=== PATIENT | male | born 1985 | race Caucasian/White ===

== ENCOUNTER 2022-07-05 22:49 | Emergency (ER) | payer OTHER ==
[2022-07-06] MEDS ORDERED: BENZONATATE100 MG PO (00:03)
== END 2022-07-06 00:18 | disposition home or self-care (01) ==
LOC: ED 22:49
DX: J20.9 Acute bronchitis, unspecified (principal); Z20.822 Contact with and (suspected) exposure to COVID-19
CPT/HCPCS: 71045; 87502; 99283-25; C9803; U0003

== ENCOUNTER 2022-09-03 23:26 | Inpatient (IN) | payer OTHER ==
[~2022-09-03] VITALS: Ht 188 cm; Wt 154.1 kg
[~2022-09-03 23:26] MED LIST: BENZONATATE100 MG PO
[2022-09-03] MEDS ORDERED: VENTOLIN HFA18 GM INH (23:49)
[2022-09-03] MEDS ORDERED: FLOVENT HFA12 G1 INH (23:49)
[2022-09-03] MEDS ORDERED: FLUTICASONE PRO16 GM NAS (23:50)
[2022-09-04] VITALS (10 sets, daily range): BP systolic 111–147; BP diastolic 57–79
--- NOTE | 2022-09-04 04:51 | NUR ---
PATIENT ARRIVED TO THE FLOOR VIA STRETCHER. PATIENT ABLE TO AMBULATED A SBA FROM STRETCHER TO HOSPITAL BED. PATIENT DENIES BEING DIZZY OR LIGHT HEADED. PATIENTS VITALS TAKE AND RECORDED. PATIENT UPDATED ON PLAN OF CARE AND ALL QUESTIONS ANSWERED. ASMISSION COMPLETED. ASSESMENT COMPLETED. FIRST UNIT OF PRBC COMPLETED AND 2ND UNIT STARTED.
--- NOTE | 2022-09-04 05:02 | NUR ---
THE FIRST 15MIN OF BLOOD TRASFUSION COMPLETED. NO S/SX NOTED OF TRANSFUSION REACTION. PATIENT DENIES ANY NEEDS. PATIENT IS RESTING IN BED WATCHING TV. CALL LIGHT IN REACH.
--- NOTE | 2022-09-04 05:17 | NUR ---
PATIENT REPORTS COUGH, PRN MEDICATION GIVEN PER ORDER. FRESH ICE WATER AND SODA PROVIDED. PATIENT IS RESTING IN BED AND DENIES ANY FURTHER NEEDS. CALL LIGHT IN REACH. BLOOD INFUSING PER ORDER.
--- NOTE | 2022-09-04 07:15 | NUR ---
PATIENTS 2 UNID OF PRBC COMPLETED INFUSING. FFP STARTED AND FIRST 15 COMPLETED. PATIENT DENIES ANY S/SX OF TRANSFUSION REACTION. PATIENT IS RESTING INBED WATCHING TV. PATIENT DENIES ANY NEEDS. CALL LIGHT IN REACH. IV INFUSING PER ORDER.
--- NOTE | 2022-09-04 07:23 | NUR ---
FFP INFUSING PER PROVIDER ORDER. PATIENT AWAKE, ALERT AND ORIENTED X4. PATIENT IS ON ROOM AIR, RESPIRATIONS NON LABORED, NOTABLE DRY COUGH. PATIENT DENIES SOB. ENCOURAGED PATIENT TO CALL STAFF IF HE HAS ANY NEEDS, CALL LIGHT WITHIN REACH.
--- NOTE | 2022-09-04 08:40 | NUR ---
FRESH FROZEN PLASMA INFUSION COMPLETED AT THIS TIME. PATIENT AWAKE EATING BREAKFAST, NO DISTRESS. PATIENT DENIES PAIN AND OR SHORTNESS OF BREATH. PATIENT REPORTS INTERMITTENT DRY COUGH. NO CURRENT NEEDS. IV SITE REMAINS PATENT.
--- NOTE | 2022-09-04 10:40 | NUR ---
Third unit of blood here per lab. Dr. Huang to review labs and decide as to whether patient to receive third unit prbc's.
--- NOTE | 2022-09-04 11:29 | EKG ---
[facility] [address] [place] [address] Signed Normal sinus rhythm Normal ECG No previous ECGs available Confirmed by Shauna Howard MD () on 09/04/2022 11:29:40 AM Electronically Signed By: SHAUNA HOWARD MD 09/04/22 1129 PATIENT NAME: DEONTE DAVID Electrocardiogram DATE OF : 85 PHYSICIAN: SHAUNA HOWARD MD REPORT #: [id number] REPORT IS CONFIDENTIAL AND NOT TO BE RELEASED WITHOUT AUTHORIZATION
--- NOTE | 2022-09-04 11:44 | NUR ---
CLARIFICATION FROM DR. HOWARD REGARDING ORDERED UNITS OF PACKED RED BLOOD CELLS. PATIENT TO RECEIVE A TOTAL OF FOUR UNITS OF PRBC'S. PATIENT HAS RECEIVED TWO UNITS OF PRBC'S THUS FAR AND TO RECEIVE TWO MORE UNITS PRBC'S TO TOTAL FOUR.
--- NOTE | 2022-09-04 12:00 | NUR ---
MED REC COMPLETE
--- NOTE | 2022-09-04 12:35 | NUR ---
ATTEMPTING SECOND IV SITE AT THIS TIME.
--- NOTE | 2022-09-04 13:00 | NUR ---
THIRD UNIT OF PRBC'S STARTED AT THIS TIME. SECOND RN VERIFICATION WITH ALVARADO MCLEAN PRIOR TO STARTING. VITAL SIGNS STABLE. PATIENT EDUCATED ON S/S OF TRANSFUSION REACTION. THIS RN TO REMAIN WITH PATIENT FOR FIFTEEN MINUTES.
--- NOTE | 2022-09-04 13:24 | NUR ---
PRBC'S CONTINUE TO INFUSE PER PROTOCOL. RATE INCREASED TO 150ML/HR. PATIENT'S VITAL SIGNS ARE STABLE, AFEBRILE. PT DENIES S/S OF TRANSFUSION REACTION. CALL LIGHT WITHIN REACH OF PATIENT. IV SITE PATENT.
--- NOTE | 2022-09-04 14:01 | NUR ---
INTO PATIENT ROOM TO SPEAK WITH PATIENT AND HIS SO TEO WHO IS AT THE BEDSIDE. PATIENT STATES [place] L[place] WITH STEPS LEADING IN. PATIENT STATES THAT PRIOR TO HIS ADMISSION HE WOULD BECOME SHOB WHEN WALKING UP THE STAIRS, WHICH AT THE TIME HE FELT WAS RELATED TO HIS BRONCHITIS. PATIENT DOES NOT REQUIRE ANY DME OR FINANCIAL ASSISTANCE AT THIS TIME. 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 DEMOGRAPHICS UPDATED WITH ADMITTING. CONTACT INFORMATION FOR TEO [phone] (CELL) AND [phone] (HOME).
--- NOTE | 2022-09-04 16:02 | NUR ---
THIRD UNIT OF PRBC'S COMPLETED AT THIS TIME. PATIENT'S VITAL SIGNS ARE STABLE, AFEBRILE. CALL LIGHT WITHIN REACH.
--- NOTE | 2022-09-04 16:55 | NUR ---
PLATELETS STARTED AT THIS TIME PER PROVIDER ORDER. PATIENT'S VITAL SIGNS ARE STABLE, AFEBRILE.
--- NOTE | 2022-09-04 18:03 | NUR ---
ROBITUSSIN AC 5ML ADMIN FOR REPORTS OF COUGH.
--- NOTE | 2022-09-04 19:20 | NUR ---
RECEIVED REPORT FROM DAY SHIFT RN. PATIENT IS RESTING IN BED WATCHING TV. UPDATED PATIENT ON PLAN OF CARE ALL QUESTIONS ANSWERED. CALL LIGHT IN REACH.
--- NOTE | 2022-09-04 20:50 | NUR ---
PATIENTS VITAS TAKEN AND RECORDED. PATIENTS INTAKE AND OUTPUT RECORDED. PATIENT DENIES ANY PAIN. PATIENTS PRBC STARTED AT APPROX 2020 AND 15MIN MONITORING COMPLETED. PATIENT DENIES ANY S/SX OF TRANSFUSION REACTION. PATIENT DENIES ANY FURTHRE NEEDS. CALL LIGTH IN REACH. BLOOD INFUSING PER ORDER.
--- NOTE | 2022-09-04 21:54 | NUR ---
PATIENT IS RESTING IN BED WITH EYES CLSOED, RR 17. CALL LIGHT IN REACH. BLOOD INFUSING PER ORDER.
--- NOTE | 2022-09-04 22:45 | NUR ---
PATIENTS BLOOD TRANSFUSION COMPLETED. VITALS TAKEN ANDS RECORDED. PATIENT MARIPOSA ANY S/SX OF TRANSFUSION REACTION. PATIENT IS NOW SL PER ORDER. PATIENT DENIES ANY FURTHER NEEDS. CALL LIGHT IN REACH.
--- NOTE | 2022-09-05 00:23 | NUR ---
URINAL EMPTIED. PATIENT IS RESTING IN BED. PATIENT DENIES ANY NEEDS. CALL LIGHT IN REACH.
[2022-09-05 01:49] VITALS: BP 15/76
--- NOTE | 2022-09-05 02:19 | NUR ---
PATIENTS VITALS TAKEN AND RECORDED. INTAKE AND OUTPUT RECORDED. PATIENT DENIES ANY PAIN. PATIENT DENIES ANY NEEDS. CALL LIGHT IN REACH.
--- NOTE | 2022-09-05 04:18 | NUR ---
PATIENT IS RESTING IN BED WATCHING TV. TELE BATTERY CHANGED. PATIENT PROVIDED WITH COFFEE PER REQUEST. PATIENT DENIES ANY FURTHER NEEDS. CALL LIGHT IN REACH.
[2022-09-05 05:12] VITALS: BP 132/79
--- NOTE | 2022-09-05 05:27 | NUR ---
PATIENTS VITALS TAKEN AND RECORDED. INTAKE AND OUTPUT RECORDED. PATIENT DENIES ANY NEEDS. CALL LIGHT IN REACH.
--- NOTE | 2022-09-05 05:55 | NUR ---
PATIENT IS RESTING IN BED WATCHING TV. PATIENT DENIES ANY NEEDS. CALL LIGHT IN REACH.
--- NOTE | 2022-09-05 07:30 | NUR ---
Got report from production supervisor off shift nurse. Patient is currently asleep in bed. Call light within reach.
[2022-09-05 09:29] VITALS: BP 145/78
--- NOTE | 2022-09-05 09:59 | NUR ---
Patient up and walking the hallway with . Patient wanted to wear his own clothes and this nurse helped him change.
--- NOTE | 2022-09-05 10:45 | NUR ---
Vitals taken and patient platlets are started. See blood administation charting. Paperwork done.
--- NOTE | 2022-09-05 11:30 | NUR ---
Spoke with patient and his Noemi. Plan to dc today. They deny needs and per Dr. Huang he spoke with Dr. Fox from oncology and he will follow up with this pt. I called and spoke with Sonal Edward from [facility] and scheduled pt to be see 09/11/22 at 10:00. Entered appt into the dc instructions and notified the pt. Will fu with Dr. Huang when he finishes in CCU.
--- NOTE | 2022-09-05 12:10 | NUR ---
3 units of platlets infused. No complications or reactions. See Blood administration charting.
[2022-09-05 13:32] VITALS: BP 118/72
--- NOTE | 2022-09-05 13:39 | NUR ---
Into check on patient. Patient currently sitting on the side of the bed. Patient is ready to go home. Advised patient that we are waiting for labs to come back and then will go from there. Pt agrees to plan.
[2022-09-05] MEDS ORDERED: ALLOPURINOL300 MG PO (14:45)
--- NOTE | 2022-09-05 15:15 | NUR ---
PATIENT READY TO GO HOME. TO TAKE PATIENT HOME WITH SON. BOTH IV'S HAVE BEEN REMOVED. BELONGINGS WITH PATIENT. EDUCATION DONE AND GIVEN WRITTEN PAPERS TO PATIENT. PATIENT DENIES ANY NEEDS AT THIS TIME. NO CONCERNS.
--- NOTE | 2022-09-05 15:27 | NUR ---
Entire chart printed and [facility] to [facility] to
== END 2022-09-05 15:15 | disposition home or self-care (01) | DRG 835 ==
LOC: ED 23:26 → MS 09-04 03:10
PROVIDERS: ADMIT Family Medicine; ATTEND Family Medicine
PROC: 30233K1 Transfusion of Nonautologous Frozen Plasma into Peripheral Vein, Percutaneous Approach (ICD-10-PCS; 2022-09-04)
PROC: 30233L1 Transfusion of Nonautologous Fresh Plasma into Peripheral Vein, Percutaneous Approach (ICD-10-PCS; 2022-09-04)
PROC: 30233R1 Transfusion of Nonautologous Platelets into Peripheral Vein, Percutaneous Approach (ICD-10-PCS; principal; 2022-09-05)
PROC: 30233N1 Transfusion of Nonautologous Red Blood Cells into Peripheral Vein, Percutaneous Approach (ICD-10-PCS; 2022-09-05)
DX: C92.00 Acute myeloblastic leukemia, not having achieved remission (principal); N17.9 Acute kidney failure, unspecified; Z20.822 Contact with and (suspected) exposure to COVID-19; D69.59 Other secondary thrombocytopenia; D63.0 Anemia in neoplastic disease; E87.6 Hypokalemia; J40 Bronchitis, not specified as acute or chronic; F17.200 Nicotine dependence, unspecified, uncomplicated; R73.9 Hyperglycemia, unspecified; Z79.51 Long term (current) use of inhaled steroids; Z79.899 Other long term (current) drug therapy
CPT/HCPCS: 36415; 71045; 74177; 80053; 80074; 81001; 82728; 82977; 83036; 83735; 84443; 84484; 85025; 85045; 85060; 85610; 86850; 86900; 86901; 86922; 87502; 93005; 93010; 94640; 94760; C9113; J3480; J3490; J7030; J7060; P9035; P9059; Q9967; U0003

== ENCOUNTER 2022-09-14 09:50 | Day surgery (SDC) | payer OTHER ==
[2022-09-12 08:21] VITALS: BP 123/84
[~2022-09-14] VITALS: Ht 188 cm; Wt 152.3 kg
[~2022-09-14 09:50] MED LIST changes: +ALLOPURINOL300 MG PO; +AUGMENTIN 500-1 EACH PO; +CIPRO500 MG PO; +FLOVENT HFA12 G1 INH; +FLUTICASONE PRO16 GM NAS; +VENTOLIN HFA18 GM INH
[2022-09-14 10:03] VITALS: BP 130/75
--- NOTE | 2022-09-14 12:30 | NUR ---
09/14/22 1230 Sheets,[place] 1218 PT ARRIVED TO PACU ON 10L VIA MASK, ORAL AIRWAY IN PLACE. PT ASLEEP AND RESP EVEN AND UNLABORED. 1220 PT OPENED HIS EYES AND ORAL AIRWAY REMOVED BY RETAIL OFFICE ASSOCIATE. PT DENIES CONCERNS, PT REPORTS BEING DROWSY. 1228 PT ROLLED TO SIDE AND O2 MASK REMOVED. PT DENIES PAIN AND NAUSEA.
[2022-09-14 12:54] VITALS: BP 142/82
--- NOTE | 2022-09-21 17:56 | PATH ---
[facility] [address] [place], [place] [address] Signed THIS IS AN ADDENDUM REPORT SPECIMEN(S): A BONE MARROW - DECAL CLINICAL HISTORY: 36-year-old male with leukocytosis, anemia, low platelets, diffuse mucosal petechiae. 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 - Marked monocytosis with atypical morphology. - Eosinophilia with atypical morphology. - Moderate to severe normocytic normochromic anemia. - Marked thrombocytopenia. Bone marrow aspirate and core biopsy: - Acute myeloid leukemia with monocytic differentian. - Please see Diagnostic Comment. DIAGNOSTIC COMMENT: The bone marrow is hypercellular approaching 100% cellularity in some areas with an increased number of immature cells/blasts present. Increased number of monocytic cells with many immature forms is also noted. Concurrent flow cytometry analysis identified 16% myeloblasts and expanded monocytoid population with atypical features and phenotype that could include monoblasts and promyelocytes (blast equivocals). Peripheral blood also shows 22% blasts and blasts equivocals including many immature monocytoid cells. Blast estimation by CD34 immunohistochemical stain on core biopsy is about 15%. The aspirate smears are acellular and inadequate and a blast count could not be performed. 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 Cytogenetics and NGS myeloid panel are pending and will be reported in an addendum. PATIENT NAME: DEONTE DAVID PATHOLOGY DATE OF : [birth year] REPORT #: [id number] PHYSICIAN: JESSICA PATHOLOGY PCP: ANYA ALLAN MD REPORT IS CONFIDENTIAL AND NOT TO BE RELEASED WITHOUT AUTHORIZATION [facility] [address], [place] [address] Signed Findings discussed with Dr. Fox on Sunday09/18/22. NA:smn:C1NR PERIPHERAL BLOOD: HEMOGRAM ([facility], 09/14/2022): WBC 18.3 K/uL, RBC 2.40 M/uL, HGB 7.3 g/dL, HCT 21.5%, MCV 89.5 fL, MCH 30.3 pg, MCHC 33.9 g/dL, RDW 15.2%, PLT 22 K/uL. DIFFERENTIAL COUNT (manual): 10% blasts, 12% promonocytes, 2% myelocytes, 18% segmented neutrophils, 20% lymphocytes, 31% monocytes, 6% eosinophils, 1% basophils. Review of peripheral blood smear and CBC data demonstrates that the WBCs are increased in number with monocytosis present. A circulating population of blasts is present. The blasts have high N:C ratio with irregular nuclear contour, fine chromatin and occasional nucleoli. Immature monocytes/promonoblasts are also seen. The eosinophils are increased with occasional eosinophils show atypical basophilic granules. The RBCs are decreased in number and are normocytic, normochromic with moderate to severe anemia present. The platelets are also markedly decreased in number. BONE MARROW: BONE MARROW ASPIRATE SMEARS: The bone marrow aspirate smears are acellular with no bone marrow particles present. Smears are not adequate for evaluation. BONE MARROW CORE BIOPSY: The bone marrow core biopsy demonstrates hypercellular bone marrow with average cellularity approaching 100%. There is increase in immature cells with monocytic differentiation noted. In the background, scattered maturing myeloid precursors and increased number of eosinophils are noted. The megakaryocytes are scattered and appear decreased in number with occasional hyperchromatic forms encountered. There are no lymphoid aggregates, granulomas or metastatic tumor cells present. SPECIAL STAINS (performed with appropriate reactive control): - Iron (aspirate smear): Absent (no bone marrow particles). - Iron (block A1): Storage iron present; negative for ring sideroblasts. - Reticulin (block A1): Moderate increase in bone marrow reticulin fibrosis (MF-2). IMMUNOHISTOCHEMICAL STAINS (performed on block A1 with appropriate reactive control): - CD34: Highlights increased number of immature cells/blasts (10-15%). - CD117: Highlights increased number of immature cells/blasts (20%). - CD71: Highlights scattered erythroid precursors, decreased. PATIENT NAME: DEONTE DAVID PATHOLOGY DATE OF : [birth year] REPORT #: [id number] PHYSICIAN: JESSICA PATHOLOGY PCP: ANYA ALLAN MD REPORT IS CONFIDENTIAL AND NOT TO BE RELEASED WITHOUT AUTHORIZATION [facility] [address] [facility] [place], [place] [address] Signed - Myeloperoxidase: Highlights myeloid precursors and is positive in a subset of blasts. - Factor VIII: Highlights scattered few megakaryocytes, decreased. - CD163: Highlights increased number of monocytes. NA:[facility] FLOW CYTOMETRY: FLOW CYTOMETRY, PERIPHERAL BLOOD: - 12% myeloblasts. - Expanded monocytic population (52%) with atypical phenotype. - No aberrant T or B-cell population detected. - Please see Comment. COMMENT: 12% myeloblasts which are positive for CD34, CD117, HLA-DR and MPO (subset). Expanded monocytoid population (32%), with atypical phenotype is detected, which may include monoblasts and promonocytes (blasts equivalents). Findings are concerning for acute myeloid leukemia with monocytic differentiation and morphologic correlation is needed for a more accurate assessment of blast burden. The findings are similar to the previous phenotype ([id number], 09/04/22). Correlation with morphologic and molecular findings is needed for full assessment. FLOW CYTOMETRY ANALYSIS: FLOW DIFFERENTIAL (% Total CD45 vs. SSC gating): Myeloid 18%; Lymphoid 10%; Monocyte 52%; Dim CD45/Blast: 12%. Cell Count: 1.2 x 10*3/uL. POPULATION ANALYSIS: BLASTS: Analysis of the dim CD45 gate demonstrates 12% myeloblasts expressing CD45 DIM, CD34 MOD, CD117 DIM, CD33 DIM, CD13 MOD, CD38 DIM, HLA-DR (variable), and cMPO (in minor subset) while negative for CD14, CD15, CD16, CD56, CD2, CD3, CD4, CD5, CD7, CD10, CD19, CD20, CD64, CD11c, CD11b, MY4, MO2, nTDT, cCD22, cCD3, cCD79a, and other antigens as tested. LYMPHOID CELLS: The lymphocyte gate comprises 10% of total events and includes 79% T-cells with a CD4:CD8 ratio of 2.2:1 and normal andujar T-cell antigen expression. 9% of lymphocytes are polyclonal B-cells with a kappa:lambda ratio of 1.4:1. The remainders are NK-cells. MYELOID CELLS: The myeloid population comprises 18% of the total events. No aberrant or immature immunophenotypic expression is detected. MONOCYTES: An expanded atypical monocytic population comprises 52% of the total events demonstrating increased expression with CD56, CD16, and CD15; and with decreased expression with CD14 and HLA-DR. PATIENT NAME: DEONTE DAVID PATHOLOGY DATE OF : [birth year] REPORT #: [id number] PHYSICIAN: JESSICA PATHOLOGY PCP: ANYA ALLAN MD REPORT IS CONFIDENTIAL AND NOT TO BE RELEASED WITHOUT AUTHORIZATION [facility] [address], [place] [address] Signed PLASMA CELLS: A significant plasma cell population is not detected in the neg-dimCD45/CD38 screening gate. ANTIBODIES USED: Initial Antibodies Used: KAPPA, LAMBDA, CD20, CD10, CD19, CD23, CD38, CD16, CD56, CD8, CD5, CD2, CD4, CD7, CD3, CD14, CD33, CD13, HLADR, CD34, CD117, CD15, CD45. Additional Antibodies (necessary for further blast classification): nTDT, cMPO, cCD79a, cCD22, cCD3, my4, mo2, CD11c, CD11b, CD64. Total Antibodies Used: 33. TCS FINAL DIAGNOSIS PERFORMED BY: Donavan Dixon MD, Sep 19 2022 1:35PM FLOW CYTOMETRY, BONE MARROW ASPIRATE: - 16% myeloblast, - Expanded monocytic population (32%) with atypical phenotype. - No aberrant T or B-cell population detected. - Please see Comment. COMMENT: 16% myeloblasts which are positive for CD34, CD117, HLA-DR and MPO (subset). Expanded monocytoid population (32%), with atypical phenotype is detected, which may include monoblasts and promonocytes (blasts equivalents). Findings are concerning for acute myeloid leukemia with monocytic differentiation and morphologic correlation is needed for a more accurate assessment of blast burden. The phenotype is similar to the peripheral blood findings. Correlation with morphologic and molecular findings is needed for full assessment. FLOW CYTOMETRY ANALYSIS: FLOW DIFFERENTIAL (% Total CD45 vs. SSC gating): Myeloid 35%; Lymphoid 6%; Monocyte 32%; Dim CD45/Blast: 16%. Cell Count: 5.8 x 10*3/uL. POPULATION ANALYSIS: BLASTS: Analysis of the dim CD45 gate demonstrates 16% myeloblasts by CD34/CD117 expressing CD45 DIM, CD34 MOD, CD117 DIM, CD33 DIM, CD13 MOD, CD38 DIM, HLA-DR (variable), and cMPO (in minor subset) while negative for CD14, CD15, CD16, CD56, CD2, CD3, CD4, CD5, CD7, CD10, CD19, CD20, CD64, CD11c, CD11b, MY4, MO2, nTDT, cCD22, cCD3, cCD79a, and other antigens as tested. LYMPHOID CELLS: The lymphocyte gate comprises 6% of total events and includes 71% T-cells with a CD4:CD8 ratio of 1.5:1 and normal andujar T-cell antigen expression. 18% of lymphocytes are polyclonal B-cells with a kappa:lambda ratio of 1.3:1. The remainders are NK-cells. PATIENT NAME: DEONTE DAVID PATHOLOGY DATE OF : [birth year] REPORT #: [id number] PHYSICIAN: JESSICA LIZARRAGA PCP: ANYA ALLAN MD REPORT IS CONFIDENTIAL AND NOT TO BE RELEASED WITHOUT AUTHORIZATION [address] [address] Signed MYELOID CELLS: The myeloid population comprises 35% of the total events. No aberrant or immature immunophenotypic expression is detected. MONOCYTES: An expanded atypical monocytoid population comprises 32% of the total events demonstrating increased expression with CD2, CD16 and CD15; with decreased CD14 and HLA-DR. PLASMA CELLS: 0.3% plasma cells are detected in the screening gate neg-dimCD45/CD38. Plasma cells are CD45 dim and positive for CD19. MAST CELLS: 1% mast cells are observed without co-expression of CD2 or CD25. ANTIBODIES USED: Initial Antibodies Used: KAPPA, LAMBDA, CD20, CD10, CD19, CD23, CD38, CD16, CD56, CD8, CD5, CD2, CD4, CD7, CD3, CD14, CD33, CD13, HLADR, CD34, CD117, CD15, CD45. Additional Antibodies (necessary for further blast and mast cell analysis): nTDT, cMPO, cCD79a, cCD22, cCD3, my4, mo2, CD11c, CD11b, CD64, CD25. Total Antibodies Used: 34. TCS FINAL DIAGNOSIS PERFORMED BY: Donavan Dixno MD, Sep 19 2022 1:39PM CYTOGENETICS: Pending, to be reported by addendum. FISH ANALYSIS: FISH (fluorescence in situ hybridization) RESULT: Detected INTERPRETATION: PML/MARYLU rearrangement: Not detected. CBFB rearrangement: Detected. LIXV7F2/RUNX1 rearrangement: Not detected. KMT2A (MLL) rearrangement: Not detected. 7q deletion/monosomy 7: Not detected. Trisomy 8: Not detected. 20q deletion: Not detected. Fluorescence in situ hybridization (FISH) analysis was performed using the AML panel specific set of probes. 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 There is no evidence for PML/MARYLU gene fusion, t(15;17) or WOMF0Y2/RUNX1 gene fusion, t(8;21) or KMT2A (MLL) gene rearrangement and no evidence for deletion 7q, or 20q, or monosomy 7 or trisomy 8. 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 FISH should be interpreted within the context of a full cytogenetic analysis and hematologic evaluation. ISCN: Probe Set Detail: PML/MARYLU: nuc sari 15q24.1(PMLx2),17q21.1(RARAx2)[200] CBFB: nuc sari 16q22(5'CBFBx2)(3'CBFBx1)(5'CBFB con 3'CBFBx1)[174/200] SAXR4R3/RUNX1: nuc sari 8q21 (DXVP6O6t2),21q22(AUWD6j0)[200] KMT2A (MLL): nuc sari 11q23(5'KMT2A,3'KMT2A)x2(5'KMT2A con 3'WJQ8Ui7)[200] R4A050/CEP7: nuc sair 7q31(S4E326l0),7q11.2q11.21(CEP7x2)[200] CEP8: nuc sari 8q11.1q11.21(CEP8x2)[200] S98H374: nuc sari 20q12(T54I439y4)[200] References: Turner of Genetics and Cytogenetics in Oncology and Hematology [email or web address] FISH Analysis Summary: Nuclei Scored: 200 Scoring Method: Manual; CPT Code 07646 Number of Probe units: 6 Multiplex Cells analyzed: Interphase Probe sets: Chrom 7: CEN7, Chrom 7: Y9Q5235, Chrom 8: SWAPNIL 8 , Chrom 8: JEJU0X3, Chrom 11: KMT2A (MLL) 3', Chrom 11: KMT2A (MLL) 5', Chrom 15: PML, Chrom 16: CBFB 3', Chrom 16: CBFB 5', Chrom 17: MARYLU, Chrom 20: J80H146, Chrom 21: RUNX1 MOLECULAR / PCR: Pending, to be reported by addendum. GROSS DESCRIPTION: The specimen, labeled and designated "David, bone marrow core biopsy," is received in formalin and consists of a red-marino core of bone (1.2 cm in length x 0.2-0.3 cm in diameter). The specimen is submitted entirely in cassette (A1) following decalcification in Immunocal. A separate container was received empty with a crossed off 0 (0/clot) written on the label. Per req "limited aspirate 0/clot." VB (under the direct supervision of a pathologist) The Gross Description was prepared using a voice recognition system. The report was reviewed for accuracy; however, sound-alike word errors, addition and/or PATIENT NAME: DEONTE DAVID PATHOLOGY DATE OF : [birth year] REPORT #: [id number] PHYSICIAN: JESSICA LIZARRAGA PCP: ANYA ALLAN MD REPORT IS CONFIDENTIAL AND NOT TO BE RELEASED WITHOUT AUTHORIZATION [facility] [address], [place] [address] Signed deletions may occur. If there is any question about this report, please contact Client Services. ADDITIONAL NOTES: Immunohistochemical and/or in situ hybridization studies were performed on this case with the appropriate positive controls that react as expected. This test was developed and its performance characteristics determined by [employer]. It has not been cleared or approved by the U.S. Food and Drug Administration. The FDA has determined that such clearance or approval is not necessary. This test is used for clinical purposes. It should not be regarded as investigational or for research. [employer] is certified under the Clinical Laboratory Improvement Amendments of 1988 (CLIA) as qualified to perform high complexity clinical laboratory testing. This assay has not been validated for specimens that have been decalcified. In this case, certain antibodies were performed by both immunohistochemistry and flow cytometry analysis because flow cytometry analysis did not fully explain all the light microscopic findings. Immunohistochemistry aided in the analysis. Both methods are deemed medically necessary in this case. This test was developed and its performance characteristics determined by [employer] It has not been cleared or approved by the US Food and Drug Administration. The [employer] probe vendor for this study was [employer]. This test was developed and its performance characteristics determined by [employer]. It has not been cleared or approved by the US Food and Drug Administration. The FDA does not require this test to go through premarket FDA review. This test is used for clinical purposes. It should not be regarded as investigational or for research. This laboratory is certified under the Clinical Laboratory Improvement Amendments (CLIA) as qualified to perform high complexity clinical laboratory testing. PERFORMING LABORATORY: The technical preparation was performed by [facility], [address] [place] [address] (CLIA#: [id number]). Professional interpretation was performed by [employer], [address] [place] [address] (CLIA# [id number]). The technical component of the FISH testing was performed by [employer], [address] [place] [address] (CLIA#: PATIENT NAME: DEONTE DAVID PATHOLOGY DATE OF : [birth year] REPORT #: [id number] PHYSICIAN: JESSICA LIZARRAGA PCP: ANYA ALLAN MD REPORT IS CONFIDENTIAL AND NOT TO BE RELEASED WITHOUT AUTHORIZATION [address] [address] Signed [id number]). Professional interpretation was performed by [facility], [address] [facility] [place] [address] (CLIA#: [id number]). FINAL DIAGNOSIS PERFORMED BY: Varun Thao MD. MPH, Pathologist Sep 19 2022 4:43PM The technical component was performed by [employer], [address] [place] [address] (CLIA# [id number]). Professional interpretation was performed by [employer], [address] [place] [address] (CLIA# [id number]). IMAGES: A: [id number] A: [id number] A: [id number] A: 55 BM_002 A: CBFB 1R1F_001 A: CBFB 1R1F_002 A: CBFB 1R1F_003 REASON FOR ADDENDUM: To report results of external testing. Peripheral Blood, Molecular Genetics FLT3 Mutation Analysis Results: FLT3 Mutation: Not Detected FLT3-ITD Mutation: Not Detected FLT3-TKD Mutation: Not Detected Clinical Significance: FLT3 internal tandem duplications (ITD) occur in approximately 25% of acute myeloid leukemia (AML) patients; while FLT3 tyrosine kinase domain (TKD) mutations occur in 5-10% of AML patients. Midostaurin and gilteritinib are FDA-approved for AML with FLT3-ITD and TKD mutations (PMID:66334621, PMID:29664186). FLT3 mutations are frequently associated with leukocytosis. Testing for FLT3-ITD and NPM1 mutations in AML patients with normal or intermediate-risk cytogenetic abnormalities can help risk stratify patients as favorable, intermediate or poor risk, depending on the specific combination of findings. According to 2017 ELN guidelines for AML, the presence of high FLT3-ITD allelic ratio is a poor risk unless there is a concurrent NPM1 mutation, in which case it is intermediate risk. Wild-type NPM1 without FLT3-ITD or with low FLT3-ITD allelic ratio is intermediate risk. Mutated NPM1 without PATIENT NAME: DEONTE DAVID PATHOLOGY DATE OF : [birth year] REPORT #: [id number] PHYSICIAN: JESSICA PATHOLOGY PCP: ANYA ALLAN MD REPORT IS CONFIDENTIAL AND NOT TO BE RELEASED WITHOUT AUTHORIZATION [facility] [address] [facility] [place] [address] Signed FLT3-ITD or with low FLT3-ITD allelic burden is favorable risk. However, some studies have shown that NPM1-mutated, FLT3-ITD low allelic burden patients have inferior survival compared to other favorable risk patients. The prognostic significance of a FLT3 TKD mutation is less well-defined than that of FLT3-ITD. Methodology: DNA is isolated from the patient sample, and the two FLT3 sequences of interest are PCR-amplified using fluorescently labeled primers. The TKD PCR product is cut with the EcoRV restriction enzyme and detects variants D835 and I836. The ITD and the digested TKD PCR products are run on an [id number] genetic analyzer to determine the size of the amplified DNA fragments, which are compared to expected values for known wildtype and mutant sequences. Wildtype ITD produces a fragment approximately 327 +/- 1 bp, while the presence of an insertion produces a fragment >/=330 bp. The FLT3 wildtype and the ITD peak size and peak height are evaluated and used for calculation of allelic ratio (FLT3-ITD/wildtype). FLT3-ITD allelic ratio =0.5 is high. This assay is validated to detect ITD insertions of up to 234bp in size that comprise at least 2.5% of FLT3 alleles tested, and to detect TKD mutations that comprise at least 7.5% of FLT3 alleles tested. References: 1. NCCN Clinical Practice Guidelines in Oncology (NCCN Guidelines): Acute Myeloid Leukemia. Version 1.2018 The Accessioning Component, Technical Component Processing, Analysis and Professional Component of this test was completed at [facility], [address] [place] [address], [place] / [id number] / [phone] / BRETTIA # [id number] / Cement Block Maker(s): Adam Poe M.D. (Accession / CaseNo: [id number] / [id number]) The performance characteristics of this test have been determined by [facility]. This test has not been approved by the FDA. The FDA has determined such clearance or approval is not necessary. This laboratory is CLIA certified to perform high complexity clinical testing. Images that may be included within this report are territory sales representative of the patient but not all testing in its entirety and should not be used to render a result. The CPT codes provided with our test descriptions are based on [employer] and AMA guidelines and are for informational purposes only. Correct CPT coding is the sole responsibility of the billing green party. Please direct any questions regarding coding to the payer being billed. PATIENT NAME: DEONTE DAVID PATHOLOGY DATE OF : [birth year] REPORT #: [id number] PHYSICIAN: JESSICA PATHOLOGY PCP: ANYA ALLAN MD REPORT IS CONFIDENTIAL AND NOT TO BE RELEASED WITHOUT AUTHORIZATION [facility] [address] [place] [address] Signed Diagnostician: Donavan Dixon MD Pathologist Electronically Signed 09/21/2022 Copies: ~ PATIENT NAME: DEONTE DAVID PATHOLOGY DATE OF : [birth year] REPORT #: [id number] PHYSICIAN: JESSICA PATHOLOGY PCP: ANYA ALLAN MD REPORT IS CONFIDENTIAL AND NOT TO BE RELEASED WITHOUT AUTHORIZATION
== END 2022-09-14 13:06 | disposition home or self-care (01) ==
LOC: DS 09:50 → OPS 09:50 → DS 12:00 → OPS 12:00
PROVIDERS: ATTEND Specialist
PROC: 079T3ZX Drainage of Bone Marrow, Percutaneous Approach, Diagnostic (ICD-10-PCS; principal; 2022-09-14 12:00)
DX: C92.01 Acute myeloblastic leukemia, in remission (principal); Z79.899 Other long term (current) drug therapy
CPT/HCPCS: 01112; 36415; 85007; 85025; J2704; J7121

== ENCOUNTER 2022-11-23 17:02 | Inpatient (IN) | payer OTHER ==
[~2022-11-23] VITALS: Ht 188 cm; Wt 140.6 kg
--- OUTSIDE RECORDS SUMMARY | ~2022-11-23 | XMS | Continuity of Care Document ---
Demographics + + + | Address | [address] | | | [place] [address] | + + + | Preferred Language | Unknown | + + + | Marital Status | | + + + | Evangelical Affiliation | Unknown | + + + | Race | White | + + + | Ethnic Group | Not or | + + + Author + + + | Author | [facility] | + + + | Organization | [facility] | + + + | Address | [address] | | | [place] [address] | + + + | Phone | | + + + Care Team Providers + + + + | [facility] [employer] Utility Worker Name | Role | Phone | + [...] facility | + + + + | 2022-09-05 00:00 | FLUTICASONE PROPIONATE 50 | [facility] | | | MCG | | + + + + | 2022-09-05 00:00 | ALLOPURINOL | [facility] | + + + + | 2022-09-05 00:00 | ALLOPURINOL | [facility] | + + + + | 2022-09-05 00:00 | ALLOPURINOL | [facility] | + + + + | 2022-07-06 00:00 | BENZONATATE | [facility] | + + + + | 2022-07-06 00:00 | BENZONATATE | [facility] | + + + + | 2022-07-06 00:00 | BENZONATATE | [facility] | + + + + | 2022-09-14 00:00 | CIPROFLOXACIN HCL | [facility] | + + + + | 2022-09-18 00:00 | CIPROFLOXACIN HCL | [facility] | + + + + | 2022-09-14 00:00 | Amoxicillin/Potassium Clav | [facility] | | | | | + + + + | 2022-09-18 00:00 | Amoxicillin/Potassium Clav | [facility] | | | | | + + + + | 2022-09-05 00:00 | ALBUTEROL SULFATE | [facility] | + + + + | 2022-09-09 00:00 | ALBUTEROL SULFATE | [facility] | + + + + | 2022-09-14 00:00 | ALBUTEROL SULFATE | [facility] | + + + + | 2022-09-18 00:00 | ALBUTEROL SULFATE | [facility] | + + + + | 2022-09-05 00:00 | FLUTICASONE PROPIONATE 220 | [facility] | | | MCG | | + + + + | 2022-09-14 00:00 | FLUTICASONE PROPIONATE 220 | [facility] | | | MCG | | + + + + | 2022-09-18 00:00 | FLUTICASONE PROPIONATE 220 | [facility] | | | MCG | | + + + + Problems + + + + | date | description | facility | + + + + | 2022-07-05 00:00 | Acute bronchitis | [facility] | + + + + | 2022-07-05 00:00 | Acute bronchitis | [facility] | + + + + | 2022-07-05 00:00 | Acute bronchitis | [facility] | + + + + | 2022-07-05 22:50 | ACUTE BRONCHITIS, | [facility] | | | UNSPECIFIED | | + + + + | 2022-07-05 22:50 | COUGH, UNSPECIFIED | [facility] | + + + + | 2022-09-04 00:00 | Anemia | [facility] | + + + + | 2022-09-04 00:00 | Anemia | [facility] | + + + + | 2022-09-04 00:00 | Anemia | [facility] | + + + + | 2022-09-04 00:00 | Thrombocytopenia | [facility] | + + + + | 2022-09-04 00:00 | Thrombocytopenia | [facility] | + + + + | 2022-09-04 00:00 | Thrombocytopenia | [facility] | + + + + | [...] + + + | 2022-09-04 03:10 | SENIOR CARE (CURRENT) USE OF | [facility] | | | INHALED STEROIDS | | + + + + | 2022-09-04 03:10 | OTHER CASE WORKER (CURRENT) | [facility] | | | 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 | | + + + + | 2022-09-09 00:00 | [facility] | + + + + | 2022-09-09 00:00 | Weakness | [facility] | + + + + | 2022-09-09 [...] + + | 2022-09-09 10:45 | OTHER SENIOR CARE (CURRENT) | [facility] | | | 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 | | + + + + | 2022-09-14 09:50 | ACUTE MYELOBLASTIC | [facility] | | | LEUKEMIA, IN REMISSIO | | + + + + | 2022-09-14 09:50 | ACUTE MYELOBLASTIC | [facility] | | | LEUKEMIA, IN REMISSION | | + + + + | 2022-09-14 09:50 | OTHER SENIOR CARE (CURRENT) | [facility] | | | 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 | | + + + + | 2022-09-18 00:00 | Hemoptysis | [facility] | + + + + | [...] + + | 2022-09-18 12:43 | OTHER CASE WORKER (CURRENT) | [facility] | | | DRUG [...] REMISSION | | + + + + Procedures + + + + | date | description | facility | + + + + | 2022-09-04 00:00 | TRANSFUSE NONAUT FROZEN | [facility] | | | PLASMA IN PERIPH VEIN, PERC | | | | | | + + + + | 2022-09-04 00:00 | TRANSFUSE NONAUT FROZEN | [facility] | | | PLASMA IN PERIPH VEIN, PERC | | | | | | + + + + | 2022-09-04 00:00 | TRANSFUSE NONAUT FRESH | [facility] | | | PLASMA IN PERIPH VEIN, PERC | | | | | | + + + + | 2022-09-04 00:00 | TRANSFUSE NONAUT FRESH | [facility] | | | PLASMA IN [facility] VEIN, PERC | | | | | | + + + + | 2022-09-05 00:00 | TRANSFUSE NONAUT RED BLOOD | [facility] | | | CELLS IN [facility] VEIN, PERC | | | | | | + + + + | 2022-09-05 00:00 | TRANSFUSE NONAUT RED BLOOD | [facility] | | | CELLS IN [facility] VEIN, PERC | | | | | | + + + + | 2022-09-05 00:00 | TRANSFUSE NONAUT PLATELETS | [facility] | | | IN [facility] VEIN, PERC | | + + + + | 2022-09-05 00:00 | TRANSFUSE NONAUT PLATELETS | [facility] | | | IN PERIPH VEIN, PERC | | + + + + | 2022-09-14 00:00 | Aspiration, bone marrow, | [facility] | | | with biopsy | | + + + + | 2022-09-14 00:00 | Aspiration, bone marrow, | [facility] | | | with biopsy | | + + + + | 2022-09-14 00:00 | Aspiration, bone marrow, | [facility] | | | with biopsy | | + + + + | 2022-09-14 00:00 | Aspiration, bone marrow, | [facility] | | | with biopsy | | + + + + Results/Labs +--------+--------+ +---------+--------+---------+ | test | date | facility | value | unit | notes | +--------+--------+ +---------+--------+---------+ + + | Result panel 1 | + + + + + + + + + | | 2022-07-05 | [facility] | NEGATIVE | (missing) | (missing) | [...] 6 | + + + + + +--------+ + + | | 2022-09-04 | [facility] | 14.2 | (missing) | (missing) | | (unavailable | 00:10:07 [facility] | | | | + + + +--------+ + + + + | Result panel 7 | + + + + + +--------+ + + | | 2022-09-04 | [facility] | 1.15 | (missing) | (missing) | | (unavailable | 00:10:07 [facility] | | | | + + + +--------+ + + + + | Result panel 8 | + + + + + +-------+ + + | | 2022-09-04 | [facility] | 5.3 | (missing) | (missing) | | (unavailable | 00:10:07 | [facility] | | | | + + + +-------+ + + + + | Result panel 9 | + + + + + +------+ + + | | 2022-09-04 | [facility] | 34 | (missing) | (missing) | | (unavailable | 00:10:07 | [facility] | | | | + + + +------+ + + + + | Result panel 10 | + + + + + + + + + | | 2022-09-04 | [facility] | PRESENT | (missing) | (missing) | | (unavailable | 00:10:07 [facility] | | | | + + + + + + + + + | Result panel 11 | + + + + + +--------+ + + | | 2022-09-04 | [facility] | 14.2 | (missing) | (missing) | | (unavailable | 00:10:07 [facility] | | | | + + + +--------+ + + + + | Result panel 12 | + + + + + +--------+ + + | | 2022-09-04 | [facility] | 1.15 | (missing) | (missing) | | (unavailable | 00:10:07 [facility] | | | | + + + +--------+ + + + + | Result panel 13 | + + + + + +-------+ + + | | 2022-09-04 | [facility] | 5.3 | (missing) | (missing) | | (unavailable | 00:10:07 [facility] | | | | + + + +-------+ + + + + | Result panel 14 | + + + + + +------+ + + | | 2022-09-04 | [facility] | 34 | (missing) | (missing) | | (unavailable | 00:10:07 [facility] | | | | + + + +------+ + + + + | Result panel 15 | + + + + + + + + + | | 2022-09-04 | [facility] | PRESENT | (missing) | (missing) | | (unavailable | 00:10:07 [facility] | | | | + + + + + + + + + | Result panel 16 | + + + + + +--------+ + + | | 2022-09-04 | [facility] | 14.2 | (missing) | (missing) | | (unavailable | 00:10:07 [facility] | | | | + + + +--------+ + + + + | Result panel 17 | + + + + + +--------+ + + | | 2022-09-04 | [facility] | 1.15 | (missing) | (missing) | | (unavailable | 00:10:07 [facility] | | | | + + + +--------+ + + + + | Result panel 18 | + + + + + +-------+ + + | | 2022-09-04 | [facility] | 5.3 | (missing) | (missing) | | (unavailable | 00:10:07 [facility] | | | | + + + +-------+ + + + + | Result panel 19 | + + + + + +------+ + + | | 2022-09-04 | [facility] | 34 | (missing) | (missing) | | (unavailable | 00:10: | [facility] | | | | + + + +------+ + + + + | Result panel 20 | + + + + + + [...] (missing) | (missing) | | (unavailable | 00::07 | [facility] | | | | | [...] 39 | + + + + + + + + + | | 2022-09-04 | [facility] | Negative | (missing) | (missing) | | (unavailable | 01:03:07 | [facility] | | | | + + + + + + + + + | Result panel 40 | + + + + + + + + + | | 2022-09-04 | [facility] | Negative | (missing) | (missing) | | (unavailable | 01::07 | [facility] | | | | + + + + + + + + + | Result panel 41 | + + + + + + + + + | | 2022-09-04 | [facility] | Negative | (missing) | (missing) | | (unavailable | 01::07 | [facility] | | | | + + + + + + + + + | Result panel 42 | + + + + + + + + + | | 2022-09-04 | [facility] | See Note | (missing) | (missing) | | (unavailable | [facility] | | | | + + + + + + + + + | Result panel 43 | + + + + + +--------+ [...] 45 | + + + + + +--------+ + + | | 2022-09-04 | [facility] | 15.3 | (missing) | (missing) | | (unavailable | 01:03:07 [facility] | | | | + + + +--------+ + + + + | Result panel 46 | + + + + + +--------+ + + | | 2022-09-04 | [facility] | 72.4 | (missing) | (missing) | | (unavailable | 01::07 | [facility] | | | | + + + +--------+ + + + + | Result panel 47 | + + + + + +-------+ + + | | 2022-09-04 | [facility] | 4.1 | (missing) | (missing) | | (unavailable | 01::07 | [facility] | | | | + + + +-------+ + + + + | Result panel 48 | + + + + + +-------+ + + | | 2022-09-04 | [facility] | 0.9 | (missing) | (missing) | | (unavailable | 01::07 | [facility] | | | | + + + +-------+ + + + + | Result panel 49 | + + + + + +-------+ + + | | 2022-09-04 | [facility] | 0.6 | (missing) | (missing) | | (unavailable | 01:03:07 | [facility] | | | | + + + +-------+ + + + + | Result panel 50 | + + + + + +-----+ [...] | (unavailable | 01:03:07 | [facility] | [phone] | | | | ) | | [facility] | 00C | | | + + + + + + + + + | Result panel 58 | + + + + + + + + + | | 2022-09-04 | [facility] | | (missing) | (missing) | | (unavailable | 01:03:07 | [facility] | [phone] | | | | ) | | Hospital | 00K | | | + + + + + + + + + | Result panel 59 | + + + + + + + + + | | 2022-09-04 | [facility] | | (missing) | (missing) | | (unavailable | 01:03:07 | [facility] | [phone] | | | | ) | | Hospital | 00S | | | + + + + + + + + + | Result panel 60 | + + + + + + + + + | | 2022-09-04 | [facility] | | (missing) | (missing) | | (unavailable | 01:03:07 | [facility] | [phone] | | | | ) | | [facility] | 007 | | | + + + + + + + + + | Result panel 61 | + + + + + + + + + | | 2022-09-04 | [facility] | | (missing) | (missing) | | (unavailable | ::07 | [facility] | [phone] | | | | ) | | Hospital | 000 | | | + + + + + + + + + | Result panel 62 | + + + + + + + + + | | 2022-09-04 | [facility] | | (missing) | (missing) | | (unavailable | ::07 | [facility] | [phone] | | | | ) | | Hospital | 00H | | | + + + + + + + + + | Result panel 63 | + + + + + + + + + | | 2022-09-04 | [facility] | | (missing) | (missing) | | (unavailable | 01:03:07 | [facility] | [phone] | | | | ) | | [facility] | 00C1 | | | + + + + + + + + + | Result panel 64 | + + + + + + + + + | | 2022-09-04 | [facility] | | (missing) | (missing) | | (unavailable | 01::07 | [facility] | [phone] | | | | ) | | Hospital | 000 | | | + + + + + + + + + | Result panel 65 | + + + + + + + + + | | 2022-09-04 | [facility] | | (missing) | (missing) | | (unavailable | 01:03:07 | [facility] | [phone] | | | | ) | | Hospital | 00C2 | | | + + + + + + + + + | Result panel 66 | + + + + + + + + + | | 2022-09-04 | [facility] | | (missing) | (missing) | | (unavailable | 01:03:07 | [facility] | [phone] | | | | ) | | Hospital | 05 | | | + + + + + + + + + | Result panel 67 | + + + + + + + + + | | 2022-09-04 | [facility] | BLOOD IN | (missing) | (missing) | | (unavailable | ::07 | [facility] LAB | [facility] ) | | Hospital | | | | + + + + + + + + + | Result panel 68 | + + + + + + + + + | | 2022-09-04 | [facility] | Negative | (missing) | (missing) | | (unavailable | 01:03:07 | [facility] | | | | + + + + + + + + + | Result panel 69 | + + + + + + + + + | | 2022-09-04 | [facility] | Negative | (missing) | (missing) | | (unavailable | 01:03:07 | [facility] | | | | + + + + + + + + + | Result panel 70 | + + + + + + + + + | | 2022-09-04 | [facility] | Negative | (missing) | (missing) | | (unavailable | 01:03:07 | [facility] | | | | + + + + + + + + + | Result panel 71 | + + + + + + [...] 73 | + + + + + +--------+ + + | | 2022-09-04 | [facility] | 0.10 | (missing) | (missing) | | (unavailable | 01:03:07 | [facility] | | | | + + + +--------+ + + + + | Result panel 74 | + + + + + +-------+ + + | | 2022-09-04 | [facility] | 7.3 | (missing) | (missing) | | (unavailable | 01:03:07 | [facility] | | | | + + + +-------+ + + + + | Result panel 75 | + + + + + +--------+ + + | | 2022-09-04 | [facility] | 15.3 | (missing) | (missing) | | (unavailable | 01:03:07 | [facility] | | | | + + + +--------+ + + + + | Result panel 76 | + + + + + +--------+ + + | | 2022-09-04 | [facility] | 72.4 | (missing) | (missing) | | (unavailable | 01::07 | [facility] | | | | + + + +--------+ + + + + | Result panel 77 | + + + + + +-------+ + + | | 2022-09-04 | [facility] | 4.1 | (missing) | (missing) | | (unavailable | 01::07 | [facility] | | | | + + + +-------+ + + + + | Result panel 78 | + + + + + +-------+ + + | | 2022-09-04 | [facility] | 0.9 | (missing) | (missing) | | (unavailable | : | [facility] | | | | + + + +-------+ + + + + | Result panel 79 | + + + + + +-------+ + + | | 2022-09-04 | [facility] | 0.6 | (missing) | (missing) | | (unavailable | : | [facility] | | | | + + + +-------+ + + + + | Result panel 80 | + + + + + +-----+ [...] | (unavailable | 01:03:07 | [facility] | [phone] | | | | ) | | Hospital | 00C | | | + + + + + + + + + | Result panel 88 | + + + + + + + + + | | 2022-09-04 | [facility] | | (missing) | (missing) | | (unavailable | 01::07 | [facility] | [phone] | | | | ) | | Hospital | 00K | | | + + + + + + + + + | Result panel 89 | + + + + + + + + + | | 2022-09-04 | [facility] | | (missing) | (missing) | | (unavailable | 01:03:07 | [facility] | [phone] | | | | ) | | Hospital | 00S | | | + + + + + + + + + | Result panel 90 | + + + + + + + + + | | 2022-09-04 | [facility] | | (missing) | (missing) | | (unavailable | 01:03:07 | [facility] | [phone] | | | | ) | | Hospital | 007 | | | + + + + + + + + + | Result panel 91 | + + + + + + + + + | | 2022-09-04 | [facility] | | (missing) | (missing) | | (unavailable | 01:03:07 | [facility] | [phone] | | | | ) | | Hospital | 000 | | | + + + + + + + + + | Result panel 92 | + + + + + + + + + | | 2022-09-04 | [facility] | | (missing) | (missing) | | (unavailable | 01:03:07 | [facility] | [phone] | | | | ) | | [facility] | 00H | | | + + + + + + + + + | Result panel 93 | + + + + + + + + + | | 2022-09-04 | [facility] | | (missing) | (missing) | | (unavailable | ::07 | [facility] | [phone] | | | | ) | | Hospital | 00C1 | | | + + + + + + + + + | Result panel 94 | + + + + + + + + + | | 2022-09-04 | [facility] | | (missing) | (missing) | | (unavailable | : | [facility] | [phone] | | | | ) | | Hospital | 000 | | | + + + + + + + + + | Result panel 95 | + + + + + + + + + | | 2022-09-04 | [facility] | | (missing) | (missing) | | (unavailable | 01:03:07 | [facility] | [phone] | | | | ) | | Hospital | 00C2 | | | + + + + + + + + + | Result panel 96 | + + + + + + + + + | | 2022-09-04 | [facility] | | (missing) | (missing) | | (unavailable | 01:03:07 | [facility] | [phone] | | | | ) | | Hospital | 05 | | | + + + + + + + + + | Result panel 97 | + + + + + + + + + | | 2022-09-04 | [facility] | BLOOD IN | (missing) | (missing) | | (unavailable | 01::07 | [facility] LAB [facility] | | Hospital | | | | + + + + + + + + + | Result panel 98 | + + + + + + + + + | | 2022-09-04 | [facility] | Negative | (missing) | (missing) | | (unavailable | 01:03:07 | [facility] | [facility] | | | | + + + + + + + + + | Result panel 99 | + + + + + + + + + | | 2022-09-04 | [facility] | Negative | (missing) | (missing) | | (unavailable | 01:03:07 | [facility] | | | | + + + + + + + + + | Result panel 100 | + + + + + + + + + | | 2022-09-04 | [facility] | Negative | (missing) | (missing) | | (unavailable | 01:03:07 | [facility] | | | | + + + + + + + + + | Result panel 101 | + + + + + + [...] 103 | + + + + + +--------+ + + | | 2022-09-04 | [facility] | 0.10 | (missing) | (missing) | | (unavailable | 01:03:07 | [facility] | | | | + + + +--------+ + + + + | Result panel 104 | + + + + + +-------+ + + | | 2022-09-04 | [facility] | 7.3 | (missing) | (missing) | | (unavailable | 01:03:07 | [facility] | | | | + + + +-------+ + + + + | Result panel 105 | + + + + + +--------+ + + | | 2022-09-04 | [facility] | 15.3 | (missing) | (missing) | | (unavailable | 01:03:07 | [facility] | | | | + + + +--------+ + + + + | Result panel 106 | + + + + + +--------+ + + | | 2022-09-04 | [facility] | 72.4 | (missing) | (missing) | | (unavailable | 01:03:07 | [facility] | | | | + + + +--------+ + + + + | Result panel 107 | + + + + + +-------+ + + | | 2022-09-04 | [facility] | 4.1 | (missing) | (missing) | | (unavailable | 01:03:07 | [facility] | | | | + + + +-------+ + + + + | Result panel 108 | + + + + + +-------+ + + | | 2022-09-04 | [facility] | 0.9 | (missing) | (missing) | | (unavailable | 01:03:07 | [facility] | | | | + + + +-------+ + + + + | Result panel 109 | + + + + + +-------+ + + | | 2022-09-04 | [facility] | 0.6 | (missing) | (missing) | | (unavailable | 01:03:07 | [facility] | | | | + + + +-------+ + + + + | Result panel 110 | + + + + + +-----+ [...] | (unavailable | 01:07 | [facility] | | | | | [...] | (unavailable | 01:03:07 | [facility] | [phone] | | | | ) | | Hospital | 1000 | | | + + + + + + + + + | Result panel 118 | + + + + + + + + + | | 2022-09-04 | [facility] | | (missing) | (missing) | | (unavailable | 01:03:07 | [facility] | [phone] | | | | ) | | [facility] | 800H | | | + + + + + + + + + | Result panel 119 | + + + + + + + + + | | 2022-09-04 | [facility] | | (missing) | (missing) | | (unavailable | 01:03:07 | [facility] | [phone] | | | | ) | | Hospital | 400C | | | + + + + + + + + + | Result panel 120 | + + + + + + + + + | | 2022-09-04 | [facility] | | (missing) | (missing) | | (unavailable | 01:03:07 | [facility] | [phone] | | | | ) | | Hospital | 0000 | | | + + + + + + + + + | Result panel 121 | + + + + + + + + + | | 2022-09-04 | [facility] | | (missing) | (missing) | | (unavailable | 01:03:07 | [facility] | [phone] | | | | ) | | Hospital | 400C | | | + + + + + + + + + | Result panel 122 | + + + + + + + + + | | 2022-09-04 | [facility] | | (missing) | (missing) | | (unavailable | 01:03:07 | [facility] | [phone] | | | | ) | | [...] 124 | + + + + + +-------+ + + | | 2022-09-04 | [facility] | 7.3 | (missing) | (missing) | | (unavailable | 01:03:07 | [facility] | | | | + + + +-------+ + + + + | Result panel 125 | + + + + + +--------+ [...] 127 | + + + + + +-------+ [...] 130 | + + + + + + + + + | | 2022-09-04 | [facility] | COMPATIBLE | (missing) | (missing) | | (unavailable | 01:03:07 | [facility] | | | | + + + + + + + + + | Result panel 131 | + + + + + + [...] | (unavailable | 01:03:07 | [facility] | [phone] | | | | ) | | Hospital | 00C | | | + + + + + + + + + | Result panel 135 | + + + + + + + + + | | 2022-09-04 | [facility] | | (missing) | (missing) | | (unavailable | 01:03:07 | [facility] | [phone] | | | | ) | | Hospital | 00K | | | + + + + + + + + + | Result panel 136 | + + + + + + + + + | | 2022-09-04 | [facility] | | (missing) | (missing) | | (unavailable | 01:03:07 | [facility] | [phone] | | | | ) | | Hospital | 00S | | | + + + + + + + + + | Result panel 137 | + + + + + + + + + | | 2022-09-04 | [facility] | | (missing) | (missing) | | (unavailable | 01:03:07 | [facility] | [phone] | | | | ) | | Hospital | 007 | | | + + + + + + + + + | Result panel 138 | + + + + + + + + + | | 2022-09-04 | [facility] | | (missing) | (missing) | | (unavailable | 01:03:07 | [facility] | [phone] | | | | ) | | Hospital | 000 | | | + + + + + + + + + | Result panel 139 | + + + + + + + + + | | 2022-09-04 | [facility] | | (missing) | (missing) | | (unavailable | 01:03:07 | [facility] | [phone] | | | | ) | | Hospital | 00H | | | + + + + + + + + + | Result panel 140 | + + + + + + + + + | | 2022-09-04 | [facility] | | (missing) | (missing) | | (unavailable | 01:03:07 | [facility] | [phone] | | | | ) | | [facility] | 00C1 | | | + + + + + + + + + | Result panel 141 | + + + + + + + + + | | 2022-09-04 | [facility] | | (missing) | (missing) | | (unavailable | 01::07 | [facility] | [phone] | | | | ) | | [facility] | 000 | | | + + + + + + + + + | Result panel 142 | + + + + + + + + + | | 2022-09-04 | [facility] | | (missing) | (missing) | | (unavailable | 01:03:07 | [facility] | [phone] | | | | ) | | [facility] | 00C2 | | | + + + + + + + + + | Result panel 143 | + + + + + + + + + | | 2022-09-04 | [facility] | | (missing) | (missing) | | (unavailable | 01:03:07 | [facility] | [phone] | | | | ) | | [...] (missing) | (missing) | | (unavailable | :20:07 | [facility] | | | | | [...] 210 | + + + + + + + + + | | 2022-09-04 | [facility] | SEE COMMENT | (missing) | (missing) | | (unavailable | 05:20:07 | [facility] ) | | [facility] | | | | + + + + + + + + + | Result panel 211 | + + + + + +---------+ [...] 213 | + + + + + +-------+ + + | | 2022-09-04 | [facility] | 219 | (missing) | (missing) | | (unavailable | 05:20:07 | [facility] | [facility] | | | | + + + +-------+ + + + + | Result panel 214 | + + + + + +------+ + + | | 2022-09-04 | [facility] | 53 | (missing) | (missing) | | (unavailable | 05:20:07 | [facility] | | | | + + + +------+ + + + + | Result panel 215 | + + + + + +-------+ + + | | 2022-09-04 | [facility] | 887 | (missing) | (missing) | | (unavailable | 05:20:07 | [facility] | | | | + + + +-------+ + + + + | Result panel 216 | + + + + + +-----+ [...] 223 | + + + + + + + + + | | 2022-09-04 | [facility] | SEE COMMENT | (missing) | (missing) | | (unavailable | 05:20:07 | [facility] | [facility] | | | | + + + + + + + + + | Result panel 224 | + + + + + +---------+ + + | | 2022-09-04 | [facility] | 2.775 | (missing) | (missing) | | (unavailable | 05:20:07 | [facility] | [facility] | | | | + + + +---------+ + + + + | Result panel 225 | + + + + + +-----+ + + | | 2022-09-04 | [facility] | 2 | (missing) | (missing) | | (unavailable | 05:20:07 | [facility] | | | | + + + +-----+ + + + + | Result panel 226 | + + + + + +---------+ [...] 228 | + + + + + +-------+ + + | | 2022-09-04 | [facility] | 219 | (missing) | (missing) | | (unavailable | 05:20:07 | [facility] | [facility] | | | | + + + +-------+ + + + + | Result panel 229 | + + + + + +------+ + + | | 2022-09-04 | [facility] | 53 | (missing) | (missing) | | (unavailable | 05:20:07 | [facility] | | [facility] | | | | + + + +------+ + + + + | Result panel 230 | + + + + + +-------+ [...] (missing) | (missing) | | (unavailable | 13::07 | [facility] | | | | | [...] 289 | + + + + + +-----+ [...] 291 | + + + + + +--------+ + + | | 2022-09-09 | [facility] | 2.73 | (missing) | (missing) | | (unavailable | 11:15:07 | [facility] | | [facility] | | | | + + + +--------+ + + + + | Result panel 292 | + + + + + +-------+ [...] 297 | + + + + + +--------+ [...] (missing) | (missing) | | (unavailable | 11:15: | [facility] | | [facility] | | | | + + + +------+ + + + + | Result panel 301 | + + + + + +------+ [...] 305 | + + + + + +-----+ + + | | 2022-09-09 | [facility] | 8 | (missing) | (missing) | | (unavailable | 11:15:07 | [facility] | | | | | ) | [facility] | | | | + + + +-----+ + + + + | Result panel 306 | + + + + + + + + + | | 2022-09-09 | [facility] | SEE COMMENT | (missing) | (missing) | | (unavailable | 11:15:07 | [facility] | | | | + + + + + + + + + | Result panel 307 | + + + + + +-------+---------+ + | | 2022-09-09 | [facility] | 139 | mg/dL | (missing) | | (unavailable | 11:15:07 | [facility] | | | | + + + +-------+---------+ + + + | Result panel 308 | + + + + + +------+---------+ + | | 2022-09-09 | [facility] | 17 | mg/dL | (missing) | | (unavailable | 11:15:07 | [facility] | | | | + + + +------+---------+ + + + | Result panel 309 | + + + + + +--------+---------+ + | | 2022-09-09 | [facility] | 1.27 | mg/dL | (missing) | | (unavailable | 11:15:07 | [facility] | | | | + + + +--------+---------+ + + + | Result panel 310 | + + + + + +------+ + + | | 2022-09-09 | [facility] | 75 | (missing) | (missing) | | (unavailable | 11:15:07 | [facility] | | | | + + + +------+ + + + + | Result panel 311 | + + + + + +---------+ [...] (missing) | (missing) | | (unavailable | 11:: | [facility] | | | | | [...] 314 | + + + + + +-------+ + + | | 2022-09-09 | [facility] | 102 | (missing) | (missing) | | (unavailable | 11:15:07 | [facility] | | | | + + + +-------+ + + + + | Result panel 315 | + + + + + +------+ + + | | 2022-09-09 | [facility] | 27 | (missing) | (missing) | | (unavailable | 11::07 | [facility] | | | | + + + +------+ + + + + | Result panel 316 | + + + + + +--------+ + + | | 2022-09-09 | [facility] | 13.1 | (missing) | (missing) | | (unavailable | 11:15:07 | [facility] | | | | + + + +--------+ + + + + | Result panel 317 | + + + + + +-------+---------+ + | | 2022-09-09 | [facility] | 8.5 | mg/dL | (missing) | | (unavailable | 11:15:07 | [facility] | | | | + + + +-------+---------+ + + + | Result panel 318 [...] 320 | + + + + + +-------+ + + | | 2022-09-09 | [facility] | 4.1 | (missing) | (missing) | | (unavailable | 11:15:07 | [facility] | | | | + + + +-------+ + + + + | Result panel 321 | + + + + + +--------+ + + | | 2022-09-09 | [facility] | 0.73 | (missing) | (missing) | | (unavailable | 11:15:07 | [facility] | | | | + + + +--------+ + + + + | Result panel 322 | + + + + + +-------+ [...] 325 | + + + + + +------+ [...] 327 | + + + + + +-----+ + + | | 2022-09-09 | [facility] | 8 | (missing) | (missing) | | (unavailable | 11:15:07 | [facility] | | | | + + + +-----+ + + + + | Result panel 328 | + + + + + + + + + | | 2022-09-09 | [facility] | SEE COMMENT | (missing) | (missing) | | (unavailable | 11:15:07 | [facility] | | | | + + + + + + + + + | Result panel 329 | + + + + + +-------+---------+ + | | 2022-09-09 | [facility] | 139 | mg/dL | (missing) | | (unavailable | 11:15:07 | [facility] | | | | + + + +-------+---------+ + + + | Result panel 330 | + + + + + +------+---------+ + | | 2022-09-09 | [facility] | 17 | mg/dL | (missing) | | (unavailable | 11:15:07 | [facility] | | | | + + + +------+---------+ + + + | Result panel 331 | + + + + + +--------+---------+ + | | 2022-09-09 | [facility] | 1.27 | mg/dL | (missing) | | (unavailable | 11:15:07 | [facility] | | | | + + + +--------+---------+ + + + | Result panel 332 | + + + + + +------+ + + | | 2022-09-09 | [facility] | 75 | (missing) | (missing) | | (unavailable | 11:15:07 | [facility] | | | | + + + +------+ + + + + | Result panel 333 | + + + + + +---------+ [...] 336 | + + + + + +-------+ + + | | 2022-09-09 | [facility] | 102 | (missing) | (missing) | | (unavailable | 11:15:07 | [facility] | | | | + + + +-------+ + + + + | Result panel 337 | + + + + + +------+ + + | | 2022-09-09 | [facility] | 27 | (missing) | (missing) | | (unavailable | 11:15:07 | [facility] | | | | + + + +------+ + + + + | Result panel 338 | + + + + + +--------+ + + | | 2022-09-09 | [facility] | 13.1 | (missing) | (missing) | | (unavailable | 11:15:07 | [facility] | | | | + + + +--------+ + + + + | Result panel 339 | + + + + + +-------+---------+ + | | 2022-09-09 | [facility] | 8.5 | mg/dL | (missing) | | (unavailable | 11:15:07 | [facility] | | | | + + + +-------+---------+ + + + | Result panel 340 [...] 342 | + + + + + +-------+ + + | | 2022-09-09 | [facility] | 4.1 | (missing) | (missing) | | (unavailable | 11:15:07 | [facility] | | | | + + + +-------+ + + + + | Result panel 343 | + + + + + +--------+ + + | | 2022-09-09 | [facility] | 0.73 | (missing) | (missing) | | (unavailable | 11:15:07 | [facility] | | | | + + + +--------+ + + + + | Result panel 344 | + + + + + +-------+ [...] 347 | + + + + + +------+ + + | | 2022-09-09 | [facility] | 71 | (missing) | (missing) | | (unavailable | 11:15:07 | [facility] | | | | + + + +------+ + + + + | Result panel 348 | + + + + + +-----+ [...] 350 | + + + + + +--------+ + + | | 2022-09-14 | [facility] | 2.40 | (missing) | (missing) | | (unavailable | 10:17:07 | [facility] | | | | + + + +--------+ + + + + | Result panel 351 | + + + + + +-------+ [...] 356 | + + + + + +--------+ + + | | 2022-09-14 | [facility] | 15.2 | (missing) | (missing) | | (unavailable | 10:17:07 | [facility] | | | | ) | [...] 360 | + + + + + +------+ [...] 362 | + + + + + +-----+ [...] 364 | + + + + + + [...] 368 | + + + + + +--------+ + + | | 2022-09-18 | [facility] | 88.6 | (missing) | (missing) | | (unavailable | 14:49:07 | [facility] | | | | + + + +--------+ + + + + | Result panel 369 | + + + + + +--------+ + + | | 2022-09-18 | [facility] | 30.5 | (missing) | (missing) | | (unavailable | 14:49:07 | [facility] | | | | + + + +--------+ + + + + | Result panel 370 | + + + + + +--------+ + + | | 2022-09-18 | [facility] | 34.4 | (missing) | (missing) | | (unavailable | 14:49:07 | [facility] | | | | + + + +--------+ + + + + | Result panel 371 | + + + + + +--------+ + + | | 2022-09-18 | [facility] | 15.4 | (missing) | (missing) | | (unavailable | 14:49:07 | [facility] | | | | + + + +--------+ + + + + | Result panel 372 | + + + + + +------+ + + | | 2022-09-18 | [facility] | 26 | (missing) | (missing) | | (unavailable | 14:49:07 | [facility] | | | | + + + +------+ + + + + | Result panel 373 | + + + + + +------+ + + | | 2022-09-18 | [facility] | 22 | (missing) | (missing) | | (unavailable | 14:49:07 | [facility] | | | | + + + +------+ + + + + | Result panel 374 | + + + + + +------+ + + | | 2022-09-18 | [facility] | 31 | (missing) | (missing) | | (unavailable | 14:49:07 | [facility] | | | | + + + +------+ + + + + | Result panel 375 | + + + + + +------+ + + | | 2022-09-18 | [facility] | 38 | (missing) | (missing) | | (unavailable | 14:49:07 | [facility] | | | | + + + +------+ + + + + | Result panel 376 | + + + + + +-----+ + + | | 2022-09-18 | [facility] | 6 | (missing) | (missing) | | (unavailable | 14:49:07 | [facility] | | | | + + + +-----+ + + + + | Result panel 377 | + + + + + +-----+ + + | | 2022-09-18 | [facility] | 3 | (missing) | (missing) | | (unavailable | 14:49:07 | [facility] | | | | + + + +-----+ + + + + | Result panel 378 | + + + + + + + + + | | 2022-09-18 | [facility] | SEE | (missing) | (missing) | | (unavailable | 14:49:07 | [facility] | COMMENTS | | | | ) | | [facility] | | | | + + + + + + + + + | Result panel 379 | + + + + + + + + + | | 2022-09-18 | [facility] | SEE | (missing) | (missing) | | (unavailable | 14:49:07 | [facility] | COMMENTS | | | | ) | | [facility] | | | | + + + + + + + + + | Result panel 380 | + + + + + +--------+ + + | | 2022-09-18 | [facility] | 15.2 | (missing) | (missing) | | (unavailable | 14:49:07 | [facility] | | | | + + + +--------+ + + + + | Result panel 381 | + + + + + +--------+ + + | | 2022-09-18 | [facility] | 1.26 | (missing) | (missing) | | (unavailable | 14:49:07 | [facility] | | | | + + + +--------+ + + + + | Result panel 382 | + + + + + +-------+---------+ + | | 2022-09-18 | [facility] | 113 | mg/dL | (missing) | | (unavailable | 14:49:07 | [facility] | | | | + + + +-------+---------+ + + + | Result panel 383 | + + + + + +------+---------+ + | | 2022-09-18 | [facility] | 14 | mg/dL | (missing) | | (unavailable | 14:49:07 | [facility] | | | | + + + +------+---------+ + + + | Result panel 384 | + + + + + +--------+---------+ + | | 2022-09-18 | [facility] | 1.40 | mg/dL | (missing) | | (unavailable | 14:49:07 | [facility] | | | | + + + +--------+---------+ + + + | Result panel 385 | + + + + + +------+ + + | | 2022-09-18 | [facility] | 67 | (missing) | (missing) | | (unavailable | 14:49:07 | [facility] | | | | + + + +------+ + + + + | Result panel 386 | + + + + + +---------+ + + | | 2022-09-18 | [facility] | 10.00 | (missing) | (missing) | | (unavailable | 14:49:07 | [facility] | | | | + + + +---------+ + + + + | Result panel 387 | + + + + + +-------+ + + | | 2022-09-18 | [facility] | 136 | (missing) | (missing) | | (unavailable | 14:49:07 | [facility] | | | | + + + +-------+ + + + + | Result panel 388 | + + + + + +-------+ + + | | 2022-09-18 | [facility] | 3.7 | (missing) | (missing) | | (unavailable | 14:49:07 | [facility] | | | | + + + +-------+ + + + + | Result panel 389 | + + + + + +-------+ + + | | 2022-09-18 | [facility] | 102 | (missing) | (missing) | | (unavailable | 14:49:07 | [facility] | | | | + + + +-------+ + + + + | Result panel 390 | + + + + + +------+ + + | | 2022-09-18 | [facility] | 29 | (missing) | (missing) | | (unavailable | 14:49:07 | [facility] | | | | + + + +------+ + + + + | Result panel 391 | + + + + + +-------+ + + | | 2022-09-18 | [facility] | 8.7 | (missing) | (missing) | | (unavailable | 14:49:07 | [facility] | | | | + + + +-------+ + + + + | Result panel 392 | + + + + + +-------+---------+ + | | 2022-09-18 | [facility] | 8.3 | mg/dL | (missing) | | (unavailable | 14:49:07 | [facility] | | | | + + + +-------+---------+ + + + | Result panel 393 | + + + + + +-------+ + + | | 2022-09-18 | [facility] | 6.5 | (missing) | (missing) | | (unavailable | 14:49:07 | [facility] | | | | + + + +-------+ + + + + | Result panel 394 | + + + + + +-------+ [...] 396 | + + + + + +--------+ [...] 399 | + + + + + +------+ + + | | 2022-09-18 | [facility] | 48 | (missing) | (missing) | | (unavailable | 14:49:07 | [facility] | | | | + + + +------+ + + + + | Result panel 400 | + + + + + +------+ + + | | 2022-09-18 | [facility] | 54 | (missing) | (missing) | | (unavailable | 14:49:07 | [facility] | | | | + + + +------+ + + + + | Result panel 401 | + + + + + +--------+ + + | | 2022-09-18 | [facility] | 14.9 | (missing) | (missing) | | (unavailable | 14:49:07 | [facility] | | | | + + + +--------+ + + + + | Result panel 402 | + + + + + +--------+ [...] + + + + + + + Social History + + + + | date | description | facility | + + + + | 2022-07-06 00:00 | Unknown if ever smoked | [facility] | + + + + | 2022-09-05 00:00 | Unknown if ever smoked | [facility] | + + + + | 2022-09-09 00:00 | Unknown if ever smoked | [facility] | + + + + | 2022-09-14 00:00 | Unknown if ever smoked | [facility] | + + + + | 2022-09-18 00:00 | Unknown if ever smoked | [facility] | + + + + Vital [...] 335.06 | lb | + + + +---------+"
--- OUTSIDE RECORDS SUMMARY | ~2022-11-23 | XMS | Continuity of Care Document ---
Demographics + + + | Address | [address] | | | [place] [address] | + + + | Preferred Language | Unknown | + + + | Marital Status | | + + + | Nondenominational Affiliation | Unknown | + + + | Race | White | + + + | Ethnic Group | Not or | + + + Author + + + | Author | [facility] | + + + | Organization | [facility] | + + + | Address | [address] | | | [place] [address] | + + + | Phone | | + + + Care Team Providers + + + + | Care Mosaic Floor Layer Name | Role | Phone | + [...] 2022-09-05 00:00 | FLUTICASONE PROPIONATE 50 | [facility] | | | MCG | | + + + + | 2022-09-05 00:00 | ALLOPURINOL | [facility] | + + + + | 2022-09-05 00:00 | ALLOPURINOL | [facility] | + + + + | 2022-09-05 00:00 | ALLOPURINOL | [facility] | + + + + | 2022-07-06 00:00 | BENZONATATE | [facility] | + + + + | 2022-07-06 00:00 | BENZONATATE | [facility] | + + + + | 2022-07-06 00:00 | BENZONATATE | [facility] | + + + + | 2022-09-14 00:00 | CIPROFLOXACIN HCL | [facility] | + + + + | 2022-09-18 00:00 | CIPROFLOXACIN HCL | [facility] | + + + + | 2022-09-14 00:00 | Amoxicillin/Potassium Clav | [facility] | | | | | + + + + | 2022-09-18 00:00 | Amoxicillin/Potassium Clav | [facility] | | | | | + + + + | 2022-09-05 00:00 | ALBUTEROL SULFATE | [facility] | + + + + | 2022-09-09 00:00 | ALBUTEROL SULFATE | [facility] | + + + + | 2022-09-14 00:00 | ALBUTEROL SULFATE | [facility] | + + + + | 2022-09-18 00:00 | ALBUTEROL SULFATE | [facility] | + + + + | 2022-09-05 00:00 | FLUTICASONE PROPIONATE 220 | [facility] | | | MCG | | + + + + | 2022-09-14 00:00 | FLUTICASONE PROPIONATE 220 | [facility] | | | MCG | | + + + + | 2022-09-18 00:00 | FLUTICASONE PROPIONATE 220 | [facility] | | | MCG | | + + + + Problems + + + + | date | description | facility | + + + + | 2022-07-05 00:00 | Acute bronchitis | [facility] | + + + + | 2022-07-05 00:00 | Acute bronchitis | [facility] | + + + + | 2022-07-05 00:00 | Acute bronchitis | [facility] | + + + + | 2022-07-05 22:50 | ACUTE BRONCHITIS, | [facility] | | | UNSPECIFIED | | + + + + | 2022-07-05 22:50 | COUGH, UNSPECIFIED | [facility] | + + + + | 2022-09-04 00:00 | Anemia | [facility] | + + + + | 2022-09-04 00:00 | Anemia | [facility] | + + + + | 2022-09-04 00:00 | Anemia | [facility] | + + + + | 2022-09-04 00:00 | Thrombocytopenia | [facility] | + + + + | 2022-09-04 00:00 | Thrombocytopenia | [facility] | + + + + | 2022-09-04 00:00 | Thrombocytopenia | [facility] | + + + + | [...] + + + | 2022-09-04 03:10 | USP (CURRENT) USE OF | [facility] | | | INHALED STEROIDS | | + + + + | 2022-09-04 03:10 | OTHER OILER AND GREASER (CURRENT) | [facility] | | | 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 | | + + + + | 2022-09-09 00:00 | [facility] | + + + + | 2022-09-09 00:00 | Weakness | [facility] | + + + + [...] + + | 2022-09-09 10:45 | OTHER USP (CURRENT) | [facility] | | | 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 | | + + + + | 2022-09-14 09:50 | ACUTE MYELOBLASTIC | [facility] | | | LEUKEMIA, IN REMISSIO | | + + + + | 2022-09-14 09:50 | ACUTE MYELOBLASTIC | [facility] | | | LEUKEMIA, IN REMISSION | | + + + + | 2022-09-14 09:50 | OTHER USP (CURRENT) | [facility] | | | 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 | | + + + + | 2022-09-18 00:00 | Hemoptysis | [facility] | + + + + | [...] + + | 2022-09-18 12:43 | OTHER OILER AND GREASER (CURRENT) | [facility] | | | DRUG [...] 2022-09-04 00:00 | TRANSFUSE NONAUT FROZEN | [facility] | | | PLASMA IN PERIPH VEIN, PERC | | | | | | + + + + | 2022-09-04 00:00 | TRANSFUSE NONAUT FROZEN | [facility] | | | PLASMA IN PERIPH VEIN, PERC | | | | | | + + + + | 2022-09-04 00:00 | TRANSFUSE NONAUT FRESH | [facility] | | | PLASMA IN PERIPH VEIN, PERC | | | | | | + + + + | 2022-09-04 00:00 | TRANSFUSE NONAUT FRESH | [facility] | | | PLASMA IN [facility] VEIN, PERC | | | | | | + + + + | 2022-09-05 00:00 | TRANSFUSE NONAUT RED BLOOD | [facility] | | | CELLS IN [facility] VEIN, PERC | | | | | | + + + + | 2022-09-05 00:00 | TRANSFUSE NONAUT RED BLOOD | [facility] | | | CELLS IN [facility] VEIN, PERC | | | | | | + + + + | 2022-09-05 00:00 | TRANSFUSE NONAUT PLATELETS | [facility] | | | IN [facility] VEIN, PERC | | + + + + | 2022-09-05 00:00 | TRANSFUSE NONAUT PLATELETS | [facility] | | | IN PERIPH VEIN, PERC | | + + + + | 2022-09-14 00:00 | Aspiration, bone marrow, | [facility] | | | with biopsy | | + + + + | 2022-09-14 00:00 | Aspiration, bone marrow, | [facility] | | | with biopsy | | + + + + | 2022-09-14 00:00 | Aspiration, bone marrow, | [facility] | | | with biopsy | | + + + + | 2022-09-14 00:00 | Aspiration, bone marrow, | [facility] | | | with biopsy | | + + + + Results/Labs +--------+--------+ +---------+--------+---------+ | test | date | facility | value | unit | notes | +--------+--------+ +---------+--------+---------+ + + | Result panel 1 | + + + + + + + + + | | 2022-07-05 | [facility] | NEGATIVE | (missing) [...] | (unavailable | 01:03:07 | [facility] | [phone] | | | | ) | | [facility] | 00C | | | + + + + + + + + + | Result panel 58 | + + + + + + + + + | | 2022-09-04 | [facility] | | (missing) | (missing) | | (unavailable | 01:03:07 | [facility] | [phone] | | | | ) | | Hospital | 00K | | | + + + + + + + + + | Result panel 59 | + + + + + + + + + | | 2022-09-04 | [facility] | | (missing) | (missing) | | (unavailable | 01:03:07 | [facility] | [phone] | | | | ) | | Hospital | 00S | | | + + + + + + + + + | Result panel 60 | + + + + + + + + + | | 2022-09-04 | [facility] | | (missing) | (missing) | | (unavailable | 01:03:07 | [facility] | [phone] | | | | ) | | Hospital | 007 | | | + + + + + + + + + | Result panel 61 | + + + + + + + + + | | 2022-09-04 | [facility] | | (missing) | (missing) | | (unavailable | ::07 | [facility] | [id number] | | | | ) | | Hospital | 000 | | | + + + + + + + + + | Result panel 62 | + + + + + + + + + | | 2022-09-04 | [facility] | | (missing) | (missing) | | (unavailable | ::07 | [facility] | [phone] | | | | ) | | Hospital | 00H | | | + + + + + + + + + | Result panel 63 | + + + + + + + + + | | 2022-09-04 | [facility] | | (missing) | (missing) | | (unavailable | 01:03:07 | [facility] | [phone] | | | | ) | | Hospital | 00C1 | | | + + + + + + + + + | Result panel 64 | + + + + + + + + + | | 2022-09-04 | [facility] | | (missing) | (missing) | | (unavailable | 01::07 | [facility] | [phone] | | | | ) | | Hospital | 000 | | | + + + + + + + + + | Result panel 65 | + + + + + + + + + | | 2022-09-04 | [facility] | | (missing) | (missing) | | (unavailable | 01:03:07 | [facility] | [phone] | | | | ) | | Hospital | 00C2 | | | + + + + + + + + + | Result panel 66 | + + + + + + + + + | | 2022-09-04 | [facility] | | (missing) | (missing) | | (unavailable | 01:03:07 | [facility] | [phone] | | | | ) | | [...] | (unavailable | 01:03:07 | [facility] | [phone] | | | | ) | | Hospital | 00C | | | + + + + + + + + + | Result panel 88 | + + + + + + + + + | | 2022-09-04 | [facility] | | (missing) | (missing) | | (unavailable | 01::07 | [facility] | [phone] | | | | ) | | Hospital | 00K | | | + + + + + + + + + | Result panel 89 | + + + + + + + + + | | 2022-09-04 | [facility] | | (missing) | (missing) | | (unavailable | 01:03:07 | [facility] | [phone] | | | | ) | | Hospital | 00S | | | + + + + + + + + + | Result panel 90 | + + + + + + + + + | | 2022-09-04 | [facility] | | (missing) | (missing) | | (unavailable | 01:03:07 | [facility] | [phone] | | | | ) | | Hospital | 007 | | | + + + + + + + + + | Result panel 91 | + + + + + + + + + | | 2022-09-04 | [facility] | | (missing) | (missing) | | (unavailable | 01:03:07 | [facility] | [phone] | | | | ) | | Hospital | 000 | | | + + + + + + + + + | Result panel 92 | + + + + + + + + + | | 2022-09-04 | [facility] | | (missing) | (missing) | | (unavailable | 01:03:07 | [facility] | [phone] | | | | ) | | Hospital | 00H | | | + + + + + + + + + | Result panel 93 | + + + + + + + + + | | 2022-09-04 | [facility] | | (missing) | (missing) | | (unavailable | ::07 | [facility] | [id number] | | | | ) | | Hospital | 00C1 | | | + + + + + + + + + | Result panel 94 | + + + + + + + + + | | 2022-09-04 | [facility] | | (missing) | (missing) | | (unavailable | : | [facility] | [id number] | | | | ) | | Hospital | 000 | | | + + + + + + + + + | Result panel 95 | + + + + + + + + + | | 2022-09-04 | [facility] | | (missing) | (missing) | | (unavailable | 01:03:07 | [facility] | [phone] | | | | ) | | Hospital | 00C2 | | | + + + + + + + + + | Result panel 96 | + + + + + + + + + | | 2022-09-04 | [facility] | | (missing) | (missing) | | (unavailable | 01:03:07 | [facility] | [phone] | | | | ) | | [...] | (unavailable | 01:03:07 | [facility] | [phone] | | | | ) | | Hospital | 1000 | | | + + + + + + + + + | Result panel 118 | + + + + + + + + + | | 2022-09-04 | [facility] | | (missing) | (missing) | | (unavailable | 01:03:07 | [facility] | [id number] | | | | ) | | Hospital | 800H | | | + + + + + + + + + | Result panel 119 | + + + + + + + + + | | 2022-09-04 | [facility] | | (missing) | (missing) | | (unavailable | 01:03:07 | [facility] | [phone] | | | | ) | | Hospital | 400C | | | + + + + + + + + + | Result panel 120 | + + + + + + + + + | | 2022-09-04 | [facility] | | (missing) | (missing) | | (unavailable | 01:03:07 | [facility] | [phone] | | | | ) | | Hospital | 0000 | | | + + + + + + + + + | Result panel 121 | + + + + + + + + + | | 2022-09-04 | [facility] | | (missing) | (missing) | | (unavailable | 01:03:07 | [facility] | [id number] | | | | ) | | Hospital | 400C | | | + + + + + + + + + | Result panel 122 | + + + + + + + + + | | 2022-09-04 | [facility] | | (missing) | (missing) | | (unavailable | 01:03:07 | [facility] | [phone] | | | | ) | | [...] | (unavailable | 01:03:07 | [facility] | [phone] | | | | ) | | Hospital | 00C | | | + + + + + + + + + | Result panel 135 | + + + + + + + + + | | 2022-09-04 | [facility] | | (missing) | (missing) | | (unavailable | 01:03:07 | [facility] | [phone] | | | | ) | | Hospital | 00K | | | + + + + + + + + + | Result panel 136 | + + + + + + + + + | | 2022-09-04 | [facility] | | (missing) | (missing) | | (unavailable | 01:03:07 | [facility] | [id number] | | | | ) | | Hospital | 00S | | | + + + + + + + + + | Result panel 137 | + + + + + + + + + | | 2022-09-04 | [facility] | | (missing) | (missing) | | (unavailable | 01:03:07 | [facility] | [phone] | | | | ) | | Hospital | 007 | | | + + + + + + + + + | Result panel 138 | + + + + + + + + + | | 2022-09-04 | [facility] | | (missing) | (missing) | | (unavailable | 01:03:07 | [facility] | [id number] | | | | ) | | Hospital | 000 | | | + + + + + + + + + | Result panel 139 | + + + + + + + + + | | 2022-09-04 | [facility] | | (missing) | (missing) | | (unavailable | 01:03:07 | [facility] | [id number] | | | | ) | | Hospital | 00H | | | + + + + + + + + + | Result panel 140 | + + + + + + + + + | | 2022-09-04 | [facility] | | (missing) | (missing) | | (unavailable | 01:03:07 | [facility] | [id number] | | | | ) | | Hospital | 00C1 | | | + + + + + + + + + | Result panel 141 | + + + + + + + + + | | 2022-09-04 | [facility] | | (missing) | (missing) | | (unavailable | 01::07 | [facility] | [id number] | | | | ) | | Hospital | 000 | | | + + + + + + + + + | Result panel 142 | + + + + + + + + + | | 2022-09-04 | [facility] | | (missing) | (missing) | | (unavailable | 01:03:07 | [facility] | [phone] | | | | ) | | Hospital | 00C2 | | | + + + + + + + + + | Result panel 143 | + + + + + + + + + | | 2022-09-04 | [facility] | | (missing) | (missing) | | (unavailable | 01:03:07 | [facility] | [phone] | | | | ) | | [...] (missing) | | (unavailable | 02:20:07 | [facility] | | | | | [...] 00:00 | Unknown if ever smoked | [facility] | + + + + | 2022-09-05 00:00 | Unknown if ever smoked | [facility] | + + + + | 2022-09-09 00:00 | Unknown if ever smoked | [facility] | + + + + | 2022-09-14 00:00 | Unknown if ever smoked | [facility] | + + + + | 2022-09-18 00:00 | Unknown if ever smoked | [facility] | + + + + Vital [...]
--- OUTSIDE RECORDS SUMMARY | ~2022-11-23 | XMS | Continuity of Care Document ---
Demographics + + + | Address | [address] | | | [place] [address] | + + + | Preferred Language | Unknown | + + + | Marital Status | | + + + | Mandaen Affiliation | Unknown | + + + | Race | White | + + + | Ethnic Group | Not or | + + + Author + + + | Author | [facility] | + + + | Organization | [facility] | + + + | Address | [address] | | | [place] [address] | + + + | Phone | | + + + Care Team Providers + + + + | Care Tube Balancer Name | Role | Phone | + [...] 2022-09-05 00:00 | FLUTICASONE PROPIONATE 50 | [facility] | | | [facility] | | + + + + | 2022-09-05 00:00 | ALLOPURINOL | [facility] | + + + + | 2022-09-05 00:00 | ALLOPURINOL | [facility] | + + + + | 2022-09-05 00:00 | ALLOPURINOL | [facility] | + + + + | 2022-07-06 00:00 | BENZONATATE | [facility] | + + + + | 2022-07-06 00:00 | BENZONATATE | [facility] | + + + + | 2022-07-06 00:00 | BENZONATATE | [facility] | + + + + | 2022-09-14 00:00 | CIPROFLOXACIN HCL | [facility] | + + + + | 2022-09-18 00:00 | CIPROFLOXACIN HCL | [facility] | + + + + | 2022-09-14 00:00 | Amoxicillin/Potassium Clav | [facility] | | | | | + + + + | 2022-09-18 00:00 | Amoxicillin/Potassium Clav | [facility] | | | | | + + + + | 2022-09-05 00:00 | ALBUTEROL SULFATE | [facility] | + + + + | 2022-09-09 00:00 | ALBUTEROL SULFATE | [facility] | + + + + | 2022-09-14 00:00 | ALBUTEROL SULFATE | [facility] | + + + + | 2022-09-18 00:00 | ALBUTEROL SULFATE | [facility] | + + + + | 2022-09-05 00:00 | FLUTICASONE PROPIONATE 220 | [facility] | | | [facility]CG | | + + + + | 2022-09-14 00:00 | FLUTICASONE PROPIONATE 220 | [facility] | | | [facility] | | + + + + | 2022-09-18 00:00 | FLUTICASONE PROPIONATE 220 | [facility] | | | [facility] | | + + + + Problems + + + + | date | description | facility | + + + + | 2022-07-05 00:00 | Acute bronchitis | [facility] | + + + + | 2022-07-05 00:00 | Acute bronchitis | [facility] | + + + + | 2022-07-05 00:00 | Acute bronchitis | [facility] | + + + + | 2022-07-05 22:50 | ACUTE BRONCHITIS, | [facility] | | | UNSPECIFIED | | + + + + | 2022-07-05 22:50 | COUGH, UNSPECIFIED | [facility] | + + + + | 2022-09-04 00:00 | Anemia | [facility] | + + + + | 2022-09-04 00:00 | Anemia | [facility] | + + + + | 2022-09-04 00:00 | Anemia | [facility] | + + + + | 2022-09-04 00:00 | Thrombocytopenia | [facility] | + + + + | 2022-09-04 00:00 | Thrombocytopenia | [facility] | + + + + | 2022-09-04 00:00 | Thrombocytopenia | [facility] | + + + + | [...] + + + | 2022-09-04 03:10 | [facility] (CURRENT) USE OF | [facility] | | | INHALED STEROIDS | | + + + + | 2022-09-04 03:10 | 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) | [facility] | | | 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 | | + + + + | 2022-09-09 00:00 | Weakness | [facility] | + + + + | 2022-09-09 00:00 | Weakness | [facility] | + + + + | [...] + + | 2022-09-09 10:45 | 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) | [facility] | | | 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 | | + + + + | 2022-09-14 09:50 | ACUTE MYELOBLASTIC | [facility] | | | LEUKEMIA, IN REMISSIO | | + + + + | 2022-09-14 09:50 | ACUTE MYELOBLASTIC | [facility] | | | LEUKEMIA, IN REMISSION | | + + + + | 2022-09-14 09:50 | OTHER [facility] (CURRENT) | [facility] | | | 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 | | + + + + | 2022-09-18 00:00 | Hemoptysis | [facility] | + + + + | [...] + + | 2022-09-18 12:43 | 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) | [facility] | | | DRUG [...] 2022-09-04 00:00 | TRANSFUSE NONAUT FROZEN | [facility] | | | PLASMA IN PERIPH VEIN, PERC | | | | | | + + + + | 2022-09-04 00:00 | TRANSFUSE NONAUT FROZEN | [facility] | | | PLASMA IN PERIP VEIN, PERC | | | | | | + + + + | 2022-09-04 00:00 | TRANSFUSE NONAUT FRESH | [facility] | | | PLASMA IN PERIPH VEIN, PERC | | | | | | + + + + | 2022-09-04 00:00 | TRANSFUSE NONAUT FRESH | [facility] | | | PLASMA IN PERIPH VEIN, PERC | | | | | | + + + + | 2022-09-05 00:00 | TRANSFUSE NONAUT RED BLOOD | [facility] | | | CELLS IN PERIP VEIN, PERC | | | | | | + + + + | 2022-09-05 00:00 | TRANSFUSE NONAUT RED BLOOD | [facility] | | | CELLS IN PERIP VEIN, PERC | | | | | | + + + + | 2022-09-05 00:00 | TRANSFUSE NONAUT PLATELETS | [facility] | | | IN PERIPH VEIN, PERC | | + + + + | 2022-09-05 00:00 | TRANSFUSE NONAUT PLATELETS | [facility] | | | IN PERIPH VEIN, PERC | | + + + + | 2022-09-14 00:00 | Aspiration, bone marrow, | [facility] | | | with biopsy | | + + + + | 2022-09-14 00:00 | Aspiration, bone marrow, | [facility] | | | with biopsy | | + + + + | 2022-09-14 00:00 | Aspiration, bone marrow, | [facility] | | | with biopsy | | + + + + | 2022-09-14 00:00 | Aspiration, bone marrow, | [facility] | | | with biopsy | [...] (missing) | | (unavailable | 23:10:07 | [facility] | | | | | [...] | (unavailable | 01::07 | [facility] | [phone] | | | | ) | | [facility] | 00C | | | + + + + + + + + + | Result panel 58 | + + + + + + + + + | | 2022-09-04 | [facility] | | (missing) | (missing) | | (unavailable | 01:03:07 | [facility] | [phone] | | | | ) | | Hospital | 00K | | | + + + + + + + + + | Result panel 59 | + + + + + + + + + | | 2022-09-04 | [facility] | | (missing) | (missing) | | (unavailable | 01:03:07 | [facility] | [phone] | | | | ) | | Hospital | 00S | | | + + + + + + + + + | Result panel 60 | + + + + + + + + + | | 2022-09-04 | [facility] | | (missing) | (missing) | | (unavailable | 01:03:07 | [facility] | [phone] | | | | ) | | Hospital | 007 | | | + + + + + + + + + | Result panel 61 | + + + + + + + + + | | 2022-09-04 | [facility] | | (missing) | (missing) | | (unavailable | 01:03:07 | [facility] | [phone] | | | | ) | | Hospital | 000 | | | + + + + + + + + + | Result panel 62 | + + + + + + + + + | | 2022-09-04 | [facility] | | (missing) | (missing) | | (unavailable | 01::07 | [facility] | [phone] | | | | ) | | Hospital | 00H | | | + + + + + + + + + | Result panel 63 | + + + + + + + + + | | 2022-09-04 | [facility] | | (missing) | (missing) | | (unavailable | 01::07 | [facility] | [phone] | | | | ) | | Hospital | 00C1 | | | + + + + + + + + + | Result panel 64 | + + + + + + + + + | | 2022-09-04 | [facility] | | (missing) | (missing) | | (unavailable | 01:03:07 | [facility] | [phone] | | | | ) | | Hospital | 000 | | | + + + + + + + + + | Result panel 65 | + + + + + + + + + | | 2022-09-04 | [facility] | | (missing) | (missing) | | (unavailable | 01::07 | [facility] | [phone] | | | | ) | | Hospital | 00C2 | | | + + + + + + + + + | Result panel 66 | + + + + + + + + + | | 2022-09-04 | [facility] | | (missing) | (missing) | | (unavailable | 01: | [facility] | [phone] | | | | ) | | [...] | (unavailable | 01:03:07 | [facility] | [phone] | | | | ) | | Hospital | 00C | | | + + + + + + + + + | Result panel 88 | + + + + + + + + + | | 2022-09-04 | [facility] | | (missing) | (missing) | | (unavailable | 01:03:07 | [facility] | [phone] | | | | ) | | Hospital | 00K | | | + + + + + + + + + | Result panel 89 | + + + + + + + + + | | 2022-09-04 | [facility] | | (missing) | (missing) | | (unavailable | 01:03:07 | [facility] | [phone] | | | | ) | | Hospital | 00S | | | + + + + + + + + + | Result panel 90 | + + + + + + + + + | | 2022-09-04 | [facility] | | (missing) | (missing) | | (unavailable | 01:03:07 | [facility] | [phone] | | | | ) | | Hospital | 007 | | | + + + + + + + + + | Result panel 91 | + + + + + + + + + | | 2022-09-04 | [facility] | | (missing) | (missing) | | (unavailable | 01:03:07 | [facility] | [phone] | | | | ) | | Hospital | 000 | | | + + + + + + + + + | Result panel 92 | + + + + + + + + + | | 2022-09-04 | [facility] | | (missing) | (missing) | | (unavailable | 01:03:07 | [facility] | [phone] | | | | ) | | Hospital | 00H | | | + + + + + + + + + | Result panel 93 | + + + + + + + + + | | 2022-09-04 | [facility] | | (missing) | (missing) | | (unavailable | 01:03:07 | [facility] | [phone] | | | | ) | | Hospital | 00C1 | | | + + + + + + + + + | Result panel 94 | + + + + + + + + + | | 2022-09-04 | [facility] | | (missing) | (missing) | | (unavailable | 01:03:07 | [facility] | [phone] | | | | ) | | Hospital | 000 | | | + + + + + + + + + | Result panel 95 | + + + + + + + + + | | 2022-09-04 | [facility] | | (missing) | (missing) | | (unavailable | 01:03:07 | [facility] | [phone] | | | | ) | | Hospital | 00C2 | | | + + + + + + + + + | Result panel 96 | + + + + + + + + + | | 2022-09-04 | [facility] | | (missing) | (missing) | | (unavailable | | [facility] | [phone] | | | | ) | | [...] | (unavailable | 01::07 | [facility] | [phone] | | | | ) | | Hospital | 1000 | | | + + + + + + + + + | Result panel 118 | + + + + + + + + + | | 2022-09-04 | [facility] | | (missing) | (missing) | | (unavailable | 01:03:07 | [facility] | [phone] | | | | ) | | Hospital | 800H | | | + + + + + + + + + | Result panel 119 | + + + + + + + + + | | 2022-09-04 | [facility] | | (missing) | (missing) | | (unavailable | 01:03:07 | [facility] | [phone] | | | | ) | | Hospital | 400C | | | + + + + + + + + + | Result panel 120 | + + + + + + + + + | | 2022-09-04 | [facility] | | (missing) | (missing) | | (unavailable | 01:03:07 | [facility] | [phone] | | | | ) | | Hospital | 0000 | | | + + + + + + + + + | Result panel 121 | + + + + + + + + + | | 2022-09-04 | [facility] | | (missing) | (missing) | | (unavailable | ::07 | [facility] | [phone] | | | | ) | | Hospital | 400C | | | + + + + + + + + + | Result panel 122 | + + + + + + + + + | | 2022-09-04 | [facility] | | (missing) | (missing) | | (unavailable | 01:03:07 | [facility] | [phone] | | | | ) | | [...] | (unavailable | 01::07 | [facility] | [phone] | | | | ) | | Hospital | 00C | | | + + + + + + + + + | Result panel 135 | + + + + + + + + + | | 2022-09-04 | [facility] | | (missing) | (missing) | | (unavailable | 01:03:07 | [facility] | [phone] | | | | ) | | Hospital | 00K | | | + + + + + + + + + | Result panel 136 | + + + + + + + + + | | 2022-09-04 | [facility] | | (missing) | (missing) | | (unavailable | 01:03:07 | [facility] | [phone] | | | | ) | | Hospital | 00S | | | + + + + + + + + + | Result panel 137 | + + + + + + + + + | | 2022-09-04 | [facility] | | (missing) | (missing) | | (unavailable | 01:03:07 | [facility] | [phone] | | | | ) | | Hospital | 007 | | | + + + + + + + + + | Result panel 138 | + + + + + + + + + | | 2022-09-04 | [facility] | | (missing) | (missing) | | (unavailable | 01::07 | [facility] | [phone] | | | | ) | | Hospital | 000 | | | + + + + + + + + + | Result panel 139 | + + + + + + + + + | | 2022-09-04 | [facility] | | (missing) | (missing) | | (unavailable | 01:03:07 | [facility] | [phone] | | | | ) | | Hospital | 00H | | | + + + + + + + + + | Result panel 140 | + + + + + + + + + | | 2022-09-04 | [facility] | | (missing) | (missing) | | (unavailable | 01:03:07 | [facility] | [phone] | | | | ) | | Hospital | 00C1 | | | + + + + + + + + + | Result panel 141 | + + + + + + + + + | | 2022-09-04 | [facility] | | (missing) | (missing) | | (unavailable | ::07 | [facility] | [phone] | | | | ) | | Hospital | 000 | | | + + + + + + + + + | Result panel 142 | + + + + + + + + + | | 2022-09-04 | [facility] | | (missing) | (missing) | | (unavailable | :: | [facility] | [phone] | | | | ) | | Hospital | 00C2 | | | + + + + + + + + + | Result panel 143 | + + + + + + + + + | | 2022-09-04 | [facility] | | (missing) | (missing) | | (unavailable | 01::07 | [facility] | [phone] | | | | ) | | [...] (missing) | | (unavailable | 05:55:07 | [facility] | | | | | [...] 00:00 | Unknown if ever smoked | [facility] | + + + + | 2022-09-05 00:00 | Unknown if ever smoked | [facility] | + + + + | 2022-09-09 00:00 | Unknown if ever smoked | [facility] | + + + + | 2022-09-14 00:00 | Unknown if ever smoked | [facility] | + + + + | 2022-09-18 00:00 | Unknown if ever smoked | [facility] | + + + + Vital [...]
--- NOTE | 2022-11-23 01:15 | NUR ---
NOTIFIED THAT PT HAS NOT CHEST XRAY FOR PICC VERIFICATION GOT ORDER FOR XRAY.
[~2022-11-23 17:02] MED LIST changes: +ACYCLOVIR800 MG PO; +CALCIUM 500 MG1 EAC5 PO; +LEVOFLOXACIN500 MG PO; +OMEPRAZOLE40 MG PO; +PROCHLORPERAZIN10 MG PO; +TRANEXAMIC ACI650 MG PO; +VFEND200 MG PO; +VFEND50 MG PO; +VITAMIN D31250 MC1 PO
[2022-11-23 17:23] LABS: HEMOGLOBIN 8.7 g/dL (12.0-18.0)
[2022-11-23 17:24] LABS: EOSINOPHILS 5.2 % (0-6); HEMATOCRIT 24.6 % (35.0-50.0); LYMPHOCYTES 90.7 % (24-44); MCH 30.9 (27-36); MCHC 35.2 g/dl (30-36); MCV 87.9 fl (81-99); MONOCYTES 3.1 % (0-12); RDW 13.8 (10.5-15.0)
[2022-11-23 17:30] LABS: PLATELET COUNT 11 K/uL (140-440)
[2022-11-23 17:31] LABS: SMEAR REVIEW BLOOD SEE COMMENTS
[2022-11-23 17:37] LABS: ALBUMIN 3.2 g/dL (3.4-5.0); ALBUMIN/GLOBULIN RATIO 0.8 (1.1-2.4); BILIRUBIN, TOTAL 1.2 ng/dL (0.2-1.0); BUN/CREATININE RATIO 11.34 (6.0-28.6); CALCIUM 9.1 mg/dL (8.5-10.1); CREATININE, SERUM 0.97 mg/dL (0.70-1.30); PROTEIN, TOTAL 7.2 g/dL (6.4-8.2)
[2022-11-23] MEDS ORDERED: AMOX TR-K CLV1 EAC1 PO (17:59)
[2022-11-23 18:42] LABS: ABO O; ANTIBODY SCREEN NEGATIVE; RH POSITIVE
[2022-11-23 20:05] VITALS: BP 144/79
--- NOTE | 2022-11-23 20:05 | NUR ---
[facility] BROUGHT OVER BY ED RN KHUSHI. pt AWAKE AND ORIENTED, AND CHILD ALSO W/ pt. pt AND ORIENTED TO ROOM-DISCUSSED POC AND QUESTIONS ANSWERED. pt HAS IV VANCO INFUSING VIA PICC, pt REPORTS PICC PLACED IN LATE AUGUST AND DRESSING LAST CHANGED LAST SUNDAY. DR JIMENEZ NOW IN ROOM ALSO DISCUSSING POC, PRIMARY RN ABEL REMAINS IN ROOM AND DISCUSSING ORDERS AND POC FOR REMIANING SHIFT W/ MD. CALL LIGHT IN REACH.
--- NOTE | 2022-11-23 20:46 | NUR ---
DR JIMENEZ AT RN STATION, VERBAL ORDER READ BACK FOR A MICROBIOLOGY WOUND CULTURE- ANAEROBIC/AEROBIC TO BE COLLECTED FROM LEFT ARMPIT WOUND NOW. ALSO DISCUSSED WITH DR JIMENEZ, pt HAS 2 UNITS OF PLATELETS ARRIVING (SEE ALREADY PLACED ORDER) BUT PER DR JIMENEZ ONLY ONE UNIT TO BE TRANSFUSED ONCE IT ARRIVES AND THE SECOND IS TO BE ON STANDBY IN LAB. MD WILL EVALUATE IF SECOND UNIT IS NEEDED AFTER AM LABS. PEST LOCATOR AWARE. SPOKE TO MIS IN LAB, PER MIS, PLATELETS TO ARRIVE APPROX [id number] AND AFTER PAPERWORK IS COMPLETED, LAB WILL CALL [employer].
--- NOTE | 2022-11-23 20:56 | NUR ---
CALLS TO REPORT PT FEELS WARM AND HAS A FLUSH TO HIS NECK AND FACE. RN IN ROOM. PT DOES HAVE A FLUSHED COLOR TO NECK AND FACE. ORAL TEMP 99.7F. REDNESS IS ONLY TO THE FACE AND NECK, NO HIVES OR ITCHING REPORTED. PICC LINE AREA ASSESSED. NO REDNESS, SWELLING OR LEAKING NOTED. IV MED INFUSING PER ORDER. NO OTHER NEEDS AT THIS TIME. PRIMARY RN NOTIFIED OF CALL AND THIS RN ACTIONS. ABEL RN WILL MONITOR FOR CHANGES. CALL LIGHT IN REACH.
--- NOTE | 2022-11-23 21:55 | NUR ---
pt arrived on unit with and son. DR. Romero at bedside. Pt home med requested to brought in as pt was not sure the schedule of his meds. R arm PICC line present on admission.
[2022-11-23] MEDS ORDERED: VITAMIN D31250 MC1 PO (22:05)
[2022-11-23] MEDS ORDERED: PROCHLORPERAZIN10 MG PO (22:08)
[2022-11-23] MEDS ORDERED: AUGMENTIN 500-1 EACH PO (22:12)
[2022-11-23 23:32] VITALS: BP 135/78
--- NOTE | 2022-11-24 | NUR ---
PTs BROUGHT IN HOME MED LIST. THIS RN ATTEMPTED TO RECONCILE MEDICATIONS IN [facility]. PHARMACY TO FOLLOW UP PER BUSINESS MANAGEMENT MANAGERALVARADO CLARK.
[2022-11-24 01:38] VITALS: BP 132/64
--- NOTE | 2022-11-24 01:40 | NUR ---
PT PLATETS TRANSFUSION COMPLETED. PT HAS NO SIGNS OF REACTION.
--- NOTE | 2022-11-24 02:08 | NUR ---
As pt had elevated temp of 101.3 F notified lab about transfusionreaction. Dr. Romero notified, no further orders at this time.
[2022-11-24 04:54] VITALS: BP 135/66
[2022-11-24 06:37] LABS: MCV 86.7 fl (81-99)
[2022-11-24 06:39] LABS: HEMOGLOBIN 6.4 g/dL (12.0-18.0)
[2022-11-24 06:44] LABS: EOSINOPHILS 3.6 % (0-6); LYMPHOCYTES 89.7 % (24-44); MCH 30.9 (27-36); MCHC 35.6 g/dl (30-36); MONOCYTES 3.6 % (0-12); NEUTROPHILS 3.1 % (39-80); RBC 2.08 M/ul (4.3-5.7); RDW 13.7 (10.5-15.0)
[2022-11-24 06:45] LABS: ANION GAP 9.7 (7-21); BUN/CREATININE RATIO 14.47 (6.0-28.6); CALCIUM 8.5 mg/dL (8.5-10.1); CREATININE, SERUM 0.76 mg/dL (0.70-1.30); POTASSIUM 3.7 mmol/L (3.5-5.1)
[2022-11-24 06:47] LABS: PLATELET COUNT 6 K/uL (140-440)
--- NOTE | 2022-11-24 06:53 | NUR ---
Got critical platlet, awaiting MD response.
[2022-11-24 07:09] LABS: HEMOGLOBIN 6.4 g/dL (12.0-18.0)
[2022-11-24 07:11] LABS: EOSINOPHILS 5.3 % (0-6); HEMATOCRIT 18.1 % (35.0-50.0); LYMPHOCYTES 88.4 % (24-44); MCH 30.6 (27-36); MCHC 35.3 g/dl (30-36); MCV 86.6 fl (81-99); MONOCYTES 6.3 % (0-12); RBC 2.09 M/ul (4.3-5.7); RDW 13.6 (10.5-15.0)
[2022-11-24 07:12] LABS: PLATELET COUNT 6 K/uL (140-440)
--- NOTE | 2022-11-24 07:40 | NUR ---
CALLED DR. JIMENEZ TO UPDATE HIM ON MOST RECENT PLATELET VALUE OF 6. TORB TO TRANSFUSE ONE UNIT OF PLATELETS AT THIS TIME. NEW ORDER OBTAINED TO ORDER TWO MORE UNITS OF PLATELETS IRRADIATED AND FILTERED TO HOLD.
--- NOTE | 2022-11-24 08:46 | NUR ---
DISCUSSED TRANSFUSION REACTION AND PICC LINE LUMEN CLOT WITH DR. JIMENEZ, VERBAL ORDER FOR ALTEPLASE PER PROTOCOL FOR PICC LINE, AND TO PRETREAT WITH TYLENOL AND BENADRYL BEFORE TRANSFUSION THEN TO WAIT 30 MINUTES, RBOV. PT GIVEN TYLENIOL AND BENADRYL PO. PT EATING BREAKAST, DENIES OTHER NEEDS AT THIS TIME.
--- NOTE | 2022-11-24 09:20 | NUR ---
PER LAB, CURRENT PLATELET UNIT IN LAB IS NOT IRRADIATED OR FILTERED. UPDATED DR. JIMENEZ REGARDING THIS. TORB TO HAVE LAB REPLACE THIS UNIT WITH ONE UNIT PLATELETS TO BE IRRADIATED AND FILTERED, ONCE [facility]IV[facility] TO HOS[facility] THIS ONE UNIT NEEDS TO BE TRANSFUSED. LAB UPDATED.
--- NOTE | 2022-11-24 09:58 | NUR ---
UPON RETRIEVING PLATELETS FROM LAB, IT WAS NOTED THAT UNIT WAS NOT IRRADIATED OR FILTERED ORDERED, DISCUSSED WITH LAB GEMOLOGIST WHO STATED UNIT WAS PSORALEN TREATED. DISCUSSED WITH DR. JIMENEZ WHO REFERED TO DR. BLEVINS. CALL PLACED TO DR. BLEVINS, VERBAL APPROVAL TO USE PSORALEN TREATED PLATELETS, DR. JIMENEZ UPDATED. UNIT OBTAINED FROM LAB, 2 RN VERFICATION AT BEDSIDE WITH PRIMARY NURSE GILBERT.
--- NOTE | 2022-11-24 10:10 | NUR ---
1-1 Platelet unit started at this time. This RN at bedside for first fifteen minutes. No transfusion reaction noted. Instructed patient to call staff if he has any discomfort and or tranfusion reaction. Patient reports his understanding.
--- NOTE | 2022-11-24 10:32 | NUR ---
Verbal order reveived from Dr. Romero to tranfuse one unit of packed red blood cells once ready. Dr. Romero to place order per his report.
--- NOTE | 2022-11-24 10:38 | NUR ---
PATIENT S/P CHEMO TREATMENT FOR AML. PATIENT PLANS TO GO HOME WITH HIS WHEN MEDICALLY STABLE. PATIENT HAS FAMILY AND FRIENDS THAT ARE HELPFUL NEEDED. PT. CAN DRIVE AND CAN DO HIS OWN ADLS. PATIENT CAN AFFORD HOUSING AND FOOD. PATIENT STATES MONEY IS TIGHT. PT. ENCOURAGED TO CALL [employer] AND THE [employer] FOR POSSIBLE HELP. PATIENT DOES NOT NEED DME. PATIENT DOES NOT NEED CASE MANAGEMENT AT THIS TIME. PATIENT ENCOURAGED CALL CM THINGS CHANGE.
--- NOTE | 2022-11-24 10:42 | NUR ---
MED REC COMPLETE
--- NOTE | 2022-11-24 10:55 | NUR ---
NURSING STAFF IN ROOM INTERMITTENTLY THROUGHOUT THE MORNING. NO VISIT. PRAYED FOR ONGOING HEALING.
[2022-11-24 11:30] VITALS: BP 129/80
--- NOTE | 2022-11-24 12:20 | NUR ---
Patient up to restroom at this time. IV abx now infusing per provider order.
[2022-11-24 12:36] LABS: MCHC 35.7 g/dl (30-36)
[2022-11-24 12:38] LABS: EOSINOPHILS 1.4 % (0-6); HEMATOCRIT 19.7 % (35.0-50.0); LYMPHOCYTES 90.9 % (24-44); MCH 30.5 (27-36); MCV 85.5 fl (81-99); MONOCYTES 6.8 % (0-12); NEUTROPHILS 0.9 % (39-80); RDW 13.8 (10.5-15.0)
[2022-11-24 12:41] LABS: PLATELET COUNT 10 K/uL (140-440)
--- NOTE | 2022-11-24 12:54 | NUR ---
EFREN FROM DR. JIMENEZ TO TRANFUSE ONE UNIT OF PLATELETS.
[2022-11-24 14:15] VITALS: BP 132/70
--- NOTE | 2022-11-24 15:04 | NUR ---
Unable to flush Blue lumen on patient's PICC line. Alteplase attempted twice today, both unsuccessful. Patient's red lumen on PICC line is working appropriately, pulls back blood and able to flush. PICC line RN to come see patient.
[2022-11-24 15:19] LABS: IS CROSSMATCH COMPATIBLE
--- NOTE | 2022-11-24 15:33 | NUR ---
PICC LINE NOW WORKING APPROPRIATELY. FLUSHED BOTH LUMENS WITH NORMAL SALINE, GOOD BLOOD RETURN NOTED.
--- NOTE | 2022-11-24 15:34 | NUR ---
WAS ASKED TO ASSIST IN TROUBLE SHOOTING THE PT'S DOUBLE LUMEN PICC LINE THE PURPLE LUMEN WAS NOT DRAWING BLOOD OR FLUSHING. THE RED LUMEN IS DRAWING BLOOD AND FLUSHING EASILY. A 3- WAY STOPCOCK WAS USED IN AN ATTEMPT TO PUT TPA INTO THE LINE. EVEN WITH MULITPLE ATTEMPTS WITH THE STOPCOCK THERE WAS NO SUCCESS WITH GETTING THE TPA INTO THE LUMEN. PULLED THE PT'S PICC LINE DRESSING BACK TO VISUALIZE IF THERE WAS ANY KINKS IN THE LINE. NO KINKS OBSERVED. STERILE DRESSING CHANGE COMPLETE. AFTER STERILE DRESSING CHANGE WAS COMPLETE ANOTHER ATTEMPT WAS MADE TO DRAW BLOOD OFF BOTH LINES. NOW BOTH LINES ARE DRAWING BACK BLOOD AND FLUSHING. THE PURPLE LINE BLOOD RETURN IS SLUGGISH. ALVARADO HUNT NOTIFIED OF THIS. RECOMMENDED TO PLACE TPA THE LINE IS SLUGGISH.
--- NOTE | 2022-11-24 16:52 | NUR ---
2-2 PLATELET UNIT STARTED AT THIS TIME. THIS RN REMAINED AT BEDSIDE WITH PT FOR FIRST FIFTEEN MINUTED. NO TRANFUSION REACTION NOTED. TRANSFUSION RATE INCREASED TO 250ML/HR. BOTH PICC LINE LUMENS IN USE AT THIS TIME, NO NOTABLE DIFFICULTY. PICC LINE FLUSHED WITH 10ML SALINE, IMMEDIATE BLOOD RETURN NOTED TO BOTH. ALTEPLASE NOT INDICATED AT THIS TIME.
[2022-11-24 18:20] VITALS: BP 130/68
--- NOTE | 2022-11-24 19:00 | NUR ---
2-2 platele unit done at this time. Vital signs are stable, afebrile. Patient tolerated infusion well, no reaction noted. PICC line remains patent post infusion, good blood return noted, flushed lumen with 20ml normal saline.
--- NOTE | 2022-11-24 19:20 | NUR ---
pt assesed, pt waiting for blood transfusion.
--- NOTE | 2022-11-24 21:58 | NUR ---
pt blood transfusion almost complete, bed changed, and wiped down with CHG wipes complete. picc flushing on both lumens with good blood return.
[2022-11-25 05:58] VITALS: BP 127/67
--- NOTE | 2022-11-25 06:17 | NUR ---
PT SLEPT WELL OVERNIGHT. LABS DRAWS FROM PICC. PT HAS NO COMPLAINS AT THIS TIME.
[2022-11-25 06:31] LABS: ALBUMIN 2.6 g/dL (3.4-5.0); ALBUMIN/GLOBULIN RATIO 0.74 (1.1-2.4); BILIRUBIN, TOTAL 0.7 ng/dL (0.2-1.0); BUN/CREATININE RATIO 11.25 (6.0-28.6); CALCIUM 8.6 mg/dL (8.5-10.1); CREATININE, SERUM 0.8 mg/dL (0.70-1.30); PROTEIN, TOTAL 6.1 g/dL (6.4-8.2)
[2022-11-25 06:53] LABS: MCH 29.8 (27-36); MCHC 35.2 g/dl (30-36)
[2022-11-25 06:55] LABS: EOSINOPHILS 1.9 % (0-6); HEMATOCRIT 20.3 % (35.0-50.0); HEMOGLOBIN 7.1 g/dL (12.0-18.0); LYMPHOCYTES 83.1 % (24-44); MCV 84.8 fl (81-99); MONOCYTES 13.6 % (0-12); NEUTROPHILS 1.4 % (39-80); RDW 14.5 (10.5-15.0)
[2022-11-25 06:59] LABS: PLATELET COUNT 9 K/uL (140-440)
--- NOTE | 2022-11-25 07:01 | NUR ---
NOTIFIED DR. JIMENEZ HEMOGLOBIN AND PLATLETS BEING LOW.
--- NOTE | 2022-11-25 07:24 | NUR ---
HANDOFF REPORT RECEIVED FROM CHEMICAL ENGRAVER RN.
--- NOTE | 2022-11-25 07:45 | NUR ---
PT SITTING IN CHAIR. PT ON ROOM AIR, LUNG SOUNDS CLEAR, DENIES SOB. BOWEL TONES ACTIVE, DENIES NAUSEA. DENIES PAIN. PT WITH RIGHT ARM PICC, INFUSING VANCOMYCIN. DISCUSSED WITH PT PLAN TO TRANSFUSE PLATELETS AND PRBC TODAY. PREMEDICATED WITH BENADRYL AND TYLENOL. ORDER FOR TRANEXAMIC ACID DOES NOT MATCH PT MEDICATION LABEL, DISCUSSED WITH PT WHO IS UNSURE OF HIS DOSE, PHARMACY CALLED AND WILL CLARIFY ORDER. PT DENIES OTHER NEEDS AT THIS TIME.
--- NOTE | 2022-11-25 09:00 | NUR ---
1 UNIT OF PLATELETS TRANSFUSION STARTED, SECOND RN VERIFICATION WITH RJ HAWKINS. UNIT STARTED AT 0839. RN REMIANED WITH PT FOR FIRST 15 MINUTES OF TRANSFUSION, PT WITHOUT S/S OF REACTION, VERBALIZED UNDERSTANDING TO NOTIFY RN IF HAVING NEW SYMPTOMS. PT DENIES OTHER NEEDS AT THIS TIME.
[2022-11-25 10:39] VITALS: BP 129/62
--- NOTE | 2022-11-25 10:55 | NUR ---
PLATELET TRANSFUSION COMPLETED, WITHOUT S/S OF REACTION. PT GIVEN SECOND TABLET TRANEXAMIC ACID PER ORDER. CEFEPIME INFUSION STARTED. PT DENIES OTHER NEEDS AT THIS TIME.
[2022-11-25 13:58] LABS: VANCOMYCIN, TROUGH 15.1 ug/mL (5.0-20.0)
--- NOTE | 2022-11-25 15:29 | NUR ---
CEFEPIME INFUSION COMPLETE. CBC LAB DRAW COMPLETED FROM PICC. PT DENIES OTHER NEEDS AT THIS TIME.
[2022-11-25 15:32] LABS: HEMATOCRIT 22.9 % (35.0-50.0); MCH 30.2 (27-36)
[2022-11-25 15:33] LABS: EOSINOPHILS 2.2 % (0-6); HEMOGLOBIN 8.1 g/dL (12.0-18.0); LYMPHOCYTES 73.3 % (24-44); MCHC 35.4 g/dl (30-36); MCV 85.2 fl (81-99); MONOCYTES 23.2 % (0-12); NEUTROPHILS 1.3 % (39-80); RBC 2.69 M/ul (4.3-5.7); RDW 14.3 (10.5-15.0)
[2022-11-25 15:35] LABS: PLATELET COUNT 8 K/uL (140-440)
--- NOTE | 2022-11-25 18:04 | NUR ---
PT RECEIVED 1 UNIT PLATELETS AND 1 UNIT PRBC, PRETREATED WITH TYLENOL AND BENADRYL, WITHOUT S/S OF REACTION. PT ON ROOM AIR, LUNG SOUNDS CLEAR. PICC TO RIGHT ARM, POSITIONAL BUT WITH BLOOD RETURN TO BOTH LUMENS. PT SHOWERED, DRESSING CHANGED TO LEFT UNDER ARM ABCESS. REPEAT CBC WITH PLATELET COUNT 8, HGB INCREASED TO 8.1. PLAN FOR 2 UNITS PLATELETS TO BE GIVEN TONIGHT, ORDERED.
[2022-11-25 18:21] VITALS: BP 140/81
[2022-11-25 20:06] VITALS: BP 133/72
--- NOTE | 2022-11-25 20:18 | NUR ---
PT ASSESSMENT COMPELTE. PT RESTING IN CHAIR WITH FEET ELEVATED. PT DENIES PAIN, NASUEA, OR SOB. DRESSING, GAUZE AND TAPE TO L UNDERARM C/D/I. PICC LINE WITH SCHEDULED MEDICATION INFUSING. BLE WITH GENERALIZED EDEMA TO ANKLES AND FEET. PT REPORTS IMPROVEMENT FROM PRIOR. VS OBTAINED. WNL. PT UPDATED REGARDING POC. PT STATES UNDERSTANDING. PT DENIES FURTHER NEEDS AT THIS TIME. CALL LIGHT IN REACH.
--- NOTE | 2022-11-25 21:58 | NUR ---
WHEEL AND AXLE INSPECTOR TO ROOM TO START SCHEDULED MEDICATION ADMINISTRATION. RED LUMED TO PICC LINE FOUND TO NEITHER FLUSH OR DRAW BACK BLOOD. PT STATES THIS OCCURED A COUPLE OF DAYS PRIOR AND A DRESSING CHANGE REMEDIED THE ISSUE. PICC LINE DRESSING CHANGE PERFORMED. STILL UNABLE TO FLUSH OR DRAW BACK BLOOD. NOTIFIED. HE STATES IT IS OK TO USE ALTEPLASE ON THE LINE. NO OTHER NEW ORDERS RECEIVED AT THIS TIME. PT DENIES FURTHER NEEDS AT THIS TIME. CALL LIGHT IN REACH.
--- NOTE | 2022-11-25 23:06 | NUR ---
PATIENT IS RESTING IN BED. ALTEPLASE INFUSED IN RED LUMEN. PATIENT HAS ABX INFUSING IN OTHER LUMEN. PATIENT REPORTS PAIN IN HIS RIGHT GREAT TOE. RIGHT GREAT TOE IS NOTED TO BE REDISH/PURPLE AND IS WARM TO THE ROUCH. SOSA RN AND MICHI CHILDERS OBTAINED CONSENT TO PHOTOGRAPH. DISCOLORATION ON RIGHT GREAT TOE OUTLINED AND PIC TAKEN AND PLACED IN CHART. PATIENT DENIES ANY INTERVENTION NEEDED FOR PAIN IN RIGHT GRAET TOE. PATIENT DENIES ANY NEEDS. CALL LIGHT IN REACH.
--- NOTE | 2022-11-25 23:41 | NUR ---
ATTEMPTED TO ASPIRATE FROM RED LUMEN ON PICC LINE. THIS RN UNABLE TO ASPIRATE ANYTHING FROM THE LUMEN. WILL CONTINUE TO LET ALTIPLASE SIT IN LINE PER ORDER. PATIENT DENIES ANY NEEDS. CALL LIGHT IN REACH.
[2022-11-25 23:50] VITALS: BP 130/77
[2022-11-26] VITALS (9 sets, daily range): BP systolic 126–144; BP diastolic 68–86
--- NOTE | 2022-11-26 00:07 | NUR ---
PATIENTS PLATELETS STARTED AT APPROX 235O AND VITALS TAKEN AND RECORDED. THIS RN REMAINED IN ROOM FOR 15 MIN AND VITALS TAKEN. NO S/SX OF TRANSFUSION REACTION NOTED. PRETRANSFUSION PRN TYLENOL AND BENDARYL GIVEN PER ORDER. PATIENT IS RESTING IN RECLINER. NO NEEDS NOTED. CALL LIGHT IN REACH. PLATELETS INFUSING.
--- NOTE | 2022-11-26 00:47 | NUR ---
PATIENTS PLATELET COMPLETED INFUSING. NO S/SX OF REACTION NOTED. VITALS TAKEN AND RECORDED. THIS RN STARTED SECOND UNITS OF PLATELETS INFUSING AT APPROX [id number]. THIS RN REMAINS AT BEDSIDE.
--- NOTE | 2022-11-26 01:49 | NUR ---
PATIENTS SECON UNIT OF PLATELETS COMPLETED INFUSING. NO S/SX OF REACTIONS NOTED. PATIENTS VITALS TAKEN AND RECORDED. THIS RN ATTEMPTED TO ASPIRATE RED LUMEN OF PICC LINE. BLOOD RETURN NOTED. 10ML OF BLOOD ASPIRATED AND WASTED FROM RED LUMEN. RED LUMEN FLUSHED WITH 30ML OF NS. PATIENT IS RESTING IN RECLINER. PATIENTS IV ABX INFUSING PER ORDER. PATIENT DENIES ANY FURTHER NEEDS. CALL LIGHT IN REACH.
--- NOTE | 2022-11-26 04:10 | NUR ---
PATIENT IS RESTING IN BED ON RIGHT SIDE WITH EYES CLSOED, RR 17. CALL LIGHT IN REACH. IX ABX INFUSING PER ORDER.
[2022-11-26 05:24] LABS: HEMATOCRIT 20.1 % (35.0-50.0); LYMPHOCYTES 64.6 % (24-44)
[2022-11-26 05:26] LABS: EOSINOPHILS 0.6 % (0-6); HEMOGLOBIN 7.2 g/dL (12.0-18.0); MCH 30.2 (27-36); MCHC 35.7 g/dl (30-36); MCV 84.6 fl (81-99); NEUTROPHILS 2.8 % (39-80); RBC 2.37 M/ul (4.3-5.7); RDW 14.4 (10.5-15.0)
--- NOTE | 2022-11-26 05:30 | NUR ---
PATIENTS IV ABX STOPPED FOR 5 MIN. THIS RN FLUSHED BOTH LUMENS OF PICC LINE WITH 10ML OF NS. 7ML OF BLOOD WASTED. 10ML OF BLOOD DRAWN FROM PICC AND PLACED IN APPROPRIIATE TUBES. TUBES LABELED AND SENT TO LAB. PATIENTS IV ABX INFUSING PER ORDER. PATIENT DENIES ANY NEEDS. CALL LIGHT IN REACH.
--- NOTE | 2022-11-26 05:30 | NUR ---
PATIENT IS RESTING IN BED ON RIGHT SIDE WITH EYES CLSOED, RR 17. CALL LIGHT IN REACH. IX ABX INFUSING PER ORDER.
[2022-11-26 05:43] LABS: ALBUMIN 2.7 g/dL (3.4-5.0); ALBUMIN/GLOBULIN RATIO 0.82 (1.1-2.4); ANION GAP 12.9 (7-21); BILIRUBIN, TOTAL 0.8 ng/dL (0.2-1.0); BUN/CREATININE RATIO 7.95 (6.0-28.6); CALCIUM 8.6 mg/dL (8.5-10.1); CREATININE, SERUM 0.88 mg/dL (0.70-1.30); POTASSIUM 3.9 mmol/L (3.5-5.1)
[2022-11-26 05:45] LABS: PLATELET COUNT 18 K/uL (140-440)
--- NOTE | 2022-11-26 06:21 | NUR ---
PATIENT IS RESTING IN BED AND REPORTS 3/10 PAIN IN HIS RIGHT TOE. PRN MEDS GIVEN PER ORDER. AM ABX INFUSING PER ORDER. PATIENT DENIES ANY FURTHER NEEDS. CALL LIGHT IN REACH.
--- NOTE | 2022-11-26 07:23 | NUR ---
REPORT RECEIVED FROM MANUFACTURING ENGINEERING INTERN RN, ALL QUESTIONS ANSWERED.
--- NOTE | 2022-11-26 08:25 | NUR ---
IN PT ROOM TO [facility] MEDS, PT RESTING WITH EYES CLOSED, AWAKENS EASILY. SCHEDULED MEDICATIONS GIVEN, SEE EMAR. PT REQUEST TO REST. DENIES NEEDS PAIN OR NEEDS AT THIS TIME. CALL LIGHT IN REACH.
--- NOTE | 2022-11-26 10:18 | NUR ---
MORNING ASSESSMENT COMPLETE. PICC LINE DRAW FOR BLOOD BAND WITH LAB. PT DENIES PAIN OR NEEDS AT THIS TIME. VSS. CLEAR LUNG SOUNDS. CALL LIGHT IN REACH AND PT DENIES FURTHER NEEDS AT THIS TIME.
[2022-11-26 10:50] LABS: ABO O; ANTIBODY SCREEN NEGATIVE; RH POSITIVE
--- NOTE | 2022-11-26 12:21 | NUR ---
PT SITTING UP IN RECLINER, VISITING FAMILY. LUNCH DELIVERED. PT TOES ASSESSED. RED DISCOLORATION WITHIN PREVIOUSLY OUTLINED ARE. PT STATES AT TIMES PAINFUL, DENIES NEED FOR INTERVENTION AT THIS TIME. CALL LIGHT IN REACH.
[2022-11-26 13:34] LABS: IS CROSSMATCH COMPATIBLE
--- NOTE | 2022-11-26 14:56 | NUR ---
AFTERNOON ASSESSMENT COMPLETE. PT SITTING UP IN RECLINER WITH NO COMPLAINTS. GREAT TOE NO CHANGES. CLEAR LUNG SOUNDS. PRBC UNIT STARTED. NO REACTIONS NOTED IN 15 MINUTES, VSS. PT PREMEDICATED WITH TYLENOL AND BENADRYL ORDERED. PT DENIES PAIN OR NEEDS AT THIS TIME. CALL LIGHT IN REACH.
--- NOTE | 2022-11-26 17:27 | NUR ---
FIRST UNIT OF PRBC COMPLETE, VSS. SECOND UNIT STARTED, NO S/SX OF REACTION, RATE INCREASED. PT DENIES NEEDS AT THIS TIME, CALL LIGHT IN REACH.
--- NOTE | 2022-11-26 20:02 | NUR ---
LEGAL INTERN TO ROOM FOR IV PUMP ALARMING. PRBC INFUSION COMPLETE. VS OBTAINED. WNL. PICC LINE FLUSHED WITH 10 ML NS. PT DENIES NEEDS AT THIS TIME. CALL LIGHT IN REACH.
--- NOTE | 2022-11-26 20:44 | NUR ---
PT ASSESSMENT COMPLETE. PT RATES PAIN 4/10 TO R GREAT TOE. PRN ADMINISTERED. PT DENIES SOB OR NAUSEA. DRESSING TO L UNDERARM WITH GAUZE AND TAPE DRESSING, C/D/I. REDDENED AREA TO R GREAT TOE REMAINS WITHIN OUTLINE, SMALL AMOUNT OF DRAINAGE NOTED AROUND TOENAIL. PLATELETS INITIATED ORDERED. PICC LINE FLUSHED, GOOD BLOOD RETURN NOTED. VS OBTAINED, WNL. ICE WATER REFILLED. PT DENIES FURTHER NEEDS AT THIS TIME. CALL LIGHT IN REACH.
--- NOTE | 2022-11-26 21:00 | NUR ---
PT ROUNDING. PT RESTING IN RECLINER. PLATETS CONTINUE TO INFUSE. PT DENIES S/SX OF TRASFUSION REACTION. DENIES NEEDS AT THIS TIME. CALL LIGHT IN REACH.
--- NOTE | 2022-11-26 21:57 | NUR ---
2ND UNIT OF PLATLETS INITIATED ORDERED. UNIT VERIFIED BY 2 RNS. PRE VITAL SIGNS OBTAINED. HAND STAPLER TO STAY WITH PT FOR 15 MIN. NEEDS DENIED AT THIS TIME. CALL LIGHT IN REACH.
--- NOTE | 2022-11-26 23:25 | NUR ---
ACCESS COORDINATOR TO ROOM FOR IV PUMP ALARMING. PT RESTING IN BED WITH EYES CLOSED. DOES NOT WAKE WHILE IV PUMP ALARMING. PT WAKES EASILY TO TOUCH. DENIES S/SX OF TRANSFUSION REACTION. VS OBTAINED, WNL. PICC LINE FLUSHED, GOOD BLOOD RETURN NOTED. PT DENIES NEEDS AT THIS TIME. QUICKLY FALLS BACK TO SLEEP. CALL LIGHT IN REACH.
--- NOTE | 2022-11-27 01:40 | NUR ---
PHYSICAL SECURITY SPECIALIST TO ROOM FOR SCHEDULED BARREL REAMER. PT RESTING IN BED WITH EYES CLOSED. WAKES BRIEFLY WHILE PHYSICAL SECURITY SPECIALIST AT BEDSIDE. FALLS BACK TO SLEEP QUICKLY. CALL LIGHT IN REACH.
--- NOTE | 2022-11-27 03:26 | NUR ---
IV PUMP ALARMING. ISSUE RESOLVED. PT AWAKE IN RECLINER. URINAL EMPTIED. DENIES NEEDS. CALL LIGHT IN REACH.
--- NOTE | 2022-11-27 04:00 | NUR ---
PT ROUNDING. PT SITTING UP IN CHAIR. STATES HE SLEPT REALLY WELL FOR A WHILE, NOW CANNOT SLEEP. DENIES NEEDS. CALLLIGHT IN REACH.
--- NOTE | 2022-11-27 05:37 | NUR ---
PT ROUNDING. PT RESTING IN BED WATCHING TV. DENIES NEEDS. CALL LIGHT IN REACH.
[2022-11-27 05:55] VITALS: BP 132/77
--- NOTE | 2022-11-27 06:18 | NUR ---
PT ASSESSMENT COMPLETE. PT DENIES PAIN, NAUSEA, OR SOB. DRESSING TO L UNDERARM C/D/I. R GREAT TOE REDNESS REMAINS WIHTIN OUTLINED AREA. NO DRAINAGE NOTED THIS AM. BLOOD DRAW FROM RED LUMEN OF PICC LINE AFTER STOPPING INFUSION FOR >2 MIN. FLUSHED WITH 20 ML NS FOLLOWING. NEW CLAVE PLACED. SCHEDULED MEDICATION INITIATED. VS OBTAINED. WNL. PT UP TO USE THE BATHROOM RIDING SILKS CUSTODIAN EXITS. PT DENIES FURTHER NEEDS AT THIS TIME.
[2022-11-27 06:21] LABS: HEMATOCRIT 23.2 % (35.0-50.0); HEMOGLOBIN 8.2 g/dL (12.0-18.0); LYMPHOCYTES 46.2 % (24-44); MCH 29.7 (27-36); MCHC 35.3 g/dl (30-36); MCV 84.1 fl (81-99); MONOCYTES 2.6 % (0-12); NEUTROPHILS 51.2 % (39-80); RBC 2.76 M/ul (4.3-5.7); RDW 14.3 (10.5-15.0)
[2022-11-27 06:37] LABS: PLATELET COUNT 23 K/uL (140-440)
--- NOTE | 2022-11-27 07:27 | NUR ---
DR PIRES IN TO SEE PT, DC ORDERS WRITTEN, ALL QUESTIONS ANSWERED. PT DENIES FURTHER QUESTIONS OR CONCERNS. HE IS UP INDEPENDANTLY IN THE ROOM DRESSING FOR DC. VANCO INFUSION COMPLETE PICC LINE FLUSHED. FRESH H20 AND COFFEE PROVIDED PER REQUEST
--- NOTE | 2022-11-27 07:45 | NUR ---
PT DRESSED SELF, SITTING UP IN RECLINER. REQUESTS A COPY OF [facility], PROVIDED. PT PENDING DISCHARGE. NO FURTHER REQUESTS AT THIS TIME.
--- NOTE | 2022-11-27 08:00 | NUR ---
HOME MEDICATIONS REMOVED FROM [facility] AND PROVIDED TO PT FOR DISCHARGE.
--- NOTE | 2022-11-27 09:15 | NUR ---
DISCUSSED DISCHARGE INSTRUCTIONS WITH PT, CLARIFIED ORDER TO CONTINUE AUGMENTIN, YES, PT TO CONTINUE THIS MEDICATION, PHARMACY INTO PROVIDE EDUCATION. PT VERBALIZES UNDERSTANDING OF D/C INSTRUCTIONS. PICC LINE FLUSHED WITH 10CC OF NS IN EACH LUMEN FOLLOWED BY 5MLS OF 10 UNIT/ML HEPARIN IN EACH LUMEN. BLOOD RETURN NOTED IN EACH LUMEN. DRESSING INTACT, NO REDNESS OR SWELLING NOTED AT SITE. PT LEAVES UNIT AMBULATORY ESCORTED BY RAMAN BERRIOS.
== END 2022-11-27 09:15 | disposition home or self-care (01) | DRG 809 ==
LOC: ED 17:02 → MS 18:45
PROVIDERS: Emergency Medicine; ADMIT Internal Medicine; ATTEND Family Medicine
PROC: 30233N1 Transfusion of Nonautologous Red Blood Cells into Peripheral Vein, Percutaneous Approach (ICD-10-PCS; principal; 2022-11-23)
PROC: 30233R1 Transfusion of Nonautologous Platelets into Peripheral Vein, Percutaneous Approach (ICD-10-PCS; 2022-11-23)
PROC: 02HV33Z Insertion of Infusion Device into Superior Vena Cava, Percutaneous Approach (ICD-10-PCS; 2022-11-24)
DX: D61.810 Antineoplastic chemotherapy induced pancytopenia (principal); C92.00 Acute myeloblastic leukemia, not having achieved remission; D70.9 Neutropenia, unspecified; R50.81 Fever presenting with conditions classified elsewhere; L03.031 Cellulitis of right toe; B35.1 Tinea unguium; E66.01 Morbid (severe) obesity due to excess calories; F17.200 Nicotine dependence, unspecified, uncomplicated; L02.422 Furuncle of left axilla; D70.1 Agranulocytosis secondary to cancer chemotherapy; T45.1X5A Adverse effect of antineoplastic and immunosuppressive drugs, initial encounter; Z87.19 Personal history of other diseases of the digestive system; Z88.0 Allergy status to penicillin; Z88.1 Allergy status to other antibiotic agents; Z79.899 Other long term (current) drug therapy; Z92.21 Personal history of antineoplastic chemotherapy; Z79.2 Long term (current) use of antibiotics; Z79.51 Long term (current) use of inhaled steroids
CPT/HCPCS: 36415; 71045; 80048; 80053; 80202; 83605; 85025; 85060; 86850; 86900; 86901; 86922; 87070; 87075; 87205; 96365; 96375; 99284-25; A9270; J0692; J2997; J3370; J7060; P9035; P9040; P9055

== ENCOUNTER 2022-11-29 14:22 | Emergency (ER) | payer OTHER ==
[~2022-11-29] VITALS: Ht 188 cm; Wt 140.6 kg
--- OUTSIDE RECORDS SUMMARY | ~2022-11-29 | XMS | Continuity of Care Document ---
Demographics + + + | Address | [address] | | | [place] [address] | + + + | Preferred Language | Unknown | + + + | Marital Status | | + + + | Cheondoism Affiliation | Unknown | + + + | Race | White | + + + | Ethnic Group | Not or | + + + Author + + + | Author | [facility] | + + + | Organization | [facility] | + + + | Address | [address] | | | [place] [address] | + + + | Phone | | + + + Care Team Providers + + + + | Care Literary Agent Name | Role | Phone | + + + + Unavailable | Unavailable | + + + + Unavailable | Unavailable | + + + + Unavailable | Unavailable | + + + + Unavailable | Unavailable | + + + + Unavailable | Unavailable | + + + + Unavailable | Unavailable | + + + + Allergies and Intolerances + + + + + + | date | description | facility | reaction | severity | + + + + + + | (no date) | Mild | [facility] | (no reaction) | (no severity) | | | [facility] | | | + + + + + + | (no date) | Piperacillin | [facility] | (no reaction) | (no severity) | | | [facility] | | | + + + + + + | (no date) | Tazobactam | [facility] | (no reaction) | (no severity) | | | [facility] | | | + + + + + + | (no date) | Fever | [facility] | (no reaction) | (no severity) | | | [facility] | | | + + + + + + | (no date) | Tazobactam | [facility] | (no reaction) | (no severity) | | | [facility] | | | + + + + + + | (no date) | Piperacillin | [facility] | (no reaction) | (no severity) | | | [facility] | | | + + + + + + | (no date) | No Known Drug | [facility] | (no reaction) | (no severity) | | | Allergies | | | | + + + + + + | (no date) | tazobactam | [facility] | (no reaction) | (no severity) | + + + + + + | (no date) | piperacillin | [facility] | (no reaction) | (no severity) | + + + + + + | (no date) | Tazobactam | [facility] | (no reaction) | (no severity) | | | [facility] | | | + + + + + + | (no date) | Piperacillin | [facility] | (no reaction) | (no severity) | | | | [facility] | | | | [facility] | | | + + + + + + Encounters No information. Functional Status No information. Immunizations No information. Medications + + + + | date | description | facility | + + + + | 2022-11-27 00:00 | Calcium Carbonate/Vitamin | [facility] | | | D3 | | + + + + | 2022-09-05 00:00 | FLUTICASONE PROPIONATE 50 | [facility] | | | MCG | | + + + + | 2022-11-27 00:00 | ACYCLOVIR | [facility] | + + + + | 2022-09-05 00:00 | ALLOPURINOL | [facility] | + + + + | 2022-09-05 00:00 | ALLOPURINOL | [facility] | + + + + | 2022-09-05 00:00 | ALLOPURINOL | [facility] | + + + + | 2022-09-05 00:00 | ALLOPURINOL | [facility] | + + + + | 2022-07-06 00:00 | BENZONATATE | [facility] | + + + + | 2022-07-06 00:00 | BENZONATATE | [facility] | + + + + | 2022-07-06 00:00 | BENZONATATE | [facility] | + + + + | 2022-07-06 00:00 | BENZONATATE | [facility] | + + + + | 2022-11-27 00:00 | PROCHLORPERAZINE MALEATE | [facility] | + + + + | 2022-11-27 00:00 | LEVOFLOXACIN | [facility] | + + + + | 2022-11-27 00:00 | OMEPRAZOLE | [facility] | + + + + | 2022-09-14 00:00 | CIPROFLOXACIN HCL | [facility] | + + + + | 2022-09-18 00:00 | CIPROFLOXACIN HCL | [facility] | + + + + | 2022-11-27 00:00 | CIPROFLOXACIN HCL | [facility] | + + + + | 2022-11-27 00:00 | VORICONAZOLE | [facility] | + + + + | 2022-11-27 00:00 | VORICONAZOLE | [facility] | + + + + | 2022-11-27 00:00 | Cholecalciferol (Vitamin | [facility] | | | D3) | | + + + + | 2022-09-14 00:00 | Amoxicillin/Potassium Clav | [facility] | | | | | + + + + | 2022-09-18 00:00 | Amoxicillin/Potassium Clav | [facility] | | | | | + + + + | 2022-11-27 00:00 | Amoxicillin/Potassium Clav | [facility] | | | | | + + + + | 2022-09-05 00:00 | ALBUTEROL SULFATE | [facility] | + + + + | 2022-09-09 00:00 | ALBUTEROL SULFATE | [facility] | + + + + | 2022-09-14 00:00 | ALBUTEROL SULFATE | [facility] | + + + + | 2022-09-18 00:00 | ALBUTEROL SULFATE | [facility] | + + + + | 2022-11-27 00:00 | ALBUTEROL SULFATE | [facility] | + + + + | 2022-11-27 00:00 | TRANEXAMIC ACID | [facility] | + + + + | 2022-09-05 00:00 | FLUTICASONE PROPIONATE 220 | [facility] | | | MCG | | + + + + | 2022-09-14 00:00 | FLUTICASONE PROPIONATE 220 | [facility] | | | MCG | | + + + + | 2022-09-18 00:00 | FLUTICASONE PROPIONATE 220 | [facility] | | | MCG | | + + + + | 2022-11-27 00:00 | FLUTICASONE PROPIONATE 220 | [facility] | | | MCG | | + + + + Problems + + + + | date | description | facility | + + + + | 2022-07-05 00:00 | Acute bronchitis | [facility] | + + + + | 2022-07-05 00:00 | Acute bronchitis | [facility] | + + + + | 2022-07-05 00:00 | Acute bronchitis | [facility] | + + + + | 2022-07-05 00:00 | Acute bronchitis | [facility] | + + + + | 2022-07-05 22:50 | ACUTE BRONCHITIS, | [facility] | | | UNSPECIFIED | | + + + + | 2022-07-05 22:50 | COUGH, UNSPECIFIED | [facility] | + + + + | 2022-09-04 00:00 | Anemia | [facility] | + + + + | 2022-09-04 00:00 | Anemia | [facility] | + + + + | 2022-09-04 00:00 | Anemia | [facility] | + + + + | 2022-09-04 00:00 | Anemia | [facility] | + + + + | 2022-09-04 00:00 | Thrombocytopenia | [facility] | + + + + | 2022-09-04 00:00 | Thrombocytopenia | [facility] | + + + + | 2022-09-04 00:00 | Thrombocytopenia | [facility] | + + + + | 2022-09-04 00:00 | Thrombocytopenia | [facility] | + + + + | 2022-09-04 03:10 | ACUTE MYELOBLASTIC | [facility] | | | LEUKEMIA, NOT HAVING | | | | ACHIEVED R | | + + + + | 2022-09-04 03:10 | ANEMIA IN NEOPLASTIC | [facility] | | | DISEASE | | + + + + | 2022-09-04 03:10 | OTHER SECONDARY | [facility] | | | THROMBOCYTOPENIA | | + + + + | 2022-09-04 03:10 | HYPOKALEMIA | [facility] | + + + + | 2022-09-04 03:10 | NICOTINE DEPENDENCE, | [facility] | | | UNSPECIFIED, UNCOMPLICATED | | + + + + | 2022-09-04 03:10 | Bronchitis, not specified | [facility] | | | as acute or chronic | | + + + + | 2022-09-04 03:10 | ACUTE KIDNEY FAILURE, | [facility] | | | UNSPECIFIED | | + + + + | 2022-09-04 03:10 | PALPITATIONS | [facility] | + + + + | 2022-09-04 03:10 | HYPERGLYCEMIA, UNSPECIFIED | [facility] | | | | | + + + + | 2022-09-04 03:10 | FILING AND POLISHING SUPERVISOR (CURRENT) USE OF | [facility] | | | INHALED STEROIDS | | + + + + | 2022-09-04 03:10 | OTHER FILING AND POLISHING SUPERVISOR (CURRENT) | [facility] | | | 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 | | + + + + | 2022-09-09 00:00 | Weakness | [facility] | + + + + | 2022-09-09 00:00 | Weakness | [facility] | + + + + | 2022-09-09 00:00 | Weakness | [facility] | + + + + | 2022-09-09 10:45 | ANEMIA, UNSPECIFIED | [facility] | + + + + | 2022-09-09 10:45 | THROMBOCYTOPENIA, | [facility] | | | UNSPECIFIED | | + + + + | 2022-09-09 10:45 | MORBID (SEVERE) OBESITY | [facility] | | | DUE TO EXCESS CALORIES | | + + + + | 2022-09-09 10:45 | Dizziness and giddiness | [facility] | + + + + | 2022-09-09 10:45 | WEAKNESS | [facility] | + + + + | 2022-09-09 10:45 | OTHER DETENTION (CURRENT) | [facility] | | | 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 | | + + + + | 2022-09-14 09:50 | ACUTE MYELOBLASTIC | [facility] | | | LEUKEMIA, IN REMISSIO | | + + + + | 2022-09-14 09:50 | ACUTE MYELOBLASTIC | [facility] | | | LEUKEMIA, IN REMISSION | | + + + + | 2022-09-14 09:50 | OTHER FILING AND POLISHING SUPERVISOR (CURRENT) | [facility] | | | 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 | | + + + + | 2022-09-18 00:00 | Hemoptysis | [facility] | + + + + | 2022-09-18 00:00 | Hemoptysis | [facility] | + + + + | 2022-09-18 12:43 | ANEMIA, UNSPECIFIED | [facility] | + + + + | 2022-09-18 12:43 | THROMBOCYTOSIS, | [facility] | | | UNSPECIFIED | | + + + + | 2022-09-18 12:43 | MORBID (SEVERE) OBESITY | [facility] | | | DUE TO EXCESS CALORIES | | + + + + | 2022-09-18 12:43 | HEMOPTYSIS | [facility] | + + + + | 2022-09-18 12:43 | OTHER FILING AND POLISHING SUPERVISOR (CURRENT) | [facility] | | | 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 | | + + + + | 2022-09-19 08:37 | ANEMIA, UNSPECIFIED | [facility] | + + + + | 2022-09-19 08:37 | THROMBOCYTOPENIA, | [facility] | | | UNSPECIFIED | | + + + + | 2022-09-19 08:37 | HEMOPTYSIS | [facility] | + + + + | 2022-10-31 09:32 | ACUTE MYELOBLASTIC | [facility] | | | LEUKEMIA, IN RELAPSE | | + + + + | 2022-11-13 08:56 | ACUTE MYELOBLASTIC | [facility] | | | LEUKEMIA, NOT HAVING | | | | ACHIEVED REMISSION | | + + + + | 2022-11-13 08:56 | ENCOUNTER FOR EXAMINATION | [facility] | | | AND OBSERVATION FOR UNSP | | | | REASON | | + + + + | 2022-11-15 09:36 | ACUTE MYELOBLASTIC | [facility] | | | LEUKEMIA, NOT HAVING | | | | ACHIEVED REMISSION | | + + + + | 2022-11-16 08:52 | ACUTE MYELOBLASTIC | [facility] | | | LEUKEMIA, NOT HAVING | | | | ACHIEVED REMISSION | | + + + + | 2022-11-16 08:52 | THROMBOCYTOPENIA, | [facility] | | | UNSPECIFIED | | + + + + | 2022-11-17 08:15 | ACUTE MYELOBLASTIC | [facility] | | | LEUKEMIA, NOT HAVING | | | | ACHIEVED REMISSION | | + + + + | 2022-11-17 08:15 | THROMBOCYTOPENIA, | [facility] | | | UNSPECIFIED | | + + + + | 2022-11-20 08:58 | ACUTE MYELOBLASTIC | [facility] | | | LEUKEMIA, NOT HAVING | | | | ACHIEVED REMISSION | | + + + + | 2022-11-20 14:30 | ACUTE MYELOBLASTIC | [facility] | | | LEUKEMIA, NOT HAVING | | | | ACHIEVED REMISSION | | + + + + | 2022-11-21 13:20 | ACUTE MYELOBLASTIC | [facility] | | | LEUKEMIA, NOT HAVING | | | | ACHIEVED REMISSION | | + + + + | 2022-11-21 13:20 | THROMBOCYTOPENIA, | [facility] | | | UNSPECIFIED | | + + + + | 2022-11-22 10:02 | ACUTE MYELOBLASTIC | [facility] | | | LEUKEMIA, NOT HAVING | | | | ACHIEVED REMISSION | | + + + + | 2022-11-22 10:02 | ENCOUNTER FOR ADJUSTMENT | [facility] | | | AND MANAGEMENT OF VAD | | + + + + | 2022-11-23 00:00 | Febrile neutropenia | [facility] | + + + + | 2022-11-23 09:55 | Essential (primary) | [facility] | | | hypertension | | + + + + | 2022-11-23 18:45 | JUAN RAMON LAUGHLIN | [facility] | + + + + | 2022-11-23 18:45 | ACUTE MYELOBLASTIC | [facility] | | | LEUKEMIA, NOT HAVING | | | | ACHIEVED R | | + + + + | 2022-11-23 18:45 | ANTINEOPLASTIC | [facility] | | | CHEMOTHERAPY INDUCED | | | | PANCYTOPENIA | | + + + + | 2022-11-23 18:45 | OTHER PANCYTOPENIA | [facility] | + + + + | 2022-11-23 18:45 | ANEMIA DUE TO | [facility] | | | ANTINEOPLASTIC CHEMOTHERAPY | | | | | | + + + + | 2022-11-23 18:45 | OTHER SECONDARY | [facility] | | | THROMBOCYTOPENIA | | + + + + | 2022-11-23 18:45 | THROMBOCYTOPENIA, | [facility] | | | UNSPECIFIED | | + + + + | 2022-11-23 18:45 | Radiation Therapy @ | [facility] | | | [facility] | | | | [facility] @ [facility] @ | | | | Thymus | | + + + + | 2022-11-23 18:45 | NEUTROPENIA, UNSPECIFIED | [facility] | + + + + | 2022-11-23 18:45 | MORBID (SEVERE) OBESITY | [facility] | | | DUE TO EXCESS CALORIES | | + + + + | 2022-11-23 18:45 | NICOTINE DEPENDENCE, | [facility] | | | UNSPECIFIED, UNCOMPLICATED | | + + + + | 2022-11-23 18:45 | FURUNCLE OF LEFT AXILLA | [facility] | + + + + | 2022-11-23 18:45 | CELLULITIS OF RIGHT TOE | [facility] | + + + + | 2022-11-23 18:45 | FEVER PRESENTING WITH | [facility] | | | CONDITIONS CLASSIFIED | | | | ELSEWH | | + + + + | 2022-11-23 18:45 | ADVERSE EFFECT OF | [facility] | | | ANTINEOPLASTIC AND | | | | IMMUNOSUP HERMINIO | | + + + + | 2022-11-23 18:45 | DETENTION (CURRENT) USE OF | [facility] | | | ANTIBIOTICS | | + + + + | 2022-11-23 18:45 | DETENTION (CURRENT) USE OF | [facility] | | | INHALED STEROIDS | | + + + + | 2022-11-23 18:45 | OTHER FILING AND POLISHING SUPERVISOR (CURRENT) | [facility] | | | 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 | | + + + + | 2022-11-23 18:45 | PERSONAL HISTORY OF OTHER | [facility] | | | DISEASES OF THE DIGESTIV | | + + + + | 2022-11-23 18:45 | ALLERGY STATUS TO | [facility] | | | PENICILLIN | | + + + + | 2022-11-23 18:45 | ALLERGY STATUS TO OTHER | [facility] | | | ANTIBIOTIC AGENTS STATUS | | + + + + | 2022-11-23 18:45 | PERSONAL HISTORY OF | [facility] | | | ANTINEOPLASTIC CHEMOTHERAPY | | | | | | + + + + Procedures + + + + | date | description | facility | + + + + | 2022-09-04 00:00 | TRANSFUSE NONAUT FROZEN | [facility] | | | PLASMA IN PERIPH VEIN, PERC | | | | | | + + + + | 2022-09-04 00:00 | TRANSFUSE NONAUT FROZEN | [facility] | | | PLASMA IN PERIPH VEIN, PERC | | | | | | + + + + | 2022-09-04 00:00 | TRANSFUSE NONAUT FRESH | [facility] | | | PLASMA IN PERIPH VEIN, PERC | | | | | | + + + + | 2022-09-04 00:00 | TRANSFUSE NONAUT FRESH | [facility] | | | PLASMA IN PERIPH VEIN, PERC | | | | | | + + + + | 2022-09-05 00:00 | TRANSFUSE NONAUT RED BLOOD | [facility] | | | CELLS IN PERIPH VEIN, PERC | | | | | | + + + + | 2022-09-05 00:00 | TRANSFUSE NONAUT RED BLOOD | [facility] | | | CELLS IN PERIPH VEIN, PERC | | | | | | + + + + | 2022-09-05 00:00 | TRANSFUSE NONAUT PLATELETS | [facility] | | | IN PERIPH VEIN, PERC | | + + + + | 2022-09-05 00:00 | TRANSFUSE NONAUT PLATELETS | [facility] | | | IN PERIPH VEIN, PERC | | + + + + | 2022-09-14 00:00 | Aspiration, bone marrow, | [facility] | | | with biopsy | | + + + + | 2022-09-14 00:00 | Aspiration, bone marrow, | [facility] | | | with biopsy | | + + + + | 2022-09-14 00:00 | Aspiration, bone marrow, | [facility] | | | with biopsy | | + + + + | 2022-09-14 00:00 | Aspiration, bone marrow, | [facility] | | | with biopsy | | + + + + Results/Labs +--------+--------+ +---------+--------+---------+ | test | date | facility | value | unit | notes | +--------+--------+ +---------+--------+---------+ + + | Result panel 1 | + + + + + + + + + | | 2022-07-05 | [facility] | NEGATIVE | (missing) | (missing) | | (unavailable | 23:10:07 | [facility] | | | | + + + + + + + + + | Result panel 2 | + + + + + + + + + | | 2022-07-05 | [facility] | NEGATIVE | (missing) | (missing) | | (unavailable | 23:10:07 | [facility] | | | | + + + + + + + + + | Result panel 3 | + + + + + + + + + | | 2022-07-05 | [facility] | NEGATIVE | (missing) | (missing) | | (unavailable | 23:10:07 | [facility] | | | | + + + + + + + + + | Result panel 4 | + + + + + + + + + | | 2022-07-05 | [facility] | NEGATIVE | (missing) | (missing) | | (unavailable | 23:10:07 | [facility] | | | | + + + + + + + + + | Result panel 5 | + + + + + + + + + | | 2022-09-04 | [facility] | PRESENT | (missing) | (missing) | | (unavailable | 00:10:07 | [facility] | | | | + + + + + + + + + | Result panel 6 | + + + + + +-------+ + + | | 2022-09-04 | [facility] | 5.3 | (missing) | (missing) | | (unavailable | 00:10:07 | [facility] | | | | + + + +-------+ + + + + | Result panel 7 | + + + + + +------+ + + | | 2022-09-04 | [facility] | 34 | (missing) | (missing) | | (unavailable | 00:10:07 | [facility] | | | | + + + +------+ + + + + | Result panel 8 | + + + + + + + + + | | 2022-09-04 | [facility] | PRESENT | (missing) | (missing) | | (unavailable | 00:10:07 | [facility] | | | | + + + + + + + + + | Result panel 9 | + + + + + +--------+ + + | | 2022-09-04 | [facility] | 14.2 | (missing) | (missing) | | (unavailable | 00:10:07 [facility] | | | | + + + +--------+ + + + + | Result panel 10 | + + + + + +--------+ + + | | 2022-09-04 | [facility] | 1.15 | (missing) | (missing) | | (unavailable | 00:10:07 | [facility] | | | | + + + +--------+ + + + + | Result panel 11 | + + + + + +-------+ + + | | 2022-09-04 | [facility] | 5.3 | (missing) | (missing) | | (unavailable | 00:10:07 | [facility] | | | | + + + +-------+ + + + + | Result panel 12 | + + + + + +------+ + + | | 2022-09-04 | [facility] | 34 | (missing) | (missing) | | (unavailable | 00:10:07 | [facility] | | | | + + + +------+ + + + + | Result panel 13 | + + + + + + + + + | | 2022-09-04 | [facility] | PRESENT | (missing) | (missing) | | (unavailable | 00:10:07 | [facility] | | | | + + + + + + + + + | Result panel 14 | + + + + + +--------+ + + | | 2022-09-04 | [facility] | 14.2 | (missing) | (missing) | | (unavailable | 00:10:07 | [facility] | | | | + + + +--------+ + + + + | Result panel 15 | + + + + + +--------+ + + | | 2022-09-04 | [facility] | 1.15 | (missing) | (missing) | | (unavailable | 00:10:07 | [facility] | | | | + + + +--------+ + + + + | Result panel 16 | + + + + + +-------+ + + | | 2022-09-04 | [facility] | 5.3 | (missing) | (missing) | | (unavailable | 00:10:07 | [facility] | | | | + + + +-------+ + + + + | Result panel 17 | + + + + + +------+ + + | | 2022-09-04 | [facility] | 34 | (missing) | (missing) | | (unavailable | 00:10:07 | [facility] | | | | + + + +------+ + + + + | Result panel 18 | + + + + + + + + + | | 2022-09-04 | [facility] | PRESENT | (missing) | (missing) | | (unavailable | 00:10:07 | [facility] | | | | + + + + + + + + + | Result panel 19 | + + + + + +--------+ + + | | 2022-09-04 | [facility] | 14.2 | (missing) | (missing) | | (unavailable | 00:10:07 | [facility] | | | | + + + +--------+ + + + + | Result panel 20 | + + + + + +--------+ + + | | 2022-09-04 | [facility] | 1.15 | (missing) | (missing) | | (unavailable | 00:10:07 [facility] | | | | + + + +--------+ + + + + | Result panel 21 | + + + + + +-------+ + + | | 2022-09-04 | [facility] | 5.3 | (missing) | (missing) | | (unavailable | 00:10:07 | [facility] | | | | + + + +-------+ + + + + | Result panel 22 | + + + + + +------+ + + | | 2022-09-04 | [facility] | 34 | (missing) | (missing) | | (unavailable | 00:10:07 | [facility] | | | | + + + +------+ + + + + | Result panel 23 | + + + + + + + + + | | 2022-09-04 | [facility] | NEGATIVE | (missing) | (missing) | | (unavailable | 00:55:07 | [facility] | | | | + + + + + + + + + | Result panel 24 | + + + + + + + + + | | 2022-09-04 | [facility] | NEGATIVE | (missing) | (missing) | | (unavailable | 00:55:07 | [facility] | | | | + + + + + + + + + | Result panel 25 | + + + + + + + + + | | 2022-09-04 | [facility] | NEGATIVE | (missing) | (missing) | | (unavailable | 00:55:07 | [facility] | | | | + + + + + + + + + | Result panel 26 | + + + + + + + + + | | 2022-09-04 | [facility] | NEGATIVE | (missing) | (missing) | | (unavailable | 00:55:07 | [facility] | | | | + + + + + + + + + | Result panel 27 | + + + + + + + + + | | 2022-09-04 | [facility] | NEGATIVE | (missing) | (missing) | | (unavailable | 00:55:07 | [facility] | | | | + + + + + + + + + | Result panel 28 | + + + + + + + + + | | 2022-09-04 | [facility] | NEGATIVE | (missing) | (missing) | | (unavailable | 00:55:07 | [facility] | | | | + + + + + + + + + | Result panel 29 | + + + + + + + + + | | 2022-09-04 | [facility] | NEGATIVE | (missing) | (missing) | | (unavailable | 00:55:07 [facility] | | | | + + + + + + + + + | Result panel 30 | + + + + + + + + + | | 2022-09-04 | [facility] | NEGATIVE | (missing) | (missing) | | (unavailable | 00:55:07 [facility] | | | | + + + + + + + + + | Result panel 31 | + + + + + + + + + | | 2022-09-04 | [facility] | NEGATIVE | (missing) | (missing) | | (unavailable | 00:55:07 [facility] | | | | + + + + + + + + + | Result panel 32 | + + + + + + + + + | | 2022-09-04 | [facility] | NEGATIVE | (missing) | (missing) | | (unavailable | 00:55:07 | [facility] | | | | + + + + + + + + + | Result panel 33 | + + + + + + + + + | | 2022-09-04 | [facility] | NEGATIVE | (missing) | (missing) | | (unavailable | 00:55:07 | [facility] | | | | + + + + + + + + + | Result panel 34 | + + + + + + + + + | | 2022-09-04 | [facility] | NEGATIVE | (missing) | (missing) | | (unavailable | 00:55:07 | [facility] | | | | + + + + + + + + + | Result panel 35 | + + + + + + + + + | | 2022-09-04 | [facility] | NEGATIVE | (missing) | (missing) | | (unavailable | 00:55:07 | [facility] | | | | + + + + + + + + + | Result panel 36 | + + + + + + + + + | | 2022-09-04 | [facility] | NEGATIVE | (missing) | (missing) | | (unavailable | 00:55:07 | [facility] | | | | + + + + + + + + + | Result panel 37 | + + + + + + + + + | | 2022-09-04 | [facility] | NEGATIVE | (missing) | (missing) | | (unavailable | 00:55:07 | [facility] | | | | + + + + + + + + + | Result panel 38 | + + + + + + + + + | | 2022-09-04 | [facility] | NEGATIVE | (missing) | (missing) | | (unavailable | 00:55:07 | [facility] | | | | + + + + + + + + + | Result panel 39 | + + + + + +-------+ + + | | 2022-09-04 | [facility] | 7.3 | (missing) | (missing) | | (unavailable | | [facility] | | | | + + + +-------+ + + + + | Result panel 40 | + + + + + +--------+ + + | | 2022-09-04 | [facility] | 15.3 | (missing) | (missing) | | (unavailable | :: | [facility] | | | | + + + +--------+ + + + + | Result panel 41 | + + + + + +--------+ + + | | 2022-09-04 | [facility] | 72.4 | (missing) | (missing) | | (unavailable | 01::07 | [facility] | | | | + + + +--------+ + + + + | Result panel 42 | + + + + + +-------+ + + | | 2022-09-04 | [facility] | 4.1 | (missing) | (missing) | | (unavailable | ::07 | [facility] | | | | + + + +-------+ + + + + | Result panel 43 | + + + + + +-------+ + + | | 2022-09-04 | [facility] | 0.9 | (missing) | (missing) | | (unavailable | 01::07 | [facility] | | | | + + + +-------+ + + + + | Result panel 44 | + + + + + +-------+ + + | | 2022-09-04 | [facility] | 0.6 | (missing) | (missing) | | (unavailable | 01:03:07 | [facility] | | | | + + + +-------+ + + + + | Result panel 45 | + + + + + + + + + | | 2022-09-04 | [facility] | COMPATIBLE | (missing) | (missing) | | (unavailable | 01::07 | [facility] | | | | + + + + + + + + + | Result panel 46 | + + + + + + + + + | | 2022-09-04 | [facility] | COMPATIBLE | (missing) | (missing) | | (unavailable | 01::07 | [facility] | | | | + + + + + + + + + | Result panel 47 | + + + + + + + + + | | 2022-09-04 | [facility] | COMPATIBLE | (missing) | (missing) | | (unavailable | 01:03:07 | [facility] | | | | + + + + + + + + + | Result panel 48 | + + + + + + + + + | | 2022-09-04 | [facility] | COMPATIBLE | (missing) | (missing) | | (unavailable | 01:03:07 | [facility] | | | | + + + + + + + + + | Result panel 49 | + + + + + + + + + | | 2022-09-04 | [facility] | | (missing) | (missing) | | (unavailable | 01::07 | [facility] | [phone] | | | | ) | | [facility] | 00C | | | + + + + + + + + + | Result panel 50 | + + + + + + + + + | | 2022-09-04 | [facility] | | (missing) | (missing) | | (unavailable | 01:03:07 | [facility] | [phone] | | | | ) | | [facility] | 00K | | | + + + + + + + + + | Result panel 51 | + + + + + + + + + | | 2022-09-04 | [facility] | | (missing) | (missing) | | (unavailable | 01:03:07 | [facility] | [phone] | | | | ) | | [facility] | 00S | | | + + + + + + + + + | Result panel 52 | + + + + + + + + + | | 2022-09-04 | [facility] | | (missing) | (missing) | | (unavailable | 01:03:07 | [facility] | [phone] | | | | ) | | [facility] | 007 | | | + + + + + + + + + | Result panel 53 | + + + + + + + + + | | 2022-09-04 | [facility] | | (missing) | (missing) | | (unavailable | 01:03:07 | [facility] | [phone] | | | | ) | | [facility] | 000 | | | + + + + + + + + + | Result panel 54 | + + + + + + + + + | | 2022-09-04 | [facility] | | (missing) | (missing) | | (unavailable | 01::07 | [facility] | [phone] | | | | ) | | [facility] | 00H | | | + + + + + + + + + | Result panel 55 | + + + + + + + + + | | 2022-09-04 | [facility] | | (missing) | (missing) | | (unavailable | 01::07 | [facility] | [id number] | | | | ) | | Hospital | 00C1 | | | + + + + + + + + + | Result panel 56 | + + + + + + + + + | | 2022-09-04 | [facility] | | (missing) | (missing) | | (unavailable | 01:03:07 | [facility] | [phone] | | | | ) | | [facility] | 000 | | | + + + + + + + + + | Result panel 57 | + + + + + + + + + | | 2022-09-04 | [facility] | | (missing) | (missing) | | (unavailable | 01::07 | [facility] | [phone] | | | | ) | | [facility] | 00C2 | | | + + + + + + + + + | Result panel 58 | + + + + + + + + + | | 2022-09-04 | [facility] | | (missing) | (missing) | | (unavailable | 01:07 | [facility] | [phone] | | | | ) | | [facility] | 05 | | | + + + + + + + + + | Result panel 59 | + + + + + + + + + | | 2022-09-04 | [facility] | Negative | (missing) | (missing) | | (unavailable | 01:03:07 | [facility] | | | [facility] | | [facility] | | | | + + + + + + + + + | Result panel 60 | + + + + + + + + + | | 2022-09-04 | [facility] | Negative | (missing) | (missing) | | (unavailable | 01:03:07 | [facility] | | [facility] | | [facility] | | | | + + + + + + + + + | Result panel 61 | + + + + + + + + + | | 2022-09-04 | [facility] | Negative | (missing) | (missing) | | (unavailable | 01:03:07 | [facility] | | [facility] | | [facility] | | | | + + + + + + + + + | Result panel 62 | + + + + + + + + + | | 2022-09-04 | [facility] | Negative | (missing) | (missing) | | (unavailable | | [facility] | [facility] | [facility] | | | | + + + + + + + + + | Result panel 63 | + + + + + + + + + | | 2022-09-04 | [facility] | See Note | (missing) | (missing) | | (unavailable | :: | [facility] | [facility] | [facility] | | | | + + + + + + + + + | Result panel 64 | + + + + + +--------+ + + | | 2022-09-04 | [facility] | 0.10 | (missing) | (missing) | | (unavailable | 01:03:07 | [facility] | [facility] | [facility] | | | | + + + +--------+ + + + + | Result panel 65 | + + + + + +-------+ + + | | 2022-09-04 | [facility] | 7.3 | (missing) | (missing) | | (unavailable | 01:03:07 | [facility] | | | | + + + +-------+ + + + + | Result panel 66 | + + + + + +--------+ + + | | 2022-09-04 | [facility] | 15.3 | (missing) | (missing) | | (unavailable | 01:03:07 | [facility] | [facility] | | | | + + + +--------+ + + + + | Result panel 67 | + + + + + +--------+ + + | | 2022-09-04 | [facility] | 72.4 | (missing) | (missing) | | (unavailable | 01:03:07 | [facility] | | | | + + + +--------+ + + + + | Result panel 68 | + + + + + +-------+ + + | | 2022-09-04 | [facility] | 4.1 | (missing) | (missing) | | (unavailable | 01:03:07 | [facility] | | | | + + + +-------+ + + + + | Result panel 69 | + + + + + +-------+ + + | | 2022-09-04 | [facility] | 0.9 | (missing) | (missing) | | (unavailable | 01:03:07 | [facility] | [facility] | | | | + + + +-------+ + + + + | Result panel 70 | + + + + + +-------+ + + | | 2022-09-04 | [facility] | 0.6 | (missing) | (missing) | | (unavailable | ::07 | [facility] | | | [facility] ) | | [facility] | | | | + + + +-------+ + + + + | Result panel 71 | + + + + + +-----+ + + | | 2022-09-04 | [facility] | O | (missing) | (missing) | | (unavailable | 01:03:07 | [facility] | | [facility] | | [facility] | | | | + + + +-----+ + + + + | Result panel 72 | + + + + + + + + + | | 2022-09-04 | [facility] | POSITIVE | (missing) | (missing) | | (unavailable | 01:03:07 | [facility] | | [facility] | | [facility] | | | | + + + + + + + + + | Result panel 73 | + + + + + + + + + | | 2022-09-04 | [facility] | NEGATIVE | (missing) | (missing) | | (unavailable | 01:03:07 | [facility] | | [facility] ) | | [facility] | | | | + + + + + + + + + | Result panel 74 | + + + + + + + + + | | 2022-09-04 | [facility] | COMPATIBLE | (missing) | (missing) | | (unavailable | 01:03:07 | [facility] | | [facility] | | [facility] | | | | + + + + + + + + + | Result panel 75 | + + + + + + + + + | | 2022-09-04 | [facility] | COMPATIBLE | (missing) | (missing) | | (unavailable | | [facility] | [facility] | [facility] | | | | + + + + + + + + + | Result panel 76 | + + + + + + + + + | | 2022-09-04 | [facility] | COMPATIBLE | (missing) | (missing) | | (unavailable | 01: | [facility] | | [facility] | | [facility] | | | | + + + + + + + + + | Result panel 77 | + + + + + + + + + | | 2022-09-04 | [facility] | COMPATIBLE | (missing) | (missing) | | (unavailable | 01:03:07 | [facility] | | | | ) | | [facility] | | | | + + + + + + + + + | Result panel 78 | + + + + + + + + + | | 2022-09-04 | [facility] | | (missing) | (missing) | | (unavailable | 01:03:07 | [facility] | [phone] | | | | ) | | Hospital | 00C | | | + + + + + + + + + | Result panel 79 | + + + + + + + + + | | 2022-09-04 | [facility] | | (missing) | (missing) | | (unavailable | 01:03:07 | [facility] | [phone] | | | | ) | | [facility] | 00K | | | + + + + + + + + + | Result panel 80 | + + + + + + + + + | | 2022-09-04 | [facility] | | (missing) | (missing) | | (unavailable | 01:03:07 | [facility] | [phone] | | | | ) | | [facility] | 00S | | | + + + + + + + + + | Result panel 81 | + + + + + + + + + | | 2022-09-04 | [facility] | | (missing) | (missing) | | (unavailable | 01::07 | [facility] | [phone] | | | | ) | | [facility] | 007 | | | + + + + + + + + + | Result panel 82 | + + + + + + + + + | | 2022-09-04 | [facility] | | (missing) | (missing) | | (unavailable | 01:03:07 | [facility] | [phone] | | | | ) | | Hospital | 000 | | | + + + + + + + + + | Result panel 83 | + + + + + + + + + | | 2022-09-04 | [facility] | | (missing) | (missing) | | (unavailable | 01:03:07 | [facility] | [phone] | | | | ) | | Hospital | 00H | | | + + + + + + + + + | Result panel 84 | + + + + + + + + + | | 2022-09-04 | [facility] | | (missing) | (missing) | | (unavailable | 01:03:07 | [facility] | [phone] | | | | ) | | Hospital | 00C1 | | | + + + + + + + + + | Result panel 85 | + + + + + + + + + | | 2022-09-04 | [facility] | | (missing) | (missing) | | (unavailable | 01:03:07 | [facility] | [phone] | | | | ) | | Hospital | 000 | | | + + + + + + + + + | Result panel 86 | + + + + + + + + + | | 2022-09-04 | [facility] | | (missing) | (missing) | | (unavailable | 01::07 | [facility] | [phone] | | | | ) | | Hospital | 00C2 | | | + + + + + + + + + | Result panel 87 | + + + + + + + + + | | 2022-09-04 | [facility] | | (missing) | (missing) | | (unavailable | 01:03:07 | [facility] | [phone] | | | | ) | | Hospital | 05 | | | + + + + + + + + + | Result panel 88 | + + + + + + + + + | | 2022-09-04 | [facility] | BLOOD IN | (missing) | (missing) | | (unavailable | ::07 | [facility] | LAB | | | | ) | | Hospital | | | | + + + + + + + + + | Result panel 89 | + + + + + + + + + | | 2022-09-04 | [facility] | Negative | (missing) | (missing) | | (unavailable | ::07 | [facility] | | | | [facility] ) | | [facility] | | | | + + + + + + + + + | Result panel 90 | + + + + + + + + + | | 2022-09-04 | [facility] | Negative | (missing) | (missing) | | (unavailable | 01:03:07 | [facility] | | | | | ) | | [facility] | | | | + + + + + + + + + | Result panel 91 | + + + + + + + + + | | 2022-09-04 | [facility] | Negative | (missing) | (missing) | | (unavailable | 01:03:07 | [facility] | | | | | ) | | [facility] | | | | + + + + + + + + + | Result panel 92 | + + + + + + + + + | | 2022-09-04 | [facility] | Negative | (missing) | (missing) | | (unavailable | 01::07 | [facility] | | | [facility] | ) | | [facility] | | | | + + + + + + + + + | Result panel 93 | + + + + + + + + + | | 2022-09-04 | [facility] | See Note | (missing) | (missing) | | (unavailable | 01:03:07 | [facility] | | [facility] ) | | [facility] | | | | + + + + + + + + + | Result panel 94 | + + + + + +--------+ + + | | 2022-09-04 | [facility] | 0.10 | (missing) | (missing) | | (unavailable | 01:03:07 | [facility] | [facility] | | [facility] | | | | + + + +--------+ + + + + | Result panel 95 | + + + + + +-------+ + + | | 2022-09-04 | [facility] | 7.3 | (missing) | (missing) | | (unavailable | 01:03:07 | [facility] | [facility] | | | | + + + +-------+ + + + + | Result panel 96 | + + + + + +--------+ + + | | 2022-09-04 | [facility] | 15.3 | (missing) | (missing) | | (unavailable | 01:03:07 | [facility] | [facility] | | | | + + + +--------+ + + + + | Result panel 97 | + + + + + +--------+ + + | | 2022-09-04 | [facility] | 72.4 | (missing) | (missing) | | (unavailable | 01:03:07 | [facility] | [facility] | [facility] | | | | + + + +--------+ + + + + | Result panel 98 | + + + + + +-------+ + + | | 2022-09-04 | [facility] | 4.1 | (missing) | (missing) | | (unavailable | :03:07 | [facility] | [facility] | | [facility] | | | | + + + +-------+ + + + + | Result panel 99 | + + + + + +-------+ + + | | 2022-09-04 | [facility] | 0.9 | (missing) | (missing) | | (unavailable | 01:03:07 | [facility] | | [facility] ) | | [facility] | | | | + + + +-------+ + + + + | Result panel 100 | + + + + + +-------+ + + | | 2022-09-04 | [facility] | 0.6 | (missing) | (missing) | | (unavailable | | [facility] | [facility] | [facility] | | | | + + + +-------+ + + + + | Result panel 101 | + + + + + +-----+ + + | | 2022-09-04 | [facility] | O | (missing) | (missing) | | (unavailable | : | [facility] | | [facility] | | [facility] | | | | + + + +-----+ + + + + | Result panel 102 | + + + + + + + + + | | 2022-09-04 | [facility] | POSITIVE | (missing) | (missing) | | (unavailable | 01:03:07 | [facility] | | [facility] | | [facility] | | | | + + + + + + + + + | Result panel 103 | + + + + + + + + + | | 2022-09-04 | [facility] | NEGATIVE | (missing) | (missing) | | (unavailable | 01:03:07 | [facility] | | | [facility] | ) | | [facility] | | | | + + + + + + + + + | Result panel 104 | + + + + + + + + + | | 2022-09-04 | [facility] | COMPATIBLE | (missing) | (missing) | | (unavailable | 01:03:07 | [facility] | | | [facility] ) | | [facility] | | | | + + + + + + + + + | Result panel 105 | + + + + + + + + + | | 2022-09-04 | [facility] | COMPATIBLE | (missing) | (missing) | | (unavailable | 01:03:07 | [facility] | | [facility] ) | | [facility] | | | | + + + + + + + + + | Result panel 106 | + + + + + + + + + | | 2022-09-04 | [facility] | COMPATIBLE | (missing) | (missing) | | (unavailable | 01:03:07 | [facility] | | [facility] ) | | [facility] | | | | + + + + + + + + + | Result panel 107 | + + + + + + + + + | | 2022-09-04 | [facility] | COMPATIBLE | (missing) | (missing) | | (unavailable | 01::07 | [facility] | | [facility] | | [facility] | | | | + + + + + + + + + | Result panel 108 | + + + + + + + + + | | 2022-09-04 | [facility] | | (missing) | (missing) | | (unavailable | 01: | [facility] | [phone] | | | | ) | | [facility] | 00C | | | + + + + + + + + + | Result panel 109 | + + + + + + + + + | | 2022-09-04 | [facility] | | (missing) | (missing) | | (unavailable | 01:03:07 | [facility] | [phone] | | | | ) | | Hospital | 00K | | | + + + + + + + + + | Result panel 110 | + + + + + + + + + | | 2022-09-04 | [facility] | | (missing) | (missing) | | (unavailable | 01::07 | [facility] | [phone] | | | | ) | | [facility] | 00S | | | + + + + + + + + + | Result panel 111 | + + + + + + + + + | | 2022-09-04 | [facility] | | (missing) | (missing) | | (unavailable | 01:03:07 | [facility] | [phone] | | | | ) | | Hospital | 007 | | | + + + + + + + + + | Result panel 112 | + + + + + + + + + | | 2022-09-04 | [facility] | | (missing) | (missing) | | (unavailable | 01:03:07 | [facility] | [phone] | | | | ) | | [facility] | 000 | | | + + + + + + + + + | Result panel 113 | + + + + + + + + + | | 2022-09-04 | [facility] | | (missing) | (missing) | | (unavailable | 01:03:07 | [facility] | [phone] | | | | ) | | Hospital | 00H | | | + + + + + + + + + | Result panel 114 | + + + + + + + + + | | 2022-09-04 | [facility] | | (missing) | (missing) | | (unavailable | 01:03:07 | [facility] | [phone] | | | | ) | | Hospital | 00C1 | | | + + + + + + + + + | Result panel 115 | + + + + + + + + + | | 2022-09-04 | [facility] | | (missing) | (missing) | | (unavailable | 01:03:07 | [facility] | [phone] | | | | ) | | Hospital | 000 | | | + + + + + + + + + | Result panel 116 | + + + + + + + + + | | 2022-09-04 | [facility] | | (missing) | (missing) | | (unavailable | 01:03:07 | [facility] | [phone] | | | | ) | | Hospital | 00C2 | | | + + + + + + + + + | Result panel 117 | + + + + + + + + + | | 2022-09-04 | [facility] | | (missing) | (missing) | | (unavailable | 01:03:07 | [facility] | [phone] | | | | ) | | Hospital | 05 | | | + + + + + + + + + | Result panel 118 | + + + + + + + + + | | 2022-09-04 | [facility] | BLOOD IN | (missing) | (missing) | | (unavailable | 01:: | [facility] | LAB | | | | ) | | Hospital | | | | + + + + + + + + + | Result panel 119 | + + + + + + + + + | | 2022-09-04 | [facility] | Negative | (missing) | (missing) | | (unavailable | 01::07 | [facility] | | | [facility] ) | | [facility] | | | | + + + + + + + + + | Result panel 120 | + + + + + + + + + | | 2022-09-04 | [facility] | Negative | (missing) | (missing) | | (unavailable | 01:03:07 | [facility] | | | | | ) | | [facility] | | | | + + + + + + + + + | Result panel 121 | + + + + + + + + + | | 2022-09-04 | [facility] | Negative | (missing) | (missing) | | (unavailable | 01:03:07 | [facility] | | | | | ) | | [facility] | | | | + + + + + + + + + | Result panel 122 | + + + + + + + + + | | 2022-09-04 | [facility] | Negative | (missing) | (missing) | | (unavailable | 01::07 | [facility] | | | | | ) | | [facility] | | | | + + + + + + + + + | Result panel 123 | + + + + + + + + + | | 2022-09-04 | [facility] | See Note | (missing) | (missing) | | (unavailable | 01::07 | [facility] | | [facility] ) | | [facility] | | | | + + + + + + + + + | Result panel 124 | + + + + + +--------+ + + | | 2022-09-04 | [facility] | 0.10 | (missing) | (missing) | | (unavailable | 01:03:07 | [facility] | | [facility] | | [facility] | | | | + + + +--------+ + + + + | Result panel 125 | + + + + + +-------+ + + | | 2022-09-04 | [facility] | 7.3 | (missing) | (missing) | | (unavailable | 01:03:07 | [facility] | | [facility] ) | | [facility] | | | | + + + +-------+ + + + + | Result panel 126 | + + + + + +--------+ + + | | 2022-09-04 | [facility] | 15.3 | (missing) | (missing) | | (unavailable | 01:03:07 | [facility] | | [facility] | | [facility] | | | | + + + +--------+ + + + + | Result panel 127 | + + + + + +--------+ + + | | 2022-09-04 | [facility] | 72.4 | (missing) | (missing) | | (unavailable | 01:03:07 | [facility] | [facility] | | [facility] | | | | + + + +--------+ + + + + | Result panel 128 | + + + + + +-------+ + + | | 2022-09-04 | [facility] | 4.1 | (missing) | (missing) | | (unavailable | :03:07 | [facility] | | [facility] | | [facility] | | | | + + + +-------+ + + + + | Result panel 129 | + + + + + +-------+ + + | | 2022-09-04 | [facility] | 0.9 | (missing) | (missing) | | (unavailable | 01:03:07 | [facility] | | [facility] ) | | [facility] | | | | + + + +-------+ + + + + | Result panel 130 | + + + + + +-------+ + + | | 2022-09-04 | [facility] | 0.6 | (missing) | (missing) | | (unavailable | | [facility] | [facility] | [facility] | | | | + + + +-------+ + + + + | Result panel 131 | + + + + + +-----+ + + | | 2022-09-04 | [facility] | O | (missing) | (missing) | | (unavailable | | [facility] | [facility] | [facility] | | | | + + + +-----+ + + + + | Result panel 132 | + + + + + + + + + | | 2022-09-04 | [facility] | POSITIVE | (missing) | (missing) | | (unavailable | 01:03:07 | [facility] | | [facility] | | [facility] | | | | + + + + + + + + + | Result panel 133 | + + + + + + + + + | | 2022-09-04 | [facility] | NEGATIVE | (missing) | (missing) | | (unavailable | 01:03:07 | [facility] | | | | | ) | | [facility] | | | | + + + + + + + + + | Result panel 134 | + + + + + + + + + | | 2022-09-04 | [facility] | COMPATIBLE | (missing) | (missing) | | (unavailable | 01:03:07 | [facility] | | [facility] ) | | [facility] | | | | + + + + + + + + + | Result panel 135 | + + + + + + + + + | | 2022-09-04 | [facility] | COMPATIBLE | (missing) | (missing) | | (unavailable | 01:03:07 | [facility] | | [facility] ) | | [facility] | | | | + + + + + + + + + | Result panel 136 | + + + + + + + + + | | 2022-09-04 | [facility] | COMPATIBLE | (missing) | (missing) | | (unavailable | 01:03:07 | [facility] | | | [facility] | | [facility] | | | | + + + + + + + + + | Result panel 137 | + + + + + + + + + | | 2022-09-04 | [facility] | COMPATIBLE | (missing) | (missing) | | (unavailable | : | [facility] | | [facility] | | [facility] | | | | + + + + + + + + + | Result panel 138 | + + + + + + + + + | | 2022-09-04 | [facility] | | (missing) | (missing) | | (unavailable | : | [facility] | [phone] | | | | ) | | Hospital | 1000 | | | + + + + + + + + + | Result panel 139 | + + + + + + + + + | | 2022-09-04 | [facility] | | (missing) | (missing) | | (unavailable | 01:03:07 | [facility] | [phone] | | | | ) | | Hospital | 800H | | | + + + + + + + + + | Result panel 140 | + + + + + + + + + | | 2022-09-04 | [facility] | | (missing) | (missing) | | (unavailable | 01:03:07 | [facility] | [phone] | | | | ) | | Hospital | 400C | | | + + + + + + + + + | Result panel 141 | + + + + + + + + + | | 2022-09-04 | [facility] | | (missing) | (missing) | | (unavailable | 01:03:07 | [facility] | [phone] | | | | ) | | Hospital | 0000 | | | + + + + + + + + + | Result panel 142 | + + + + + + + + + | | 2022-09-04 | [facility] | | (missing) | (missing) | | (unavailable | 01:03:07 | [facility] | [phone] | | | | ) | | Hospital | 400C | | | + + + + + + + + + | Result panel 143 | + + + + + + + + + | | 2022-09-04 | [facility] | | (missing) | (missing) | | (unavailable | 01::07 | [facility] | [phone] | | | | ) | | Hospital | 005 | | | + + + + + + + + + | Result panel 144 | + + + + + + + + + | | 2022-09-04 | [facility] | BLOOD IN | (missing) | (missing) | | (unavailable | 01:03:07 | [facility] LAB | | | | ) | | Hospital | | | | + + + + + + + + + | Result panel 145 | + + + + + + + + + | | 2022-09-04 | [facility] | YELLOW | (missing) | (missing) | | (unavailable | 02:20:07 | [facility] | | [facility] | | [facility] | | | | + + + + + + + + + | Result panel 146 | + + + + + +---------+ + + | | 2022-09-04 | [facility] | CLEAR | (missing) | (missing) | | (unavailable | 02:20:07 | [facility] | | [facility] ) | | [facility] | | | | + + + +---------+ + + + + | Result panel 147 | + + + + + + + + + | | 2022-09-04 | [facility] | NEGATIVE | (missing) | (missing) | | (unavailable | 02:20:07 | [facility] | | | [facility] | | [facility] | | | | + + + + + + + + + | Result panel 148 | + + + + + + + + + | | 2022-09-04 | [facility] | NEGATIVE | (missing) | (missing) | | (unavailable | 02:20:07 | [facility] | | [facility] ) | | [facility] | | | | + + + + + + + + + | Result panel 149 | + + + + + + + + + | | 2022-09-04 | [facility] | NEGATIVE | (missing) | (missing) | | (unavailable | 02:20:07 | [facility] | | [facility] | | [facility] | | | | + + + + + + + + + | Result panel 150 | + + + + + +---------+ + + | | 2022-09-04 | [facility] | 1.025 | (missing) | (missing) | | (unavailable | 02:20:07 | [facility] | [facility] | | [facility] | | | | + + + +---------+ + + + + | Result panel 151 | + + + + + + + + + | | 2022-09-04 | [facility] | TRACE-I | (missing) | (missing) | | (unavailable | 02:20:07 | [facility] | | [facility] | | [facility] | | | | + + + + + + + + + | Result panel 152 | + + + + + +-------+ + + | | 2022-09-04 | [facility] | 5.0 | (missing) | (missing) | | (unavailable | 02::07 | [facility] | | [facility] | [facility] | | | | + + + +-------+ + + + + | Result panel 153 | + + + + + + + + + | | 2022-09-04 | [facility] | NEGATIVE | (missing) | (missing) | | (unavailable | 02::07 | [facility] | | [facility] | | [facility] | | | | + + + + + + + + + | Result panel 154 | + + + + + + + + + | | 2022-09-04 | [facility] | NORMAL | (missing) | (missing) | | (unavailable | 02:20:07 | [facility] | | [facility] | | [facility] | | | | + + + + + + + + + | Result panel 155 | + + + + + + + + + | | 2022-09-04 | [facility] | NEGATIVE | (missing) | (missing) | | (unavailable | 02:20:07 | [facility] | | [facility] | | [facility] | | | | + + + + + + + + + | Result panel 156 | + + + + + + + + + | | 2022-09-04 | [facility] | NEGATIVE | (missing) | (missing) | | (unavailable | 02:20:07 | [facility] | | [facility] | | [facility] | | | | + + + + + + + + + | Result panel 157 | + + + + + +-------+ + + | | 2022-09-04 | [facility] | 2-3 | (missing) | (missing) | | (unavailable | 02:20:07 | [facility] | [facility] | [facility] | | | | + + + +-------+ + + + + | Result panel 158 | + + + + + +-------+ + + | | 2022-09-04 | [facility] | 0-1 | (missing) | (missing) | | (unavailable | 02:20:07 | [facility] | | [facility] | | [facility] | | | | + + + +-------+ + + + + | Result panel 159 | + + + + + +-----+ + + | | 2022-09-04 | [facility] | 0 | (missing) | (missing) | | (unavailable | 02:20:07 | [facility] | | [facility] | | [facility] | | | | + + + +-----+ + + + + | Result panel 160 | + + + + + +------+ + + | | 2022-09-04 | [facility] | No | (missing) | (missing) | | (unavailable | 02:20:07 | [facility] | | [facility] | | [facility] | | | | + + + +------+ + + + + | Result panel 161 | + + + + + + + + + | | 2022-09-04 | [facility] | YELLOW | (missing) | (missing) | | (unavailable | 02:20:07 | [facility] | | [facility] | | [facility] | | | | + + + + + + + + + | Result panel 162 | + + + + + +---------+ + + | | 2022-09-04 | [facility] | CLEAR | (missing) | (missing) | | (unavailable | 02:20:07 | [facility] | | | | + + + +---------+ + + + + | Result panel 163 | + + + + + + + + + | | 2022-09-04 | [facility] | NEGATIVE | (missing) | (missing) | | (unavailable | 02:20:07 | [facility] | | | | + + + + + + + + + | Result panel 164 | + + + + + + + + + | | 2022-09-04 | [facility] | NEGATIVE | (missing) | (missing) | | (unavailable | 02:20:07 | [facility] | | | | + + + + + + + + + | Result panel 165 | + + + + + + + + + | | 2022-09-04 | [facility] | NEGATIVE | (missing) | (missing) | | (unavailable | 02:20:07 | [facility] | | | | + + + + + + + + + | Result panel 166 | + + + + + +---------+ + + | | 2022-09-04 | [facility] | 1.025 | (missing) | (missing) | | (unavailable | 02:20:07 | [facility] | | | | + + + +---------+ + + + + | Result panel 167 | + + + + + + + + + | | 2022-09-04 | [facility] | TRACE-I | (missing) | (missing) | | (unavailable | 02:20:07 | [facility] | | | | + + + + + + + + + | Result panel 168 | + + + + + +-------+ + + | | 2022-09-04 | [facility] | 5.0 | (missing) | (missing) | | (unavailable | 02:20:07 | [facility] | | | | + + + +-------+ + + + + | Result panel 169 | + + + + + + + + + | | 2022-09-04 | [facility] | NEGATIVE | (missing) | (missing) | | (unavailable | 02:20:07 | [facility] | | | | + + + + + + + + + | Result panel 170 | + + + + + + + + + | | 2022-09-04 | [facility] | NORMAL | (missing) | (missing) | | (unavailable | 02:20:07 | [facility] | | | | + + + + + + + + + | Result panel 171 | + + + + + + + + + | | 2022-09-04 | [facility] | NEGATIVE | (missing) | (missing) | | (unavailable | 02:20:07 | [facility] | | | | + + + + + + + + + | Result panel 172 | + + + + + + + + + | | 2022-09-04 | [facility] | NEGATIVE | (missing) | (missing) | | (unavailable | 02:20:07 | [facility] | | | | + + + + + + + + + | Result panel 173 | + + + + + +-------+ + + | | 2022-09-04 | [facility] | 2-3 | (missing) | (missing) | | (unavailable | 02:: | [facility] | | | | + + + +-------+ + + + + | Result panel 174 | + + + + + +-------+ + + | | 2022-09-04 | [facility] | 0-1 | (missing) | (missing) | | (unavailable | 02::07 | [facility] | | | | + + + +-------+ + + + + | Result panel 175 | + + + + + +-----+ + + | | 2022-09-04 | [facility] | 0 | (missing) | (missing) | | (unavailable | 02::07 | [facility] | | | | + + + +-----+ + + + + | Result panel 176 | + + + + + +------+ + + | | 2022-09-04 | [facility] | No | (missing) | (missing) | | (unavailable | 02::07 | [facility] | | | | + + + +------+ + + + + | Result panel 177 | + + + + + + + + + | | 2022-09-04 | [facility] | YELLOW | (missing) | (missing) | | (unavailable | 02::07 | [facility] | | | | + + + + + + + + + | Result panel 178 | + + + + + +---------+ + + | | 2022-09-04 | [facility] | CLEAR | (missing) | (missing) | | (unavailable | 02::07 | [facility] | | | | + + + +---------+ + + + + | Result panel 179 | + + + + + + + + + | | 2022-09-04 | [facility] | NEGATIVE | (missing) | (missing) | | (unavailable | 02:20:07 | [facility] | | | | + + + + + + + + + | Result panel 180 | + + + + + + + + + | | 2022-09-04 | [facility] | NEGATIVE | (missing) | (missing) | | (unavailable | 02:20:07 | [facility] | | | | + + + + + + + + + | Result panel 181 | + + + + + + + + + | | 2022-09-04 | [facility] | NEGATIVE | (missing) | (missing) | | (unavailable | 02:20:07 | [facility] | | | | + + + + + + + + + | Result panel 182 | + + + + + +---------+ + + | | 2022-09-04 | [facility] | 1.025 | (missing) | (missing) | | (unavailable | 02:20:07 [facility] | | | | + + + +---------+ + + + + | Result panel 183 | + + + + + + + + + | | 2022-09-04 | [facility] | TRACE-I | (missing) | (missing) | | (unavailable | 02:20:07 | [facility] | | | | + + + + + + + + + | Result panel 184 | + + + + + +-------+ + + | | 2022-09-04 | [facility] | 5.0 | (missing) | (missing) | | (unavailable | 02:20:07 | [facility] | | | | + + + +-------+ + + + + | Result panel 185 | + + + + + + + + + | | 2022-09-04 | [facility] | NEGATIVE | (missing) | (missing) | | (unavailable | 02:20:07 | [facility] | | | | + + + + + + + + + | Result panel 186 | + + + + + + + + + | | 2022-09-04 | [facility] | NORMAL | (missing) | (missing) | | (unavailable | 02:20:07 | [facility] | | | | + + + + + + + + + | Result panel 187 | + + + + + + + + + | | 2022-09-04 | [facility] | NEGATIVE | (missing) | (missing) | | (unavailable | 02:20:07 | [facility] | | | + + + + + + + + + | Result panel 188 | + + + + + + + + + | | 2022-09-04 | [facility] | NEGATIVE | (missing) | (missing) | | (unavailable | 02:20:07 | [facility] | | | + + + + + + + + + | Result panel 189 | + + + + + +-------+ + + | | 2022-09-04 | [facility] | 2-3 | (missing) | (missing) | | (unavailable | 02:20:07 | [facility] | | | + + + +-------+ + + + + | Result panel 190 | + + + + + +-------+ + + | | 2022-09-04 | [facility] | 0-1 | (missing) | (missing) | | (unavailable | 02:20:07 | [facility] | | | + + + +-------+ + + + + | Result panel 191 | + + + + + +-----+ + + | | 2022-09-04 | [facility] | 0 | (missing) | (missing) | | (unavailable | 02:20:07 | [facility] | | | + + + +-----+ + + + + | Result panel 192 | + + + + + +------+ + + | | 2022-09-04 | [facility] | No | (missing) | (missing) | | (unavailable | 02:20:07 | [facility] | | | + + + +------+ + + + + | Result panel 193 | + + + + + + + + + | | 2022-09-04 | [facility] | YELLOW | (missing) | (missing) | | (unavailable | 02:20:07 | [facility] | | | | + + + + + + + + + | Result panel 194 | + + + + + +---------+ + + | | 2022-09-04 | [facility] | CLEAR | (missing) | (missing) | | (unavailable | 02:20:07 | [facility] | | | | + + + +---------+ + + + + | Result panel 195 | + + + + + + + + + | | 2022-09-04 | [facility] | NEGATIVE | (missing) | (missing) | | (unavailable | 02:20:07 | [facility] | | | | + + + + + + + + + | Result panel 196 | + + + + + + + + + | | 2022-09-04 | [facility] | NEGATIVE | (missing) | (missing) | | (unavailable | 02:20:07 | [facility] | | | | + + + + + + + + + | Result panel 197 | + + + + + + + + + | | 2022-09-04 | [facility] | NEGATIVE | (missing) | (missing) | | (unavailable | 02:20:07 | [facility] | | | | + + + + + + + + + | Result panel 198 | + + + + + +---------+ + + | | 2022-09-04 | [facility] | 1.025 | (missing) | (missing) | | (unavailable | 02:20:07 | [facility] | | | | + + + +---------+ + + + + | Result panel 199 | + + + + + + + + + | | 2022-09-04 | [facility] | TRACE-I | (missing) | (missing) | | (unavailable | 02:20:07 | [facility] | | | | + + + + + + + + + | Result panel 200 | + + + + + +-------+ + + | | 2022-09-04 | [facility] | 5.0 | (missing) | (missing) | | (unavailable | 02:20:07 | [facility] | | | + + + +-------+ + + + + | Result panel 201 | + + + + + + + + + | | 2022-09-04 | [facility] | NEGATIVE | (missing) | (missing) | | (unavailable | 02:20:07 | [facility] | | | | + + + + + + + + + | Result panel 202 | + + + + + + + + + | | 2022-09-04 | [facility] | NORMAL | (missing) | (missing) | | (unavailable | 02:20:07 | [facility] | | | + + + + + + + + + | Result panel 203 | + + + + + + + + + | | 2022-09-04 | [facility] | NEGATIVE | (missing) | (missing) | | (unavailable | 02:20:07 | [facility] | | | | + + + + + + + + + | Result panel 204 | + + + + + + + + + | | 2022-09-04 | [facility] | NEGATIVE | (missing) | (missing) | | (unavailable | 02:20:07 | [facility] | | | | + + + + + + + + + | Result panel 205 | + + + + + +-------+ + + | | 2022-09-04 | [facility] | 2-3 | (missing) | (missing) | | (unavailable | 02:20:07 | [facility] | | | + + + +-------+ + + + + | Result panel 206 | + + + + + +-------+ + + | | 2022-09-04 | [facility] | 0-1 | (missing) | (missing) | | (unavailable | 02:20:07 | [facility] | | | + + + +-------+ + + + + | Result panel 207 | + + + + + +-----+ + + | | 2022-09-04 | [facility] | 0 | (missing) | (missing) | | (unavailable | 02:20:07 | [facility] | | | + + + +-----+ + + + + | Result panel 208 | + + + + + +------+ + + | | 2022-09-04 | [facility] | No | (missing) | (missing) | | (unavailable | 02:20:07 | [facility] | | | + + + +------+ + + + + | Result panel 209 | + + + + + +-----+ + + | | 2022-09-04 | [facility] | 2 | (missing) | (missing) | | (unavailable | 05:20:07 | [facility] | | | + + + +-----+ + + + + | Result panel 210 | + + + + + +---------+ + + | | 2022-09-04 | [facility] | 2.775 | (missing) | (missing) | | (unavailable | 05:20:07 | [facility] | | | + + + +---------+ + + + + | Result panel 211 | + + + + + +-------+ + + | | 2022-09-04 | [facility] | 116 | (missing) | (missing) | | (unavailable | 05:20:07 | [facility] | | | + + + +-------+ + + + + | Result panel 212 | + + + + + +-------+ + + | | 2022-09-04 | [facility] | 219 | (missing) | (missing) | | (unavailable | 05:20:07 | [facility] | | | | + + + +-------+ + + + + | Result panel 213 | + + + + + +------+ + + | | 2022-09-04 | [facility] | 53 | (missing) | (missing) | | (unavailable | 05:20:07 | [facility] | | | | + + + +------+ + + + + | Result panel 214 | + + + + + +-------+ + + | | 2022-09-04 | [facility] | 887 | (missing) | (missing) | | (unavailable | 05:20:07 | [facility] | | | + + + +-------+ + + + + | Result panel 215 | + + + + + +-----+ + + | | 2022-09-04 | [facility] | 2 | (missing) | (missing) | | (unavailable | 05:20:07 | [facility] | | | + + + +-----+ + + + + | Result panel 216 | + + + + + + + + + | | 2022-09-04 | [facility] | SEE COMMENT | (missing) | (missing) | | (unavailable | 05:20:07 | [facility] | | | | + + + + + + + + + | Result panel 217 | + + + + + +---------+ + + | | 2022-09-04 | [facility] | 2.775 | (missing) | (missing) | | (unavailable | 05:20:07 | [facility] | | | + + + +---------+ + + + + | Result panel 218 | + + + + + +-------+ + + | | 2022-09-04 | [facility] | 116 | (missing) | (missing) | | (unavailable | 05:20:07 | [facility] | | | + + + +-------+ + + + + | Result panel 219 | + + + + + +-------+ + + | | 2022-09-04 | [facility] | 219 | (missing) | (missing) | | (unavailable | 05:20:07 | [facility] | | | + + + +-------+ + + + + | Result panel 220 | + + + + + +------+ + + | | 2022-09-04 | [facility] | 53 | (missing) | (missing) | | (unavailable | 05:20:07 | [facility] | | | + + + +------+ + + + + | Result panel 221 | + + + + + +-------+ + + | | 2022-09-04 | [facility] | 887 | (missing) | (missing) | | (unavailable | 05:20:07 | [facility] | | | + + + +-------+ + + + + | Result panel 222 | + + + + + +-----+ + + | | 2022-09-04 | [facility] | 2 | (missing) | (missing) | | (unavailable | 05:20:07 | [facility] | | | + + + +-----+ + + + + | Result panel 223 | + + + + + +---------+ + + | | 2022-09-04 | [facility] | 2.775 | (missing) | (missing) | | (unavailable | 05:20:07 | [facility] | | | + + + +---------+ + + + + | Result panel 224 | + + + + + +-------+ + + | | 2022-09-04 | [facility] | 116 | (missing) | (missing) | | (unavailable | 05:20:07 | [facility] | | | + + + +-------+ + + + + | Result panel 225 | + + + + + +-------+ + + | | 2022-09-04 | [facility] | 219 | (missing) | (missing) | | (unavailable | 05:20:07 | [facility] | | | + + + +-------+ + + + + | Result panel 226 | + + + + + +------+ + + | | 2022-09-04 | [facility] | 53 | (missing) | (missing) | | (unavailable | 05:20:07 | [facility] | | | + + + +------+ + + + + | Result panel 227 | + + + + + +-------+ + + | | 2022-09-04 | [facility] | 887 | (missing) | (missing) | | (unavailable | 05:20:07 | [facility] | | | | + + + +-------+ + + + + | Result panel 228 | + + + + + +-----+ + + | | 2022-09-04 | [facility] | 2 | (missing) | (missing) | | (unavailable | 05:20:07 | [facility] | | | | + + + +-----+ + + + + | Result panel 229 | + + + + + + + + + | | 2022-09-04 | [facility] | SEE COMMENT | (missing) | (missing) | | (unavailable | 05:20:07 | [facility] | | | + + + + + + + + + | Result panel 230 | + + + + + +---------+ + + | | 2022-09-04 | [facility] | 2.775 | (missing) | (missing) | | (unavailable | 05:20:07 | [facility] | | | + + + +---------+ + + + + | Result panel 231 | + + + + + + + + + | | 2022-09-04 | [facility] | SEE COMMENT | (missing) | (missing) | | (unavailable | 10:: | [facility] | | | | + + + + + + + + + | Result panel 232 | + + + + + + + + + | | 2022-09-04 | [facility] | PRESENT | (missing) | (missing) | | (unavailable | 10:: | [facility] | | | | + + + + + + + + + | Result panel 233 | + + + + + + + + + | | 2022-09-04 | [facility] | SEE COMMENT | (missing) | (missing) | | (unavailable | 10:00:07 | [facility] | | | | + + + + + + + + + | Result panel 234 | + + + + + + + + + | | 2022-09-04 | [facility] | SEE COMMENT | (missing) | (missing) | | (unavailable | 10:00:07 | [facility] | | | | + + + + + + + + + | Result panel 235 | + + + + + + + + + | | 2022-09-04 | [facility] | PRESENT | (missing) | (missing) | | (unavailable | 10:00:07 | [facility] | | | | + + + + + + + + + | Result panel 236 | + + + + + + + + + | | 2022-09-04 | [facility] | SEE COMMENT | (missing) | (missing) | | (unavailable | 10:00:07 | [facility] | | | | + + + + + + + + + | Result panel 237 | + + + + + +------+ + + | | 2022-09-04 | [facility] | 10 | (missing) | (missing) | | (unavailable | 23:20:07 | [facility] | | | | + + + +------+ + + + + | Result panel 238 | + + + + + + + + + | | 2022-09-05 | [facility] | PRESENT | (missing) | (missing) | | (unavailable | 05:55:07 | [facility] | | | | + + + + + + + + + | Result panel 239 | + + + + + +-------+---------+ + | | 2022-09-05 | [facility] | 1.9 | mg/dL | (missing) | | (unavailable | 05:55:07 | [facility] | | | | + + + +-------+---------+ + + + | Result panel 240 | + + + + + +-------+ + + | | 2022-09-05 | [facility] | 7.3 | (missing) | (missing) | | (unavailable | 05:55:07 | [facility] | | | | + + + +-------+ + + + + | Result panel 241 | + + + + + + + + + | | 2022-09-05 | [facility] | PRESENT | (missing) | (missing) | | (unavailable | 05:55:07 | [facility] | | | | + + + + + + + + + | Result panel 242 | + + + + + +-------+---------+ + | | 2022-09-05 | [facility] | 1.9 | mg/dL | (missing) | | (unavailable | 05:55:07 | [facility] | | | | + + + +-------+---------+ + + + | Result panel 243 | + + + + + +-------+ + + | | 2022-09-05 | [facility] | 7.3 | (missing) | (missing) | | (unavailable | 05:55:07 | [facility] | | | | + + + +-------+ + + + + | Result panel 244 | + + + + + +-----+ + + | | 2022-09-05 | [facility] | 8 | (missing) | (missing) | | (unavailable | 05:55:07 | [facility] | | | | + + + +-----+ + + + + | Result panel 245 | + + + + + + + + + | | 2022-09-05 | [facility] | PRESENT | (missing) | (missing) | | (unavailable | 05:55:07 | [facility] | | | | + + + + + + + + + | Result panel 246 | + + + + + + + + + | | 2022-09-05 | [facility] | BLASTS | (missing) | (missing) | | (unavailable | 05:55:07 | [facility] | | | | + + + + + + + + + | Result panel 247 | + + + + + +-------+---------+ + | | 2022-09-05 | [facility] | 141 | mg/dL | (missing) | | (unavailable | 05:55:07 | [facility] | | | | + + + +-------+---------+ + + + | Result panel 248 | + + + + + +------+---------+ + | | 2022-09-05 | [facility] | 15 | mg/dL | (missing) | | (unavailable | 05:55:07 | [facility] | | | | + + + +------+---------+ + + + | Result panel 249 | + + + + + +--------+---------+ + | | 2022-09-05 | [facility] | 1.31 | mg/dL | (missing) | | (unavailable | 05:55:07 | [facility] | | | | + + + +--------+---------+ + + + | Result panel 250 | + + + + + +------+ + + | | 2022-09-05 | [facility] | 72 | (missing) | (missing) | | (unavailable | 05:55:07 | [facility] | | | | + + + +------+ + + + + | Result panel 251 | + + + + + +---------+ + + | | 2022-09-05 | [facility] | 11.45 | (missing) | (missing) | | (unavailable | 05:55:07 | [facility] | | | | + + + +---------+ + + + + | Result panel 252 | + + + + + +-------+ + + | | 2022-09-05 | [facility] | 139 | (missing) | (missing) | | (unavailable | 05:55:07 | [facility] | | | | + + + +-------+ + + + + | Result panel 253 | + + + + + +-------+ + + | | 2022-09-05 | [facility] | 4.0 | (missing) | (missing) | | (unavailable | 05:55:07 | [facility] | | | | + + + +-------+ + + + + | Result panel 254 | + + + + + +-------+ + + | | 2022-09-05 | [facility] | 103 | (missing) | (missing) | | (unavailable | 05:55:07 | [facility] | | | | + + + +-------+ + + + + | Result panel 255 | + + + + + +------+ + + | | 2022-09-05 | [facility] | 23 | (missing) | (missing) | | (unavailable | 05:55:07 | [facility] | | | | + + + +------+ + + + + | Result panel 256 | + + + + + +--------+ + + | | 2022-09-05 | [facility] | 17.0 | (missing) | (missing) | | (unavailable | 05:55:07 | [facility] | | | | + + + +--------+ + + + + | Result panel 257 | + + + + + +-------+---------+ + | | 2022-09-05 | [facility] | 7.9 | mg/dL | (missing) | | (unavailable | 05:55:07 | [facility] | | | | + + + +-------+---------+ + + + | Result panel 258 | + + + + + +-------+---------+ + | | 2022-09-05 | [facility] | 1.9 | mg/dL | (missing) | | (unavailable | 05:55:07 | [facility] | | | | + + + +-------+---------+ + + + | Result panel 259 | + + + + + +-------+ + + | | 2022-09-05 | [facility] | 6.9 | (missing) | (missing) | | (unavailable | 05:55:07 | [facility] | | | | + + + +-------+ + + + + | Result panel 260 | + + + + + +-------+ + + | | 2022-09-05 | [facility] | 3.1 | (missing) | (missing) | | (unavailable | 05:55:07 | [facility] | | | | + + + +-------+ + + + + | Result panel 261 | + + + + + +-------+ + + | | 2022-09-05 | [facility] | 3.8 | (missing) | (missing) | | (unavailable | 05:55:07 | [facility] | | | | + + + +-------+ + + + + | Result panel 262 | + + + + + +--------+ + + | | 2022-09-05 | [facility] | 0.82 | (missing) | (missing) | | (unavailable | 05:55:07 | [facility] | | | | + + + +--------+ + + + + | Result panel 263 | + + + + + +-------+ + + | | 2022-09-05 | [facility] | 0.6 | (missing) | (missing) | | (unavailable | 05:55:07 | [facility] | | | | + + + +-------+ + + + + | Result panel 264 | + + + + + +------+ + + | | 2022-09-05 | [facility] | 15 | (missing) | (missing) | | (unavailable | 05:55:07 | [facility] | | | | + + + +------+ + + + + | Result panel 265 | + + + + + +------+ + + | | 2022-09-05 | [facility] | 22 | (missing) | (missing) | | (unavailable | 05:55:07 | [facility] | | | | + + + +------+ + + + + | Result panel 266 | + + + + + +------+ + + | | 2022-09-05 | [facility] | 64 | (missing) | (missing) | | (unavailable | 05:55:07 | [facility] | | | | + + + +------+ + + + + | Result panel 267 | + + + + + +-------+ + + | | 2022-09-05 | [facility] | 7.3 | (missing) | (missing) | | (unavailable | 05:55:07 | [facility] | | | | + + + +-------+ + + + + | Result panel 268 | + + + + + + + + + | | 2022-09-05 | [facility] | PRESENT | (missing) | (missing) | | (unavailable | 05:55:07 | [facility] | | | | + + + + + + + + + | Result panel 269 | + + + + + +-------+---------+ + | | 2022-09-05 | [facility] | 1.9 | mg/dL | (missing) | | (unavailable | 05:55:07 | [facility] | | | | + + + +-------+---------+ + + + | Result panel 270 | + + + + + +-------+ + + | | 2022-09-05 | [facility] | 7.3 | (missing) | (missing) | | (unavailable | 05:55:07 | [facility] | | | | + + + +-------+ + + + + | Result panel 271 | + + + + + + + + + | | 2022-09-05 | [facility] | PRESENT | (missing) | (missing) | | (unavailable | 13:20:07 | [facility] | | | | + + + + + + + + + | Result panel 272 | + + + + + + + + + | | 2022-09-05 | [facility] | PRESENT | (missing) | (missing) | | (unavailable | 13:20:07 | [facility] | | | | + + + + + + + + + | Result panel 273 | + + + + + +--------+ + + | | 2022-09-05 | [facility] | 17.9 | (missing) | (missing) | | (unavailable | 13:20:07 | [facility] | | | | + + + +--------+ + + + + | Result panel 274 | + + + + + +--------+ + + | | 2022-09-05 | [facility] | 2.64 | (missing) | (missing) | | (unavailable | 13:20:07 | [facility] | | | | + + + +--------+ + + + + | Result panel 275 | + + + + + +-------+ + + | | 2022-09-05 | [facility] | 8.0 | (missing) | (missing) | | (unavailable | 13:20:07 | [facility] | | | | + + + +-------+ + + + + | Result panel 276 | + + + + + +--------+ + + | | 2022-09-05 | [facility] | 23.7 | (missing) | (missing) | | (unavailable | 13:20:07 | [facility] | | | | + + + +--------+ + + + + | Result panel 277 | + + + + + +--------+ + + | | 2022-09-05 | [facility] | 89.8 | (missing) | (missing) | | (unavailable | 13:20:07 | [facility] | | | | + + + +--------+ + + + + | Result panel 278 | + + + + + +--------+ + + | | 2022-09-05 | [facility] | 30.3 | (missing) | (missing) | | (unavailable | 13:20:07 | [facility] | | | | + + + +--------+ + + + + | Result panel 279 | + + + + + +--------+ + + | | 2022-09-05 | [facility] | 33.8 | (missing) | (missing) | | (unavailable | 13:20:07 | [facility] | | | | + + + +--------+ + + + + | Result panel 280 | + + + + + +--------+ + + | | 2022-09-05 | [facility] | 15.7 | (missing) | (missing) | | (unavailable | 13:20:07 | [facility] | | | | + + + +--------+ + + + + | Result panel 281 | + + + + + +------+ + + | | 2022-09-05 | [facility] | 54 | (missing) | (missing) | | (unavailable | 13:20:07 | [facility] | | | | + + + +------+ + + + + | Result panel 282 | + + + + + +------+ + + | | 2022-09-05 | [facility] | 22 | (missing) | (missing) | | (unavailable | 13:20:07 | [facility] | | | | + + + +------+ + + + + | Result panel 283 | + + + + + +------+ + + | | 2022-09-05 | [facility] | 31 | (missing) | (missing) | | (unavailable | 13:20:07 | [facility] | | | | + + + +------+ + + + + | Result panel 284 | + + + + + +------+ + + | | 2022-09-05 | [facility] | 40 | (missing) | (missing) | | (unavailable | 13:20:07 | [facility] | | | | + + + +------+ + + + + | Result panel 285 | + + + + + +-----+ + + | | 2022-09-05 | [facility] | 4 | (missing) | (missing) | | (unavailable | 13:20:07 | [facility] | | | | + + + +-----+ + + + + | Result panel 286 | + + + + + +-----+ + + | | 2022-09-05 | [facility] | 3 | (missing) | (missing) | | (unavailable | 13:20:07 | [facility] | | | | + + + +-----+ + + + + | Result panel 287 | + + + + + + + + + | | 2022-09-05 | [facility] | PRESENT | (missing) | (missing) | | (unavailable | 13:20:07 | [facility] | | | | + + + + + + + + + | Result panel 288 | + + + + + + + + + | | 2022-09-05 | [facility] | PRESENT | (missing) | (missing) | | (unavailable | 13:20:07 | [facility] | | | | + + + + + + + + + | Result panel 289 | + + + + + +--------+ + + | | 2022-09-09 | [facility] | 15.8 | (missing) | (missing) | | (unavailable | 11:15:07 | [facility] | | | | + + + +--------+ + + + + | Result panel 290 | + + + + + +--------+ + + | | 2022-09-09 | [facility] | 2.73 | (missing) | (missing) | | (unavailable | 11:15:07 | [facility] | | | | + + + +--------+ + + + + | Result panel 291 | + + + + + +-------+ + + | | 2022-09-09 | [facility] | 8.3 | (missing) | (missing) | | (unavailable | 11:15:07 | [facility] | | | | + + + +-------+ + + + + | Result panel 292 | + + + + + +--------+ + + | | 2022-09-09 | [facility] | 24.2 | (missing) | (missing) | | (unavailable | 11:15:07 | [facility] | | | | + + + +--------+ + + + + | Result panel 293 | + + + + + +--------+ + + | | 2022-09-09 | [facility] | 88.6 | (missing) | (missing) | | (unavailable | 11:15:07 | [facility] | | | | + + + +--------+ + + + + | Result panel 294 | + + + + + +--------+ + + | | 2022-09-09 | [facility] | 30.4 | (missing) | (missing) | | (unavailable | 11:15:07 | [facility] | | | | + + + +--------+ + + + + | Result panel 295 | + + + + + +--------+ + + | | 2022-09-09 | [facility] | 34.3 | (missing) | (missing) | | (unavailable | 11:15:07 | [facility] | | | | + + + +--------+ + + + + | Result panel 296 | + + + + + +--------+ + + | | 2022-09-09 | [facility] | 15.2 | (missing) | (missing) | | (unavailable | 11:15:07 | [facility] | | | | + + + +--------+ + + + + | Result panel 297 | + + + + + +------+ + + | | 2022-09-09 | [facility] | 19 | (missing) | (missing) | | (unavailable | 11:15:07 | [facility] | | | | + + + +------+ + + + + | Result panel 298 | + + + + + +------+ + + | | 2022-09-09 | [facility] | 41 | (missing) | (missing) | | (unavailable | 11:15:07 | [facility] | | | | + + + +------+ + + + + | Result panel 299 | + + + + + +------+ + + | | 2022-09-09 | [facility] | 33 | (missing) | (missing) | | (unavailable | 11:15:07 | [facility] | | | | + + + +------+ + + + + | Result panel 300 | + + + + + +------+ + + | | 2022-09-09 | [facility] | 15 | (missing) | (missing) | | (unavailable | 11:15:07 | [facility] | | | | + + + +------+ + + + + | Result panel 301 | + + + + + +-----+ + + | | 2022-09-09 | [facility] | 0 | (missing) | (missing) | | (unavailable | 11:15:07 | [facility] | | | | + + + +-----+ + + + + | Result panel 302 | + + + + + +-----+ + + | | 2022-09-09 | [facility] | 1 | (missing) | (missing) | | (unavailable | 11:15:07 | [facility] | | | | + + + +-----+ + + + + | Result panel 303 | + + + + + +-----+ + + | | 2022-09-09 | [facility] | 2 | (missing) | (missing) | | (unavailable | 11:15:07 | [facility] | | | | + + + +-----+ + + + + | Result panel 304 | + + + + + +-----+ + + | | 2022-09-09 | [facility] | 8 | (missing) | (missing) | | (unavailable | 11:15:07 | [facility] | | | | + + + +-----+ + + + + | Result panel 305 | + + + + + + + + + | | 2022-09-09 | [facility] | SEE COMMENT | (missing) | (missing) | | (unavailable | 11::07 | [facility] | | | | + + + + + + + + + | Result panel 306 | + + + + + +-------+---------+ + | | 2022-09-09 | [facility] | 139 | mg/dL | (missing) | | (unavailable | 11:15:07 | [facility] | | | | + + + +-------+---------+ + + + | Result panel 307 | + + + + + +------+---------+ + | | 2022-09-09 | [facility] | 17 | mg/dL | (missing) | | (unavailable | 11:15:07 | [facility] | | | | ) | | [facility] | | | | + + + +------+---------+ + + + | Result panel 308 | + + + + + +--------+---------+ + | | 2022-09-09 | [facility] | 1.27 | mg/dL | (missing) | | (unavailable | 11:15:07 | [facility] | | | | + + + +--------+---------+ + + + | Result panel 309 | + + + + + +------+ + + | | 2022-09-09 | [facility] | 75 | (missing) | (missing) | | (unavailable | 11:15:07 | [facility] | | | | + + + +------+ + + + + | Result panel 310 | + + + + + +---------+ + + | | 2022-09-09 | [facility] | 13.38 | (missing) | (missing) | | (unavailable | 11:15:07 [facility] | | | | + + + +---------+ + + + + | Result panel 311 | + + + + + +-------+ + + | | 2022-09-09 | [facility] | 138 | (missing) | (missing) | | (unavailable | 11:15:07 [facility] | | | | + + + +-------+ + + + + | Result panel 312 | + + + + + +-------+ + + | | 2022-09-09 | [facility] | 4.1 | (missing) | (missing) | | (unavailable | 11:15:07 [facility] | | | | + + + +-------+ + + + + | Result panel 313 | + + + + + +-------+ + + | | 2022-09-09 | [facility] | 102 | (missing) | (missing) | | (unavailable | 11:15:07 [facility] | | | | + + + +-------+ + + + + | Result panel 314 | + + + + + +------+ + + | | 2022-09-09 | [facility] | 27 | (missing) | (missing) | | (unavailable | 11:15:07 [facility] | | | | + + + +------+ + + + + | Result panel 315 | + + + + + +--------+ + + | | 2022-09-09 | [facility] | 13.1 | (missing) | (missing) | | (unavailable | 11:15:07 [facility] | | | | + + + +--------+ + + + + | Result panel 316 | + + + + + +-------+---------+ + | | 2022-09-09 | [facility] | 8.5 | mg/dL | (missing) | | (unavailable | 11:15:07 [facility] | | | | + + + +-------+---------+ + + + | Result panel 317 | + + + + + +-------+ + + | | 2022-09-09 | [facility] | 7.1 | (missing) | (missing) | | (unavailable | 11:15:07 [facility] | | | | + + + +-------+ + + + + | Result panel 318 | + + + + + +-------+ + + | | 2022-09-09 | [facility] | 3.0 | (missing) | (missing) | | (unavailable | 11:15:07 [facility] | | | | + + + +-------+ + + + + | Result panel 319 | + + + + + +-------+ + + | | 2022-09-09 | [facility] | 4.1 | (missing) | (missing) | | (unavailable | 11:15:07 [facility] | | | | + + + +-------+ + + + + | Result panel 320 | + + + + + +--------+ + + | | 2022-09-09 | [facility] | 0.73 | (missing) | (missing) | | (unavailable | 11:15:07 [facility] | | | | + + + +--------+ + + + + | Result panel 321 | + + + + + +-------+ + + | | 2022-09-09 | [facility] | 0.5 | (missing) | (missing) | | (unavailable | 11:15:07 [facility] | | | | + + + +-------+ + + + + | Result panel 322 | + + + + + +------+ + + | | 2022-09-09 | [facility] | 24 | (missing) | (missing) | | (unavailable | 11:15:07 | [facility] | | | | + + + +------+ + + + + | Result panel 323 | + + + + + +------+ + + | | 2022-09-09 | [facility] | 34 | (missing) | (missing) | | (unavailable | 11:15:07 | [facility] | | | | + + + +------+ + + + + | Result panel 324 | + + + + + +------+ + + | | 2022-09-09 | [facility] | 71 | (missing) | (missing) | | (unavailable | 11:15:07 | [facility] | | | | + + + +------+ + + + + | Result panel 325 | + + + + + +-----+ + + | | 2022-09-09 | [facility] | 1 | (missing) | (missing) | | (unavailable | 11:15:07 [facility] | | | | + + + +-----+ + + + + | Result panel 326 | + + + + + +-----+ + + | | 2022-09-09 | [facility] | 8 | (missing) | (missing) | | (unavailable | 11:15:07 | [facility] | | | | + + + +-----+ + + + + | Result panel 327 | + + + + + + + + + | | 2022-09-09 | [facility] | SEE COMMENT | (missing) | (missing) | | (unavailable | 11:15:07 | [facility] | | | | + + + + + + + + + | Result panel 328 | + + + + + +-------+---------+ + | | 2022-09-09 | [facility] | 139 | mg/dL | (missing) | | (unavailable | 11:15:07 | [facility] | | | | + + + +-------+---------+ + + + | Result panel 329 | + + + + + +------+---------+ + | | 2022-09-09 | [facility] | 17 | mg/dL | (missing) | | (unavailable | 11:15:07 | [facility] | | | | + + + +------+---------+ + + + | Result panel 330 | + + + + + +--------+---------+ + | | 2022-09-09 | [facility] | 1.27 | mg/dL | (missing) | | (unavailable | 11:15:07 [facility] | | | | + + + +--------+---------+ + + + | Result panel 331 | + + + + + +------+ + + | | 2022-09-09 | [facility] | 75 | (missing) | (missing) | | (unavailable | 11:15:07 [facility] | | | | + + + +------+ + + + + | Result panel 332 | + + + + + +---------+ + + | | 2022-09-09 | [facility] | 13.38 | (missing) | (missing) | | (unavailable | 11:15:07 [facility] | | | | + + + +---------+ + + + + | Result panel 333 | + + + + + +-------+ + + | | 2022-09-09 | [facility] | 138 | (missing) | (missing) | | (unavailable | 11:15:07 [facility] | | | | + + + +-------+ + + + + | Result panel 334 | + + + + + +-------+ + + | | 2022-09-09 | [facility] | 4.1 | (missing) | (missing) | | (unavailable | 11:15:07 | [facility] | | | | + + + +-------+ + + + + | Result panel 335 | + + + + + +-------+ + + | | 2022-09-09 | [facility] | 102 | (missing) | (missing) | | (unavailable | 11:15:07 | [facility] | | | | + + + +-------+ + + + + | Result panel 336 | + + + + + +------+ + + | | 2022-09-09 | [facility] | 27 | (missing) | (missing) | | (unavailable | 11:15:07 [facility] | | | | + + + +------+ + + + + | Result panel 337 | + + + + + +--------+ + + | | 2022-09-09 | [facility] | 13.1 | (missing) | (missing) | | (unavailable | 11:15:07 | [facility] | | | | + + + +--------+ + + + + | Result panel 338 | + + + + + +-------+---------+ + | | 2022-09-09 | [facility] | 8.5 | mg/dL | (missing) | | (unavailable | 11:15:07 | [facility] | | | | + + + +-------+---------+ + + + | Result panel 339 | + + + + + +-------+ + + | | 2022-09-09 | [facility] | 7.1 | (missing) | (missing) | | (unavailable | 11:15:07 [facility] | | | | + + + +-------+ + + + + | Result panel 340 | + + + + + +-------+ + + | | 2022-09-09 | [facility] | 3.0 | (missing) | (missing) | | (unavailable | 11:15:07 | [facility] | | | | + + + +-------+ + + + + | Result panel 341 | + + + + + +-------+ + + | | 2022-09-09 | [facility] | 4.1 | (missing) | (missing) | | (unavailable | 11:15:07 [facility] | | | | + + + +-------+ + + + + | Result panel 342 | + + + + + +--------+ + + | | 2022-09-09 | [facility] | 0.73 | (missing) | (missing) | | (unavailable | 11:15:07 [facility] | | | | + + + +--------+ + + + + | Result panel 343 | + + + + + +-------+ + + | | 2022-09-09 | [facility] | 0.5 | (missing) | (missing) | | (unavailable | 11:15:07 [facility] | | | | + + + +-------+ + + + + | Result panel 344 | + + + + + +------+ + + | | 2022-09-09 | [facility] | 24 | (missing) | (missing) | | (unavailable | 11:15:07 | [facility] | | | | + + + +------+ + + + + | Result panel 345 | + + + + + +------+ + + | | 2022-09-09 | [facility] | 34 | (missing) | (missing) | | (unavailable | 11:15:07 | [facility] | | | | + + + +------+ + + + + | Result panel 346 | + + + + + +------+ + + | | 2022-09-09 | [facility] | 71 | (missing) | (missing) | | (unavailable | 11:15:07 | [facility] | | | | + + + +------+ + + + + | Result panel 347 | + + + + + +-----+ + + | | 2022-09-09 | [facility] | 8 | (missing) | (missing) | | (unavailable | 11:15:07 | [facility] | | | | + + + +-----+ + + + + | Result panel 348 | + + + + + +--------+ + + | | 2022-09-14 | [facility] | 18.3 | (missing) | (missing) | | (unavailable | 10:17:07 | [facility] | | | | + + + +--------+ + + + + | Result panel 349 | + + + + + +--------+ + + | | 2022-09-14 | [facility] | 2.40 | (missing) | (missing) | | (unavailable | 10:17:07 | [facility] | | | | + + + +--------+ + + + + | Result panel 350 | + + + + + +-------+ + + | | 2022-09-14 | [facility] | 7.3 | (missing) | (missing) | | (unavailable | 10:17:07 | [facility] | | | | + + + +-------+ + + + + | Result panel 351 | + + + + + +--------+ + + | | 2022-09-14 | [facility] | 21.5 | (missing) | (missing) | | (unavailable | 10:17:07 | [facility] | | | | + + + +--------+ + + + + | Result panel 352 | + + + + + +--------+ + + | | 2022-09-14 | [facility] | 89.5 | (missing) | (missing) | | (unavailable | 10:17: | [facility] | | | | + + + +--------+ + + + + | Result panel 353 | + + + + + +--------+ + + | | 2022-09-14 | [facility] | 30.3 | (missing) | (missing) | | (unavailable | 10::07 | [facility] | | | | + + + +--------+ + + + + | Result panel 354 | + + + + + +--------+ + + | | 2022-09-14 | [facility] | 33.9 | (missing) | (missing) | | (unavailable | 10:17:07 | [facility] | | | | + + + +--------+ + + + + | Result panel 355 | + + + + + +--------+ + + | | 2022-09-14 | [facility] | 15.2 | (missing) | (missing) | | (unavailable | 10:17:07 | [facility] | | | | + + + +--------+ + + + + | Result panel 356 | + + + + + +------+ + + | | 2022-09-14 | [facility] | 22 | (missing) | (missing) | | (unavailable | 10:17:07 | [facility] | | | | + + + +------+ + + + + | Result panel 357 | + + + + + +------+ + + | | 2022-09-14 | [facility] | 39 | (missing) | (missing) | | (unavailable | 10:17:07 | [facility] | | | | + + + +------+ + + + + | Result panel 358 | + + + + + +------+ + + | | 2022-09-14 | [facility] | 17 | (missing) | (missing) | | (unavailable | 10:17:07 | [facility] | | | | + + + +------+ + + + + | Result panel 359 | + + + + + +------+ + + | | 2022-09-14 | [facility] | 42 | (missing) | (missing) | | (unavailable | 10:17:07 | [facility] | | | | + + + +------+ + + + + | Result panel 360 | + + + + + +-----+ + + | | 2022-09-14 | [facility] | 1 | (missing) | (missing) | | (unavailable | 10:17:07 | [facility] | | | | + + + +-----+ + + + + | Result panel 361 | + + + + + +-----+ + + | | 2022-09-14 | [facility] | 1 | (missing) | (missing) | | (unavailable | 10:17:07 | [facility] | | | | + + + +-----+ + + + + | Result panel 362 | + + + + + + + + + | | 2022-09-14 | [facility] | PRESENT | (missing) | (missing) | | (unavailable | 10:17:07 | [facility] | | | | + + + + + + + + + | Result panel 363 | + + + + + + + + + | | 2022-09-14 | [facility] | SEE COMMENT | (missing) | (missing) | | (unavailable | 10:17:07 | [facility] | | | | + + + + + + + + + | Result panel 364 | + + + + + +-----+ + + | | 2022-09-14 | [facility] | 1 | (missing) | (missing) | | (unavailable | 10:17:07 | [facility] | | | | + + + +-----+ + + + + | Result panel 365 | + + + + + + + + + | | 2022-09-14 | [facility] | PRESENT | (missing) | (missing) | | (unavailable | 10:17:07 | [facility] | | | | + + + + + + + + + | Result panel 366 | + + + + + +-------+ + + | | 2022-09-18 | [facility] | 3.7 | (missing) | (missing) | | (unavailable | 14:49:07 | [facility] | | | | + + + +-------+ + + + + | Result panel 367 | + + + + + +--------+ + + | | 2022-09-18 | [facility] | 0.76 | (missing) | (missing) | | (unavailable | 14:49:07 | [facility] | | | | + + + +--------+ + + + + | Result panel 368 | + + + + + +-------+ + + | | 2022-09-18 | [facility] | 0.7 | (missing) | (missing) | | (unavailable | 14:49:07 | [facility] | | | | + + + +-------+ + + + + | Result panel 369 | + + + + + +------+ + + | | 2022-09-18 | [facility] | 27 | (missing) | (missing) | | (unavailable | 14:49:07 | [facility] | | | | + + + +------+ + + + + | Result panel 370 | + + + + + +------+ + + | | 2022-09-18 | [facility] | 48 | (missing) | (missing) | | (unavailable | 14:49:07 | [facility] | | | | + + + +------+ + + + + | Result panel 371 | + + + + + +------+ + + | | 2022-09-18 | [facility] | 54 | (missing) | (missing) | | (unavailable | 14:49:07 [facility] | | | | + + + +------+ + + + + | Result panel 372 | + + + + + +--------+ + + | | 2022-09-18 | [facility] | 14.9 | (missing) | (missing) | | (unavailable | 14:49:07 | [facility] | | | | + + + +--------+ + + + + | Result panel 373 | + + + + + +--------+ + + | | 2022-09-18 | [facility] | 1.96 | (missing) | (missing) | | (unavailable | 14:49:07 | [facility] | | | | + + + +--------+ + + + + | Result panel 374 | + + + + + +-------+ + + | | 2022-09-18 | [facility] | 6.0 | (missing) | (missing) | | (unavailable | 14:49:07 | [facility] | | | | + + + +-------+ + + + + | Result panel 375 | + + + + + +--------+ + + | | 2022-09-18 | [facility] | 17.4 | (missing) | (missing) | | (unavailable | 14:49:07 | [facility] | | | | + + + +--------+ + + + + | Result panel 376 | + + + + + +--------+ + + | | 2022-09-18 | [facility] | 88.6 | (missing) | (missing) | | (unavailable | 14:49:07 | [facility] | | | | + + + +--------+ + + + + | Result panel 377 | + + + + + +--------+ + + | | 2022-09-18 | [facility] | 30.5 | (missing) | (missing) | | (unavailable | 14:49:07 | [facility] | | | | + + + +--------+ + + + + | Result panel 378 | + + + + + +--------+ + + | | 2022-09-18 | [facility] | 34.4 | (missing) | (missing) | | (unavailable | 14:49:07 | [facility] | | | | + + + +--------+ + + + + | Result panel 379 | + + + + + +--------+ + + | | 2022-09-18 | [facility] | 15.4 | (missing) | (missing) | | (unavailable | 14:49:07 | [facility] | | | | + + + +--------+ + + + + | Result panel 380 | + + + + + +------+ + + | | 2022-09-18 | [facility] | 26 | (missing) | (missing) | | (unavailable | 14:49:07 [facility] | | | | + + + +------+ + + + + | Result panel 381 | + + + + + +------+ + + | | 2022-09-18 | [facility] | 22 | (missing) | (missing) | | (unavailable | 14:49:07 | [facility] | | | | + + + +------+ + + + + | Result panel 382 | + + + + + +------+ + + | | 2022-09-18 | [facility] | 31 | (missing) | (missing) | | (unavailable | 14:49:07 | [facility] | | | | + + + +------+ + + + + | Result panel 383 | + + + + + +------+ + + | | 2022-09-18 | [facility] | 38 | (missing) | (missing) | | (unavailable | 14:49:07 [facility] | | | | + + + +------+ + + + + | Result panel 384 | + + + + + +-----+ + + | | 2022-09-18 | [facility] | 6 | (missing) | (missing) | | (unavailable | 14:49:07 | [facility] | | | | + + + +-----+ + + + + | Result panel 385 | + + + + + +-----+ + + | | 2022-09-18 | [facility] | 3 | (missing) | (missing) | | (unavailable | 14:49:07 | [facility] | | | | + + + +-----+ + + + + | Result panel 386 | + + + + + + + + + | | 2022-09-18 | [facility] | SEE | (missing) | (missing) | | (unavailable | 14:49:07 | [facility] COMMENTS | | | [facility] ) | | [facility] | | | | + + + + + + + + + | Result panel 387 | + + + + + + + + + | | 2022-09-18 | [facility] | SEE | (missing) | (missing) | | (unavailable | 14:49:07 | [facility] COM[facility] | | | | + + + + + + + + + | Result panel 388 | + + + + + +--------+ + + | | 2022-09-18 | [facility] | 15.2 | (missing) | (missing) | | (unavailable | 14:49:07 | [facility] | | | | + + + +--------+ + + + + | Result panel 389 | + + + + + +--------+ + + | | 2022-09-18 | [facility] | 1.26 | (missing) | (missing) | | (unavailable | 14:49:07 [facility] | | | | + + + +--------+ + + + + | Result panel 390 | + + + + + +-------+---------+ + | | 2022-09-18 | [facility] | 113 | mg/dL | (missing) | | (unavailable | 14:49:07 | [facility] | | | | + + + +-------+---------+ + + + | Result panel 391 | + + + + + +------+---------+ + | | 2022-09-18 | [facility] | 14 | mg/dL | (missing) | | (unavailable | 14:49:07 | [facility] | | | | + + + +------+---------+ + + + | Result panel 392 | + + + + + +--------+---------+ + | | 2022-09-18 | [facility] | 1.40 | mg/dL | (missing) | | (unavailable | 14:49:07 | [facility] | | | | + + + +--------+---------+ + + + | Result panel 393 | + + + + + +------+ + + | | 2022-09-18 | [facility] | 67 | (missing) | (missing) | | (unavailable | 14:49:07 [facility] | | | | + + + +------+ + + + + | Result panel 394 | + + + + + +---------+ + + | | 2022-09-18 | [facility] | 10.00 | (missing) | (missing) | | (unavailable | 14:49:07 | [facility] | | | | + + + +---------+ + + + + | Result panel 395 | + + + + + +-------+ + + | | 2022-09-18 | [facility] | 136 | (missing) | (missing) | | (unavailable | 14:49:07 | [facility] | | | | + + + +-------+ + + + + | Result panel 396 | + + + + + +-------+ + + | | 2022-09-18 | [facility] | 3.7 | (missing) | (missing) | | (unavailable | 14:49:07 | [facility] | | | | + + + +-------+ + + + + | Result panel 397 | + + + + + +-------+ + + | | 2022-09-18 | [facility] | 102 | (missing) | (missing) | | (unavailable | 14:49:07 | [facility] | | | | + + + +-------+ + + + + | Result panel 398 | + + + + + +------+ + + | | 2022-09-18 | [facility] | 29 | (missing) | (missing) | | (unavailable | 14:49:07 | [facility] | | | | + + + +------+ + + + + | Result panel 399 | + + + + + +-------+ + + | | 2022-09-18 | [facility] | 8.7 | (missing) | (missing) | | (unavailable | 14:49:07 | [facility] | | | | + + + +-------+ + + + + | Result panel 400 | + + + + + +-------+---------+ + | | 2022-09-18 | [facility] | 8.3 | mg/dL | (missing) | | (unavailable | 14:49:07 | [facility] | | | | + + + +-------+---------+ + + + | Result panel 401 | + + + + + +-------+ + + | | 2022-09-18 | [facility] | 6.5 | (missing) | (missing) | | (unavailable | 14:49:07 | [facility] | | | | + + + +-------+ + + + + | Result panel 402 | + + + + + +-------+ + + | | 2022-09-18 | [facility] | 2.8 | (missing) | (missing) | | (unavailable | 14:49:07 | [facility] | | | | + + + +-------+ + + + + | Result panel 403 | + + + + + +-----+ + + | | 2022-09-18 | [facility] | O | (missing) | (missing) | | (unavailable | 15:47:07 [facility] | | | | + + + +-----+ + + + + | Result panel 404 | + + + + + + + + + | | 2022-09-18 | [facility] | POSITIVE | (missing) | (missing) | | (unavailable | 15:47:07 | [facility] | | | | + + + + + + + + + | Result panel 405 | + + + + + + + + + | | 2022-09-18 | [facility] | NEGATIVE | (missing) | (missing) | | (unavailable | 15:47:07 | [facility] | | | | + + + + + + + + + | Result panel 406 | + + + + + + + + + | | 2022-09-18 | [facility] | BLOOD IN | (missing) | (missing) | | (unavailable | 15:47:07 | [facility] | | | | + + + + + + + + + | Result panel 407 | + + + + + +------+ + + | | 2022-11-13 | [facility] | 94 | (missing) | (missing) | | (unavailable | 09:10:07 | [facility] | | | | + + + +------+ + + + + | Result panel 408 | + + + + + +-----+ + + | | 2022-11-13 | [facility] | 5 | (missing) | (missing) | | (unavailable | 09:10:07 | [facility] | | | | + + + +-----+ + + + + | Result panel 409 | + + + + + +-----+ + + | | 2022-11-13 | [facility] | 0 | (missing) | (missing) | | (unavailable | 09:10:07 | [facility] | | | | + + + +-----+ + + + + | Result panel 410 | + + + + + +-----+ + + | | 2022-11-13 | [facility] | 0 | (missing) | (missing) | | (unavailable | 09:10:07 | [facility] | | | | + + + +-----+ + + + + | Result panel 411 | + + + + + +-----+ + + | | 2022-11-13 | [facility] | 0 | (missing) | (missing) | | (unavailable | 09:10:07 | [facility] | | | | + + + +-----+ + + + + | Result panel 412 | + + + + + +-----+ + + | | 2022-11-13 | [facility] | 1 | (missing) | (missing) | | (unavailable | 09:10:07 | [facility] | | | | + + + +-----+ + + + + | Result panel 413 | + + + + + +-------+---------+ + | | 2022-11-20 | [facility] | 4.8 | mg/dL | (missing) | | (unavailable | 09:10:07 | [facility] | | | | + + + +-------+---------+ + + + | Result panel 414 | + + + + + +-------+---------+ + | | 2022-11-20 | [facility] | 1.6 | mg/dL | (missing) | | (unavailable | 09:10:07 | [facility] | | | | + + + +-------+---------+ + + + | Result panel 415 | + + + + + +-------+ + + | | 2022-11-20 | [facility] | 111 | (missing) | (missing) | | (unavailable | 09:10:07 | [facility] | | | | + + + +-------+ + + + + | Result panel 416 | + + + + + +-----+ + + | | 2022-11-22 | [facility] | 0 | (missing) | (missing) | | (unavailable | 14:30:07 | [facility] | | | | + + + +-----+ + + + + | Result panel 417 | + + + + + +-------+ + + | | 2022-11-22 | [facility] | 0.1 | (missing) | (missing) | | (unavailable | 14:30:07 | [facility] | | | | + + + +-------+ + + + + | Result panel 418 | + + + + + +-----+ + + | | 2022-11-22 | [facility] | 0 | (missing) | (missing) | | (unavailable | 14:30:07 | [facility] | | | | + + + +-----+ + + + + | Result panel 419 | + + + + + +-----+ + + | | 2022-11-22 | [facility] | 0 | (missing) | (missing) | | (unavailable | 14:30:07 | [facility] | | | | + + + +-----+ + + + + | Result panel 420 | + + + + + +-----+ + + | | 2022-11-22 | [facility] | 0 | (missing) | (missing) | | (unavailable | 14:30:07 | [facility] | | | | + + + +-----+ + + + + | Result panel 421 | + + + + + + + + + | | 2022-11-23 | [facility] | | (missing) | (missing) | | (unavailable | 17:39:07 | [facility] | [phone] | | | | ) | | [facility] | [address] | | | + + + + + + + + + | Result panel 422 | + + + + + + + + + | | 2022-11-23 | [facility] | | (missing) | (missing) | | (unavailable | 17:39:07 | [facility] | [id number] | | | | ) | | [facility] | [address] | | | + + + + + + + + + | Result panel 423 | + + + + + +-------+ + + | | 2022-11-23 | [facility] | 1.5 | (missing) | (missing) | | (unavailable | 18:55:07 | [facility] | | | | + + + +-------+ + + + + | Result panel 424 | + + + + + +--------+ + + | | 2022-11-25 | [facility] | 15.1 | (missing) | (missing) | | (unavailable | 13:35:07 | [facility] | | | | + + + +--------+ + + + + | Result panel 425 | + + + + + +------+ + + | | 2022-11-25 | [facility] | // | (missing) | (missing) | | (unavailable | 13:35:07 | [facility] | | | | + + + +------+ + + + + | Result panel 426 | + + + + + +-------+ + + | | 2022-11-26 | [facility] | 143 | (missing) | (missing) | | (unavailable | 05:15:07 | [facility] | | | | + + + +-------+ + + + + | Result panel 427 | + + + + + +-------+ + + | | 2022-11-26 | [facility] | 3.9 | (missing) | (missing) | | (unavailable | 05:15:07 | [facility] | | | | + + + +-------+ + + + + | Result panel 428 | + + + + + +-------+ + + | | 2022-11-26 | [facility] | 105 | (missing) | (missing) | | (unavailable | 05:15:07 | [facility] | | | | + + + +-------+ + + + + | Result panel 429 | + + + + + +------+ + + | | 2022-11-26 | [facility] | 29 | (missing) | (missing) | | (unavailable | 05:15:07 | [facility] | | | | + + + +------+ + + + + | Result panel 430 | + + + + + +--------+ + + | | 2022-11-26 | [facility] | 12.9 | (missing) | (missing) | | (unavailable | 05:15:07 | [facility] | | | | + + + +--------+ + + + + | Result panel 431 | + + + + + +-------+---------+ + | | 2022-11-26 | [facility] | 8.6 | mg/dL | (missing) | | (unavailable | 05:15:07 | [facility] | | | | + + + +-------+---------+ + + + | Result panel 432 | + + + + + +-------+ + + | | 2022-11-26 | [facility] | 6.0 | (missing) | (missing) | | (unavailable | 05:15:07 | [facility] | | | | + + + +-------+ + + + + | Result panel 433 | + + + + + +-------+ + + | | 2022-11-26 | [facility] | 2.7 | (missing) | (missing) | | (unavailable | 05:15:07 | [facility] | | | | + + + +-------+ + + + + | Result panel 434 | + + + + + +-------+ + + | | 2022-11-26 | [facility] | 3.3 | (missing) | (missing) | | (unavailable | 05:15:07 | [facility] | | | | + + + +-------+ + + + + | Result panel 435 | + + + + + +--------+ + + | | 2022-11-26 | [facility] | 0.82 | (missing) | (missing) | | (unavailable | 05:15:07 | [facility] | | | | + + + +--------+ + + + + | Result panel 436 | + + + + + +-------+ + + | | 2022-11-26 | [facility] | 0.8 | (missing) | (missing) | | (unavailable | 05:15:07 | [facility] | | | | + + + +-------+ + + + + | Result panel 437 | + + + + + +------+ + + | | 2022-11-26 | [facility] | 10 | (missing) | (missing) | | (unavailable | 05:15:07 | [facility] | | | | + + + +------+ + + + + | Result panel 438 | + + + + + +------+ + + | | 2022-11-26 | [facility] | 16 | (missing) | (missing) | | (unavailable | 05:15:07 | [facility] | | | | + + + +------+ + + + + | Result panel 439 | + + + + + +------+ + + | | 2022-11-26 | [facility] | 88 | (missing) | (missing) | | (unavailable | 05:15:07 | [facility] | | | | + + + +------+ + + + + | Result panel 440 | + + + + + + + + + | | 2022-11-26 | [facility] | SEE COMMENT | (missing) | (missing) | | (unavailable | 05:15:07 | [facility] | | | | + + + + + + + + + | Result panel 441 | + + + + + +-------+---------+ + | | 2022-11-26 | [facility] | 117 | mg/dL | (missing) | | (unavailable | 05:15:07 | [facility] | | | | + + + +-------+---------+ + + + | Result panel 442 | + + + + + +-----+---------+ + | | 2022-11-26 | [facility] | 7 | mg/dL | (missing) | | (unavailable | 05:15:07 | [facility] | | | | + + + +-----+---------+ + + + | Result panel 443 | + + + + + +--------+---------+ + | | 2022-11-26 | [facility] | 0.88 | mg/dL | (missing) | | (unavailable | 05:15:07 | [facility] | | | | + + + +--------+---------+ + + + | Result panel 444 | + + + + + +-------+ + + | | 2022-11-26 | [facility] | 114 | (missing) | (missing) | | (unavailable | 05:15:07 | [facility] | | | | + + + +-------+ + + + + | Result panel 445 | + + + + + +--------+ + + | | 2022-11-26 | [facility] | 7.95 | (missing) | (missing) | | (unavailable | 05:15:07 | [facility] | | | | + + + +--------+ + + + + | Result panel 446 | + + + + + +-----+ + + | | 2022-11-26 | [facility] | O | (missing) | (missing) | | (unavailable | 09:59:07 | [facility] | | | | + + + +-----+ + + + + | Result panel 447 | + + + + + + + + + | | 2022-11-26 | [facility] | POSITIVE | (missing) | (missing) | | (unavailable | 09:59:07 | [facility] | | | | + + + + + + + + + | Result panel 448 | + + + + + + + + + | | 2022-11-26 | [facility] | NEGATIVE | (missing) | (missing) | | (unavailable | 09:59:07 | [facility] | | | | + + + + + + + + + | Result panel 449 | + + + + + + + + + | | 2022-11-26 | [facility] | COMPATIBLE | (missing) | (missing) | | (unavailable | 09:59:07 | [facility] | | | | + + + + + + + + + | Result panel 450 | + + + + + + + + + | | 2022-11-26 | [facility] | COMPATIBLE | (missing) | (missing) | | (unavailable | 09:59:07 | [facility] | | | | + + + + + + + + + | Result panel 451 | + + + + + + + + + | | 2022-11-26 | [facility] | | (missing) | (missing) | | (unavailable | 09:59:07 | [facility] | [id number] | | | | ) | | [facility] | [address] | | | + + + + + + + + + | Result panel 452 | + + + + + + + + + | | 2022-11-26 | [facility] | | (missing) | (missing) | | (unavailable | 09:59:07 | [facility] [id number] | | | | ) | | [facility] | 200V | | | + + + + + + + + + | Result panel 453 | + + + + + + + + + | | 2022-11-26 | [facility] | BLOOD IN | (missing) | (missing) | | (unavailable | 09:59:07 | [facility] | | | | + + + + + + + + + | Result panel 454 | + + + + + +-------+ + + | | 2022-11-27 | [facility] | 0.3 | (missing) | (missing) | | (unavailable | 06:05:07 | [facility] | | | | + + + +-------+ + + + + | Result panel 455 | + + + + + +--------+ + + | | 2022-11-27 | [facility] | 2.76 | (missing) | (missing) | | (unavailable | 06:05:07 | [facility] | | | | + + + +--------+ + + + + | Result panel 456 | + + + + + +-------+ + + | | 2022-11-27 | [facility] | 8.2 | (missing) | (missing) | | (unavailable | 06:05:07 | [facility] | | | | + + + +-------+ + + + + | Result panel 457 | + + + + + +--------+ + + | | 2022-11-27 | [facility] | 23.2 | (missing) | (missing) | | (unavailable | 06:05:07 | [facility] | | | | + + + +--------+ + + + + | Result panel 458 | + + + + + +--------+ + + | | 2022-11-27 | [facility] | 84.1 | (missing) | (missing) | | (unavailable | 06:05:07 | [facility] | | | | + + + +--------+ + + + + | Result panel 459 | + + + + + +--------+ + + | | 2022-11-27 | [facility] | 29.7 | (missing) | (missing) | | (unavailable | 06:05:07 | [facility] | | | | + + + +--------+ + + + + | Result panel 460 | + + + + + +--------+ + + | | 2022-11-27 | [facility] | 35.3 | (missing) | (missing) | | (unavailable | 06:05:07 | [facility] | | | | + + + +--------+ + + + + | Result panel 461 | + + + + + +--------+ + + | | 2022-11-27 | [facility] | 14.3 | (missing) | (missing) | | (unavailable | 06:05:07 | [facility] | | | | + + + +--------+ + + + + | Result panel 462 | + + + + + +------+ + + | | 2022-11-27 | [facility] | 23 | (missing) | (missing) | | (unavailable | :05:07 | [facility] | | | | + + + +------+ + + + + | Result panel 463 | + + + + + +--------+ + + | | 2022-11-27 | [facility] | 51.2 | (missing) | (missing) | | (unavailable | 07 | [facility] | | | | + + + +--------+ + + + + | Result panel 464 | + + + + + +--------+ + + | | 2022-11-27 | [facility] | 46.2 | (missing) | (missing) | | (unavailable | ::07 | [facility] | | | | + + + +--------+ + + + + | Result panel 465 | + + + + + +-------+ + + | | 2022-11-27 | [facility] | 2.6 | (missing) | (missing) | | (unavailable | 06:05:07 | [facility] | | | | + + + +-------+ + + + + | Result panel 466 | + + + + + +-------+ + + | | 2022-11-27 | [facility] | 0.0 | (missing) | (missing) | | (unavailable | 06:05:07 | [facility] | | | | + + + +-------+ + + + + | Result panel 467 | + + + + + +-------+ + + | | 2022-11-27 | [facility] | 0.0 | (missing) | (missing) | | (unavailable | 06:05:07 | [facility] | | | | + + + +-------+ + + Social History + + + + | date | description | facility | + + + + | 2022-07-06 00:00 | Unknown if ever smoked | [facility] | + + + + | 2022-09-05 00:00 | Unknown if ever smoked | [facility] | + + + + | 2022-09-09 00:00 | Unknown if ever smoked | [facility] | + + + + | 2022-09-14 00:00 | Unknown if ever smoked | [facility] | + + + + | 2022-09-18 00:00 | Unknown if ever smoked | [facility] | + + + + | 2022-11-27 00:00 | Unknown if ever smoked | [facility] | + + + + Vital Signs + + + +---------+ | date | measurement | value | units | + + + +---------+ | 2022-07-05 00:00 | height_metric | 187.96 | cm | + + + +---------+ | 2022-07-05 00:00 | height_standard | 74 | in | + + + +---------+ | 2022-07-06 00:00 | BP_diastolic | 92 | mmHg | + + + +---------+ | 2022-07-06 00:00 | BP_systolic | 135 | mmHg | + + + +---------+ | 2022-07-06 00:00 | heart_rate | 94 | /min | + + + +---------+ | 2022-07-06 00:00 | o2_saturation | 97 | % | + + + +---------+ | 2022-07-06 00:00 | respiration_rate | 17 | /min | + + + +---------+ | 2022-07-06 00:00 | temperature_metric | 36.44 | C | | | | | | + + + +---------+ | 2022-07-06 00:00 | | 97.6 | F | | | temperature_standar | | | | | d | | | + + + +---------+ | 2022-09-04 00:00 | BMI | 43.6 | kg/m2 | + + + +---------+ | 2022-09-04 00:00 | height_metric | 187.96 | cm | + + + +---------+ | 2022-09-04 00:00 | height_standard | 74 | in | + + + +---------+ | 2022-09-04 00:00 | weight_metric | 154.1 | kg | + + + +---------+ | 2022-09-04 00:00 | weight_standard | 339.73 | lb | + + + +---------+ | 2022-09-05 00:00 | BP_diastolic | 72 | mmHg | + + + +---------+ | 2022-09-05 00:00 | BP_systolic | 118 | mmHg | + + + +---------+ | 2022-09-05 00:00 | heart_rate | 83 | /min | + + + +---------+ | 2022-09-05 00:00 | o2_saturation | 100 | % | + + + +---------+ | 2022-09-05 00:00 | respiration_rate | 18 | /min | + + + +---------+ | 2022-09-05 00:00 | temperature_metric | 36.67 | C | | | | | | + + + +---------+ | 2022-09-05 00:00 | | 98 | F | | | temperature_standar | | | | | d | | | + + + +---------+ | 2022-09-09 00:00 | BMI | 43.0 | kg/m2 | + + + +---------+ | 2022-09-09 00:00 | BP_diastolic | 80 | mmHg | + + + +---------+ | 2022-09-09 00:00 | BP_systolic | 117 | mmHg | + + + +---------+ | 2022-09-09 00:00 | heart_rate | 96 | /min | + + + +---------+ | 2022-09-09 00:00 | height_metric | 187.96 | cm | + + + +---------+ | 2022-09-09 00:00 | height_standard | 74 | in | + + + +---------+ | 2022-09-09 00:00 | o2_saturation | 96 | % | + + + +---------+ | 2022-09-09 00:00 | respiration_rate | 21 | /min | + + + +---------+ | 2022-09-09 00:00 | temperature_metric | 37 | C | | | | | | + + + +---------+ | 2022-09-09 00:00 | | 98.6 | F | | | temperature_standar | | | | | d | | | + + + +---------+ | 2022-09-09 00:00 | weight_metric | 152 | kg | + + + +---------+ | 2022-09-09 00:00 | weight_standard | 335.1 | lb | + + + +---------+ | 2022-09-12 00:00 | BMI | 43.1 | kg/m2 | + + + +---------+ | 2022-09-12 00:00 | height_metric | 187.96 | cm | + + + +---------+ | 2022-09-12 00:00 | height_standard | 74 | in | + + + +---------+ | 2022-09-12 00:00 | weight_metric | 152.27 | kg | + + + +---------+ | 2022-09-12 00:00 | weight_standard | 335.7 | lb | + + + +---------+ | 2022-09-14 00:00 | BP_diastolic | 82 | mmHg | + + + +---------+ | 2022-09-14 00:00 | BP_systolic | 142 | mmHg | + + + +---------+ | 2022-09-14 00:00 | heart_rate | 90 | /min | + + + +---------+ | 2022-09-14 00:00 | o2_saturation | 95 | % | + + + +---------+ | 2022-09-14 00:00 | respiration_rate | 19 | /min | + + + +---------+ | 2022-09-14 00:00 | temperature_metric | 37.17 | C | | | | | | + + + +---------+ | 2022-09-14 00:00 | | 98.9 | F | | | temperature_standar | | | | | d | | | + + + +---------+ | 2022-09-18 00:00 | BMI | 43.0 | kg/m2 | + + + +---------+ | 2022-09-18 00:00 | BP_diastolic | 69 | mmHg | + + + +---------+ | 2022-09-18 00:00 | BP_systolic | 119 | mmHg | + + + +---------+ | 2022-09-18 00:00 | heart_rate | 86 | /min | + + + +---------+ | 2022-09-18 00:00 | height_metric | 187.96 | cm | + + + +---------+ | 2022-09-18 00:00 | height_standard | 74 | in | + + + +---------+ | 2022-09-18 00:00 | o2_saturation | 96 | % | + + + +---------+ | 2022-09-18 00:00 | respiration_rate | 18 | /min | + + + +---------+ | 2022-09-18 00:00 | temperature_metric | 37.06 | C | | | | | | + + + +---------+ | 2022-09-18 00:00 | | 98.7 | F | | | temperature_standar | | | | | d | | | + + + +---------+ | 2022-09-18 00:00 | weight_metric | 151.98 | kg | + + + +---------+ | 2022-09-18 00:00 | weight_standard | 335.06 | lb | + + + +---------+ | 2022-11-15 00:00 | BP_diastolic | 74 | mmHg | + + + +---------+ | 2022-11-15 00:00 | BP_systolic | 127 | mmHg | + + + +---------+ | 2022-11-15 00:00 | heart_rate | 90 | /min | + + + +---------+ | 2022-11-15 00:00 | o2_saturation | 100 | % | + + + +---------+ | 2022-11-15 00:00 | respiration_rate | 18 | /min | + + + +---------+ | 2022-11-15 00:00 | temperature_metric | 37 | C | | | | | | + + + +---------+ | 2022-11-15 00:00 | | 98.6 | F | | | temperature_standar | | | | | d | | | + + + +---------+ | 2022-11-20 00:00 | BMI | 39.4 | kg/m2 | + + + +---------+ | 2022-11-20 00:00 | BMI | 39.5 | kg/m2 | + + + +---------+ | 2022-11-20 00:00 | BP_diastolic | 90 | mmHg | + + + +---------+ | 2022-11-20 00:00 | BP_systolic | 130 | mmHg | + + + +---------+ | 2022-11-20 00:00 | heart_rate | 85 | /min | + + + +---------+ | 2022-11-20 00:00 | height_metric | 187.96 | cm | + + + +---------+ | 2022-11-20 00:00 | height_standard | 74 | in | + + + +---------+ | 2022-11-20 00:00 | o2_saturation | 100 | % | + + + +---------+ | 2022-11-20 00:00 | respiration_rate | 18 | /min | + + + +---------+ | 2022-11-20 00:00 | weight_metric | 139.25 | kg | + + + +---------+ | 2022-11-20 00:00 | weight_metric | 139.5 | kg | + + + +---------+ | 2022-11-20 00:00 | weight_standard | 307 | lb | + + + +---------+ | 2022-11-20 00:00 | weight_standard | 307.54 | lb | + + + +---------+ | 2022-11-23 00:00 | BMI | 39.8 | kg/m2 | + + + +---------+ | 2022-11-23 00:00 | BMI | 39.9 | kg/m2 | + + + +---------+ | 2022-11-23 00:00 | BP_diastolic | 93 | mmHg | + + + +---------+ | 2022-11-23 00:00 | BP_systolic | 167 | mmHg | + + + +---------+ | 2022-11-23 00:00 | heart_rate | 108 | /min | + + + +---------+ | 2022-11-23 00:00 | height_metric | 187.96 | cm | + + + +---------+ | 2022-11-23 00:00 | height_standard | 74 | in | + + + +---------+ | 2022-11-23 00:00 | o2_saturation | 100 | % | + + + +---------+ | 2022-11-23 00:00 | respiration_rate | 18 | /min | + + + +---------+ | 2022-11-23 00:00 | temperature_metric | 36.78 | C | | | | | | + + + +---------+ | 2022-11-23 00:00 | | 98.2 | F | | | temperature_standar | | | | | d | | | + + + +---------+ | 2022-11-23 00:00 | weight_metric | 140.6 | kg | + + + +---------+ | 2022-11-23 00:00 | weight_metric | 140.8 | kg | + + + +---------+ | 2022-11-23 00:00 | weight_standard | 309.97 | lb | + + + +---------+ | 2022-11-23 00:00 | weight_standard | 310.41 | lb | + + + +---------+ | 2022-11-27 00:00 | BP_diastolic | 77 | mmHg | + + + +---------+ | 2022-11-27 00:00 | BP_systolic | 132 | mmHg | + + + +---------+ | 2022-11-27 00:00 | heart_rate | 78 | /min | + + + +---------+ | 2022-11-27 00:00 | o2_saturation | 97 | % | + + + +---------+ | 2022-11-27 00:00 | respiration_rate | 16 | /min | + + + +---------+ | 2022-11-27 00:00 | temperature_metric | 36.83 | C | | | | | | + + + +---------+ | 2022-11-27 00:00 | | 98.3 | F | | | temperature_standar | | | | | d | | | + + + +---------+"
--- OUTSIDE RECORDS SUMMARY | ~2022-11-29 | XMS | Continuity of Care Document ---
Demographics + + + | Address | [address] | | | [place] [address] | + + + | Preferred Language | Unknown | + + + | Marital Status | | + + + | Religion Affiliation | Unknown | + + + | Race | White | + + + | Ethnic Group | Not or | + + + Author + + + | Author | [facility] | + + + | Organization | [facility] | + + + | Address | [address] | | | [place] [address] | + + + | Phone | | + + + Care Team Providers + + + + | Care Thermodynamicist Name | Role | Phone | + [...] + | (no date) | Piperacillin | [facility] | (no reaction) | (no severity) | | | | [facility] | | | | | | [facility] | | | + + + + + + Encounters No information. Functional Status No information. Immunizations No information. Medications + + + + | date | description | facility | + + + + | 2022-11-27 00:00 | Calcium Carbonate/Vitamin | [facility] | | | D3 | | + + + + | 2022-09-05 00:00 | FLUTICASONE PROPIONATE 50 | [facility] | | | MCG | | + + + + | 2022-11-27 00:00 | ACYCLOVIR | [facility] | + + + + | 2022-09-05 00:00 | ALLOPURINOL | [facility] | + + + + | 2022-09-05 00:00 | ALLOPURINOL | [facility] | + + + + | 2022-09-05 00:00 | ALLOPURINOL | [facility] | + + + + | 2022-09-05 00:00 | ALLOPURINOL | [facility] | + + + + | 2022-07-06 00:00 | BENZONATATE | [facility] | + + + + | 2022-07-06 00:00 | BENZONATATE | [facility] | + + + + | 2022-07-06 00:00 | BENZONATATE | [facility] | + + + + | 2022-07-06 00:00 | BENZONATATE | [facility] | + + + + | 2022-11-27 00:00 | PROCHLORPERAZINE MALEATE | [facility] | + + + + | 2022-11-27 00:00 | LEVOFLOXACIN | [facility] | + + + + | 2022-11-27 00:00 | OMEPRAZOLE | [facility] | + + + + | 2022-09-14 00:00 | CIPROFLOXACIN HCL | [facility] | + + + + | 2022-09-18 00:00 | CIPROFLOXACIN HCL | [facility] | + + + + | 2022-11-27 00:00 | CIPROFLOXACIN HCL | [facility] | + + + + | 2022-11-27 00:00 | VORICONAZOLE | [facility] | + + + + | 2022-11-27 00:00 | VORICONAZOLE | [facility] | + + + + | 2022-11-27 00:00 | Cholecalciferol (Vitamin | [facility] | | | D3) | | + + + + | 2022-09-14 00:00 | Amoxicillin/Potassium Clav | [facility] | | | | | + + + + | 2022-09-18 00:00 | Amoxicillin/Potassium Clav | [facility] | | | | | + + + + | 2022-11-27 00:00 | Amoxicillin/Potassium Clav | [facility] | | | | | + + + + | 2022-09-05 00:00 | ALBUTEROL SULFATE | [facility] | + + + + | 2022-09-09 00:00 | ALBUTEROL SULFATE | [facility] | + + + + | 2022-09-14 00:00 | ALBUTEROL SULFATE | [facility] | + + + + | 2022-09-18 00:00 | ALBUTEROL SULFATE | [facility] | + + + + | 2022-11-27 00:00 | ALBUTEROL SULFATE | [facility] | + + + + | 2022-11-27 00:00 | TRANEXAMIC ACID | [facility] | + + + + | 2022-09-05 00:00 | FLUTICASONE PROPIONATE 220 | [facility] | | | MCG | | + + + + | 2022-09-14 00:00 | FLUTICASONE PROPIONATE 220 | [facility] | | | MCG | | + + + + | 2022-09-18 00:00 | FLUTICASONE PROPIONATE 220 | [facility] | | | MCG | | + + + + | 2022-11-27 00:00 | FLUTICASONE PROPIONATE 220 | [facility] | | | MCG | | + + + + Problems + + + + | date | description | facility | + + + + | 2022-07-05 00:00 | Acute bronchitis | [facility] | + + + + | 2022-07-05 00:00 | Acute bronchitis | [facility] | + + + + | 2022-07-05 00:00 | Acute bronchitis | [facility] | + + + + | 2022-07-05 00:00 | Acute bronchitis | [facility] | + + + + | 2022-07-05 22:50 | ACUTE BRONCHITIS, | [facility] | | | UNSPECIFIED | | + + + + | 2022-07-05 22:50 | COUGH, UNSPECIFIED | [facility] | + + + + | 2022-09-04 00:00 | Anemia | [facility] | + + + + | 2022-09-04 00:00 | Anemia | [facility] | + + + + | 2022-09-04 00:00 | Anemia | [facility] | + + + + | 2022-09-04 00:00 | Anemia | [facility] | + + + + | 2022-09-04 00:00 | Thrombocytopenia | [facility] | + + + + | 2022-09-04 00:00 | Thrombocytopenia | [facility] | + + + + | 2022-09-04 00:00 | Thrombocytopenia | [facility] | + + + + | 2022-09-04 00:00 | Thrombocytopenia | [facility] | + + + + | [...] + + + | 2022-09-04 03:10 | BAND PRESSER (CURRENT) USE OF | [facility] | | | INHALED STEROIDS | | + + + + | 2022-09-04 03:10 | OTHER BAND PRESSER (CURRENT) | [facility] | | | 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 | | + + + + | 2022-09-09 00:00 | Weakness | [facility] | + + + + | 2022-09-09 00:00 | Weakness | [facility] | + + + + | 2022-09-09 00:00 | Weakness | [facility] | + + + + | [...] + + | 2022-09-09 10:45 | OTHER HALFWAY (CURRENT) | [facility] | | | 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 | | + + + + | 2022-09-14 09:50 | ACUTE MYELOBLASTIC | [facility] | | | LEUKEMIA, IN REMISSIO | | + + + + | 2022-09-14 09:50 | ACUTE MYELOBLASTIC | [facility] | | | LEUKEMIA, IN REMISSION | | + + + + | 2022-09-14 09:50 | OTHER BAND PRESSER (CURRENT) | [facility] | | | 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 | | + + + + | 2022-09-18 00:00 | Hemoptysis | [facility] | + + + + | 2022-09-18 00:00 | Hemoptysis | [facility] | + + + + | [...] + + | 2022-09-18 12:43 | OTHER BAND PRESSER (CURRENT) | [facility] | | | DRUG [...] | 2022-11-23 00:00 | Febrile neutropenia | [facility] | + + + + | [...] + + + | 2022-11-23 18:45 | HALFWAY (CURRENT) USE OF | [facility] | | | ANTIBIOTICS | | + + + + | 2022-11-23 18:45 | HALFWAY (CURRENT) USE OF | [facility] | | | INHALED STEROIDS | | + + + + | 2022-11-23 18:45 | OTHER BAND PRESSER (CURRENT) | [facility] | | | DRUG [...] 2022-09-04 00:00 | TRANSFUSE NONAUT FROZEN | [facility] | | | PLASMA IN PERIPH VEIN, PERC | | | | | | + + + + | 2022-09-04 00:00 | TRANSFUSE NONAUT FROZEN | [facility] | | | PLASMA IN PERIPH VEIN, PERC | | | | | | + + + + | 2022-09-04 00:00 | TRANSFUSE NONAUT FRESH | [facility] | | | PLASMA IN PERIPH VEIN, PERC | | | | | | + + + + | 2022-09-04 00:00 | TRANSFUSE NONAUT FRESH | [facility] | | | PLASMA IN PERIPH VEIN, PERC | | | | | | + + + + | 2022-09-05 00:00 | TRANSFUSE NONAUT RED BLOOD | [facility] | | | CELLS IN PERIPH VEIN, PERC | | | | | | + + + + | 2022-09-05 00:00 | TRANSFUSE NONAUT RED BLOOD | [facility] | | | CELLS IN PERIPH VEIN, PERC | | | | | | + + + + | 2022-09-05 00:00 | TRANSFUSE NONAUT PLATELETS | [facility] | | | IN PERIPH VEIN, PERC | | + + + + | 2022-09-05 00:00 | TRANSFUSE NONAUT PLATELETS | [facility] | | | IN PERIPH VEIN, PERC | | + + + + | 2022-09-14 00:00 | Aspiration, bone marrow, | [facility] | | | with biopsy | | + + + + | 2022-09-14 00:00 | Aspiration, bone marrow, | [facility] | | | with biopsy | | + + + + | 2022-09-14 00:00 | Aspiration, bone marrow, | [facility] | | | with biopsy | | + + + + | 2022-09-14 00:00 | Aspiration, bone marrow, | [facility] | | | with biopsy | [...] (missing) | | (unavailable | 01::07 | [facility] | | | | | [...] | (unavailable | 01::07 | [facility] | [phone] | | | | ) | | [facility] | 00C | | | + + + + + + + + + | Result panel 50 | + + + + + + + + + | | 2022-09-04 | [facility] | | (missing) | (missing) | | (unavailable | 01:03:07 | [facility] | [phone] | | | | ) | | Hospital | 00K | | | + + + + + + + + + | Result panel 51 | + + + + + + + + + | | 2022-09-04 | [facility] | | (missing) | (missing) | | (unavailable | 01:03:07 | [facility] | [phone] | | | | ) | | Hospital | 00S | | | + + + + + + + + + | Result panel 52 | + + + + + + + + + | | 2022-09-04 | [facility] | | (missing) | (missing) | | (unavailable | 01:03:07 | [facility] | [phone] | | | | ) | | Hospital | 007 | | | + + + + + + + + + | Result panel 53 | + + + + + + + + + | | 2022-09-04 | [facility] | | (missing) | (missing) | | (unavailable | 01:03:07 | [facility] | [phone] | | | | ) | | Hospital | 000 | | | + + + + + + + + + | Result panel 54 | + + + + + + + + + | | 2022-09-04 | [facility] | | (missing) | (missing) | | (unavailable | 01::07 | [facility] | [phone] | | | | ) | | Hospital | 00H | | | + + + + + + + + + | Result panel 55 | + + + + + + + + + | | 2022-09-04 | [facility] | | (missing) | (missing) | | (unavailable | 01::07 | [facility] | [phone] | | | | ) | | Hospital | 00C1 | | | + + + + + + + + + | Result panel 56 | + + + + + + + + + | | 2022-09-04 | [facility] | | (missing) | (missing) | | (unavailable | 01:03:07 | [facility] | [phone] | | | | ) | | Hospital | 000 | | | + + + + + + + + + | Result panel 57 | + + + + + + + + + | | 2022-09-04 | [facility] | | (missing) | (missing) | | (unavailable | 01::07 | [facility] | [phone] | | | | ) | | Hospital | 00C2 | | | + + + + + + + + + | Result panel 58 | + + + + + + + + + | | 2022-09-04 | [facility] | | (missing) | (missing) | | (unavailable | 01:07 | [facility] | [phone] | | | | ) | | [...] | (unavailable | 01:03:07 | [facility] | [phone] | | | | ) | | Hospital | 00C | | | + + + + + + + + + | Result panel 79 | + + + + + + + + + | | 2022-09-04 | [facility] | | (missing) | (missing) | | (unavailable | 01:03:07 | [facility] | [phone] | | | | ) | | Hospital | 00K | | | + + + + + + + + + | Result panel 80 | + + + + + + + + + | | 2022-09-04 | [facility] | | (missing) | (missing) | | (unavailable | 01:03:07 | [facility] | [phone] | | | | ) | | Hospital | 00S | | | + + + + + + + + + | Result panel 81 | + + + + + + + + + | | 2022-09-04 | [facility] | | (missing) | (missing) | | (unavailable | 01::07 | [facility] | [phone] | | | | ) | | Hospital | 007 | | | + + + + + + + + + | Result panel 82 | + + + + + + + + + | | 2022-09-04 | [facility] | | (missing) | (missing) | | (unavailable | 01:03:07 | [facility] | [phone] | | | | ) | | Hospital | 000 | | | + + + + + + + + + | Result panel 83 | + + + + + + + + + | | 2022-09-04 | [facility] | | (missing) | (missing) | | (unavailable | 01:03:07 | [facility] | [phone] | | | | ) | | Hospital | 00H | | | + + + + + + + + + | Result panel 84 | + + + + + + + + + | | 2022-09-04 | [facility] | | (missing) | (missing) | | (unavailable | 01:03:07 | [facility] | [phone] | | | | ) | | Hospital | 00C1 | | | + + + + + + + + + | Result panel 85 | + + + + + + + + + | | 2022-09-04 | [facility] | | (missing) | (missing) | | (unavailable | 01:03:07 | [facility] | [phone] | | | | ) | | Hospital | 000 | | | + + + + + + + + + | Result panel 86 | + + + + + + + + + | | 2022-09-04 | [facility] | | (missing) | (missing) | | (unavailable | 01::07 | [facility] | [phone] | | | | ) | | Hospital | 00C2 | | | + + + + + + + + + | Result panel 87 | + + + + + + + + + | | 2022-09-04 | [facility] | | (missing) | (missing) | | (unavailable | 01:03:07 | [facility] | [phone] | | | | ) | | [...] | (unavailable | 01: | [facility] | [phone] | | | | ) | | Hospital | 00C | | | + + + + + + + + + | Result panel 109 | + + + + + + + + + | | 2022-09-04 | [facility] | | (missing) | (missing) | | (unavailable | 01:03:07 | [facility] | [phone] | | | | ) | | Hospital | 00K | | | + + + + + + + + + | Result panel 110 | + + + + + + + + + | | 2022-09-04 | [facility] | | (missing) | (missing) | | (unavailable | 01::07 | [facility] | [phone] | | | | ) | | Hospital | 00S | | | + + + + + + + + + | Result panel 111 | + + + + + + + + + | | 2022-09-04 | [facility] | | (missing) | (missing) | | (unavailable | 01:03:07 | [facility] | [phone] | | | | ) | | Hospital | 007 | | | + + + + + + + + + | Result panel 112 | + + + + + + + + + | | 2022-09-04 | [facility] | | (missing) | (missing) | | (unavailable | 01:03:07 | [facility] | [phone] | | | | ) | | Hospital | 000 | | | + + + + + + + + + | Result panel 113 | + + + + + + + + + | | 2022-09-04 | [facility] | | (missing) | (missing) | | (unavailable | 01:03:07 | [facility] | [phone] | | | | ) | | Hospital | 00H | | | + + + + + + + + + | Result panel 114 | + + + + + + + + + | | 2022-09-04 | [facility] | | (missing) | (missing) | | (unavailable | 01:03:07 | [facility] | [phone] | | | | ) | | Hospital | 00C1 | | | + + + + + + + + + | Result panel 115 | + + + + + + + + + | | 2022-09-04 | [facility] | | (missing) | (missing) | | (unavailable | 01:03:07 | [facility] | [phone] | | | | ) | | Hospital | 000 | | | + + + + + + + + + | Result panel 116 | + + + + + + + + + | | 2022-09-04 | [facility] | | (missing) | (missing) | | (unavailable | 01:03:07 | [facility] | [phone] | | | | ) | | Hospital | 00C2 | | | + + + + + + + + + | Result panel 117 | + + + + + + + + + | | 2022-09-04 | [facility] | | (missing) | (missing) | | (unavailable | 01:03:07 | [facility] | [phone] | | | | ) | | [...] | (unavailable | : | [facility] | [phone] | | | | ) | | Hospital | 1000 | | | + + + + + + + + + | Result panel 139 | + + + + + + + + + | | 2022-09-04 | [facility] | | (missing) | (missing) | | (unavailable | 01:03:07 | [facility] | [phone] | | | | ) | | Hospital | 800H | | | + + + + + + + + + | Result panel 140 | + + + + + + + + + | | 2022-09-04 | [facility] | | (missing) | (missing) | | (unavailable | 01:03:07 | [facility] | [phone] | | | | ) | | Hospital | 400C | | | + + + + + + + + + | Result panel 141 | + + + + + + + + + | | 2022-09-04 | [facility] | | (missing) | (missing) | | (unavailable | 01:03:07 | [facility] | [phone] | | | | ) | | Hospital | 0000 | | | + + + + + + + + + | Result panel 142 | + + + + + + + + + | | 2022-09-04 | [facility] | | (missing) | (missing) | | (unavailable | 01:03:07 | [facility] | [phone] | | | | ) | | Hospital | 400C | | | + + + + + + + + + | Result panel 143 | + + + + + + + + + | | 2022-09-04 | [facility] | | (missing) | (missing) | | (unavailable | 01::07 | [facility] | [phone] | | | | ) | | [...] | (unavailable | 17:39:07 | [facility] | [phone] | | | | ) | | Hospital | 600A | | | + + + + + + + + + | Result panel 422 | + + + + + + + + + | | 2022-11-23 | [facility] | | (missing) | (missing) | | (unavailable | 17:39:07 | [facility] | [id number] | | | | ) | | [...] | (unavailable | 09:59:07 | [facility] | [phone] | | | | ) | | Hospital | 700E | | | + + + + + + + + + | Result panel 452 | + + + + + + + + + | | 2022-11-26 | [facility] | | (missing) | (missing) | | (unavailable | 09:59:07 | [facility] | [phone] | | | | ) | | [...] (missing) | | (unavailable | 06:05:07 | [facility] | | | | | ) | | [facility] | | | | + + + +-------+ + + Social History + + + + | date | description | facility | + + + + | 2022-07-06 00:00 | Unknown if ever smoked | [facility] | + + + + | 2022-09-05 00:00 | Unknown if ever smoked | [facility] | + + + + | 2022-09-09 00:00 | Unknown if ever smoked | [facility] | + + + + | 2022-09-14 00:00 | Unknown if ever smoked | [facility] | + + + + | 2022-09-18 00:00 | Unknown if ever smoked | [facility] | + + + + | 2022-11-27 00:00 | Unknown if ever smoked | [facility] | + + + + Vital [...]
[~2022-11-29 14:22] MED LIST changes: +AMOX TR-K CLV1 EAC1 PO
--- OUTSIDE RECORDS SUMMARY | 2022-11-29 14:31 | XMS ---
PreManage Notification: DEONTE DAVID Security Operating Room Orderly Events No recent Security Events currently on file CRITERIA MET - 6 ED Visits in 6 Months - [facility] - 2 Visits in 30 Days CARE PROVIDERS -, Radha- Dentist: [employer] [facility] PHONE: [phone] Ray has no Care Guidelines for this patient. [place] VISIT COUNT (12 MO.) 6 [facility] TOTAL 6 NOTE: Visits indicate total known visits. ED/UCC VISIT TRACKING (12 MO.) 11/29/2022 14:22 [facility] TYPE: Emergency COMPLAINT: - BLOODY NOSE 11/23/2022 17:02 [facility] [place] TYPE: Emergency COMPLAINT: - WEAKNESS 09/18/2022 12:43 [facility] TYPE: Emergency COMPLAINT: - VOMITING BLOOD DIAGNOSES: - Anemia, unspecified - Hemoptysis - Morbid (severe) obesity due to excess calories - Other retirement (current) drug therapy - Thrombocytosis, unspecified 09/09/2022 10:[address] [facility] TYPE: Emergency COMPLAINT: - DIZZINESS DIAGNOSES: - Anemia, unspecified - Dizziness and giddiness - Morbid (severe) obesity due to excess calories - Other retirement (current) drug therapy - Thrombocytopenia, unspecified - Weakness 09/03/2022 23:27 [facility] TYPE: Emergency COMPLAINT: - HEART RATE ISSUE 07/05/2022 22:50 [facility] TYPE: Emergency COMPLAINT: - COUGH DIAGNOSES: - Acute bronchitis, unspecified - Contact with and (suspected) exposure to COVID-19 - Cough, unspecified INPATIENT VISIT TRACKING (12 MO.) 11/23/2022 18:[address] [facility] [place] TYPE: Medical Surgical COMPLAINT: - NEUTROPENIC FEVER DIAGNOSES: - Acute myeloblastic leukemia, not having achieved remission - Acute myeloblastic leukemia, not having achieved remission - Adverse effect of antineoplastic and immunosuppressive drugs, initial encounter - Adverse effect of antineoplastic and immunosuppressive drugs, initial encounter - Agranulocytosis secondary to cancer chemotherapy - Agranulocytosis secondary to cancer chemotherapy - Allergy status to other antibiotic agents - Allergy status to other antibiotic agents - Allergy status to penicillin - Allergy status to penicillin - Anemia due to antineoplastic chemotherapy - Antineoplastic chemotherapy induced pancytopenia - Antineoplastic chemotherapy induced pancytopenia - Cellulitis of right toe - Cellulitis of right toe - Fever presenting with conditions classified elsewhere - Fever presenting with conditions classified elsewhere - Furuncle of left axilla - Furuncle of left axilla - residential (current) use of antibiotics - residential (current) use of antibiotics - terminal make up operator (current) use of inhaled steroids - residential (current) use of inhaled steroids - Morbid (severe) obesity due to excess calories - Morbid (severe) obesity due to excess calories - Neutropenia, unspecified - Nicotine dependence, unspecified, uncomplicated - Nicotine dependence, unspecified, uncomplicated - Other manager terminal (current) drug therapy - Other retirement (current) drug therapy - Other pancytopenia - Other secondary thrombocytopenia - Personal history of antineoplastic chemotherapy - Personal history of antineoplastic chemotherapy - Personal history of other diseases of the digestive system - Personal history of other diseases of the digestive system - Thrombocytopenia, unspecified - Tinea unguium - Tinea unguium 11/07/2022 17:35 [facility] TYPE: Hematology DIAGNOSES: [id number]. Acute myeloblastic leukemia, not having achieved remission [id number]. Acute myeloblastic leukemia, not having achieved remission 09/22/2022 17:44 [facility] TYPE: Hematology DIAGNOSES: 89326. Acute myeloblastic leukemia, not having achieved remission [id number]. Acute myeloblastic leukemia, not having achieved remission 09/04/2022 03:10 [facility] [place] TYPE: Medical Surgical COMPLAINT: - ANEMIA THROMBOCYTOPENIA DIAGNOSES: - Acute kidney failure, unspecified - Acute kidney failure, unspecified - Acute myeloblastic leukemia, not having achieved remission - Acute myeloblastic leukemia, not having achieved remission - Anemia in neoplastic disease - Anemia in neoplastic disease - Anemia, unspecified - Bronchitis, not specified as acute or chronic - Bronchitis, not specified as acute or chronic - Calculus of gallbladder without cholecystitis without obstruction - Contact with and (suspected) exposure to COVID-19 - Contact with and (suspected) exposure to COVID-19 - Elevated white blood cell count, unspecified - Hyperglycemia, unspecified - Hyperglycemia, unspecified - Hypokalemia - Hypokalemia - terminal make up operator (current) use of inhaled steroids - residential (current) use of inhaled steroids - Nicotine dependence, unspecified, uncomplicated - Nicotine dependence, unspecified, uncomplicated - Other manager terminal (current) drug therapy - Other manager terminal (current) drug therapy - Other secondary thrombocytopenia - Other secondary thrombocytopenia - Palpitations - Thrombocytopenia, unspecified [email or web address]
[2022-11-29 15:27] LABS: BASOPHILS 0.2 % (0-2); HEMATOCRIT 25.3 % (35.0-50.0); HEMOGLOBIN 9.1 g/dL (12.0-18.0); MCH 30.3 (27-36); MCHC 36.1 g/dl (30-36); MCV 83.8 fl (81-99); MONOCYTES 5.9 % (0-12); NEUTROPHILS 71.9 % (39-80); RBC 3.02 M/ul (4.3-5.7); RDW 14.1 (10.5-15.0)
[2022-11-29 15:41] LABS: SMEAR REVIEW BLOOD SEE COMMENTS
[2022-11-29 15:44] LABS: PLATELET COUNT 30 K/uL (140-440)
[2022-11-29 16:06] LABS: ABO O; ANTIBODY SCREEN NEGATIVE; RH POSITIVE
[2022-11-29 17:15] VITALS: BP 127/104
== END 2022-11-29 17:17 | disposition home or self-care (01) ==
LOC: ED 14:22
PROVIDERS: Emergency Medicine
DX: R04.0 Epistaxis (principal); D69.6 Thrombocytopenia, unspecified; E66.01 Morbid (severe) obesity due to excess calories; Z88.8 Allergy status to other drugs, medicaments and biological substances; Z88.1 Allergy status to other antibiotic agents; Z79.899 Other long term (current) drug therapy
CPT/HCPCS: 30901; 36415; 36573; 85025; 85060; 86850; 86900; 86901; 99283-25

== ENCOUNTER 2023-02-04 11:48 | Emergency (ER) | payer OTHER ==
[~2023-02-04] VITALS: Ht 182.9 cm; Wt 140.6 kg
--- OUTSIDE RECORDS SUMMARY | 2023-02-04 11:56 | XMS ---
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 [facility] VISIT COUNT (12 MO.) 8 [facility] TOTAL 8 NOTE: Visits indicate total known visits. ED/UCC VISIT TRACKING (12 MO.) 02/04/2023 11:48 [facility] [place] TYPE: Emergency COMPLAINT: - WEAKNESS 01/03/2023 14:04 [facility] [place] TYPE: Emergency COMPLAINT: - FEVER 11/29/2022 14:22 [facility] [place] TYPE: Emergency COMPLAINT: - BLOODY NOSE DIAGNOSES: - Allergy status to other antibiotic agents - Allergy status to other drugs, medicaments and biological substances - Epistaxis - Morbid (severe) obesity due to excess calories - Other custodial (current) drug therapy - Thrombocytopenia, unspecified 11/23/2022 17:02 [facility] [place] TYPE: Emergency COMPLAINT: - WEAKNESS 09/18/2022 12:43 [facility] [facility] [place] TYPE: Emergency COMPLAINT: - VOMITING BLOOD DIAGNOSES: - Anemia, unspecified - Hemoptysis - Morbid (severe) obesity due to excess calories - Other custodial (current) drug therapy - Thrombocytosis, unspecified 09/09/2022 10:45 [facility] [place] [facility] [place] TYPE: Emergency COMPLAINT: - DIZZINESS DIAGNOSES: - Anemia, unspecified - Dizziness and giddiness - Morbid (severe) obesity due to excess calories - Other long term acute care registered nurse (current) drug therapy - Thrombocytopenia, unspecified - Weakness 09/03/2022 23:27 [facility] [place] TYPE: Emergency COMPLAINT: - HEART RATE ISSUE 07/05/2022 22:50 [facility] TYPE: Emergency COMPLAINT: - COUGH DIAGNOSES: - Acute bronchitis, unspecified - Contact with and (suspected) exposure to COVID-19 - Cough, unspecified INPATIENT VISIT TRACKING (12 MO.) 01/26/2023 18:51 [facility] TYPE: Hematology DIAGNOSES: 25098. Acute myeloblastic leukemia, not having achieved remission [id number]. Acute myeloblastic leukemia, not having achieved remission 01/03/2023 14:05 [facility] TYPE: Observation COMPLAINT: - NEUTROPENIC FEVER DIAGNOSES: - Allergy status to other antibiotic agents - Contact with and (suspected) exposure to COVID-19 - Hypomagnesemia - Other custodial (current) drug therapy - Other pancytopenia 12/22/2022 19:29 [facility] TYPE: Hematology DIAGNOSES: 29352. Acute myeloblastic leukemia, not having achieved remission [id number]. Acute myeloblastic leukemia, not having achieved remission 11/23/2022 18:45 [facility] TYPE: Medical [facility] COMPLAINT: - NEUTROPENIC [...] axilla - Furuncle of left axilla - intermediate teacher (current) use of antibiotics - intermediate teacher (current) use of antibiotics - detention (current) use of inhaled steroids - intermediate teacher (current) use of inhaled steroids - Morbid (severe) obesity due to excess calories - Morbid (severe) obesity due to excess calories - Neutropenia, unspecified - Nicotine dependence, unspecified, uncomplicated - Nicotine dependence, unspecified, uncomplicated - Other custodial (current) drug therapy - Other custodial (current) drug therapy - Other pancytopenia - Other secondary thrombocytopenia - Personal history of antineoplastic chemotherapy - Personal history of antineoplastic chemotherapy - Personal history of other diseases of the digestive system - Personal history of other diseases of the digestive system - Thrombocytopenia, unspecified - Tinea unguium - Tinea unguium 11/07/2022 17:35 [facility] TYPE: Hematology DIAGNOSES: 21997. Acute myeloblastic leukemia, not having achieved remission [id number]. Acute myeloblastic leukemia, not having achieved remission 09/22/2022 17:44 [facility] TYPE: Hematology DIAGNOSES: 42012. Acute myeloblastic leukemia, not having achieved remission [id number]. Acute myeloblastic leukemia, not having achieved remission 09/04/2022 03:10 [facility] [place] TYPE: Medical Surgical COMPLAINT: - ANEMIA [...] Hyperglycemia, unspecified - Hypokalemia - Hypokalemia - intermediate teacher (current) use of inhaled steroids - intermediate teacher (current) use of inhaled steroids - Nicotine dependence, unspecified, uncomplicated - Nicotine dependence, unspecified, uncomplicated - Other long term acute care registered nurse (current) drug therapy - Other custodial (current) drug therapy - Other secondary thrombocytopenia - Other secondary thrombocytopenia - Palpitations - Thrombocytopenia, unspecified [email or web address]
[2023-02-04 12:50] LABS: RBC 2.93 M/ul (4.3-5.7)
[2023-02-04 12:52] LABS: EOSINOPHILS 5.1 % (0-6); HEMATOCRIT 26.7 % (35.0-50.0); HEMOGLOBIN 9.3 g/dL (12.0-18.0); LYMPHOCYTES 74.9 % (24-44); MCH 31.8 (27-36); MCHC 34.9 g/dl (30-36); MCV 91.1 fl (81-99); MONOCYTES 5.6 % (0-12); NEUTROPHILS 14.4 % (39-80); RDW 18.3 (10.5-15.0)
[2023-02-04 13:00] LABS: ALBUMIN 3.5 g/dL (3.4-5.0); ALBUMIN/GLOBULIN RATIO 1.03 (1.1-2.4); ANION GAP 13.1 (7-21); BILIRUBIN, TOTAL 1.3 ng/dL (0.2-1.0); BUN/CREATININE RATIO 16.66 (6.0-28.6); CALCIUM 8.7 mg/dL (8.5-10.1); CREATININE, SERUM 0.78 mg/dL (0.70-1.30); POTASSIUM 4.1 mmol/L (3.5-5.1); PROTEIN, TOTAL 6.9 g/dL (6.4-8.2)
[2023-02-04 13:05] LABS: PLATELET COUNT 11 K/uL (140-440)
[2023-02-04 14:16] VITALS: BP 133/88
== END 2023-02-04 14:00 | disposition home or self-care (01) ==
LOC: ED 11:48
PROVIDERS: Emergency Medicine
DX: R53.1 Weakness (principal); D69.59 Other secondary thrombocytopenia; T45.1X5A Adverse effect of antineoplastic and immunosuppressive drugs, initial encounter; E66.01 Morbid (severe) obesity due to excess calories; Z88.0 Allergy status to penicillin; Z79.899 Other long term (current) drug therapy
CPT/HCPCS: 36415; 80053; 85025; 85060

== ENCOUNTER 2023-02-04 20:25 | Emergency (ER) | payer OTHER | END 2023-02-05 00:04 | disposition home or self-care (01) | LOC: ED 20:25 | DX: R53.83 Other fatigue (principal); C92.00 Acute myeloblastic leukemia, not having achieved remission; D70.1 Agranulocytosis secondary to cancer chemotherapy; T45.1X5A Adverse effect of antineoplastic and immunosuppressive drugs, initial encounter; Z88.1 Allergy status to other antibiotic agents; Z79.899 Other long term (current) drug therapy; D69.6 Thrombocytopenia, unspecified; Z11.52 Encounter for screening for COVID-19 ==

== ENCOUNTER 2023-02-10 09:03 | Inpatient (IN) | payer OTHER ==
[~2023-02-10] VITALS: Ht 182.9 cm; Wt 137.5 kg
--- OUTSIDE RECORDS SUMMARY | 2023-02-10 09:12 | XMS ---
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 Shen VISIT COUNT (12 MO.) 10 [facility] TOTAL 10 NOTE: Visits indicate total known visits. ED/UCC VISIT TRACKING (12 MO.) 02/10/2023 09:03 [facility] TYPE: Emergency COMPLAINT: - FEVER 02/04/2023 20:25 [facility] TYPE: Emergency COMPLAINT: - FEVER DIAGNOSES: - Acute myeloblastic leukemia, not having achieved remission - Adverse effect of antineoplastic and immunosuppressive drugs, initial encounter - Agranulocytosis secondary to cancer chemotherapy - Allergy status to other antibiotic agents - Encounter for screening for COVID-19 - Fever, unspecified - Other fatigue - Other termination clerk (current) drug therapy - Thrombocytopenia, unspecified 02/04/2023 11:48 [facility] TYPE: Emergency COMPLAINT: - WEAKNESS DIAGNOSES: - Adverse effect of antineoplastic and immunosuppressive drugs, initial encounter - Allergy status to penicillin - Morbid (severe) obesity due to excess calories - Other usp (current) drug therapy - Other secondary thrombocytopenia - Weakness 01/03/2023 14:[address] [facility] [place] TYPE: Emergency COMPLAINT: - FEVER 11/29/2022 14:22 [facility] TYPE: Emergency COMPLAINT: - BLOODY NOSE DIAGNOSES: - Allergy status to other antibiotic agents - Allergy status to other drugs, medicaments and biological substances - Epistaxis - Morbid (severe) obesity due to excess calories - Other termination clerk (current) drug therapy - Thrombocytopenia, unspecified 11/23/2022 17:[address] [facility] [place] TYPE: Emergency COMPLAINT: - WEAKNESS 09/18/2022 12:[address] [facility] [place] TYPE: Emergency COMPLAINT: - VOMITING BLOOD DIAGNOSES: - Anemia, unspecified - Hemoptysis - Morbid (severe) obesity due to excess calories - Other termination clerk (current) drug therapy - Thrombocytosis, unspecified 09/09/2022 10:[address] [facility] [place] TYPE: Emergency COMPLAINT: - DIZZINESS DIAGNOSES: - Anemia, unspecified - Dizziness and giddiness - Morbid (severe) obesity due to excess calories - Other termination clerk (current) drug therapy - Thrombocytopenia, unspecified - Weakness 09/03/2022 23:[address] [facility] [place] TYPE: Emergency COMPLAINT: - HEART RATE ISSUE 07/05/2022 22:50 [facility] [place] TYPE: Emergency COMPLAINT: - COUGH DIAGNOSES: - Acute bronchitis, unspecified - Contact with and (suspected) exposure to COVID-19 - Cough, unspecified INPATIENT VISIT TRACKING (12 MO.) 01/26/2023 18:51 [facility] TYPE: Hematology DIAGNOSES: 35857. Acute myeloblastic leukemia, not having achieved remission 65484. Acute myeloblastic leukemia, not having achieved remission 01/03/2023 14:05 [facility] [place] TYPE: Observation COMPLAINT: - NEUTROPENIC FEVER DIAGNOSES: - Allergy status to other antibiotic agents - Contact with and (suspected) exposure to COVID-19 - Hypomagnesemia - Other termination clerk (current) drug therapy - Other pancytopenia 12/22/2022 19:29 [facility] TYPE: Hematology DIAGNOSES: 12561. Acute myeloblastic leukemia, not having achieved remission 60170. Acute myeloblastic leukemia, not having achieved remission [...] axilla - Furuncle of left axilla - MCFP (current) use of antibiotics - MCFP (current) use of antibiotics - MCFP (current) use of inhaled steroids - MCFP (current) use of inhaled steroids - Morbid (severe) obesity due to excess calories - Morbid (severe) obesity due to excess calories - Neutropenia, unspecified - Nicotine dependence, unspecified, uncomplicated - Nicotine dependence, unspecified, uncomplicated - Other termination clerk (current) drug therapy - Other usp (current) drug therapy - Other pancytopenia - Other secondary thrombocytopenia - Personal history of antineoplastic chemotherapy - Personal history of antineoplastic chemotherapy - Personal history of other diseases of the digestive system - Personal history of other diseases of the digestive system - Thrombocytopenia, unspecified - Tinea unguium - Tinea unguium 11/07/2022 17:35 [facility] TYPE: Hematology DIAGNOSES: 77842. Acute myeloblastic leukemia, not having achieved remission 68497. Acute myeloblastic leukemia, not having achieved remission 09/22/2022 17:44 [facility] TYPE: Hematology DIAGNOSES: 68217. Acute myeloblastic leukemia, not having achieved remission 21176. Acute myeloblastic leukemia, not having achieved remission [...] Hyperglycemia, unspecified - Hypokalemia - Hypokalemia - MCFP (current) use of inhaled steroids - MCFP (current) use of inhaled steroids - Nicotine dependence, unspecified, uncomplicated - Nicotine dependence, unspecified, uncomplicated - Other termination clerk (current) drug therapy - Other usp (current) drug therapy - Other secondary thrombocytopenia - Other secondary thrombocytopenia - Palpitations - Thrombocytopenia, unspecified [email or web address]
[2023-02-10 09:50] LABS: INR 1.15 (0.80-1.30); PROTIME 14.1 Sec (11.2-14.2)
[2023-02-10 09:56] LABS: ALBUMIN 3.4 g/dL (3.4-5.0); ALBUMIN/GLOBULIN RATIO 0.92 (1.1-2.4); ANION GAP 16.1 (7-21); BILIRUBIN, TOTAL 0.7 ng/dL (0.2-1.0); BUN/CREATININE RATIO 13.91 (6.0-28.6); CALCIUM 8.6 mg/dL (8.5-10.1); CREATININE, SERUM 1.15 mg/dL (0.70-1.30); POTASSIUM 3.1 mmol/L (3.5-5.1); PROTEIN, TOTAL 7.1 g/dL (6.4-8.2)
[2023-02-10 10:00] LABS: LACTIC ACID, BLOOD 1.3 mmol/L (0.4-2.0)
[2023-02-10 10:08] LABS: INFLUENZA B NAA NEGATIVE (NEGATIVE); RESPIRATORY SYNCYTIAL VIR NAA NEGATIVE (NEGATIVE)
--- NOTE | 2023-02-10 12:50 | NUR ---
PT ARRIVES TO ROOM ACCOMPANIED BY ALVARADO SEGURA AND ALVARADO LEWIS. PT ARRIVES VIA STRETCHER. PT AMBULATES FROM STRETCHER TO BED WITH STEADY GAIT. VITALS COMPLETE. BED WEIGHT OBTAINED. PT REQUESTING TO SIT IN RECLINER. SBA FROM BED TO RECLINER. PT HAS STEADY GAIT. PICC LINE BLUE LUMEN BLOOD RETURN NOTED AND FLUSHES WNL. RED LUMEN BLOOD RETURN NOTED AND FLUSHES WNL. PT REPORTS PICC LINE DRESSING WAS CHANGED ON 02/07/23. PT REPORTS HAVING CHEMOTHERAPY 01/31/23 AT [facility]. ASSESSMENT COMPLETE. LUNG SOUNDS CLEAR. BOWEL TONES ACTIVE. ABD SLIGHTLY FIRM WITH PALPATION. PT REPORTS HAVING DIARRHEA STARTING THIS MORNING. PT ALSO REPORTS EMESIS THIS MORNING PRIOR TO ARRIVING TO HOSPITAL. PT DENIES NAUSEA AT THIS TIME. PT DENIES PAIN AT THIS TIME. PT DENIES NUMBNESS OR TINGLING IN HANDS OR FEET. TRACE EDEMA NOTED IN BLE. PT WALLET PLACED IN LOCK BOX IN ROOM. ICE PACKS PROVIDED FOR PT. PT REPORTING TO USE RESTROOM. SBA FROM RECLINER TO RESTROOM. PT EDUCATED TO CALL WHEN FINISHED TOILETING, PT VERBALIZES UNDERSTANDING. NO OTHER NEEDS FROM THIS RN.
[2023-02-10 12:51] VITALS: BP 111/70
--- NOTE | 2023-02-10 13:40 | NUR ---
IN TO ADMINISTER MEDICATIONS, SEE MAR. PT SITTING IN RECLINER. PT TAKES PO MEDICATIONS WITH NO ISSUES. PT DENIES ANY OTHER NEEDS AT THIS TIME. CALL LIGHT IN REACH. IV ABX STARTED, SEE MAR.
--- NOTE | 2023-02-10 13:45 | NUR ---
THIS RN CALLED PHARMACY TO ASK ABOUT Y-SITE COMPATABILITY OF VANCOMYCIN AND CEFEPIME. ASTON, PHARMACIST STATES "THE CEFEPIME AND VANCOMYCIN ARE Y-SITE COMPATABLE." VERIFIED WITH READBACK.
--- NOTE | 2023-02-10 14:52 | NUR ---
IN TO ROUND ON PT. PT SITTING UP IN RECLINER. AND CHILD AT BEDSIDE. REPORTS THAT THE FOOD SHE BROUGHT FOR THE PT IS NOT SITTING WELL WITH THE PT. PT SHAKES HEAD NO AND STATES "YEAH, IT's NOT SITTING WELL." OFFERED SALTINE CRACKERS AND CHICKEN BROTH. PT ACCEPTS. SALTINE CRACKERS AND CHICKEN BROTH PROVIDED. TEMPERATURE CHECKED. PT DENIES ANY OTHER NEEDS AT THIS TIME. CALL LIGHT IN REACH.
--- NOTE | 2023-02-10 15:59 | NUR ---
IN TO ROUND ON PT. PT SITTING UP IN RECLINER. PT RESPONDS WHEN ADDRESSED. PT NOTED TO BE CLOSING EYES AND THEN OPENING AGAIN. PT STATES "I AM SORRY, I AM TIRED." PT REQUESTING TO GO TO BED. SBA FROM RECLINER TO BED. PT IN BED. CALL LIGHT IN REACH. PT DENIES ANY OTHER NEEDS AT THIS TIME. TEMPERATURE RECHECKED.
--- NOTE | 2023-02-10 16:00 | NUR ---
Patient having continued diarrhea, provider made aware.
--- NOTE | 2023-02-10 16:40 | NUR ---
IN TO ROUND ON PT. PT LAYING IN BED AND STATES "I WAS JUST ABOUT TO CALL YOU." PT REPORTS HAVING A BM AND VOIDING. LIQUID BM NOTED IN TOILET. URINE SAMPLE COLLECTED AND SENT TO LAB. PT DENIES ANY OTHER NEEDS AT THIS TIME. CALL LIGHT IN REACH.
[2023-02-10 16:53] LABS: BILIRUBIN, URINE NEGATIVE (negative); BLOOD/HGB, URINE TRACE-I (Negative); KETONE, URINE NEGATIVE (Negative); LEUK ESTERASE, URINE NEGATIVE (negative); NITRITE, URINE NEGATIVE (negative)
[2023-02-10 16:59] LABS: BACTERIA, URINE 1+ /hpf (negative); CASTS, URINE NONE SEEN \\lpf; COLLECTION TYPE, URINE CLEAN CATCH; CRYSTALS, URINE NONE SEEN (0-1+); EPITHELIAL CELLS, URINE 0 /lpf (0-1+); RED BLOOD CELLS, URINE 0-1 /hpf (0-5); REFLEX CULTURE, URINE No (No); WHITE BLOOD CELLS, URINE 0-1 /HPF (0-5)
[2023-02-10 17:49] VITALS: BP 130/63
--- NOTE | 2023-02-10 17:57 | NUR ---
IN TO ROUND ON PT. PT SITTING UP IN BED. PT REQUESTING TO HAVE THERMOSTAT TURNED UP. VITALS COMPLETE. TEMP OF 101.1 NOTED. EDUCATED PT ON TEMPERATURE AND TO NOT TURN THERMOSTAT UP. PT VERBALIZES UNDERSTANDING. PRN TYLENOL ADMINISTERED, SEE MAR. PT DENIES PAIN. PT DENIES FEELING DIZZY OR LIGHT HEADED. PT REPORTS FEELING COLD. PT WARM TO TOUCH. PT NOTED TO BE SHAKING. PT DENIES ANY OTHER NEEDS AT THIS TIME. CALL LIGHT IN REACH.
--- NOTE | 2023-02-10 18:33 | NUR ---
PICC line orders entered per protocol.
--- NOTE | 2023-02-10 18:34 | NUR ---
IN TO ROUND ON PT. TEMPERATURE RECHECKED. TEMPERATURE OF 98.8 NOTED. PT DENIES FEELING CHILLED. PT SITTING UP IN BED WATCHING TV. PT DENIES ANY OTHER NEEDS AT THIS TIME. CALL LIGHT IN REACH.
--- NOTE | 2023-02-10 19:05 | NUR ---
SHIFT REPORT RECEIVED FROM DAYSHIFT ALVARADO EDWARD AT BEDSIDE, pt AWAKE AND RESTING IN BED. ON RA, RR EVEN AND UNLABORED. pt IND IN ROOM, CALL LIGHT IN REACH. PICC TO RIGHT ARM WNL, DRESSING C/D/I, SALINE LOCKED PER REPORT. NO NEEDS OR CONCERNS VERBALIZED.
--- NOTE | 2023-02-10 21:46 | NUR ---
rounded on pt, pt resting in bed with eyes closed. on ra, rr even and unlabored. no distress noted. call light in reach.
[2023-02-10 22:13] VITALS: BP 113/63
--- NOTE | 2023-02-10 22:33 | NUR ---
PT HAD STOOL, LIQUID, WITH MARBLE SIZE STOOL. NOT SLIMY, TANISH IN COLOR, ODOROUS.
--- NOTE | 2023-02-10 22:37 | NUR ---
assessment complete, pt drowsy upon entering room. awoke to voice then returns to sleep. a/o to all but date, vss. picc remains unchanged, dressing wnl. brisk blood return noted to both lumens. scheduled iv abx infusing as directed, other lumen flushed and salin locked per protocol. pt deneis pain and nausea. cms intact. no additional needs or concerns. call light in reach.
--- NOTE | 2023-02-10 23:12 | NUR ---
pt CONTINUES TO REST IN BED WITH EYES CLOSED, ON RA. RR EVEN AND UNLABORED, NO DISTRESS NOTED. CALL LIGHT IN REACH AND IV ABX INFUSING DIRECTED.
--- NOTE | 2023-02-11 00:42 | NUR ---
ROUNDED ON pt, pt RESTING QUIETLY. WHILE ASSESSING PICC LINE, pt AWOKE. DENIES NEEDS OR CONCERNS. CALL LIGHT IN REACH.
[2023-02-11 02:03] VITALS: BP 119/69
--- NOTE | 2023-02-11 02:10 | NUR ---
scheduled iv vanco infusing as directed, picc line rmeains unchanged from previous assessment, brisk blood return noted to unused lumen, iv abx now infusing. pt denies pain. vs taken, temp noted-prn tylenol given, see emar. mild shakes noted. temp decresed in room and pt educated on fever management. pt deneis voiding since earlier in shift, po intake encouraged. call light in reach.
--- NOTE | 2023-02-11 03:04 | NUR ---
pump alarming, issue resolved. no additional needs or concerns. call light in reach.
--- NOTE | 2023-02-11 03:29 | NUR ---
ABX COMPLETE, PORT FLUSHED WITH 20 ML SALINE. PT AWAKE, DENIES NEEDS, WATCHING TV AT THIS TIME.
--- NOTE | 2023-02-11 03:59 | NUR ---
TEMP RECHECKED, FEVER RESOLVED. TEMP NOW 98.7.
--- NOTE | 2023-02-11 04:25 | NUR ---
IV VANCO COMPLETED, PICC FLUSHED AND SALINE LOCKED PER PROTOCOL, NEW GREEN ALCOHOL CAP IN PLACE. URINAL EMPTIED. CALL LIGHT IN REACH.
[2023-02-11 05:52] VITALS: BP 125/70
[2023-02-11 06:31] LABS: HEMOGLOBIN 6.9 g/dL (12.0-18.0)
--- NOTE | 2023-02-11 06:31 | NUR ---
NOTIFIED DR PIRES OF CURRENT TEMP 101.1, NEW ORDER RECEIVED.
[2023-02-11 06:32] LABS: EOSINOPHILS 3.1 % (0-6); HEMATOCRIT 19.7 % (35.0-50.0); LYMPHOCYTES 93.7 % (24-44); MCH 29.9 (27-36); MCV 85.5 fl (81-99); MONOCYTES 1.6 % (0-12); NEUTROPHILS 1.6 % (39-80); RBC 2.31 M/ul (4.3-5.7); RDW 17.3 (10.5-15.0)
--- NOTE | 2023-02-11 06:34 | NUR ---
am lab draw collected per protocol, 10mls wasted. both lumens has brisk blood return. iv abx infusing as directed. upon entering room, pt had noted shakes, temp checked with result of 100.8. is used, no improvement- result of 101.1. supercharger repair supervisordemetria haley to call
[2023-02-11 06:38] LABS: PLATELET COUNT 6 K/uL (140-440)
--- NOTE | 2023-02-11 06:42 | NUR ---
one time motrin given-see emar. pt somewhat pale in appearance. denies chest pain, sob. shakes remain noted. no additional needs, call light in reach.
[2023-02-11 06:46] LABS: ALBUMIN 2.7 g/dL (3.4-5.0); ALBUMIN/GLOBULIN RATIO 0.82 (1.1-2.4); ANION GAP 14.6 (7-21); BILIRUBIN, TOTAL 0.6 ng/dL (0.2-1.0); BUN/CREATININE RATIO 10.67 (6.0-28.6); CALCIUM 8.2 mg/dL (8.5-10.1); CREATININE, SERUM 1.03 mg/dL (0.70-1.30); POTASSIUM 3.6 mmol/L (3.5-5.1)
--- NOTE | 2023-02-11 07:38 | NUR ---
PT SLEEPING SOUNDLY AT TIME OF SHIFT EXCHANGE, LEFT UNDISTURBED. FRESH H20 TO BEDSIDE CALL LIGHT AND NEEDED ITEMS IN REACH
[2023-02-11 09:19] VITALS: BP 117/74
--- NOTE | 2023-02-11 09:32 | NUR ---
PT UP TO THE CHAIR. DR IN TO SEE HIM PLAN GOING FORWARD DISCUSSED AT LENGTH. PT TOLERATES 100% OF MORNING MEAL. FAMILY IN TO SEE HIM AT THIS TIME. DISEASE PROCESS DISCUSSED AT LENGTH
--- NOTE | 2023-02-11 09:34 | NUR ---
ASKED DR PIRES IF HEPARIN FLUSH SHOULD BE GIVEN ORDERED HE AGREES POWER FLUSH OF PICC LINE WOULD BE MORE APPROPRIATE AT THIS TIME. BRISK BLOOD RETURN BOTH PORTS FIRMLY FLUSHED WITH 10 ML NS BOTH SIDES
--- NOTE | 2023-02-11 12:19 | NUR ---
PT CONTINUES UP IN THE CHAIR THIS SHIFT, FAMILY HAVE GONE HOME. PT DENIES NEEDS OF, NOON MEAL IS SERVED
--- NOTE | 2023-02-11 14:49 | NUR ---
PT CONTINUES UP IN THE CHAIR AT THIS TIME WATCHING TV. PRE-MEDICATED FOR BLOOD PRODUCTS. PT DENIES ANY NEEDS AT THIS TIME
--- NOTE | 2023-02-11 15:26 | NUR ---
BLOOD ADMINISTRATION. PT PRE-MEDICATED PER ORDER (SEE EMAR). 1 UNIT IRRADIATED PACKED RED BLOOD CELLS CHECKED OUT FROM LAB PER PROTOCOL. 2 NURSE VERIFICATION AT THE BEDSIDE. PRE-CHECK VITAL SIGNS STABLE. BLOOD STARTED THROUGH PUMP USING Y-SITE FILTER LINE INTO PT PICC LINE IN RIGHT UPPER ARM AT 100ML/HR. THIS RN AT THE BEDSIDE FOR FIRST 15 MINUTES OF INFUSION. 15 MINUTE VITAL SIGNS STABLE. AFTER 15 MINUTE CHECK, INFUSION RATE INCREASED TO 175ML/HR. PT EDUCATION GIVEN ON S/SX OF TRANSFUSION REACTIONS, PT VERBALIZES UNDERSTANDING. PT STATES NO NEEDS AT THIS TIME, CALL LIGHT WITHIN REACH.
--- NOTE | 2023-02-11 15:54 | NUR ---
PT WAS ABLE TO VERBALIZE S/S OF REACTION TO REPORT PRIOR TO BLOOD TRANSFUSION. HE HAS HAD SEVERAL INFUSIONS PRIOR TO THIS. PT REMAINS UP IN THE CHAIR BLOOD HAS INFUSED WITH NO S/S. PT CONTINUES BEFORE. 2ND LINE OF PICC APPEARED PLUGGED, UNABLE TO FLUSH OR PULL BACK BLOOD. PICC LINE RN WAS ABLE TO CLEAR IT WITH NS FLUSH AND ABX RESTARTED. LINE REMAINS SLUGGISH ON THAT SIDE BUT INFUSION GOING FINE.
[2023-02-11 16:04] VITALS: BP 131/69
--- NOTE | 2023-02-11 17:21 | NUR ---
pt continues up in the chair evening meal is served. first unit prbc's has infused 2nd unit being started. pt agrees to report any symptoms. agrees he is comfortable needed items in reach
--- NOTE | 2023-02-11 17:35 | NUR ---
PT PUMP ALARMING, BLOOD TRANSFUSION COMPLETE. POST-TRANSFUSION VSS, NO S/SX OF TRANSFUSION REACTION. SECOND PACKED RED BLOOD CELLS BAG OBTAINED FROM LAB, VERIFIED BY 2ND NURSE. NEW Y-SITE FILTER TUBING PRIMED WITH NS, SECOND BLOOD BAG SPIKED WITH NEW TUBING AND STARTED AT 120ML/HOUR PER POLICY. PT EDUCATION ON S/SX OF TRANSFUSION REACTIONS. THIS RN IN ROOM WITH PT FOR FIRST 15 MINUTES OF INFUSION. 15 MINUTE VITAL SIGNS STABLE, NO S/SX OF TRANSFUSION REACTION. RATE INCREASED TO 150ML/HOUR PER POLICY. PT VERBALIZES UNDERSTANDING OF USE OF CALL LIGHT AND TO CALL WITH ANY S/SX OF REACTION. PT STATES NO NEEDS AT THIS TIME, CALL LIGHT WITHIN REACH.
[2023-02-11 17:55] VITALS: BP 128/70
--- NOTE | 2023-02-11 19:09 | NUR ---
REPORT RECEIVED FROM DAY SHIFT RN. PT LYING IN BED ALERT AND ORIENTED. DENIES NEEDS. WHITE BOARD UPDATED. CALL LIGHT IN REACH.
[2023-02-11 19:52] VITALS: BP 114/62
--- NOTE | 2023-02-11 20:15 | NUR ---
PRBC'S COMPLETE AT 1951. POST TRANSFUSION VS OBTAINED. TEMP 101.6. AWARE. ORDERS RECEIVED. NO REACTION NOTED. PT SITTING UP IN BED USING IS. NO FURTHER NEEDS.
--- NOTE | 2023-02-11 20:30 | NUR ---
PLATELETS RECEIVED TO FLOOR. THIS RN CALLED LAB TO VERIFY PLATELETS CMV SAFE, FILTERED, AND IRRADIATED. BRIDGE INSPECTOR AILEEN VERIFIED.
--- NOTE | 2023-02-11 21:16 | NUR ---
1 OF 2 UNITS PLATELETS INFUSING WNL AFTER TWO RN VERIFICATION. TEMP REMAINS ELEVATED 101.0. NO S/SX OF TRANSFUSION REACTION. EVENING ASSESSMENT COMPLETE. PT DENIES PAIN OR NAUSEA. DENIES DIARRHEA THIS EVENING. RIGH UPPER ARM PICC LINE DRESSING CDI. BLOOD RETURN NOTED IN BOTH LUMENS AFTER NS PULSATILE FLUSH. PT DENIES FURTHER NEEDS AT THIS TIME. CALL LIGHT IN REACH.
--- NOTE | 2023-02-11 22:09 | NUR ---
PT RESTING WITH EYES CLOSED. AWAKENS BRIEFLY. IV ABX INFUSING PER ORDER. PLATELETS TRANSFUSING WNL. CALL LIGHT IN REACH.
--- NOTE | 2023-02-11 23:19 | NUR ---
FIRST UNIT OF PLATELETS COMPLETE. UNIT 2 OF 2 PLATELETS INFUSING WNL AFTER TWO RN CHECK. VS WNL. TEMP SLIGHTLY ELEVATED 99.1. PRN FOR FEVER ADMIN PER EMAR. 15 MIN VS WNL, NO S/SX OF TRANSFUSION REACTION NOTED.
--- NOTE | 2023-02-12 00:58 | NUR ---
PLATELET TRANSFUSION COMPLETE. VS WNL. NO S/SX OF TRANSFUSION REACTION NOTED. RIGHT UPPER ARM PICC LINE PULSATILE FLUSHED WITH 20 ML NS. IV ABX STOPPED FOR APPROX 10 MIN. LABS DRAWN FROM PICC PER PROTOCOL. IV ABX RESUMED.
[2023-02-12 01:01] LABS: HEMOGLOBIN 6.8 g/dL (12.0-18.0)
[2023-02-12 01:03] LABS: EOSINOPHILS 6.3 % (0-6); HEMATOCRIT 19.3 % (35.0-50.0); LYMPHOCYTES 81.1 % (24-44); MCH 30.2 (27-36); MCHC 35.5 g/dl (30-36); MCV 84.9 fl (81-99); MONOCYTES 8.8 % (0-12); NEUTROPHILS 3.8 % (39-80); RBC 2.27 M/ul (4.3-5.7); RDW 16.6 (10.5-15.0)
[2023-02-12 01:05] LABS: PLATELET COUNT 8 K/uL (140-440)
--- NOTE | 2023-02-12 02:27 | NUR ---
PT RESTING IN BED WITH EYES CLOSED. RESPIRATIONS EVEN. IV ABX INFUSING PER ORDER. CALL LIGHT IN REACH.
--- NOTE | 2023-02-12 03:58 | NUR ---
PT RESTING IN BED WITH EYES CLOSED. RESPIRATIONS EVEN. CALL LIGHT IN REACH.
[2023-02-12 05:37] VITALS: BP 103/51
--- NOTE | 2023-02-12 05:54 | NUR ---
PT RESTING WITH EYES CLOSED. AWAKENS EASILY. VS AND I&O OBTAINED. MORNING LABS DRAWN PER PROTOCOL FROM RIGHT UPPER ARM PICC LINE. IV ABX INFUSING PER ORDER. PT AFEBRILE. NO FURTHER NEEDS.
[2023-02-12 05:59] LABS: HEMATOCRIT 16.2 % (35.0-50.0); RBC 1.92 M/ul (4.3-5.7)
[2023-02-12 06:00] LABS: EOSINOPHILS 5.6 % (0-6); LYMPHOCYTES 83.3 % (24-44); MCH 30.1 (27-36); MCHC 35.7 g/dl (30-36); MCV 84.3 fl (81-99); MONOCYTES 8.3 % (0-12); NEUTROPHILS 2.8 % (39-80); RDW 16.9 (10.5-15.0)
[2023-02-12 06:03] LABS: HEMOGLOBIN 5.8 g/dL (12.0-18.0); PLATELET COUNT 8 K/uL (140-440)
[2023-02-12 06:20] LABS: ANION GAP 11.9 (7-21); BUN/CREATININE RATIO 12.96 (6.0-28.6); CALCIUM 8.2 mg/dL (8.5-10.1); CARBON DIOXIDE 23 mmol/L (21-32); CHLORIDE 104 mmol/L (98-107); CREATININE, SERUM 1.08 mg/dL (0.70-1.30); GLOMERULAR FILTRATION RATE,EST 91 mL/min (>60); POTASSIUM 2.9 mmol/L (3.5-5.1); UREA NITROGEN 14 mg/dL (7-18); VANCOMYCIN, TROUGH 29.8 ug/mL (5.0-20.0)
--- NOTE | 2023-02-12 07:29 | NUR ---
PT SITTING UP IN THE RECLINER AT TIME OF SHIFT REPORT DENIES DISCOMFORTS OR NEEDS OF ANYTHING. FRESH H20 TO CHAIRSIDE AND NEEDED ITEMS IN REACH.
--- NOTE | 2023-02-12 08:07 | NUR ---
DR PIRES IN TO SEE PT QUESTIONS ASKED AND ANSWERED. PT UP IN THE CHAIR EATING BREAKFAST STATES HE THINKS HIS APPETITE IS BACK
[2023-02-12 09:25] VITALS: BP 142/82
--- NOTE | 2023-02-12 09:39 | NUR ---
PT CONTINUES UP IN THE CHAIR IS PRESENT. PLATLETS INFUSING WITHOUT S/S OF REACTION. PT HAS HAD MANY TRANSFUSIONS AND VERBALIZES S/S TO REPORT.
--- NOTE | 2023-02-12 10:00 | NUR ---
Spoke with patient and his . Pt cont. to have fevers with his AML. They state pt will have a bone marrow the end of the month to check if treatments are working. They have doing better than last admission. Their disability check was resumed and they were able to get food stamps through this month. They spoke with [employer] and they will assist them if they get a shut off notice for their utilities. Their son and 's mother also lives with them. Pt states he lost his job,but is hoping to return to work in April. also wants to return to work in April if pt is able to go back to work. They deny needs at this time and plan to dc to home when platelets are complete and pt meets criteria for dc. Pt does not have any issues getting in or out of the home and does not use an DME. Will dc to home with family when cleared.
--- NOTE | 2023-02-12 10:47 | NUR ---
FIRST UNIT OS PLATELETS COMPLETE PT IS AFEBRILE AND NO S/S OF REACTION. REMAINS UP IN THE CHAIR HERE VISITING. PT DENIES NEEDS OF
--- NOTE | 2023-02-12 11:58 | NUR ---
PT CONTINUES UP IN THE CHAIR WITHOUT COMPLAINT. VANCO TROUGH PULLED FROM PICC LINE. BOTH LINES PULL BACK BLOOD. BOTH LINES FLUSHED WITH 10 MLS NS.
[2023-02-12 12:15] LABS: VANCOMYCIN, TROUGH 14.4 ug/mL (5.0-20.0)
[2023-02-12 12:32] LABS: ABO O; ANTIBODY SCREEN NEGATIVE; RH POSITIVE
--- NOTE | 2023-02-12 13:16 | NUR ---
REPORT RECIEVED FROM ALVARADO BROWN. PT SITTING UP IN CHAIR. CALL LIGHT IN REACH.
--- NOTE | 2023-02-12 13:26 | NUR ---
UR NOTE MCG FEVER: COMMON SOMPLICATIONS AND CONDITIONS (ISC) 02/10/23 MET ADMIT CRITERIA
--- NOTE | 2023-02-12 14:00 | NUR ---
PLATELET INFUSION STARTED AT 1345. PT TOLERATED INFUSION WELL NO SIGNS OF ADVERSE OR ALLERGIC REACTIONS
[2023-02-12 14:03] LABS: IS CROSSMATCH COMPATIBLE
--- NOTE | 2023-02-12 15:14 | NUR ---
PT SITTING UP IN CHAIR. AB RUNNING IN ONE LUMEN AND PLATELETS IN OTHER. PT TDENIES ANY CONCERNS. CALL LIGHT IN REACH.
--- NOTE | 2023-02-12 15:55 | NUR ---
FIRST PLATELET INFUSION STOPPED. SECOND PLATELET INFUSION STARTED. VITALS ARE STABLE. NO ALLERGIC OR ADVERSE REACTIONS. PT TOLERATED WELL.
--- NOTE | 2023-02-12 16:15 | NUR ---
PT VITALS SIGNS SHOWED AN INCREASE IN TEMPERATURE FROM 100.4 TO 101.0 OTHER VITAL SIGNS ARE STABLE. PT STATES NO REACTION SYMPTOMS AND I HAVE NOT WITNESSED ANY REACTION SYMPTOMS. TOLD CHARGE NURSE AND SHE SAID TO RETAKE TEMP IN A FEW MINUTES. I WILL WAIT 10 MINS AND REASSESS.
--- NOTE | 2023-02-12 16:25 | NUR ---
AFTER REASSESSMENT OF VITALS PT TEMP WENT DOWN TO 100.7. ALL OTHER VITALS STABLE. NO CONCERNS AT THIS TIME. WILL INCREASE ADMINISTRATION RATE AND CONTINUE TO CHECK ON PT.
--- NOTE | 2023-02-12 17:36 | NUR ---
PT REMAINS UP IN CHAIR. PLATELETS #2 INFUSING WNL. CALL LIGHT IN REACH. TEMP BACK TO NORMAL LIMITS.
--- NOTE | 2023-02-12 18:02 | NUR ---
MED REC COMPLETE
--- NOTE | 2023-02-12 18:53 | NUR ---
PT TEMP IS CURRENTLY SHOWING 101.4. TYLENOL WAS GIVEN EARLIER DURING LAST TRANSFUSION. IBUPROFEN GIVEN NOW TO SEE IF THERE WILL BE ANY CHANGE. PT DOES HAVE SOME MILD CRACKLES IN THE BASES BILATERALLY BUT NO SIGNS OF ADVERSE OR ALLERGIC REACTIONS. SPO2 WAS AT 89 ON RA. TRANSFUSION RATE IS CURRENTLY GOING AT 150. THIS NURSE IS STAYING AT THE BEDSIDE TO WATCH AND MONITOR. WILL REASSESS IN NEXT [address] TO INFORM HIM OF THESE CHANGES.
--- NOTE | 2023-02-12 19:10 | NUR ---
PT TEMP NOW DOWN TO WNL. PT STILL DENIES ANY S\S OR CONCERNS. FRIEND IN ROOM.
--- NOTE | 2023-02-12 19:22 | NUR ---
REPORT RECEIVED FROM DAY SHIFT RN. PT SITTING IN RECLINER ALERT AND ORIENTED EATING DINNER. PRBC'S INFUSING WNL. PT DENIES NEEDS. WHITE BOARD UPDATED. CALL LIGHT IN REACH.
[2023-02-12 21:08] VITALS: BP 129/82
--- NOTE | 2023-02-12 21:29 | NUR ---
PRBC TRANSFUSION COMPLETE. VS OBTAIN, WNL. NO TRANSFUSION REACTION NOTED. PICC LINE IN RIGHT UPPER ARM PULSATILE FLUSH AND SL. PT UP TO SHOWER INDEPENDENTLY.
[2023-02-12 22:03] VITALS: BP 127/77
--- NOTE | 2023-02-12 22:30 | NUR ---
PT OUT OF THE SHOWER. IN TO START BLOOD TRANSFUSION AT APPROX 2150. BLUE LUMEN PULSATILE FLUSH WITH BLOOD RETURN NOTED. BLOOD TX WNL. VSS. THIS RN IN ROOM FOR FIRST 15 MINUTES. NO TX REACTION NOTED. UNABLE TO FLUSH RED LUMEN WITH TWO RN ATTEMPTS. MD NOTIFIED. NEW TELEPHONE ORDERS RECEIVED VERIFIED WITH READBACK METHOD TO ALTEPLASE RED LUMEN. EVENING ASSESSMENT COMPLETE. SCHEDULED MEDS ADMIN PER EMAR. PRN FOR FEVER ADMIN PER EMAR. PT DENIES PAIN OR NAUSEA. REPORTS ONE "NORMAL" BM TODAY. PT DENIES QUESTIONS OR CONCERNS. CALL LIGHT IN REACH.
--- NOTE | 2023-02-13 00:14 | NUR ---
BLOOD TRANSFUSION COMPLETE. VSS. NO S/SX OF TRANSFUSION REACTION. IV ABX INFUSING WNL IN BLUE LUMEN. NO FURTHER NEEDS.
--- NOTE | 2023-02-13 01:01 | NUR ---
TPA ADMNISTERED IN TO RED LUMEN PER ORDER.
--- NOTE | 2023-02-13 02:19 | NUR ---
2ML ALTEPLASE WITHDRAWN FROM RED LUMEN. BRISK BLOOD RETURN NOTED IN BOTH LUMENS. IV ABX INFUSING PER ORDER. SPOT CHECK SpO2 82% ON RA. PERIODS OF APNEA NOTICED. 2L/NC PLACED. SpO2 LOW 90'S. HR 90'S. TEMP 97.9. ASSESSMENT UNCHANGED. PT DENIES NEEDS. CALL LIGHT IN REACH.
--- NOTE | 2023-02-13 04:13 | NUR ---
IV PUMP ALARMING. ISSUE RESOLVED. PT REPORTS HE WAS UP TO BR TO HAVE SEMI LIQUID SOFT BM. REPORTS OXYGEN PREVENTING HIM FROM SLEEP. REQUESTING TO TAKE IT OFF. EDUCATION PROVIDED. PT VERBALIZES UNDERSTANDING, STATES "I JUST REALLY WANT TO SLEEP." OXYGEN REMOVED AT THIS TIME. PT DENIES FURTHER NEEDS. CALL LIGHT IN REACH.
[2023-02-13 05:30] VITALS: BP 126/69
[2023-02-13 05:48] LABS: HEMATOCRIT 21.9 % (35.0-50.0); MCV 84.2 fl (81-99)
[2023-02-13 05:49] LABS: EOSINOPHILS 5.6 % (0-6); HEMOGLOBIN 7.7 g/dL (12.0-18.0); LYMPHOCYTES 79.6 % (24-44); MCH 29.7 (27-36); MCHC 35.3 g/dl (30-36); NEUTROPHILS 2.8 % (39-80); RDW 16.5 (10.5-15.0)
--- NOTE | 2023-02-13 05:49 | NUR ---
MORNING LABS DRAWN BY THIS RN THROUGH RIGHT UPPER ARM PICC LINE, PER PROTOCOL.
--- NOTE | 2023-02-13 05:53 | NUR ---
PT AWAKE IN BED. VS AND I&O OBTAINED. PT AFEBRILE. SpO2 88-91% ON RA. IS USE ENCOURAGED. PT RECEPTIVE. IV ABX INFUSING PER ORDER. PT DENIES FURTHER NEEDS. CALL LIGHT IN REACH.
[2023-02-13 05:54] LABS: BUN/CREATININE RATIO 12.26 (6.0-28.6); CALCIUM 8.2 mg/dL (8.5-10.1); CREATININE, SERUM 1.06 mg/dL (0.70-1.30)
[2023-02-13 05:56] LABS: PLATELET COUNT 15 K/uL (140-440)
--- NOTE | 2023-02-13 07:16 | NUR ---
REPORT RECEIVED FROM ALVARADO EVANS. PT LAYING ON LEFT SIDE IN BED, RR EVEN AND UNLABORED. RN STUDENT SANAZ IN ROOM.
--- NOTE | 2023-02-13 09:27 | NUR ---
PT SITTING UP IN CHAIR WATCHING TV AND TALKING ON PHONE. IN TO EXPLAIN THAT HE TALKED TO DR BLEVINS AND THEY ARE GOING TO REPLACE HIS PICC LINE HOPEFULLY TODAY. ASSES COMPLETE. PT CONTINUES TO HAVE FINE CRACKLES IN BASE BUT REPORTS NO SOB OR OTHER CONCERNS. DOUBLE LUMEN PICC RUNNING TKO IN ONE AND AB IN OTHER. ANSWERED PT QUESTIONS.
--- NOTE | 2023-02-13 09:30 | NUR ---
Spoke with Asher. He denies needs. Dr. Blank in the room. Pt will need IV PICC line changed and orders for OP antibiotics at [facility]. They are awaiting culture and sensitivity.
[2023-02-13 09:52] VITALS: BP 122/76
--- NOTE | 2023-02-13 10:15 | NUR ---
PT DENIED NEEDS. DECLINED PRAYER IN ROOM. PRAYED FOR [employer] [facility] AND ABIDING PEACE AFTER EXIT FROM ROOM.
--- NOTE | 2023-02-13 12:16 | NUR ---
OBTAINED BLOOD CULTURES FROM PICC LINE AND SENT WITH LAB. FLUSHED WITH 20ML NS. OTHER CULTURES FROM LFET ARM. PT TOLERATED WELL.
[2023-02-13 13:34] VITALS: BP 131/74
--- NOTE | 2023-02-13 14:05 | NUR ---
ALVARADO TONEY, IN ROOM PERFORMING VASCULAR ACCESS PROCEDURE WITH PTGene
--- NOTE | 2023-02-13 15:41 | NUR ---
VANCO AND CEFEPIME INFUSIONS STARTED VIA PICC LINE, PORTS X2 FLUSHED WITH 10CC OF NS, BLOOD RETURN NOTED. PICC FLUSHES EASILY.
--- NOTE | 2023-02-13 16:02 | NUR ---
WARM BLANKETS AND WARM PACK PROVIDED PER PT REQEUST.
--- NOTE | 2023-02-13 17:14 | NUR ---
PT RESTS IN BED WITH WARM BLANKETS AND WARM PACK, STATES HE DOES NOT FEEL COOL ANY MORE. CALL LIGHT IN REACH. LIGHT DIMMED PER PT REQUEST.
[2023-02-13 18:12] VITALS: BP 119/84
--- NOTE | 2023-02-13 18:17 | NUR ---
PICC INSERTION NOTE: ASKED BY DR. LAMA TO EVALUATE PATIENT FOR POTENTIAL PICC LINE PLACEMENT. AFTER REVIEWING THE CHART, A FEW THINGS WERE CONSIDERED FOR THIS PATIENT. THIS PATIENT HAS HAD A PICC IN THE RIGHT UPPER ARM SINCE August,, PLACED BY [facility]. THIS PICC HAS BEEN A FUNCTIONAL PICC FOR HIM, BUT HAS HAD TO HAVE "CLOT BUSTER" A FEW DIFFERENT TIMES PER THE PATIENT. PATIENT HAS BEEN ADMITTED WITH A NEUTROPENIC FEVER AND HAS NOW HAD POSITIVE BLOOD CULTURES (SEE CHART). ORDER REC'D TO CONSULT PATIENT FOR A NEW PICC, REMOVE OLD PICC AND SEND THE TIP OF OLD PICC FOR CULTURE. PATIENT SUFFERS FROM LOW PLATELETS, AND CURRENTLY TODAY, PLATELET COUNT IS 15, AND WBC IS 0.1 DUE TO HIS CHRONIC AND ACUTE ILLNESSES. A PICC EXCHANGE WAS A POTENTIAL OPTION FOR THE PATIENT, CONSIDERING THE RISKS VS BENEFITS, BUT ULTIMATELY THE SAFEST AND BEST RECOMMENDATION PER [employer] WAS TO PLACE A NEW PICC IN THE OTHER SIDE. AFTER INTERVIEWING THE PATIENT AND DISCUSSING THE TWO POTENTIAL OPTIONS, PATIENT WAS AGREEABLE TO EITHER OPTION. DISCUSSED WITH PATIENT THAT THE BEST OPTION WOULD BE A NEW SITE, NEW PICC LINE ON THE LEFT ARM. PATIENT'S LEFT ARM WAS EVALUATED USING THE SITE RITE U/S. THE BASILIC AND THE CEPHALIC VEINS WERE BOTH IDENTIFIED. THE CEPHALIC VEIN MEASURED THAT A 4FR PICC WOULD TAKE UP 37% OF THE VEIN DIAMETER. THE BASILIC WAS ESTIMATED TO TAKE UP 43%. AFTER PREPPING THE PATIENT'S RIGHT ARM PER CDC RECOMMENDATIONS FOR STERILE TECHINIQUE, THE BASILIC WAS ATTEMPTED FIRST FOR IV ACCESS, BUT WAS UNSUCCESSFUL AFTER 3 ATTEMPTS. THIS SITE WAS ABANDONED, AND THE CEPHALIC WAS THE PURSUED, SUCCESSFULLY ON THE FIRST ATTEMPT WITH BRISK, DARK NON PULSATILE BLOOD. THE GUIDEWIRE WAS ADVANCED EASILY ON THE SECOND ATTEMPT. THE INTRODUCER WAS THEN ADVANCED OVER THE GUIDEWIRE, AFTER USING THE SCALPEL TO CAREFULLY INCREASE OPENING AT THE LEVEL OF THE SKIN. AFTER THIS, THE PICC WAS ADVANCED SLOWLY, AND THE [employer] 3CG TECHNOLOGY WAS USED TO LOCATE THE TIP. AFTER IDEAL PLACEMENT WAS ACHIEVED ON THE FIRST ADVANCEMENT ATTEMPT, A STERILE DRESSING WAS PLACED. A CHEST XRAY WAS TAKEN. 0 CM WERE LEFT EXPOSED. CHEST XRAY CONFIRMED CAVOATRIAL JUNCTION FOR THE TIP PLACEMENT. PT WAS GIVEN EDUCATIONAL MATERIAL AND ENCOURAGED TO ASK QUESTIONS IF HE HAS ANY REGARDING HIS PICC.
--- NOTE | 2023-02-13 18:33 | NUR ---
ATTEMPTED TO CALL HOSPITALIST TO REPORT CHANGE IN VS: TEMP 103.6F, PULSE 122, RESP 28, BP 119/84, O2 SAT 89%. 2L O2 APPLIED VIA NC, SATS UP TO 92%. NO ANSWER.
--- NOTE | 2023-02-13 18:52 | NUR ---
PT UP TO BATHROOM, VOIDS 350MLS OF DARK YELLOW URINE. PT FEELS WEAK AND HAS SOB WITH AMBULATION TO BATHROOM AND BACK TO BED. HR UP TO 140'S AFTER AMBULATION, HR DOWN TO 120'S AFTER RESTING, STAYS AT 120'S. SOB RESOLVES WITH REST. PT DONS GOWN. RESP RATE UP TO 30'S RPM WITH ACTIVTY, DOWN TO 28 RPM WITH REST. INTO SEE PT, CHANGE OF CONDITION REPORTED VERBALY. PT RECEIVED TYLENOL, SEE eMAR.
--- NOTE | 2023-02-13 19:21 | NUR ---
REPORT RECEIVED FROM DAY SHIFT RN. PT LYING IN BED ALERT AND ORIENTED. SpO2 93% ON 2L/NC. HR ONE TEEN'S-120'S. RR 34. REPORTS FEELING WEAK. JUICE PROVIDED PER REQUEST. NO FURTHER NEEDS. WHITE BOARD UPDATED. CALL LIGHT IN REACH.
[2023-02-13 20:02] VITALS: BP 110/63
--- NOTE | 2023-02-13 20:22 | NUR ---
PT SITTING UP IN BED. REPORTS FEELING "A LITTLE" BETTER SINCE BEGINNING OF THIS SHIFT. VS OBTAINED. RR 28. TEMP 101.8. SpO2 95% ON 2L/NC. EVENING ASSESSMENT COMPLETE. PRN FOR TEMP ADMIN PER EMAR. FINE CRACKLES AUSCULTATED IN BILAT LUNG BASES. PT DENIES SOB. PT UTILIZED IS X 7 TIMES. SBA UP TO CHAIR. PT REPORTS WEAKNESS IMPROVED. GAIT STEADY. PT DENIES FURTHER NEEDS. CALL LIGHT IN REACH.
--- NOTE | 2023-02-13 20:39 | NUR ---
MD UPDATED ON VS AND PT CONDITION. NEW ORDERS RECEIVED.
[2023-02-13 21:33] LABS: INFLUENZA B NAA NEGATIVE (NEGATIVE); RESPIRATORY SYNCYTIAL VIR NAA NEGATIVE (NEGATIVE)
[2023-02-13 22:08] LABS: BILIRUBIN, URINE POSITIVE (negative); BLOOD/HGB, URINE SMALL (Negative); KETONE, URINE NEGATIVE (Negative); LEUK ESTERASE, URINE NEGATIVE (negative); NITRITE, URINE NEGATIVE (negative)
[2023-02-13 22:13] LABS: EPITHELIAL CELLS, URINE SQUAMOUS 1+ /lpf (0-1+)
[2023-02-13 22:14] LABS: CRYSTALS, URINE NONE SEEN (0-1+); RED BLOOD CELLS, URINE 0-1 /hpf (0-5); WHITE BLOOD CELLS, URINE 0-1 /HPF (0-5)
[2023-02-13 22:15] LABS: BACTERIA, URINE 1+ /hpf (negative); CASTS, URINE GRANULAR 4+ \\lpf; REFLEX CULTURE, URINE No (No)
--- NOTE | 2023-02-13 22:50 | NUR ---
PICC LINE IN LEFT UPPER ARM PULSATILE FLUSH WITH NS. BRISK BLOOD RETURN NOTED IN BOTH LUMENS. IV ABX INFUSING PER ORDER. PT REPORTS HE IS FEELING BETTER. VS WNL AT THIS TIME. NO FURTHER NEEDS.
--- NOTE | 2023-02-14 00:26 | NUR ---
PT SBA TO BED. REPORTS BREATHING IMPROVED. CONTINUES WORKING WITH INCENTIVE SPIROMETER. SpO2 MID 90'S WITH 2L/NC. HR 90'S. AFIBRILE. PRN TYLENOL ADMIN PROPHYLACTICALLY. NO FURTHER NEEDS.
[2023-02-14 05:44] LABS: BUN/CREATININE RATIO 10.09 (6.0-28.6); CREATININE, SERUM 1.09 mg/dL (0.70-1.30)
[2023-02-14 05:46] LABS: HEMOGLOBIN 6.7 g/dL (12.0-18.0); MCHC 35.3 g/dl (30-36); NEUTROPHILS 13.2 % (39-80)
[2023-02-14 05:48] LABS: EOSINOPHILS 5.1 % (0-6); LYMPHOCYTES 64.2 % (24-44); MCH 29.8 (27-36); MCV 84.5 fl (81-99); MONOCYTES 17.5 % (0-12); RBC 2.25 M/ul (4.3-5.7); RDW 17.2 (10.5-15.0)
[2023-02-14 05:52] LABS: PLATELET COUNT 11 K/uL (140-440)
--- NOTE | 2023-02-14 06:01 | NUR ---
[facility]. SEE PAPER CHARTING.
--- NOTE | 2023-02-14 07:15 | NUR ---
REPORT RECEIVED FROM ALVARADO EVANS. PT LAYING IN BED ON LEFT SIDE. PT AWAKENS WHEN THIS RN ENTERS ROOM. IV PUMP ALARMING, RESOLVED. PICC LINE INFUSING NOTED TO HAVE BLOOD RETURN AND FLUSH WNL. PT DENIES ANY NEEDS AT THIS TIME. CALL LIGHT IN REACH.
[2023-02-14 08:23] VITALS: BP 120/73
--- NOTE | 2023-02-14 08:34 | NUR ---
IN TO ANSWER CALL LIGHT. PTs IN ROOM ASKING FOR UPDATE. EDUCATION PROVIDED. ENCOURAGED PT TO USE IS AND COUGH. ASSESSMENT COMPLETE. LUNG SOUNDS CLEAR IN RUL AND WEST. CRACKLES IN RLL AND LLL. BOWEL TONES ACTIVE. PT DENIES PAIN AT THIS TIME. EDEMA NOTED TO BLE. VITALS COMPLETE. URINAL EMPTIED. PT REPORTING TOILETING NEEDS. SBA FROM BED TO RESTROOM AND INTO RECLINER. BREAKFAST TRAY PROVIDED. PICC BLUE LUMEN NOTED TO HAVE BLOOD RETURN AND FLUSHED WNL. RED LUMEN NOTED TO HAVE BLOOD RETURN AND FLUSHED WNL. PT DENIES ANY OTHER NEEDS AT THIS TIME. CALL LIGHT IN REACH.
--- NOTE | 2023-02-14 09:16 | NUR ---
IN TO ANSWER CALL LIGHT. IV PUMP ALARMING, RESOLVED. NEW BAG OF FLUIDS STARTED, SEE MAR. PICC LINE BLOOD RETURN NOTED AND FLUSHES WNL BOTH RED AND BLUE LUMENS. PT SITTING UP IN RECLINER. PT DENIES ANY OTHER NEEDS AT THIS TIME. IN ROOM.
--- NOTE | 2023-02-14 09:38 | NUR ---
IN TO ADMINISTER MEDICATION, SEE MAR. PT SITTING UP IN RECLINER. PT DENIES ANY OTHER NEEDS AT THIS TIME. CALL LIGHT IN REACH. IN ROOM.
--- NOTE | 2023-02-14 10:42 | NUR ---
IN TO ROUND ON PT. PT SITTING UP IN RECLINER. PT RESPONDS WHEN ADDRESSED. PT DENIES ANY NEEDS AT THIS TIME. CALL LIGHT IN REACH. FLUIDS INFUSING WNL.
--- NOTE | 2023-02-14 11:09 | NUR ---
IN WITH IMELDA Staples RN. TO ADMINISTER PLATELETS. THIS RN AND IMELDA Staples RN VERIFY PLATELETS. PICC BLOOD RETURN NOTED AND FLUSHES WNL. PRE-INFUSION VITALS COMPLETE. PLATELETS STARTED AT 1116. THIS RN STAYS IN ROOM WITH PT UNTIL 15 MINUTE VITAL CHECK. LINENS CHANGED.
--- NOTE | 2023-02-14 11:31 | NUR ---
15 MINUTE INFUSION VITALS COMPLETE. PT REQUESTING TOILETING. SBA FROM RECLINER TO RESTROOM AND BACK TO RECLINER. VOID NOTED. URINAL EMPTIED. PT SITTING IN RECLINER. PT DENIES ANY OTHER NEEDS AT THIS TIME. CALL LIGHT IN REACH.
--- NOTE | 2023-02-14 12:06 | NUR ---
IN TO ROUND ON PT. PT SITTING UP IN RECLINER. PT DENIES ANY NEEDS. IN ROOM. CALL LIGHT IN REACH. IV PUMP INFUSING WNL.
--- NOTE | 2023-02-14 12:25 | NUR ---
IN TO TAKE PT LUNCH TRAY. TRAY PROVIDED. PT SITTING UP IN RECLINER. PT DENIES ANY NEEDS AT THIS TIME. CALL LIGHT IN REACH. IN ROOM.
--- NOTE | 2023-02-14 12:57 | NUR ---
IN PUMP ALARMING, RESOLVED. PLATELETS COMPLETE. POST PLATELET INFUSION VITALS COMPLETE. PT DENIES PAIN, N/V, CHILLS. LUMEN BLOOD RETURN NOTED AND FLUSHED WITH 20ML NS AND CAPPED WITH CUROS CAP. PT DONE EATING LUNCH, TRAY REMOVED. PT SITTING UP IN RECLINER. PT DENIES ANY OTHER NEEDS AT THIS TIME. CALL LIGHT IN REACH. IN ROOM.
[2023-02-14 13:47] LABS: VANCOMYCIN, TROUGH 15.6 ug/mL (5.0-20.0)
[2023-02-14 14:18] VITALS: BP 137/85
[2023-02-14 15:12] VITALS: BP 139/86
--- NOTE | 2023-02-14 15:15 | NUR ---
IN TO ROUND ON PT. PT SITTING UP IN RECLINER. PTs LEFT ARM NOTED TO BE SHAKING. ASK PT IF PT FEELS CHILLED AND PT STATES "YEAH A LITTLE." PT REPORTS HAVING "CHILLS AFTER RECEIVING PLATELETS." VITALS COMPLETE. NOTIFIED. OKAY WITH CONTINUING INFUSION. INFUSION RATE SLOWED. PT EDUCATION PROVIDED. PT ENCOURAGED TO CALL IF PT IS HAVING ANY REACTIONS. PT VERBALIZES UNDERSTANDING. WARM BLANKETS PROVIDED. IV MEDICATION ADMINISTERED, SEE MAR. PT DENIES ANY OTHER NEEDS AT THIS TIME. CALL LIGHT IN REACH.
[2023-02-14 15:49] VITALS: BP 145/96
--- NOTE | 2023-02-14 16:00 | NUR ---
This charge manager at bedside to assess patient, initiate IV ABX, and discuss plan of care with patient. Patient states comfortable with recieving the rest of the blood transfusion, and that he "normally has slight chills and shakes after receiving platelets, it just happens to be during getting blood this time." Vitals stable, patient afebrile, A+O on RA. Patient sitting up in chair, states no needs at this time. Made plan to finish remaining 15 minutes on blood transfusion and then recheck vitals. Patient gives verbal affirmation for this plan. Call light in reach.
--- NOTE | 2023-02-14 17:22 | NUR ---
IN TO ROUND ON PT. PT SITTING UP IN RECLINER. PT RESPONDS WHEN ADDRESSED. ASSESSMENT COMPLETE. LUNG SOUNDS CLEAR IN RUL AND WEST. CRACKLES IN RLL AND LLL. BOWEL TONES ACTIVE. PT DENIES PAIN AT THIS TIME. PT DENIES ANY OTHER NEEDS AT THIS TIME. CALL LIGHT IN REACH.
--- NOTE | 2023-02-14 18:10 | NUR ---
IN TO OBTAIN LABS. PT SITTING UP IN RECLINER. 5ML OF BLOOD WASTED FROM PICC. 10ML DRAWN FOR LABS. PICC FLUSHED WITH 20ML PULSATILE FLUSH. CUROS CAP APPLIED. PT DENIES ANY OTHER NEEDS AT THIS TIME. CALL LIGHT IN REACH.
--- NOTE | 2023-02-14 18:23 | NUR ---
IN TO START IV FLUIDS, SEE MAR. BLOOD RETURN NOTED, FLUSHES WNL. URINAL EMPTY. PT DENIES ANY OTHER NEEDS AT THIS TIME. CALL LIGHT IN REACH. PT SITTING UP IN RECLINER.
[2023-02-14 18:24] LABS: IS CROSSMATCH COMPATIBLE
[2023-02-14 18:29] VITALS: BP 138/88
--- NOTE | 2023-02-14 18:29 | NUR ---
IN TO ANSWER CALL LIGHT. PT VOIDED IN URINAL. URINAL EMPTIED. I&Os AND VITALS COMPLETE. PT DENIES PAIN AT THIS TIME. PT SITTING UP IN RECLINER. PT DENIES ANY OTHER NEEDS A THIS TIME. CALL LIGHT IN REACH.
[2023-02-14 18:39] LABS: HEMOGLOBIN 10.7 g/dL (12.0-18.0); MCHC 34.6 g/dl (30-36)
[2023-02-14 18:41] LABS: EOSINOPHILS 12.1 % (0-6); HEMATOCRIT 30.9 % (35.0-50.0); LYMPHOCYTES 59.6 % (24-44); MCH 29.4 (27-36); MCV 84.9 fl (81-99); MONOCYTES 23.7 % (0-12); NEUTROPHILS 4.6 % (39-80); RBC 3.64 M/ul (4.3-5.7); RDW 16.8 (10.5-15.0)
[2023-02-14 18:44] LABS: PLATELET COUNT 13 K/uL (140-440)
--- NOTE | 2023-02-14 18:44 | NUR ---
THIS RN TALKED TO KATELYN IN LAB REGARDING CRITICAL LAB VALUE. NOTIFIED.
[2023-02-14 18:56] LABS: ABO O; ANTIBODY SCREEN NEGATIVE; RH POSITIVE
[2023-02-14 19:04] LABS: IS CROSSMATCH COMPATIBLE
--- NOTE | 2023-02-14 19:40 | NUR ---
REPORT RECIEVED FROM DAY SHIFT RN. PATIENT SITTING UP IN CHAIR ON HIS PHONE. PATIENT REPORTS NO FURTHER NEEDS. CALL LIGHT IN REACH.
[2023-02-14 20:13] VITALS: BP 137/80
--- NOTE | 2023-02-14 20:15 | NUR ---
PATIENT SITTING IN CHAIR. VS AND I&Os OBTAINED AND RECORDED. FRESH WATER PROVIDED. EVENING MEDICATIONS ADMINISTERED. LUMEN FLUSHED AND HEPARIN LOCKED. ASSESSMENT COMPLETED. FINE CRACKLES IN BILAT LOWER LOBES. IS USED. PATIENT TEMP OF 99.4, PRN MEDICATION ADMINISTERED PER PATIENT REQUEST. NO FURTHER NEEDS. CALL LIGHT IN REACH.
--- NOTE | 2023-02-14 21:08 | NUR ---
call light answered, pt up sba to void in bathroom and back in bed. call light and other belongings in reach of pt. warm blanket also provided.
--- NOTE | 2023-02-14 22:15 | NUR ---
ROUNDING ON PATIENT. PATIENT RESTING IN BED ON BACK WITH EYES CLOSED. RESPIRATIONS EVEN AND UNLABORED. CALL LIGHT IN REACH.
--- NOTE | 2023-02-14 23:02 | NUR ---
CALL LIGHT ANSWERED. PATIENT UP TO BATHROOM TO VOID. PATIENT BACK TO BED. CALL LIGHT IN REACH. NO FURTHER NEEDS.
--- NOTE | 2023-02-14 23:40 | NUR ---
ROUNDING ON PATIENT. PATIENT RESTING IN BED ON BACK WITH EYES CLOSED. RESPIRATIONS EVEN AND UNLABORED. CALL LIGHT IN REACH.
[2023-02-15] VITALS (8 sets, daily range): BP systolic 129–140; BP diastolic 75–90
--- NOTE | 2023-02-15 01:36 | NUR ---
PATIENT IN BED RESTING ON BACK. RESPIRATIONS EVEN AND UNLABORED. IV ABX INFUSING, SEE MAR. PATIENT HAS NO FURTHER NEEDS. CALL LIGHT IN REACH.
--- NOTE | 2023-02-15 03:28 | NUR ---
PATIENT IS RESTING IN BED. PATIENTS IV ABX INFUSING PER ORDER. PATIENT DENIES ANY NEEDS. CALL LIGHT IN REACH.
--- NOTE | 2023-02-15 04:15 | NUR ---
PATIENT RESTING IN BED ON BACK WITH EYES CLOSED. RESPIRATIONS EVEN AND UNLABORED. CALL LIGHT IN REACH.
[2023-02-15 05:57] LABS: HEMATOCRIT 26.4 % (35.0-50.0); RDW 16.6 (10.5-15.0)
[2023-02-15 06:00] LABS: EOSINOPHILS 3.5 % (0-6); HEMOGLOBIN 9.2 g/dL (12.0-18.0); MCH 29.8 (27-36); MCHC 34.9 g/dl (30-36); MCV 85.6 fl (81-99); MONOCYTES 39.5 % (0-12); RBC 3.09 M/ul (4.3-5.7)
[2023-02-15 06:03] LABS: PLATELET COUNT 10 K/uL (140-440)
[2023-02-15 06:14] LABS: ANION GAP 12.3 (7-21); BUN/CREATININE RATIO 11.65 (6.0-28.6); CALCIUM 8.1 mg/dL (8.5-10.1); CREATININE, SERUM 1.03 mg/dL (0.70-1.30); POTASSIUM 3.3 mmol/L (3.5-5.1)
--- NOTE | 2023-02-15 06:40 | NUR ---
PATIENT SITTING UP IN CHAIR. LABS DRAWN BY THIS RN THROUGH LEFT PICC LINE PER PROTOCOL. IV INFUSING PER ORDER. BLOOD DRAW SENT TO LAB. VS AND I&Os OBTAINED AND RECORDED. SECOND ASSESSMENT COMPLETE. CALL LIGHT IN REACH.
--- NOTE | 2023-02-15 07:05 | NUR ---
REPORT RECEIVED FROM ALVARADO SNEED AND ALVARADO NAVARRETE. PT SITTING UP IN RECLINER WITH EYES CLOSED, RR EVEN AND UNLABORED. RR OF 18 NOTED. NO NEEDS IDENTIFIED AT THIS TIME. CALL LIGHT IN REACH.
--- NOTE | 2023-02-15 08:20 | NUR ---
IN TO ADMINISTER MEDICATION, SEE MAR. PT SITTING UP IN RECLINER. PT RESPONDS WHEN ADDRESSED. ASSESSMENT COMPLETE. LUNG SOUNDS CLEAR IN RUL AND WEST. CRACKLES IN RLL AND LLL. BOWEL TONES ACTIVE. PT DENIES PAIN AT THIS TIME. PT DENIES NUMBNESS AND TINGLING AT THIS TIME. EDEMA NOTED TO BLE. BRUISING TO LEFT UPPER ARM NOTED. BLUE LUMEN ON PICC BLOOD RETURN NOTED AND FLUSHES WNL. RED LUMEN BLOOD RETURN NOTED AND FLUSHES WNL. PT DENIES ANY OTHER NEEDS AT THIS TIME. CALL LIGHT IN REACH. IN ROOM.
--- NOTE | 2023-02-15 09:45 | NUR ---
IN TO ADMINISTER MEDICATION, SEE MAR. PICC BLOOD RETURN NOTED AND FLUSHES WNL. PT SITTING UP IN RECLINER. PT RESPONDS WHEN ADDRESSED. VITALS AND I&Os COMPLETE. WATER AND ORANGE JUICE PROVIDED. PT DENIES ANY OTHER NEEDS AT THIS TIME. CALL LIGHT IN REACH.
--- NOTE | 2023-02-15 11:00 | NUR ---
Spoke with Asher. Pt may want IV antibiotics in the home or will go to OP for IV antibiotics if only one is needed. Dr. Butcher is waiting for C&S to determing what he will need. I reviewed with pt what we can do to set up Iv therapy in the home with and infusion Pharmacy and Home Health and if he goes to OP therapy.
--- NOTE | 2023-02-15 11:07 | NUR ---
IN TO ROUND ON PT. PT SITTING UP IN RECLINER. IN ROOM. PT RESPONDS WHEN ADDRESSED. PT DENIES ANY NEEDS AT THIS TIME. CALL LIGHT IN REACH. TRAY REMOVED.
--- NOTE | 2023-02-15 13:03 | NUR ---
IN WITH RJ, RN TO ADMINISTER PLATELETS. PRE VITALS COMPLETE. THIS RN TO STAY IN ROOM WITH PT. LUNCH TRAY PROVIDED.
--- NOTE | 2023-02-15 13:23 | NUR ---
15 MINUTE VITALS COMPLETE. INFUSION RATE INCREASED TO 250ML/HOUR. PT DENIES FEELING CHILLED OR PAIN. PT SITTING UP IN RECLINER EATING LUNCH. PT DENIES ANY OTHER NEEDS AT THIS TIME. CALL LIGHT IN REACH.
--- NOTE | 2023-02-15 14:19 | NUR ---
IN TO ROUND ON PT. PT SITTING UP IN RECLINER. PT RESPONDS WHEN ADDRESSED. VITALS COMPLETE. IV FLUIDS STARTED, SEE MAR. MEDICATION ADMINISTERED, SEE MAR. PICC BLOOD RETURN NOTED AND FLUSHES WNL. PLATELETS INFUSING. PT DENIES ANY OTHER NEEDS AT THIS TIME. CALL LIGHT IN REACH.
--- NOTE | 2023-02-15 16:17 | NUR ---
IN TO ROUND ON PT. PT SITTING UP IN RECLINER TALKING ON PHONE. VITALS COMPLETE. ASSESSMENT COMPLETE. LUNG SOUNDS CLEAR IN RUL AND WEST. CRACKLES IN RLL AND LLL. BOWEL TONES ACTIVE. EDEMA NOTED TO BLE. PT DENIES PAIN AT THIS TIME. PT DENIES NAUSEA. URINAL EMPTIED. PT DENIES ANY OTHER NEEDS AT THIS TIME. CALL LIGHT IN REACH.
--- NOTE | 2023-02-15 17:40 | NUR ---
IN TO DELIVER DINNER TRAY. PT SITTING UP IN RECLINER AND RESPONDS WHEN ADDRESSED. NOTED THAT PT IS SHAKING. ASKED PT IF PT FEELS CHILLED AND PT STATES "YEAH, A LITTLE IT JUST STARTED." VITALS COMPLETE. TEMPERATURE OF 100.7 NOTED. PRN TYLENOL ADMINISTERED, SEE MAR. PT TAKES PO MEDICATIONS WITH NO ISSUES. I&Os COMPLETE. PT DENIES ANY OTHER NEEDS AT THIS TIME. CALL LIGHT IN REACH.
--- NOTE | 2023-02-15 18:23 | NUR ---
IN TO ANSWER CALL LIGHT. IV PUMP ALARMING, RESOLVED. IV ABX COMPLETE. TEMPERATURE 100.4 NOTED. PT DENIES PAIN AT THIS TIME. PT STATES "I WISH I COULD GET RID OF THIS COUGH THOUGH." DINNER TRAY REMOVED. PT SITTING UP IN RECLINER. PT DENIES ANY OTHER NEEDS AT THIS TIME. CALL LIGHT IN REACH.
--- NOTE | 2023-02-15 19:25 | NUR ---
REPORT RECIEVED FROM [employer]ERS. PATIENT UP IN CHAIR. PATIENT REQUESTING SOMETHING FOR PAIN. CALL LIGHT WITHIN REACH. NO OTHER NEEDS AT THIS TIME.
--- NOTE | 2023-02-15 20:30 | NUR ---
ASSESSMENT AND VITAL SIGNS DONE. SCHEDULED ABX INFUSING PER ORDER, SEE MAR. PRN PAIN MEDICATION ADMINISTERED, SEE MAR. PATIENT REPORT A HEADACHE OF 5/10. Pt TRANSFERED TO BED. SBA/INDEPENDENT. CALL LIGHT WITHIN REACH. NO OTHER NEEDS AT THIS TIME.
--- NOTE | 2023-02-15 21:10 | NUR ---
UPDATE MD ON PATIENT. RECEIVED VERBAL ORDER TO SL. VERIFIED ORDER USING THE READBACK METHOD.
--- NOTE | 2023-02-15 22:32 | NUR ---
Pt CALLED AND STATES HE HAS A BLODDY NOSE AT 2146. IN TO ASSESS PATIENT. PATIENT REPORTS LAST TIME HE HAD A NOSE BLEED HE WENT INTO THE ER AND HAD HIS NOSE CAUTERIZED. HOSPITALIST CALLED TO BED SIDE. MD IN ROOM TO ASSESS Pt. HOSPITALIST CALLED ER MD. ER MD IN ROOM TO ASSESS PATIENT. HOSPITALIST AND ER MD AT BED SIDE. RHINO ROCKET SOAKED IN TXA WAS INSERTED BY DR. ALFARO. Pt NOSE DID STOP BLEEDING AFTER A COUPLE MINIUTES. Pt WAS CLEANED UP. Pt BACK IN BED WITH HOB ELEVATED TO PREVENT BLOOD TO BACK FLOW IN TO THROAT. RHINO ROCKET REMAINED IN RIGHT NOSTRIL. ER MD RECOMENDS RHINO ROCKET STAYS IN PLACE FOR 24 HOURS. VITAL SIGNS TAKEN AND RECORDED.
--- NOTE | 2023-02-15 22:45 | NUR ---
Pt ASSISTED TO THE RESTROOM TO TAKE OUT HIS DENTURES. NO BLOODY DRAINAGE FROM NOSE NOTED. PATIENT IN BED RESTING IV INFUSING. CALL LIGHT WITHIN REACH.
--- NOTE | 2023-02-15 22:57 | NUR ---
FACE TO FACE ORDER FROM MD TO DRAW LABS AT MIDNIGHT AND CALL WITH RESULTS.
[2023-02-16 00:22] LABS: HEMOGLOBIN 7.9 g/dL (12.0-18.0)
[2023-02-16 00:25] LABS: EOSINOPHILS 1.7 % (0-6); HEMATOCRIT 22.6 % (35.0-50.0); LYMPHOCYTES 53.1 % (24-44); MCH 29.7 (27-36); MCHC 34.7 g/dl (30-36); MCV 85.3 fl (81-99); MONOCYTES 2.2 % (0-12); RBC 2.65 M/ul (4.3-5.7); RDW 16.3 (10.5-15.0)
--- NOTE | 2023-02-16 00:25 | NUR ---
BLOOD DRAWN FROM Pt PICC PER PROTOCOL. PRN PAIN MEDICATION ADMINISTERED. PATIENT REPORTS 7/10 PAIN. CALL LIGHT WITHIN REACH.
[2023-02-16 00:27] LABS: PLATELET COUNT 13 K/uL (140-440)
--- NOTE | 2023-02-16 00:47 | NUR ---
PLACED CALL TO MD. UPDATED WITH LAB. NO NEW ORDERS AT THIS TIME.
--- NOTE | 2023-02-16 01:19 | NUR ---
IV ABX INFUSING PER ORDER, SEE MAR. PATIENT RESTING IN BED WITH EYES CLOSED. CALL LIGHT WITHIN REACH. NO OTHER NEEDS AT THIS TIME.
--- NOTE | 2023-02-16 03:25 | NUR ---
IV ABX INFUSING PER ORDER, SEE MAR. PATIENT DENIES PAIN. CALL LIGHT WITHIN REACH. NO OTHER NEEDS AT THIS TIME.
[2023-02-16 05:27] VITALS: BP 118/68
--- NOTE | 2023-02-16 05:31 | NUR ---
ASSESSMENT AND VITAL SIGNS DONE. BLOOD DRAWN FOR LABS PER PROTOCOL FROM PICC. IV INFUSING PER ORDER, SEE MAR. CALL LIGHT WITHIN REACH. NO OTHER NEEDS AT THIS TIME.
[2023-02-16 05:33] LABS: EOSINOPHILS 0.4 % (0-6); HEMATOCRIT 15.7 % (35.0-50.0); MCH 29.6 (27-36); MCHC 34.8 g/dl (30-36); MONOCYTES 2.5 % (0-12); NEUTROPHILS 47.1 % (39-80); RBC 1.85 M/ul (4.3-5.7); RDW 16.3 (10.5-15.0)
--- NOTE | 2023-02-16 05:53 | NUR ---
PATIENT RESTING IN BED WITH EYES CLOSED. RESP OBSERVED. CALL LIGHT WITHIN REACH.
[2023-02-16 06:10] LABS: HEMOGLOBIN 5.5 g/dL (12.0-18.0); PLATELET COUNT 10 K/uL (140-440)
[2023-02-16 06:21] LABS: ANION GAP 14.5 (7-21); BUN/CREATININE RATIO 11.45 (6.0-28.6); CREATININE, SERUM 0.96 mg/dL (0.70-1.30); POTASSIUM 3.5 mmol/L (3.5-5.1)
--- NOTE | 2023-02-16 06:52 | NUR ---
CRITICAL LAB VALUE RECIEVED FROM LAB. CALLED WITH UPDATED LAB. ORDERED 2 UNITS PRBCS. THIS RN WENT DOWN TO LAB TO COMPUTER OPERATIONS TECHNICIAN PRBCs. FOREST PATROLMAN WAS UNSURE THAT BLOOD WAS SAFE TO GIVE TO Pt. FOREST PATROLMAN CALLED [facility] AND FOUND OUT THE BLOOD THAT THEY HAVE IS NOT CMV SAFE. LAB STATES THEY WILL HAVE TO ORDER SOME NEW UNITS AND IT WILL BE APPROXAMATLY 4 HOURS BEFORE IT IS HERE. UPDATED NO NEW ORDERS AT THIS TIME.
--- NOTE | 2023-02-16 06:54 | NUR ---
CALL RECEIVED FROM DR HOWARD REGARDING DETAILS OF ORDERED 2 UNITS PRBC'S- PER MD, ENSURE BLOOD PRODUCTS ARE CMV SAFE, FILTERED, AND IRRADIATED (ADDED TO COMMENTS FOR LAB). THIS RN SPOKE TO PULP SCREEN OPERATOR, PER PULP SCREEN OPERATOR BLOOD IS FILTERED AND IRRADIATED BUT UNSURE IF BLOOD IS CMV SAFE-LAB TO VERIFY BLOOD STATUS AND CALL BACK TO FLOOR. PRIMARY RN NEDRA AND ALVARADO SCHULZ BOTH MADE AWARE WELL DR HOWARD.
--- NOTE | 2023-02-16 07:15 | NUR ---
REPORT FROM FAN AND FROILAN, PT RESTING WITH CALL LIGHT IN REACH, BLOOD ON ORDER FOR CMV. AWARE OF WAIT.
[2023-02-16 08:38] LABS: CALCIUM 8.2 mg/dL (8.5-10.1)
--- NOTE | 2023-02-16 08:55 | NUR ---
left arm picc line flushed with ns, hard at first then pulsated flush and good blood return - abx started on pump. pt with right nare rhino rocket in place. sitting up at edge of bed, denies needs. aware of wait on blood, in room, call light in reach.
[2023-02-16 10:35] VITALS: BP 140/85
--- NOTE | 2023-02-16 11:57 | NUR ---
in room for vitals, left picc flushed with ns, blood return in both lumens, blood trsf started in red lumen, pt up in chair with rhino rocket in nose, r nare. call light in reach, at side - pt denies needs.
[2023-02-16 14:34] VITALS: BP 137/88
--- NOTE | 2023-02-16 15:00 | NUR ---
1 of 2 unit of blood finished and dt denies symptoms, vitals wnl, new tubing primed to 2/2 unit of prbc, vitals taken and wnl for 2nd unit and blood started per pump. pt feet elevated in chair - le leg edema noted, no changes in nose rhino rocket - left picc line was flushed inbetween units and heparin set in sl per protocol for hep lock. flushed with ns, good blood return both lumens and before blood started. pt denies needs.
--- NOTE | 2023-02-16 15:25 | NUR ---
pt up in , 15 min blood vitals complete for 2nd unit of blood. pt denies needs.
--- NOTE | 2023-02-16 16:02 | NUR ---
PATIENT UP IN ROOM. PATIENT S/P NOSE BLEED LAST NIGHT.PATIENT CONTIUES TO NEED BLOOD PRODUCTS. PATIENT WILL NEED TO BE MEDICALLY STABLE BEFORE HE IS DC'd HOME.
[2023-02-16 17:39] VITALS: BP 143/83
--- NOTE | 2023-02-16 18:10 | NUR ---
1 unit platelets started in picc- left arm. pt denies any c/o, up in chair with meal and call light. vitals wnl.
[2023-02-16 20:05] VITALS: BP 148/85
--- NOTE | 2023-02-16 20:47 | NUR ---
Dr Hoover called this unit, update on pt given. aware of labs to be drawn at 2100, 1hr afer plaletes completed. Pt concerned about his R nare Rhino pack, will keep on til am. Pt notified, agrees to it.
[2023-02-16 21:29] VITALS: BP 147/74
[2023-02-16 21:32] LABS: BASOPHILS 1.2 % (0-2); EOSINOPHILS 0.3 % (0-6); HEMOGLOBIN 9.1 g/dL (12.0-18.0); LYMPHOCYTES 44.8 % (24-44); MCH 29.5 (27-36); MCHC 35.1 g/dl (30-36); MCV 84.2 fl (81-99); MONOCYTES 3.4 % (0-12); NEUTROPHILS 50.3 % (39-80); RBC 3.09 M/ul (4.3-5.7); RDW 16.1 (10.5-15.0)
[2023-02-16 21:37] LABS: PLATELET COUNT 14 K/uL (140-440)
--- NOTE | 2023-02-16 21:39 | NUR ---
Pt transferred from chair to bed, IVF infusing. PICC line LAC sluggish, to draw. CBC drawn and sent to lab, plaletes results back 114. Pt on room air. R nare with Rhino pack in place. edema to hands and LE present, LE elevated, hob elevated to his comofrt. moist non productive cough present. medicated with Robitussin syrup given per cough and Tylenol per h/a.
--- NOTE | 2023-02-17 00:20 | NUR ---
VOIDED USING URINAL. NO C/O PAIN. PICC LINE HEPARIN LOCK AT THIS TIME. NO REQUESTS, WATCHING TV. CONTINUES ON NEUTROPENIC PRECAUTIONS
--- NOTE | 2023-02-17 02:29 | NUR ---
pt awake, watching tv. no c/o pain. R nare Rhino ROcket in place, pt has wiped scant amount of red drainage from outside corners of Rhino rocket. has voided QS.
[2023-02-17 06:07] VITALS: BP 134/83
--- NOTE | 2023-02-17 06:44 | NUR ---
Has slept very little this shift. no c/o pain. no c/o adverse reaction to IV abx. R nare Rhino Rocket in place with old shadowing at base. PICC line LAC patent. Has voided QS, uses call light, transfers self from chair to bed. Pleasant
--- NOTE | 2023-02-17 08:30 | NUR ---
IN FOR MORNING ROUNDING. PATIENT SITTING UP IN CHAIR, ALERT AND ORIENTED X4, NO ACUTE DISTRESS. PATIENT DENIES PAIN. RHINO ROCKET TO RIGHT NARE, NO KARL BLOOD NOTED, ONLY DRIED OLD BLOOD. PATIENT REQUESTING TO HAVE RHINO ROCKET REMOVED, DISCUSSED THAT PROVIDER WILL NEED TO SEE HIM AND DECIDE. PICC LINE ACCESSED, BLOOD REMOVED FOR SCHEDULED LABS, SALINE FLUSHED THEN HEP LOCKED, BOTH LINES ARE PATENT. PATIENT EXPRESSED THAT HE WANTS TO DISCHARGE HOME SOON POSSIBLE, ENCOURAGED PATIENT TO WAIT TO SEE WHAT DR. HOWARD HAS PLANNED FOR TODAY-PT RECEPTIVE. NO CURRENT NEEDS, PERSONAL SUPPLIES AND CALL LIGHT WITHIN REACH.
[2023-02-17 09:02] LABS: HEMOGLOBIN 8.8 g/dL (12.0-18.0); MCV 83.8 fl (81-99); RDW 15.8 (10.5-15.0)
[2023-02-17 09:04] LABS: BASOPHILS 1.3 % (0-2); EOSINOPHILS 0.1 % (0-6); HEMATOCRIT 24.7 % (35.0-50.0); LYMPHOCYTES 32.9 % (24-44); MCH 29.8 (27-36); MCHC 35.6 g/dl (30-36); MONOCYTES 0.3 % (0-12); NEUTROPHILS 65.4 % (39-80); RBC 2.94 M/ul (4.3-5.7)
[2023-02-17 09:05] VITALS: BP 145/82
[2023-02-17 09:06] LABS: PLATELET COUNT 13 K/uL (140-440)
[2023-02-17 09:19] LABS: ANION GAP 12.6 (7-21); BUN/CREATININE RATIO 12.08 (6.0-28.6); CALCIUM 8.3 mg/dL (8.5-10.1); CARBON DIOXIDE 25 mmol/L (21-32); CHLORIDE 104 mmol/L (98-107); CREATININE, SERUM 0.91 mg/dL (0.70-1.30); GLOMERULAR FILTRATION RATE,EST 111 mL/min (>60); POTASSIUM 3.6 mmol/L (3.5-5.1); UREA NITROGEN 11 mg/dL (7-18); VANCOMYCIN, TROUGH 24.7 ug/mL (5.0-20.0)
--- NOTE | 2023-02-17 14:01 | NUR ---
INTO START PATIENTS NEXT IV MEDICATION. FAMILY AT BEDSIDE. PATIENT UP AND IN THE CHAIR. PATIENT DENIES ANY OTHER CARES AT THIS TIME. WE DO NOT HAVE LABS BACK YET FOR VANCO. ONCE WE DO THAN MEDICATION WILL BE STARTED.
[2023-02-17 14:09] VITALS: BP 149/89
[2023-02-17 14:49] LABS: VANCOMYCIN, TROUGH 14.8 ug/mL (5.0-20.0)
--- NOTE | 2023-02-17 15:08 | NUR ---
PHARMACIST BROUGHT POONAM TO THIS NURSE. WILL GO AND GIVE IT.
--- NOTE | 2023-02-17 17:37 | NUR ---
PATIENT UP TO THE CHAIR HAVING DINNER. PT VANCO WAS DONE AND PICC FLUSHED. PATIENT DENIES ANY OTHER CARES AT THIS TIME.
[2023-02-17 18:21] VITALS: BP 143/90
[2023-02-17 19:24] LABS: ABO O; ANTIBODY SCREEN NEGATIVE; RH POSITIVE
[2023-02-17 20:29] VITALS: BP 150/84
--- NOTE | 2023-02-17 20:40 | NUR ---
walking in room, Back to bed, no c/o pain, alert and oriented, R nare Rhino Rocket in place, old drainage at base. staes just had a little bit red drainage earlier day shift, but it got wiped with the 2x2 pad, it was just a scant amount of color. Continue to observe for further nasal bleeding. dry lips, encouraged to use chapstock, lungs with exp whezze. edema to LE, R 1+, L 2+ pitting. elevated to his comfort. uses urinal, voiding dark yellow urine.
--- NOTE | 2023-02-17 21:40 | NUR ---
1 unit Plalets started, procedure explained. pt receptive
--- NOTE | 2023-02-17 22:35 | NUR ---
Plalets infusing, no s/s adverse reaction. no distress, resting.
--- NOTE | 2023-02-17 23:17 | NUR ---
2250 - 1 UNIT/366 CC OF PLALETES INFUSED, NO C/O ADVERSE REACTION. RESTING, EYES CLOSED, AWAKES EASILY.
--- NOTE | 2023-02-18 01:08 | NUR ---
c/o h/a. sitting edge of bed. medicated with Tylenol po
--- NOTE | 2023-02-18 02:14 | NUR ---
up in chair, no further c/o pain. picc line patent, cefepine and vancomycin iv started. tolerating liquids well. LE elevated, using urinal, no requests. light moist non productive cough present noted, will medicate with cough syrup
--- NOTE | 2023-02-18 02:20 | NUR ---
medicated with tessalon perles and robitussin cough syrup per c/o cough.
--- NOTE | 2023-02-18 04:30 | NUR ---
In chair, mando further c/o pain. abx infusing via PICC line, uses urinal, voiding QS dark yellow urine
[2023-02-18 06:21] VITALS: BP 136/85
--- NOTE | 2023-02-18 06:24 | NUR ---
has slep , hob elevated, LAC PICC line intact, received one unit of plalets earlier on shift, tolerated well, no c/o adverse s/sx to iv abx. no fevers this shift. voiding QS, tolerting fluids well, no emesis, medicated x1 mid shift per c/o h/a, effective. ambulated in room.
--- NOTE | 2023-02-18 07:21 | NUR ---
Got report from net repairer nurse.
--- NOTE | 2023-02-18 07:50 | NUR ---
INTO CHECK ON PATIENT THIS MORNING. PATIENT WAS IN THE BATHROOM WHEN ENTERING THE ROOM. PATIENT HAS IV ANTIBIOTICS RUNNING NOW. PICC LINE WNL, NO SWELLING, PAIN OR DISCOMFORT. FLUSHES. PATIENT HAS EDEMA IN LEGS AND ADVISED OF NEEDING TO ELEVATE THEM MUCH POSSIBLE TODAY. PATIENT GIVEN BREAKFAST WHEN IN ROOM. DENIES ANY CARES AT THIS TIME. PATIENT ON RA, DENIES PAIN. PATIENT HOPEFUL TO GO HOME TODAY.
--- NOTE | 2023-02-18 09:33 | NUR ---
Into check on patient and heparin lock PICC. Patient on phone with friend. Sitting at the edge of the bed. Denies any other cares at this time.
--- NOTE | 2023-02-18 09:53 | NUR ---
Blood drawn for patients labs. Sent do to lab.
[2023-02-18 09:59] LABS: HEMATOCRIT 26.5 % (35.0-50.0); HEMOGLOBIN 9.2 g/dL (12.0-18.0); MCHC 34.8 g/dl (30-36)
[2023-02-18 10:01] LABS: EOSINOPHILS 0.3 % (0-6); LYMPHOCYTES 27.4 % (24-44); MCH 29.7 (27-36); MCV 85.3 fl (81-99); MONOCYTES 5.9 % (0-12); NEUTROPHILS 66.4 % (39-80); RBC 3.11 M/ul (4.3-5.7); RDW 15.2 (10.5-15.0)
[2023-02-18 10:02] LABS: PLATELET COUNT 14 K/uL (140-440)
[2023-02-18 10:06] LABS: ANION GAP 11.7 (7-21); BUN/CREATININE RATIO 11.95 (6.0-28.6); CALCIUM 8.2 mg/dL (8.5-10.1); CREATININE, SERUM 0.92 mg/dL (0.70-1.30); POTASSIUM 3.7 mmol/L (3.5-5.1)
[2023-02-18 10:21] VITALS: BP 142/86
--- NOTE | 2023-02-18 11:40 | NUR ---
INTO CHECK ON PATIENT. PATIENT SITTING AT THE EDGE OF THE BED WATCHING TV. PATIENT REFUSES TO ELEVATE HIS LEGS. PATIENT REALLY WANTS DISCHARGE PAPERS WHEN I ASK IF THERE IS ANYTHING I CAN GET FOR HIM.
--- NOTE | 2023-02-18 12:09 | NUR ---
Rhinorocket was removed, patient tolerated well. No bleeding after. Patient moved to chair for lunch. PICC line is now SL.
--- NOTE | 2023-02-18 12:43 | NUR ---
PATIENT REQUESTING MORE COUGH SYRUP. FAMILY IN ROOM AT THIS TIME. PATIENT WALKING AROUND IN ROOM.
[2023-02-18 14:13] VITALS: BP 143/85
--- NOTE | 2023-02-18 14:21 | NUR ---
PATIENT AFTERNOON MEDICATIONS GOING IN PICCC LINE. PATIENT TALKING TO FRIEND IN THE ROOM. PATIENT UP IN THE CHAIR. DENIES ANY OTHER CARES AT THIS TIME.
--- NOTE | 2023-02-18 16:58 | NUR ---
PATIENT UP IN CHAIR FOR DINNER. PATIENT PLAYING ON HIS PHONE. PATIENT LIKES LIGHTS OFF AND CURTAINS CLOSED. PATIENT DENIES ANY CARES AT THIS TIME.
[2023-02-18 17:16] VITALS: BP 134/87
--- NOTE | 2023-02-18 19:25 | NUR ---
BEDSIDE REPORT RECEIVED FROM OFFGOING RNLEANN. PT SITTING UP IN CHAIR ON CELLPHONE. DENIES NEEDS. CALL LIGHT IN REACH.
[2023-02-18 20:09] VITALS: BP 150/93
--- NOTE | 2023-02-18 20:30 | NUR ---
PT ASSESSMENT COMPLETE. PT SITTING UP IN CHAIR WATCHING TV. PT REPORTS PAIN, HEADACHE, RATES 4-5/10. PRN ADMINISTERED, SEE EMAR. PT DENIES NAUSEA OR SOB. PT WITH DRY NON PRODUCTIVE COUGH THROUGHOUT ASSESSMENT. LUNG SOUNDS CLEAR THROUGHOUT. SA02 97% ON RA. PRN ADMINISTERED, SEE EMAR. PIC LINE WITH GOOD BLOOD RETURN IN BOTH LUMENS, FLUSHED WITH 10 ML NS. PATENT, SLUGGISH. SCHEDULED MEDICATION INITIATED. BLE WITH EDEMA, 2+ TO LLE, 1+ TO RLE. PT DENIES FURTHER NEEDS AT THIS TIME. CALL LIGHT IN REACH.
--- NOTE | 2023-02-18 22:23 | NUR ---
PT ROUNDING. PT RESTING IN BED WATCHING TV. DENIES NEEDS AT THIS TIME. CALL LIGHT IN REACH.
--- NOTE | 2023-02-18 23:54 | NUR ---
PT ROUNDING. PT RESTING IN BED WITH EYES CLOSED. RESPIRATIONS EVEN AND UNLBAORED. PT DOES NOT WAKE WHILE INDUSTRIAL X RAY OPERATOR AT BEDSIDE CHECKING IV PUMP. PT APPEARS TO BE SLEEPING. CALL LIGHT IN REACH.
--- NOTE | 2023-02-19 00:16 | NUR ---
RN SURGERY ICU AT BEDSIDE FOR IV INFUSION COMPLETION. PICC LINE FLUSED X2 LUMEN. HL X2. PT WAKES BRIEFLY. NO NEEDS STATED. CALL LIGHT IN REACH.
--- NOTE | 2023-02-19 02:00 | NUR ---
PT ASSESSMENT COMPLETE. PT RESTING IN BED WITH EYES CLOSED. WAKES EASILY DURING ROUTINE CASEWORKER. DENIES PAIN OR NAUSEA. OCCASIONAL NONPRODUCTIVE COUGH PRESENT DURING ASSESSMENT. LUNG SOUNDS CLEAR THROUGHOUT. EDEMA TO BLE UNCHANGED FROM PREVIOUS. PICC FLUSHED WITH 10 ML NS X1 LUMEN PRIOR TO MEDICATION ADMIN. PT DENIES FURTHER NEEDS. STATES HE WILL GET UP TO BATHROOM, DECLINES ASSISTANCE. CALL LIGHT IN REACH.
--- NOTE | 2023-02-19 03:49 | NUR ---
PT ROUNDING. PT WAKES EASILY WHILE AGRICULTURE INSPECTOR AT BEDSIDE. URINAL EMPTIED. PT DENIES FURTHER NEEDS. CALL LIGHT IN REACH.
[2023-02-19 05:36] VITALS: BP 142/91
--- NOTE | 2023-02-19 05:40 | NUR ---
PT UTILIZES CALL LIGHT FOR IV PUMP ALARMING. PV DESIGN AND INSTALLATION TECHNICIAN TO ROOM. IV DISCONNECTED. PICC FLUSHED. GOOD BLOOD RETURN NOTED, PATENT. PT REPORTS 5/10 HEADACHE. PRN REQUESTED, ADMINISTERED, SEE EMAR. VS OBTAINED. WNL. PT DENIES FURTHER NEEDS. CALLLIGHT IN REACH.
--- NOTE | 2023-02-19 07:45 | NUR ---
PT UP IN THE CHAIR AT TIME OF SHIFT REPORT ALERT AND INTERACTIVE. DENIES DISCOMFORTS OR NEEDS STATES HE JUST WANTS TO GO HOME. CALL LIGHT AND NEEDED ITEMS IN REACH.
[2023-02-19 09:33] LABS: BASOPHILS, ABSOLUTE 0 %; EOSINOPHILS, ABSOLUTE 0; LYMPHOCYTES, ABSOLUTE 0.1; RDW 15.2 (10.5-15.0)
[2023-02-19 09:35] LABS: BASOPHILS 0.8 % (0-2); EOSINOPHILS 0.3 % (0-6); HEMATOCRIT 24.7 % (35.0-50.0); HEMOGLOBIN 8.6 g/dL (12.0-18.0); LYMPHOCYTES 27.8 % (24-44); MCH 29.7 (27-36); MCV 84.9 fl (81-99); MONOCYTES 5.9 % (0-12); MONOCYTES, ABSOLUTE 0; NEUTROPHILS 65.2 % (39-80); NEUTROPHILS, ABSOLUTE 0.2; RBC 2.91 M/ul (4.3-5.7)
[2023-02-19 09:38] LABS: PLATELET COUNT 12 K/uL (140-440)
--- NOTE | 2023-02-19 10:30 | NUR ---
PT REPORTS DR JIMENEZ WAS IN TO SEE HIM AND ANSWERED ALL QUESTIONS, HOPES TO DC TODAY. CONTINUES UP IN THE CHAIR, VISITORS HERE EARLIER. DENIES NEEDS AT THIS TIME
[2023-02-19 10:38] VITALS: BP 144/93
--- NOTE | 2023-02-19 12:35 | NUR ---
PT REMAINS UP IN THE CHAIR. DISCUSSED LE EDEMA WITH PT AND ENCOURAGED FEET UP TOLERATED AND AMBULATING THE HALLS EACH SHIFT. PT VERBALIZES UNDERSTANDING. PT VERBALIZES S/S OF BLOOD REACTION TO REPORT TO STAFF, PLATELETS STARTED. HERE TO VISIT
--- NOTE | 2023-02-19 12:52 | NUR ---
PLATELETS INFUSING WITHOUT S/S OF REACTION.
[2023-02-19 13:52] VITALS: BP 157/99
--- NOTE | 2023-02-19 14:48 | NUR ---
PT CONTINUES UP IN THE CHAIR WITHOUT S/S OF REACTION OR DISCOMFORT. PLATELETS COMPLETED ABX STARTED
--- NOTE | 2023-02-19 15:22 | NUR ---
PATIENT HAS BEEN HERE X 9 DAYS. HE IS ON A NEUTROPENIC/LOW MICROBIAL DIET. HIS APPETITE IS [employer], SOME DAYS HE EATS 100% OF MEALS, OTHER DAYS MAYBE 25% OF A MEAL. HE DOES NOT LIKE MUSHROOMS BUT LIKES THE GRAVY. OTHERWISE HIS DIET IS LIKE A REGULAR DIET EXCEPT CERTAIN PERSONAL CHOICE ITEMS MAY NEED TO BE COOKED THROUGH FOR DIET COMPLIANCE. HE IS HOPING TO GO HOME SOON. WILL CONTINUE TO MONITOR.
--- NOTE | 2023-02-19 16:24 | NUR ---
BLOOD PULLED FROM PICC LINE AND SENT TO LAB.
[2023-02-19 16:35] LABS: BASOPHILS 0.7 % (0-2); EOSINOPHILS 0.8 % (0-6); HEMOGLOBIN 8.6 g/dL (12.0-18.0); LYMPHOCYTES 32.3 % (24-44); MCH 29.5 (27-36); MCHC 35.6 g/dl (30-36); MCV 82.8 fl (81-99); MONOCYTES 5.7 % (0-12); NEUTROPHILS 60.5 % (39-80); RDW 14.8 (10.5-15.0)
[2023-02-19 16:38] LABS: PLATELET COUNT 15 K/uL (140-440)
[2023-02-19 17:46] VITALS: BP 151/99
--- NOTE | 2023-02-19 19:00 | NUR ---
BEDSIDE REPORT RECEIVED FROM OFFGOING RNSTEPHANIE. PT UP TO BATHROOM. FAMILY PRESENT IN ROOM. DENIES NEEDS. CALL LIGHT IN REACH.
[2023-02-19 20:09] VITALS: BP 145/83
--- NOTE | 2023-02-19 20:24 | NUR ---
PT ASSESSMENT COMPLETE. PT SITTING UP IN CHAIR. DENIES PAIN, NAUSEA, OR SOB. NO COUGH NOTED DURING ASSESSMENT. LUNGS CLEAR THROUGHOUT. BLE EDEMA CONTINUES, UNCHANGED. PICC LINE FLUSHED WITH 10 ML NS TO PURPLE LUMEN, GOOD BLOOD RETURN NOTED. IV ABX INTIATED. VS OBTAINED, WNL. PT DENIES NEEDS AT THIS TIME. CALL LIGHT IN REACH.
--- NOTE | 2023-02-19 22:42 | NUR ---
PT ROUNDING. PT RESTING IN BED WITH EYES CLOSED, SNORING AUDIBLY FROM DOORWAY. CALL LIGHT IN REACH.
--- NOTE | 2023-02-20 01:22 | NUR ---
PT ROUNDING. PT RESTING IN BED WITH EYES CLOSED. WAKES BRIEFLY WHILE OVEN ROASTER AT BEDSIDE. PICC LINE SL. URINAL EMPTIED. PT DOES NOT EXPRESS NEEDS AT THIS TIME. CALL LIGHT IN REACH.
--- NOTE | 2023-02-20 01:58 | NUR ---
PT ASSESSMENT COMPLETE. PT RESTING WITH EYES CLOSED. WAKES EASILY WHILE PAPER BAG MACHINE OPERATOR INITIATES SCHEDULED IV MEDICATIONS. PT DENIES PAIN, NAUSEA, OR SOB. PT WITH COUGH X1 DURING ASSESSMENT. LUNG SOUNDS CLEAR THROUGHOUT. BLE EDEMA UNCHANGED FROM PREVIOUS. PIC LINE FLUSHED WITH 10 ML NS X1 LUMEN PRIOR TO ABX INFUSION. GOOD BLOOD RETURN NOTED. OTHER LUMEN REMAINS HEP LOCKED. PT REQUESTS ORANGE JUICE, PROVIDED. DENIES FURTHER NEEDS AT THIS TIME. CALL LIGHT IN REACH.
[2023-02-20 05:17] VITALS: BP 136/82
[2023-02-20 05:17] LABS: BASOPHILS 0.8 % (0-2); BASOPHILS, ABSOLUTE 0 %; EOSINOPHILS, ABSOLUTE 0; HEMOGLOBIN 8.1 g/dL (12.0-18.0); LYMPHOCYTES, ABSOLUTE 0.1; MCH 29.3 (27-36); MONOCYTES, ABSOLUTE 0; NEUTROPHILS, ABSOLUTE 0.3; RBC 2.75 M/ul (4.3-5.7)
[2023-02-20 05:19] LABS: EOSINOPHILS 0.1 % (0-6); HEMATOCRIT 22.8 % (35.0-50.0); LYMPHOCYTES 32.9 % (24-44); MCHC 35.4 g/dl (30-36); MCV 82.9 fl (81-99); MONOCYTES 6.5 % (0-12); NEUTROPHILS 59.7 % (39-80); RDW 15.3 (10.5-15.0)
[2023-02-20 05:22] LABS: PLATELET COUNT 14 K/uL (140-440)
--- NOTE | 2023-02-20 07:17 | NUR ---
PT UP IN THE CHAIR ALERT AND INTERACTIVE AT TIME OF SHIFT REPORT. C/O HEADACHE, TYLENOL ADMINISTERED. FRESH H20 AND NEEDED ITEMS AT CHAIRSIDE.
--- NOTE | 2023-02-20 08:46 | NUR ---
PT CONTINUES UP IN THE CHAIR WITH MORNING MEAL, AGREES TYLENOL WAS EFFECTIVE FOR HIS HEADACHE. ENCOURAGED PT TO AMBULATE THE HALLS THIS SHIFT AND ELEVATE LE TOELRATED. UNDERSTANDING VERBALIZED
[2023-02-20 10:36] VITALS: BP 147/97
--- NOTE | 2023-02-20 11:24 | NUR ---
DR JIMENEZ IN TO SEE PT. PT REPORTS DR JIMENEZ WILL CALL DR CHA R/T BLOOD COUNT GOALS FOR DC. PT DENIES QUESTIONS, DISCOMFORTS, OR CONCERNS
[2023-02-20 13:10] VITALS: BP 151/85
--- NOTE | 2023-02-20 13:39 | NUR ---
PT CONTINUES UP IN THE CHAIR NOON MEAL WELL TOLERATED. DR JIMENEZ IN TO DISCUSS DC PLANS AND AFTER CARE WITH HIM. QUESTIONS ASKED AND ANSWERED.
[2023-02-20] MEDS ORDERED: CLINDAMYCI600 MG/51 IV (15:08)
== END 2023-02-20 15:00 | disposition home or self-care (01) | DRG 809 ==
LOC: ED 09:03 → MS 11:50
PROVIDERS: Family Medicine; Internal Medicine; ADMIT Family Medicine; ATTEND Family Medicine
PROC: 30233N1 Transfusion of Nonautologous Red Blood Cells into Peripheral Vein, Percutaneous Approach (ICD-10-PCS; principal; 2023-02-10)
PROC: 30233R1 Transfusion of Nonautologous Platelets into Peripheral Vein, Percutaneous Approach (ICD-10-PCS; 2023-02-10)
PROC: 02PYX3Z Removal of Infusion Device from Great Vessel, External Approach (ICD-10-PCS; 2023-02-13)
PROC: 02HV33Z Insertion of Infusion Device into Superior Vena Cava, Percutaneous Approach (ICD-10-PCS; 2023-02-13)
DX: D70.9 Neutropenia, unspecified (principal); C92.00 Acute myeloblastic leukemia, not having achieved remission; T80.211A Bloodstream infection due to central venous catheter, initial encounter; R78.81 Bacteremia; Z68.41 Body mass index [BMI] 40.0-44.9, adult; R50.81 Fever presenting with conditions classified elsewhere; E87.6 Hypokalemia; D61.818 Other pancytopenia; R04.0 Epistaxis; R73.9 Hyperglycemia, unspecified; Y83.8 Other surgical procedures as the cause of abnormal reaction of the patient, or of later complication, without mention of misadventure at the time of the procedure; B95.4 Other streptococcus as the cause of diseases classified elsewhere; E66.01 Morbid (severe) obesity due to excess calories; Z88.8 Allergy status to other drugs, medicaments and biological substances; Z88.1 Allergy status to other antibiotic agents; Z79.2 Long term (current) use of antibiotics; Z79.899 Other long term (current) drug therapy; Z11.52 Encounter for screening for COVID-19
CPT/HCPCS: 36415; 36569; 71045; 80048; 80053; 80202; 81001; 83036; 83605; 85025; 85060; 85610; 86850; 86900; 86901; 86922; 87040; 87070; 87075; 87077; 87186; 87205; 87502; 94760; A9270; C1751; J0692; J2997; J3370; J3480; J3490; J7030; J7060; P9016; P9035; U0002

== ENCOUNTER 2023-04-14 14:07 | Emergency (ER) | payer OTHER ==
[~2023-04-14] VITALS: Ht 182.9 cm; Wt 141.4 kg
[~2023-04-14 14:07] MED LIST changes: +CLINDAMYCI600 MG/51 IV
--- OUTSIDE RECORDS SUMMARY | 2023-04-14 14:15 | XMS ---
PreManage Notification: DEONTE DAVID Security Surgical Elastic Knitter Hand Frame Events No recent Security Events currently on file CRITERIA MET - 6 ED Visits in 6 Months CARE PROVIDERS -Radha- Dentist: Mastic Worker [facility] PHONE: [phone] Ray has no Care Guidelines for this patient. Shen VISIT COUNT (12 MO.) [address] [facility] TOTAL 11 NOTE: Visits indicate total known visits. ED/UCC VISIT TRACKING (12 MO.) 04/14/2023 14:08 [facility] TYPE: Emergency COMPLAINT: - FLU SYMPTOMS 02/10/2023 09:03 [facility] TYPE: Emergency COMPLAINT: - FEVER 02/04/2023 20:25 [facility] TYPE: Emergency COMPLAINT: - FEVER DIAGNOSES: - Acute myeloblastic leukemia, not having achieved remission - Adverse effect of antineoplastic and immunosuppressive drugs, initial encounter - Agranulocytosis secondary to cancer chemotherapy - Allergy status to other antibiotic agents - Contact with and (suspected) exposure to COVID-19 - Encounter for screening for COVID-19 - Fever, unspecified - Other fatigue - Other group home (current) drug therapy - Thrombocytopenia, unspecified 02/04/2023 11:48 [facility] TYPE: Emergency COMPLAINT: - WEAKNESS DIAGNOSES: - Adverse effect of antineoplastic and immunosuppressive drugs, initial encounter - Allergy status to penicillin - Morbid (severe) obesity due to excess calories - Other intermediate manager (current) drug therapy - Other secondary thrombocytopenia - Weakness 01/03/2023 14:04 [facility] TYPE: Emergency COMPLAINT: - FEVER 11/29/2022 14:22 [facility] TYPE: Emergency COMPLAINT: - BLOODY NOSE DIAGNOSES: - Allergy status to other antibiotic agents - Allergy status to other drugs, medicaments and biological substances - Epistaxis - Morbid (severe) obesity due to excess calories - Other intermediate manager (current) drug therapy - Thrombocytopenia, unspecified 11/23/2022 17:02 [facility] TYPE: Emergency COMPLAINT: - WEAKNESS 09/18/2022 12:43 [facility] TYPE: Emergency COMPLAINT: - VOMITING BLOOD DIAGNOSES: - Anemia, unspecified - Hemoptysis - Morbid (severe) obesity due to excess calories - Other intermediate manager (current) drug therapy - Thrombocytosis, unspecified 09/09/2022 10:45 [facility] TYPE: Emergency COMPLAINT: - DIZZINESS DIAGNOSES: - Anemia, unspecified - Dizziness and giddiness - Morbid (severe) obesity due to excess calories - Other intermediate manager (current) drug therapy - Thrombocytopenia, unspecified - Weakness 09/03/2022 23:27 [facility] TYPE: Emergency COMPLAINT: - HEART RATE ISSUE 07/05/2022 22:50 [facility] TYPE: Emergency COMPLAINT: - COUGH DIAGNOSES: - Acute bronchitis, unspecified - Contact with and (suspected) exposure to COVID-19 - Cough, unspecified INPATIENT VISIT TRACKING (12 MO.) 02/10/2023 11:50 [facility] TYPE: Medical Surgical COMPLAINT: - NEUTROPENIC FEVER DIAGNOSES: - Acute myeloblastic leukemia, not having achieved remission - Acute myeloblastic leukemia, not having achieved remission - Allergy status to other antibiotic agents - Allergy status to other antibiotic agents - Allergy status to other drugs, medicaments and biological substances - Allergy status to other drugs, medicaments and biological substances - Bacteremia - Bacteremia - Bloodstream infection due to central venous catheter, initial encounter - Bloodstream infection due to central venous catheter, initial encounter - Body mass index [BMI] 40.0-44.9, adult - Body mass index [BMI] 40.0-44.9, adult - Encounter for screening for COVID-19 - Encounter for screening for COVID-19 - Epistaxis - Epistaxis - Fever presenting with conditions classified elsewhere - Fever presenting with conditions classified elsewhere - Fever, unspecified - Hyperglycemia, unspecified - Hyperglycemia, unspecified - Hypokalemia - Hypokalemia - superintendent container terminal (current) use of antibiotics - superintendent container terminal (current) use of antibiotics - Morbid (severe) obesity due to excess calories - Morbid (severe) obesity due to excess calories - Neutropenia, unspecified - Neutropenia, unspecified - Other intermediate manager (current) drug therapy - Other intermediate manager (current) drug therapy - Other pancytopenia - Other pancytopenia - Other streptococcus as the cause of diseases classified elsewhere - Other streptococcus as the cause of diseases classified elsewhere - Other surgical procedures as the cause of abnormal reaction of the patient, or of later complication, without mention of misadventure at the time of the procedure - Other surgical procedures as the cause of abnormal reaction of the patient, or of later complication, without mention of misadventure at the time of the procedure 01/26/2023 18:51 [facility] TYPE: Hematology DIAGNOSES: 16489. Acute myeloblastic leukemia, not having achieved remission [id number]. Acute myeloblastic leukemia, not having achieved remission 01/03/2023 14:05 [facility] TYPE: Observation COMPLAINT: - NEUTROPENIC FEVER DIAGNOSES: - Allergy status to other antibiotic agents - Contact with and (suspected) exposure to COVID-19 - Hypomagnesemia - Other group home (current) drug therapy - Other pancytopenia 12/22/2022 19:29 [facility] TYPE: Hematology DIAGNOSES: 35896. Acute myeloblastic leukemia, not having achieved remission [id number]. Acute myeloblastic leukemia, not having achieved remission 11/23/2022 18:[address] [facility] [...] axilla - Furuncle of left axilla - long-term (current) use of antibiotics - superintendent container terminal (current) use of antibiotics - superintendent container terminal (current) use of inhaled steroids - superintendent container terminal (current) use of inhaled steroids - Morbid (severe) obesity due to excess calories - Morbid (severe) obesity due to excess calories - Neutropenia, unspecified - Nicotine dependence, unspecified, uncomplicated - Nicotine dependence, unspecified, uncomplicated - Other group home (current) drug therapy - Other intermediate manager (current) drug therapy - Other pancytopenia - Other secondary thrombocytopenia - Personal history of antineoplastic chemotherapy - Personal history of antineoplastic chemotherapy - Personal history of other diseases of the digestive system - Personal history of other diseases of the digestive system - Thrombocytopenia, unspecified - Tinea unguium - Tinea unguium 11/07/2022 17:35 [facility] TYPE: Hematology DIAGNOSES: [id number]. Acute myeloblastic leukemia, not having achieved remission [id number]. Acute myeloblastic leukemia, not having achieved remission 09/22/2022 17:44 [facility] TYPE: Hematology DIAGNOSES: [id number]. Acute myeloblastic leukemia, not having achieved remission [id number]. Acute myeloblastic leukemia, not having achieved remission [...] Hyperglycemia, unspecified - Hypokalemia - Hypokalemia - long-term (current) use of inhaled steroids - long-term (current) use of inhaled steroids - Nicotine dependence, unspecified, uncomplicated - Nicotine dependence, unspecified, uncomplicated - Other intermediate manager (current) drug therapy - Other group home (current) drug therapy - Other secondary thrombocytopenia - Other secondary thrombocytopenia - Palpitations - Thrombocytopenia, unspecified [email or web address]
[2023-04-14 15:26] LABS: BASOPHILS 0.4 % (0-2); EOSINOPHILS 1.2 % (0-6); HEMATOCRIT 35.8 % (35.0-50.0); HEMOGLOBIN 12.3 g/dL (12.0-18.0); LYMPHOCYTES 17.2 % (24-44); MCH 31.5 (27-36); MCHC 34.5 g/dl (30-36); MCV 91.3 fl (81-99); MONOCYTES 30.3 % (0-12); NEUTROPHILS 50.9 % (39-80); PLATELET COUNT 135 K/uL (140-440); RBC 3.92 M/ul (4.3-5.7); RDW 17.4 (10.5-15.0)
[2023-04-14 15:45] LABS: ALBUMIN 3.5 g/dL (3.4-5.0); ALBUMIN/GLOBULIN RATIO 0.9 (1.1-2.4); ANION GAP 12.5 (7-21); BILIRUBIN, TOTAL 0.6 ng/dL (0.2-1.0); BUN/CREATININE RATIO 7.96 (6.0-28.6); CALCIUM 8.5 mg/dL (8.5-10.1); CREATININE, SERUM 1.13 mg/dL (0.70-1.30); POTASSIUM 3.5 mmol/L (3.5-5.1); PROTEIN, TOTAL 7.4 g/dL (6.4-8.2)
[2023-04-14 15:57] LABS: INFLUENZA B NAA NEGATIVE (NEGATIVE); RESPIRATORY SYNCYTIAL VIR NAA NEGATIVE (NEGATIVE)
[2023-04-14 16:55] LABS: BILIRUBIN, URINE POSITIVE (negative); BLOOD/HGB, URINE TRACE-I (Negative); KETONE, URINE TRACE (Negative); LEUK ESTERASE, URINE NEGATIVE (negative); NITRITE, URINE NEGATIVE (negative); PH, URINE 5.5 (5-7)
[2023-04-14 17:04] LABS: BACTERIA, URINE NONE SEEN /hpf (negative); CASTS, URINE NONE SEEN \\lpf; COLLECTION TYPE, URINE CLEAN CATCH; CRYSTALS, URINE NONE SEEN (0-1+); EPITHELIAL CELLS, URINE SQUAMOUS 1+ /lpf (0-1+); REFLEX CULTURE, URINE No (No); WHITE BLOOD CELLS, URINE 0-1 /HPF (0-5)
[2023-04-14 17:53] VITALS: BP 134/80
== END 2023-04-14 17:53 | disposition home or self-care (01) ==
LOC: ED 14:07
PROVIDERS: Emergency Medicine
DX: U07.1 COVID-19 (principal); E66.01 Morbid (severe) obesity due to excess calories; Z68.41 Body mass index [BMI] 40.0-44.9, adult; Z88.0 Allergy status to penicillin; Z88.1 Allergy status to other antibiotic agents; Z79.899 Other long term (current) drug therapy
CPT/HCPCS: 36415; 71045; 80053; 81001; 83605; 85025; 85060; 87040; 87502; 96360; 99283-25; C9803; J7030; U0002